=== PATIENT | male | born 1940 | race Caucasian/White ===

== ENCOUNTER → 2017-05-08 | Outpatient (CLI) | payer MEDICARE, OTHER ==
[2017-04-02 15:04] VITALS: BP 169/63
[~2017-05-08] MED LIST: AMLO10TA2 PO; ASPI-482 PO; ATOR40TA59 PO; CHOL10002 PO; CHOL10003 PO; CLON0.1T PO; CLOP75TA PO; DOXA4TAB3 PO; EPOE10005 IJ; FOLI1CAP11 PO; FURO-68 PO; FURO80TA3 PO; GLIP5POW MC; GLIP5TAB10 PO; HUM100VI5 SQ; HYDR-2867 PO; HYDR-2868 PO; HYDR-2869 PO; LOSA50TA6 PO; PARI1CAP PO; SITA25TA PO; TRAZ100T12 PO
--- NOTE | 2017-05-08 11:51 | RAD ---
APPROVED REPORT Patient Location: OUT-PATIENT Indications Claudication:Bilaterally VELOCITY AND DOPPLER WAVEFORM ANALYSIS RIGHT cm/secWaveformSeverity LEFT c m/secWaveformSeverity Ext Iliac Art. 187.0TriphasicExt Iliac Art. 179.0Biphasic pCFA 187.0BiphasicpCFA 145.0Biphasic dCFA 189.0BiphasicdCFA 145.0Biphasic Prof Fem Art. 196.0BiphasicProf Fem Art. 97.0Biphasic Fem Art Prox. 219.0TriphasicFem Art Prox. 202.0Biphasic Fem Art Mid. 212.0TriphasicFem Art Mid. 183.0Biphasic Fem Art Dist. 143.0TriphasicFem Art Dist. 149.0Triphasic Pop Art(AK) 143.0TriphasicPop Art(AK) 135.0Biphasic Pop Art(BK) 122.0TriphasicPop Art(BK) 142.0Biphasic [employer] Prox. 113.0MonophasicPTA Prox. 115.0Triphasi c [employer]PER[employer]OR Dist. 115.0MonophasicPTA Dist. 124.0Monophas ic Per Art Mid. Per Art Mid. 73.0Biphasic MERY Prox. 92.0BiphasicATA Prox. 79.0Biphasic Image Findings The bilateral lower extremity arterial vessels were evaluated for obstructive disease on lazaro scale i mages and color Doppler as well as spectral waveforms. On the right there are elevated velocities in the inflow vessels suggestive of approximately less augusta n 50% stenosis. The proximal to mid SFA velocities are suggestive of approximately 50% stenosis. No h igh-grade stenosis is identified in the popliteal system. The posterior tibial and anterior tibial ve locities are within normal limits. The peroneal vessels were not visualized. There is 2 vessel runoff on the right side. Spectral images are suggestive of biphasic waveforms throughout right lower extre mity arterial tree. On the left side there are again mild elevation velocities in the inflow vessels at the external alba c and common femoral artery levels. There is again a 50% stenosis based on velocities in the proximal to mid SFA. There is three-vessel runoff below the knees without any significant obstructive disease . Spectral waveforms are biphasic above the knee and monophasic below the knee. Critical Notification Critical Value: No <Conclusion> 1. Mild to moderate bilateral right greater than left occiput and mid superficial femoral arterial sy stem disease 2. Mild to moderate diffuse atherosclerosis throughout the lower extremity arterial tree. 3. Two-vessel runoff on the right and 3 vessel runoff on the left below the knee.
== END | disposition home or self-care (01) ==
LOC: US 07:46
PROVIDERS: ATTEND Internal Medicine Cardiovascular Disease
DX: I73.9 Peripheral vascular disease, unspecified (principal)
CPT/HCPCS: 93925

== ENCOUNTER 2017-09-23 09:32 | Emergency (ER) | payer MEDICARE, OTHER ==
[2017-09-23 10:33] LABS: ADD MAN DIFF? NO
[2017-09-23 10:37] LABS: BASO # 0.1 x10^3/uL (0.0-0.2); BASO % 1 % (0-3); EOS # 0.1 x10^3/uL (0.0-0.7); EOS % 1 % (0-3); HEMATOCRIT 27.4 % (39.0-53.0); HEMOGLOBIN 9.5 g/dL (13.0-17.5); LYMPH # 0.8 x10^3/uL (1.0-4.8); LYMPH % 16 % (24-48); MEAN CORPUSCULAR HEMOGLOBIN 33 pg (25-35); MEAN CORPUSCULAR HGB CONC 35 g/dL (31-37); MEAN CORPUSCULAR VOLUME 95 fL (79-100); MONO # 0.6 x10^3/uL (0.0-1.1); MONO % 12 % (0-9); NEUT # 3.5 x10^3uL (1.8-7.7); NEUT % 70 % (31-73); PLATELET COUNT 127 x10^3/uL (140-400); RED CELL DISTRIBUTION WIDTH 12.7 % (11.5-14.5)
[2017-09-23 10:51] LABS: ANION GAP 11 (6-14); BLOOD UREA NITROGEN 48 mg/dL (8-26); CARBON DIOXIDE 29 mmol/L (21-32); CHLORIDE 101 mmol/L (98-107); CREATININE 7.5 mg/dL (0.7-1.3); GFR 7.1; GLUCOSE 211 mg/dL (70-99); POTASSIUM 4.8 mmol/L (3.5-5.1); SODIUM 141 mmol/L (136-145)
[2017-09-23 10:56] LABS: ALBUMIN 3.6 g/dL (3.4-5.0); ALK PHOS 130 U/L (46-116); ALT (SGPT) 16 U/L (16-63); AST (SGOT) 11 U/L (15-37); DIRECT BILIRUBIN 0.1 mg/dL (0.0-0.2); LIPASE 123 U/L (73-393); TOTAL BILIRUBIN 0.4 mg/dL (0.2-1.0); TOTAL PROTEIN 6.2 g/dL (6.4-8.2)
[2017-09-23 10:57] LABS: TROPONINI 0.025 ng/mL (0.000-0.055)
[2017-09-23] MEDS: IV NORMAL SALINE 250ML 250 ML IV (11:27)
[2017-09-23] MEDS ORDERED: IV NORMAL SALINE 500ML BAG 500 ML IV (11:30)
== END 2017-09-23 15:21 | disposition home or self-care (01) ==
LOC: ER 09:32
DX: R42 Dizziness and giddiness (principal); I25.10 Atherosclerotic heart disease of native coronary artery without angina pectoris; N18.6 End stage renal disease; Z99.2 Dependence on renal dialysis; Z91.041 Radiographic dye allergy status; Z95.5 Presence of coronary angioplasty implant and graft
CPT/HCPCS: 36415; 71045; 80048; 80076; 83690; 84484; 85025; 93005; 96360; 99285-25; J7050

== ENCOUNTER 2017-10-19 14:22 | Inpatient (IN) | payer MEDICARE, OTHER ==
[2017-10-19] MEDS: NITROGLYCERIN SUBLINGUAL 0.4 MG BOTTLE OF 25. SL ×3 (14:55→17:58)
[2017-10-19] MEDS: ASPIRIN CHEWABLE 81 MG TABLET. PO (14:55)
[2017-10-19] MEDS: IV NORMAL SALINE 1000ML BAG 500 ML IV (14:55)
[2017-10-19 15:01] LABS: TROPONIN BY ISTAT 0.05 ng/ml (<0.08)
[2017-10-19 15:11] LABS: BASO % 0 % (0-3); EOS % 0 % (0-3); HEMATOCRIT 30.1 % (39.0-53.0); HEMOGLOBIN 10.2 g/dL (13.0-17.5); LYMPH # 0.3 x10^3/uL (1.0-4.8); LYMPH % 3 % (24-48); MEAN CORPUSCULAR HEMOGLOBIN 34 pg (25-35); MEAN CORPUSCULAR HGB CONC 34 g/dL (31-37); MEAN CORPUSCULAR VOLUME 99 fL (79-100); MONO # 0.1 x10^3/uL (0.0-1.1); MONO % 1 % (0-9); NEUT # 10.1 x10^3uL (1.8-7.7); NEUT % 96 % (31-73); PLATELET COUNT 170 x10^3/uL (140-400); RED BLOOD COUNT 3.04 x10^6/uL (4.30-5.70); RED CELL DISTRIBUTION WIDTH 14.2 % (11.5-14.5); WHITE BLOOD COUNT 10.5 x10^3/uL (4.0-11.0)
[2017-10-19 15:12] LABS: ADD MAN DIFF? YES
[2017-10-19 15:21] LABS: PROTHROMBIN TIME PATIENT 12.7 SEC (11.7-14.0)
[2017-10-19 15:25] LABS: D-DIMER 1.23 ug/mlFEU (0.00-0.50)
[2017-10-19] MEDS: dilTIAZem IV PUSH 25 MG/5 ML VIAL IVP ×2 (15:28→16:29)
[2017-10-19 15:31] LABS: ANION GAP 19 (6-14); BLOOD UREA NITROGEN 93 mg/dL (8-26); CALCIUM 8.7 mg/dL (8.5-10.1); CARBON DIOXIDE 20 mmol/L (21-32); CHLORIDE 95 mmol/L (98-107); CREATININE 11.6 mg/dL (0.7-1.3); GFR 4.3; SODIUM 134 mmol/L (136-145)
[2017-10-19 15:33] LABS: GLUCOSE 745 mg/dL (70-99)
[2017-10-19 15:34] LABS: POTASSIUM 6.6 mmol/L (3.5-5.1)
[2017-10-19] MEDS: CALCIUM GLUCONATE 1,000 MG/10 ML VIAL. IVP (16:01)
[2017-10-19] MEDS: MORPHINE SULFATE 4 MG/ML DISP.SYRIN. IV ×2 (16:02→18:00)
[2017-10-19] MEDS: INSULIN REGULAR 100 UNIT/ML 3ML VIAL. IV (16:07)
[2017-10-19] MEDS ORDERED: INSULIN REGULAR VIAL 150 UNIT in 0.9 % SODIUM CHLORIDE 150ML 150 ML IV (16:30)
[2017-10-19] MEDS ORDERED: ACETAMINOPHEN 325 MG TABLET. PO (16:30)
[2017-10-19] MEDS ORDERED: ONDANSETRON PF 4 MG/2 ML VIAL. IV (16:30)
[2017-10-19 16:55] LABS: MAGNESIUM 1.6 mg/dL (1.8-2.4)
[2017-10-19] MEDS: HEPARIN 25,000UTS/500ML PREMIX 500 ML IV (16:58)
[2017-10-19] MEDS: HEPARIN for IV BOLUS 10,000 UNIT/10 ML VIAL. IV (16:58)
[2017-10-19 16:59] LABS: PHOSPHORUS 3.3 mg/dL (2.6-4.7)
[2017-10-19] MEDS: INSULIN,REGULAR 150 UNIT DRIP 150 ML IV (17:00)
[2017-10-19 17:03] LABS: % BANDS 1 % (0-9); % LYMPHS 3 % (24-48); % MONOS 1 % (0-10); % SEGS 95 % (35-66)
[2017-10-19 17:04] LABS: PLT ESTIMATE ADEQUATE (ADEQUATE)
[2017-10-19 18:22] LABS: POC GLUCOSE 528 mg/dL (70-99)
[2017-10-19] MEDS: LABETALOL 20 MG/4 ML DISP.SYRIN. IVP (18:28)
[2017-10-19] MEDS ORDERED: IV NORMAL SALINE 1000ML BAG 1,000 ML IV ×2 (18:42)
[2017-10-19] MEDS ORDERED: DIALYSIS PATIENT. MC (18:45)
[2017-10-19] MEDS ORDERED: diphenhydrAMINE 50 MG/ML VIAL IV ×2 (18:45)
[2017-10-19] MEDS ORDERED: 0.9 % SODIUM CHLORIDE 10 ML DISP.SYRIN. IV ×2 (18:45)
[2017-10-19] MEDS ORDERED: NITROGLYCERIN PREMIX 250 ML IV (19:00)
[2017-10-19 19:41] LABS: POC GLUCOSE 445 mg/dL (70-99)
[2017-10-19 20:45] LABS: POC GLUCOSE 249 mg/dL (70-99)
[2017-10-19 21:09] LABS: UNFRACTIONATED HEPARIN TESTING 0.25 IU/mL (0.30-0.70)
[2017-10-19 21:53] LABS: POC GLUCOSE 164 mg/dL (70-99)
[2017-10-19 22:56] LABS: POC GLUCOSE 164 mg/dL (70-99)
[2017-10-20 00:04] LABS: ANION GAP 11 (6-14); BLOOD UREA NITROGEN 46 mg/dL (8-26); CALCIUM 8.7 mg/dL (8.5-10.1); CARBON DIOXIDE 31 mmol/L (21-32); CHLORIDE 97 mmol/L (98-107); CREATININE 6.1 mg/dL (0.7-1.3); GLUCOSE 152 mg/dL (70-99); MAGNESIUM 1.7 mg/dL (1.8-2.4); PHOSPHORUS 3.8 mg/dL (2.6-4.7); SODIUM 139 mmol/L (136-145)
[2017-10-20 00:05] LABS: POTASSIUM 4.1 mmol/L (3.5-5.1)
[2017-10-20 04:38] LABS: UNFRACTIONATED HEPARIN TESTING 0.27 IU/mL (0.30-0.70)
[2017-10-20] MEDS: LABETALOL 20 MG/4 ML DISP.SYRIN. IVP (04:38)
[2017-10-20 06:31] LABS: ANION GAP 13 (6-14); BLOOD UREA NITROGEN 53 mg/dL (8-26); CALCIUM 8.2 mg/dL (8.5-10.1); CARBON DIOXIDE 28 mmol/L (21-32); CHLORIDE 97 mmol/L (98-107); CREATININE 6.7 mg/dL (0.7-1.3); GFR 8.1; GLUCOSE 222 mg/dL (70-99); MAGNESIUM 1.6 mg/dL (1.8-2.4); PHOSPHORUS 6.1 mg/dL (2.6-4.7); POTASSIUM 4.9 mmol/L (3.5-5.1); SODIUM 138 mmol/L (136-145)
[2017-10-20 08:39] LABS: TROPONINI 17.664 ng/mL (0.000-0.055)
[2017-10-20] MEDS ORDERED: ASPIRIN ENTERIC COATED 325 MG TABLET.DR. PO (09:30)
[2017-10-20] MEDS: ANTI-COAG MONITOR BY PHARMACY. MC (09:47)
[2017-10-20 10:03] LABS: CHOLESTEROL 91 mg/dL (0-200); HDLC 48 mg/dL (40-60); LDLC 39 mg/dL (0-100); NON-HDL CHOLESTEROL 43 mg/dL (0-129); TRIGLYCERIDES 21 mg/dL (0-150); VLDLC 4 mg/dL (0-40)
[2017-10-20 10:04] LABS: CHOLESTEROL/HDL RATIO 1.9
[2017-10-20] MEDS: glipiZIDE 5 MG TABLET PO ×2 (11:30→11:42)
[2017-10-20] MEDS ORDERED: DEXTROSE 50% 25 GM / 50ML DISP.SYRIN. IV (11:45)
[2017-10-20] MEDS: FOLIC/VIT B COMP W-C (RENAL) TABLET. PO (11:53)
[2017-10-20] MEDS: DOXAZOSIN MESYLATE 4 MG TABLET. PO (11:53)
[2017-10-20] MEDS: ASPIRIN ENTERIC COATED 81 MG TABLET.DR. PO (11:53)
[2017-10-20] MEDS: MAGNESIUM SULFATE 1GM 100 ML IV (11:55)
[2017-10-20] MEDS: amLODIPine BESYLATE 10 MG TABLET PO (11:56)
[2017-10-20] MEDS: INSULIN NPH/REG INSULIN 70/30 300 UNITS/3 ML INSULN.PEN. SQ ×2 (12:00→16:05)
[2017-10-20] MEDS: CHOLECALCIFEROL (VITAMIN D3) 1,000 UNIT TABLET PO (12:00)
[2017-10-20 12:13] LABS: POC GLUCOSE 380 mg/dL (70-99)
[2017-10-20] MEDS ORDERED: methylPREDNISolone SOD SUCC PF 125 MG/2 ML VIAL. (12:50)
[2017-10-20] MEDS ORDERED: diphenhydrAMINE 50 MG/ML VIAL (12:50)
[2017-10-20] MEDS ORDERED: FAMOTIDINE 20 MG/2 ML VIAL (12:50)
[2017-10-20] MEDS: INSULIN LISPRO 300 UNITS/3 ML INSULN.PEN. SQ ×2 (12:57→16:08)
[2017-10-20] MEDS: IODIXANOL 320 MG/ML 100 ML VIAL. IART (13:00)
[2017-10-20] MEDS: diphenhydrAMINE 50 MG/ML VIAL IVP (13:00)
[2017-10-20] MEDS: methylPREDNISolone SOD SUCC PF 125 MG/2 ML VIAL. IV (13:00)
[2017-10-20] MEDS: FAMOTIDINE 20 MG/2 ML VIAL IVP (13:00)
[2017-10-20] MEDS ORDERED: CONTRAST GIVEN MC (13:15)
[2017-10-20] MEDS ORDERED: NITROGLYCERIN 200 MCG/2 ML SYRINGE FOR CATH/VASC LAB. (13:20)
[2017-10-20] MEDS ORDERED: VERAPAMIL 5 MG/2 ML VIAL. (13:20)
[2017-10-20] MEDS ORDERED: fentaNYL PF VIAL 100 MCG/2 ML VIAL (13:20)
[2017-10-20] MEDS ORDERED: MIDAZOLAM HCL/PF 2 MG/2 ML VIAL. (13:20)
[2017-10-20] MEDS ORDERED: HEPARIN for IV BOLUS 10,000 UNIT/10 ML VIAL. (13:20)
[2017-10-20] MEDS ORDERED: HYDRALAZINE HCL 25 MG PO (14:00)
[2017-10-20] MEDS ORDERED: IODIXANOL 320 MG/ML 100 ML VIAL. (14:01)
[2017-10-20] MEDS: NITROGLYCERIN 200 MCG/2 ML SYRINGE FOR CATH/VASC LAB. IART (14:02)
[2017-10-20] MEDS: VERAPAMIL 5 MG/2 ML VIAL. IART (14:02)
[2017-10-20] MEDS: LIDOCAINE 2% 20 ML VIAL. IJ (14:03)
[2017-10-20] MEDS: fentaNYL PF VIAL 100 MCG/2 ML VIAL IV (14:04)
[2017-10-20] MEDS: MIDAZOLAM HCL/PF 2 MG/2 ML VIAL. IV (14:04)
[2017-10-20] MEDS: HEPARIN for IV BOLUS 10,000 UNIT/10 ML VIAL. IART (14:08)
[2017-10-20 16:00] LABS: POC GLUCOSE 321 mg/dL (70-99)
[2017-10-20] MEDS: FUROSEMIDE 80 MG TABLET. PO (16:00)
[2017-10-20] MEDS: cloNIDine HCL 0.1 MG TABLET PO ×2 (16:01→22:15)
[2017-10-20 18:16] LABS: MRSA BY PCR Negative (Negative)
[2017-10-20 20:56] LABS: POC GLUCOSE 346 mg/dL (70-99)
[2017-10-20] MEDS: ATORVASTATIN CALCIUM 40 MG TABLET. PO (22:15)
[2017-10-21] MEDS ORDERED: IV NORMAL SALINE 1000ML BAG 1,000 ML IV ×2 (07:58)
[2017-10-21] MEDS ORDERED: DIALYSIS PATIENT. MC ×2 (08:00)
[2017-10-21] MEDS ORDERED: ASPIRIN ENTERIC COATED 81 MG TABLET.DR. PO ×2 (08:00→09:00)
[2017-10-21] MEDS: INSULIN NPH/REG INSULIN 70/30 300 UNITS/3 ML INSULN.PEN. SQ ×2 (08:00→18:10)
[2017-10-21 08:07] LABS: POC GLUCOSE 382 mg/dL (70-99)
[2017-10-21] MEDS: glipiZIDE 5 MG TABLET PO ×3 (08:13→17:17)
[2017-10-21] MEDS: INSULIN LISPRO 300 UNITS/3 ML INSULN.PEN. SQ ×3 (08:21→17:00)
[2017-10-21] MEDS: LABETALOL 20 MG/4 ML DISP.SYRIN. IVP (08:42)
[2017-10-21] MEDS: FOLIC/VIT B COMP W-C (RENAL) TABLET. PO (08:44)
[2017-10-21] MEDS ORDERED: ACETAMINOPHEN 325 MG TABLET. PO ×2 (08:45→13:30)
[2017-10-21] MEDS: ASPIRIN ENTERIC COATED 81 MG TABLET.DR. PO (08:45)
[2017-10-21] MEDS ORDERED: fentaNYL PF VIAL 100 MCG/2 ML VIAL IV (08:45)
[2017-10-21] MEDS: amLODIPine BESYLATE 10 MG TABLET PO (08:45)
[2017-10-21] MEDS: CHOLECALCIFEROL (VITAMIN D3) 1,000 UNIT TABLET PO (08:45)
[2017-10-21] MEDS ORDERED: ATROPINE 0.5 MG/5 ML DISP.SYRINGE. IV (08:45)
[2017-10-21] MEDS ORDERED: AMIODARONE 150 MG in IV DEXTROSE 5% 100 ML IV (08:45)
[2017-10-21] MEDS ORDERED: NITROGLYCERIN SUBLINGUAL 0.4 MG BOTTLE OF 25. SL (08:45)
[2017-10-21] MEDS ORDERED: 0.9 % SODIUM CHLORIDE 10 ML DISP.SYRIN. IV (08:45)
[2017-10-21] MEDS ORDERED: LIDOCAINE 2% 100 MG/5 ML SYRINGE. IV (08:45)
[2017-10-21] MEDS: DOXAZOSIN MESYLATE 4 MG TABLET. PO (09:00)
[2017-10-21] MEDS: cloNIDine HCL 0.1 MG TABLET PO ×3 (09:00→20:33)
[2017-10-21] MEDS: FUROSEMIDE 80 MG TABLET. PO ×2 (09:00→17:18)
[2017-10-21] MEDS ORDERED: amLODIPine BESYLATE 10 MG TABLET PO (09:00)
[2017-10-21] MEDS ORDERED: IODIXANOL 320 MG/ML 100 ML VIAL. (10:48)
[2017-10-21] MEDS ORDERED: LIDOCAINE 2% 20 ML VIAL. (10:49)
[2017-10-21] MEDS ORDERED: methylPREDNISolone SOD SUCC PF 125 MG/2 ML VIAL. (10:55)
[2017-10-21] MEDS ORDERED: FAMOTIDINE 20 MG/2 ML VIAL (10:55)
[2017-10-21] MEDS ORDERED: diphenhydrAMINE 50 MG/ML VIAL (10:55)
[2017-10-21] MEDS ORDERED: fentaNYL PF VIAL 100 MCG/2 ML VIAL (10:55)
[2017-10-21] MEDS ORDERED: MIDAZOLAM HCL/PF 2 MG/2 ML VIAL. (10:55)
[2017-10-21] MEDS ORDERED: BIVALIRUDIN 250 MG VIAL. IV (11:33)
[2017-10-21] MEDS ORDERED: NITROGLYCERIN 200 MCG/2 ML SYRINGE FOR CATH/VASC LAB. (12:13)
[2017-10-21] MEDS: LIDOCAINE 2% 20 ML VIAL. IJ (12:27)
[2017-10-21] MEDS: BIVALIRUDIN 250 MG VIAL. IV (12:28)
[2017-10-21] MEDS: IODIXANOL 320 MG/ML 100 ML VIAL. IART (12:28)
[2017-10-21] MEDS: methylPREDNISolone SOD SUCC PF 125 MG/2 ML VIAL. IV (12:28)
[2017-10-21] MEDS: NITROGLYCERIN 200 MCG/2 ML SYRINGE FOR CATH/VASC LAB. ICAR (12:29)
[2017-10-21] MEDS: MIDAZOLAM HCL/PF 2 MG/2 ML VIAL. IV (12:29)
[2017-10-21] MEDS: fentaNYL PF VIAL 100 MCG/2 ML VIAL IV (12:29)
[2017-10-21] MEDS: FAMOTIDINE 20 MG/2 ML VIAL IVP (12:30)
[2017-10-21] MEDS: ASPIRIN CHEWABLE 81 MG TABLET. PO (12:30)
[2017-10-21] MEDS: diphenhydrAMINE 50 MG/ML VIAL IVP (12:30)
[2017-10-21] MEDS: CLOPIDOGREL BISULFATE 75 MG TABLET PO (12:30)
[2017-10-21] MEDS ORDERED: CONTRAST GIVEN MC (12:45)
[2017-10-21 14:20] LABS: POC GLUCOSE 139 mg/dL (70-99)
[2017-10-21 17:30] LABS: POC GLUCOSE 264 mg/dL (70-99)
[2017-10-21] MEDS: ATORVASTATIN CALCIUM 40 MG TABLET. PO (20:32)
[2017-10-21 20:54] LABS: POC GLUCOSE 409 mg/dL (70-99)
[2017-10-22 00:24] LABS: POC GLUCOSE 360 mg/dL (70-99)
[2017-10-22 07:30] LABS: POC GLUCOSE 291 mg/dL (70-99)
[2017-10-22] MEDS: glipiZIDE 5 MG TABLET PO ×3 (08:51→16:30)
[2017-10-22] MEDS: FOLIC/VIT B COMP W-C (RENAL) TABLET. PO (08:51)
[2017-10-22] MEDS: CHOLECALCIFEROL (VITAMIN D3) 1,000 UNIT TABLET PO (08:51)
[2017-10-22] MEDS: ASPIRIN ENTERIC COATED 325 MG TABLET.DR. PO (08:51)
[2017-10-22] MEDS: cloNIDine HCL 0.1 MG TABLET PO ×2 (08:52→14:00)
[2017-10-22] MEDS: DOXAZOSIN MESYLATE 4 MG TABLET. PO (08:52)
[2017-10-22] MEDS: amLODIPine BESYLATE 10 MG TABLET PO (08:53)
[2017-10-22] MEDS: FUROSEMIDE 80 MG TABLET. PO ×2 (08:53→14:26)
[2017-10-22] MEDS: CLOPIDOGREL BISULFATE 75 MG TABLET PO (08:53)
[2017-10-22] MEDS: INSULIN NPH/REG INSULIN 70/30 300 UNITS/3 ML INSULN.PEN. SQ ×2 (08:58→17:00)
[2017-10-22] MEDS: INSULIN LISPRO 300 UNITS/3 ML INSULN.PEN. SQ ×3 (09:04→17:00)
[2017-10-22 11:40] LABS: POC GLUCOSE 188 mg/dL (70-99)
[2017-10-22 17:18] LABS: POC GLUCOSE 65 mg/dL (70-99)
[2017-10-22] MEDS: CARVEDILOL 3.125 MG TABLET. PO (18:15)
[2017-10-22 18:25] LABS: POC GLUCOSE 122 mg/dL (70-99)
== END 2017-10-22 19:00 | disposition home or self-care (01) | DRG 246 ==
LOC: ER 14:22 → 2 SOUTH 10-20 16:30 → 1 WEST ICU 16:00
PROVIDERS: Family Medicine
PROC: 027237Z Dilation of Coronary Artery, Three Arteries with Four or More Drug-eluting Intraluminal Devices, Percutaneous Approach (ICD-10-PCS; principal; 2017-10-19)
PROC: B2111ZZ Fluoroscopy of Multiple Coronary Arteries using Low Osmolar Contrast (ICD-10-PCS; 2017-10-20)
PROC: B2151ZZ Fluoroscopy of Left Heart using Low Osmolar Contrast (ICD-10-PCS; 2017-10-20)
PROC: 4A023N7 Measurement of Cardiac Sampling and Pressure, Left Heart, Percutaneous Approach (ICD-10-PCS; 2017-10-20)
DX: I21.4 Non-ST elevation (NSTEMI) myocardial infarction (principal); E11.10 Type 2 diabetes mellitus with ketoacidosis without coma; I13.2 Hypertensive heart and chronic kidney disease with heart failure and with stage 5 chronic kidney disease, or end stage renal disease; N18.6 End stage renal disease; I47.1 Supraventricular tachycardia; E11.22 Type 2 diabetes mellitus with diabetic chronic kidney disease; E11.51 Type 2 diabetes mellitus with diabetic peripheral angiopathy without gangrene; E78.5 Hyperlipidemia, unspecified; E87.5 Hyperkalemia; I25.10 Atherosclerotic heart disease of native coronary artery without angina pectoris; I48.91 Unspecified atrial fibrillation; I50.9 Heart failure, unspecified; Z86.010 Personal history of colon polyps; Z89.519 Acquired absence of unspecified leg below knee; Z91.041 Radiographic dye allergy status; Z99.2 Dependence on renal dialysis; K57.90 Diverticulosis of intestine, part unspecified, without perforation or abscess without bleeding; F41.9 Anxiety disorder, unspecified; M10.9 Gout, unspecified; M19.90 Unspecified osteoarthritis, unspecified site; E78.00 Pure hypercholesterolemia, unspecified; Z90.49 Acquired absence of other specified parts of digestive tract
CPT/HCPCS: 36415; 71045; 80048; 80061; 82962; 83735; 84100; 84484; 85007; 85025; 85379; 85520; 85610; 87641; 92928; 93005; 93306; 93454; 93458; 96361; 96365; 96368; 96375; 96376; 99152; 99153; 99285; 99285-25; C1713; C1725; C1769; C1771; C1892; G0269; J0583; J0610; J1200; J1644; J1815; J2250; J2270; J2930; J3010; J3475; J3490; J7030; S0028

== ENCOUNTER → 2018-01-25 | Outpatient (CLI) | payer MEDICARE, OTHER ==
[2017-12-11 10:46] VITALS: BP 96/58
[~2018-01-25] MED LIST changes: +ASCO500C9 PO; +CARV12.52 PO; +LIDO700A39 TP; +NITR0.4T22 SL; +TRAZ-85 PO; +TRAZ-86 PO; -TRAZ100T12 PO; +ZINC50TA29 PO
--- NOTE | 2018-01-25 12:10 | RAD ---
CT chest, abdomen and pelvis without IV contrast CLINICAL HISTORY: BACTEREMIA, NIGHT SWEAT. READI CAT DUE TO IODINE ALLERGIES. . COMPARISON: CT 09/18/2012, 11/17/2017 TECHNIQUE: CT of the chest, abdomen and pelvis without intravenous contrast. Oral contrast was administered. Coronal and sagittal reformatted images were generated. PQRS compliance statement - One or more of the following individualized dose reduction techniques were utilized for this study: 1. Automated exposure control 2. Adjustment of the mA and/or kV according to patient size 3. Use of iterative reconstruction technique FINDINGS: Lack of intravenous contrast limits evaluation for solid organs, vasculature, and lymph nodes. Motion artifact also limits evaluation of the upper abdomen. CHEST: The heart is mildly enlarged. Coronary artery calcifications are seen. Mild pericardial effusion, stable. Atherosclerotic calcifications of the aorta is seen. Enlargement of the pulmonary arterial trunk measuring 3.8 cm, possibly pulmonary arterial hypertension. An enlarged azygoesophageal lymph node measures 2.6 x 1.2 cm, stable. Additional prominent mediastinal lymph nodes are seen, not enlarged by size criteria. Evaluation for hilar lymphadenopathy is limited on this noncontrast exam. No axillary lymphadenopathy. Small to moderate bilateral pleural effusions seen, mildly increased bilaterally. No pneumothorax. Bilateral parenchymal airspace opacity seen on prior CT have mostly resolved. Residual bilateral lower lobe and lingular opacities likely from compressive type atelectasis given associated pleural effusions. ABDOMEN AND PELVIS: No focal liver lesion is seen. Layering gallstones are noted. No biliary ductal dilatation. Spleen is enlarged measuring 14.8 cm in length. A 2.1 cm right adrenal nodule is essentially stable to prior CT 09/18/2012. Left adrenal gland is normal. Pancreas is unremarkable. No definite renal calculus is identified. No suspicious renal mass. There is bilateral renal cortical medullary thinning suggesting atrophy. No hydronephrosis. Dense atherosclerotic calcifications of aorta and main branches is seen most prominent within the splenic artery. Aorta remains normal in caliber. The appendix is normal. Moderate colonic stool content. No small or large bowel dilatation. Prostate is enlarged. Partially decompressed bladder is otherwise unremarkable. No abdominal or pelvic lymphadenopathy. Small fat-containing periumbilical hernia. Chondrocalcinosis of the symphysis pubis. Decreased bone mineral density. Multilevel degenerative changes of the spine are seen. IMPRESSION: 1. Interval near resolution of the bilateral parenchymal airspace opacities. Residual lung base and lingular opacities likely atelectasis. 2. Bilateral pleural effusions are stable to borderline increased. 3. Prominent enlarged thoracic lymph nodes, stable in size. 4. Spleen is enlarged. 5. Cholelithiasis. 6. Enlarged prostate. Electronically signed by: Angel Stokes MD (01/25/2018 12:06 PM) [id number]
== END | disposition home or self-care (01) ==
LOC: CT 09:06
PROVIDERS: ATTEND Internal Medicine Infectious Disease
DX: J90 Pleural effusion, not elsewhere classified (principal); K80.20 Calculus of gallbladder without cholecystitis without obstruction; M85.38 Osteitis condensans, other site; K42.9 Umbilical hernia without obstruction or gangrene; I70.0 Atherosclerosis of aorta; N40.0 Benign prostatic hyperplasia without lower urinary tract symptoms; R16.1 Splenomegaly, not elsewhere classified; R59.0 Localized enlarged lymph nodes
CPT/HCPCS: 71250; 74176

== ENCOUNTER 2018-02-01 06:57 | Outpatient (CLI) | payer MEDICARE, OTHER ==
[2018-02-01] VITALS (11 sets, daily range): BP systolic 131–151; BP diastolic 69–110
[~2018-02-01] VITALS: Ht 185.4 cm; Wt 89.8 kg
[2018-02-01] MEDS ORDERED: IRON1CAP17 PO (07:30)
[2018-02-01] MEDS ORDERED: MELA3TAB2 PO (07:30)
[2018-02-01] MEDS ORDERED: CEPH500C PO (07:30)
[2018-02-01] MEDS ORDERED: FOLI0.8T21 PO (07:30)
[2018-02-01] MEDS ORDERED: DOXY100C2 PO (07:30)
[2018-02-01 07:35] LABS: BASO # 0.1 x10^3/uL (0.0-0.2); BASO % 1 % (0-3); EOS # 0.1 x10^3/uL (0.0-0.7); EOS % 1 % (0-3); HEMATOCRIT 33.7 % (39.0-53.0); HEMOGLOBIN 10.7 g/dL (13.0-17.5); LYMPH # 0.4 x10^3/uL (1.0-4.8); LYMPH % 5 % (24-48); MEAN CORPUSCULAR HEMOGLOBIN 30 pg (25-35); MEAN CORPUSCULAR HGB CONC 32 g/dL (31-37); MEAN CORPUSCULAR VOLUME 96 fL (79-100); MONO # 0.6 x10^3/uL (0.0-1.1); MONO % 7 % (0-9); NEUT # 6.5 x10^3uL (1.8-7.7); NEUT % 86 % (31-73); PLATELET COUNT 193 x10^3/uL (140-400); RED BLOOD COUNT 3.51 x10^6/uL (4.30-5.70); RED CELL DISTRIBUTION WIDTH 18.3 % (11.5-14.5); WHITE BLOOD COUNT 7.6 x10^3/uL (4.0-11.0)
[2018-02-01 07:43] LABS: PROTHROMBIN TIME PATIENT 15.5 SEC (11.7-14.0)
--- NOTE | 2018-02-01 10:33 | RAD ---
PORTABLE CHEST 1V History: POST THORACENTESIS Comparison: December 10, 2007 Findings: Single view of the chest is submitted. There is improved aeration left lung base. No pneumothorax is identified. Pericardial cardiac silhouette is again enlarged. There is persistent left base opacity likely due to the presence of pleural fluid with adjacent atelectasis or infiltrate. There is a fairly opaque nodular opacity mid left hemithorax, calcified granuloma as seen on previous CT of the left lower lobe. Impression: 1. There is improved aeration of the left hemithorax, decreased left pleural effusion. No pneumothorax is identified. Electronically signed by: Reid Thomas MD (02/01/2018 10:30 AM) [id number]
[2018-02-01 10:38] LABS: % BANDS 1 % (0-9); % LYMPHS 2 % (24-48); % MONOS 3 % (0-10); % SEGS 94 % (35-66); PLT ESTIMATE ADEQUATE (ADEQUATE)
--- NOTE | 2018-02-01 11:45 | RAD ---
Ultrasound-guided left-sided thoracentesis 02/01/2018 11:40 AM Indication: Bilateral pleural effusions. Possible infection. Procedure: Informed consent was obtained. A timeout procedure was performed. Sonographic evaluation of the left chest was performed demonstrating small bilateral pleural effusions. Right pleural effusion is simple in appearance. Left pleural effusion appears multiloculated. Given evaluation is for infection, the more complex fluid collection was chosen. The left posterior chest was prepped and draped in sterile fashion. 1% lidocaine without epinephrine was administered for local anesthesia. Real-time ultrasonographic guidance was used in passing a 5 [employer] catheter into the left pleural space. 100 cc of serous appearing pleural fluid was removed. Samples of fluid were sent to the lab for further evaluation per ordering physician request. The catheter was removed and pressure held to achieve hemostasis. A sterile dressing was applied. No immediate complications were identified. The patient tolerated the procedure well. Impression: Multiloculated appearing left pleural effusion. Left sided ultrasound-guided thoracentesis yielded only 100 cc of serous appearing fluid.
[2018-02-01 13:18] LABS: BF CLARITY HAZY; BF COLOR YELLOW; BF MON % 100 %; BF PMN % 0 %; BF RBC COUNT 2069 /cmm; BF SOURCE PLEURAL; BF WBC COUNT 153 /cmm
--- NOTE | 2018-02-01 17:29 | CARD ---
MR#: [id number] Date of Study: 02/01/2018 Ordering Physician: CASSIE PATEL, Referring Physician: CASSIE PATEL Tech: STELLA Templeton APPROVED REPORT EXAM: Two-dimensional and M-mode echocardiogram with Doppler and color Doppler. Other Information Quality : AverageHR: 105bpm Technically limited study due to body habitus. INDICATION Pericardial Effusion Dyspnea 2D DIMENSIONS RVDd3.5 (2.9-3.5cm)Left Atrium(2D)4.1 (1.6-4.0cm) IVSd1.4 (0.7-1.1cm)Aortic Root(2D)2.9 (2.0-3.7cm) LVDd3.5 (3.9-5.9cm)LVOT Diameter1.9 (1.8-2.4cm) PWd1.6 (0.7-1.1cm)LVDs3.2 (2.5-4.0cm) FS (%) 15.5 %SV10.1 ml LVEF(%)30.0 (>50%) Aortic Valve AoV Peak Tiburcio.110.0cm/sAoV VTI21.9cm AO Peak GR.4.8mmHgLVOT VTI 13.80cm AO Mean GR.3mmHg Mitral Valve MV E Peak Gr.80mmHg TDI Lateral E' P. V12.55cm/sMedial E' P. V11.74cm/s Pulmonary Valve PV Peak Pjstuksn279.2cm/s Tricuspid Valve TR P. [id number]/sRAP [id number] TR Peak Gr.71nwJwSHYK49pySp LEFT VENTRICLE The left ventricle cavity is small. There is mild to moderate concentric left ventricular hypertrophy . Unable to accurately predict LV systolic function. Technically difficult study but grossly EF appea rs 50%. Septal motion consistent with conduction abnormality. Otherwise, global hypokinesis. Tissue D oppler imaging reveals moderate left ventricular diastolic dysfunction. RIGHT VENTRICLE The right ventricle is borderline dilated. The right ventricular systolic function is normal. ATRIA The left atrium is mildly dilated. The right atrium size is normal. The interatrial septum is intact with no evidence for an atrial septal defect or patent foramen ovale as noted on 2-D or Doppler imagi ng. AORTIC VALVE The aortic valve is not well visualized. Doppler and Color Flow revealed no significant aortic regurg itation. There is no significant aortic valvular stenosis. There is no aortic valvular vegetation. MITRAL VALVE The mitral valve is normal in structure. There is no evidence of mitral valve prolapse. There is no m itral valve stenosis. Doppler and Color-flow revealed trace mitral regurgitation. TRICUSPID VALVE The tricuspid valve is not well visualized. Doppler and Color Flow revealed mild tricuspid regurgitat ion. The PA pressure was estimated at 38 mmHg. There is no tricuspid valve prolapse or vegetation. Th ere is no tricuspid valve stenosis. PULMONIC VALVE The pulmonic valve is not well visualized. Doppler and Color Flow revealed mild pulmonic valvular reg urgitation. There is no pulmonic valvular stenosis. GREAT VESSELS The aortic root is normal in size. The aortic root is normal size. The aortic root displays moderate sclerocalcific changes of the aortic root. The IVC is dilated and collapses <50% with inspiration. PERICARDIAL EFFUSION There is no pleural effusion. There is a trace circumferential pericardial effusion. Critical Notification Critical Value: No <Conclusion> Septal motion consistent with conduction abnormality. Otherwise, global hypokinesis. Doppler and Color Flow revealed mild tricuspid regurgitation. The PA pressure was estimated at 38 mm Hg. There is a trace circumferential pericardial effusion. Unable to accurately predict LV systolic function. Technically difficult study but grossly EF appears 50%. Signed by : Alex Hope, Electronically Approved : 02/01/2018 17:28:34
== END 2018-02-01 11:55 | disposition home or self-care (01) ==
LOC: INTRAD 06:57
PROVIDERS: ATTEND Internal Medicine Infectious Disease
DX: J90 Pleural effusion, not elsewhere classified (principal); I08.1 Rheumatic disorders of both mitral and tricuspid valves; I09.89 Other specified rheumatic heart diseases; Z91.041 Radiographic dye allergy status; I31.3 Pericardial effusion (noninflammatory)
CPT/HCPCS: 32555; 36415; 71045; 82945; 83615; 83986; 85007; 85025; 85610; 87071; 87075; 87116; 89050; 93306

== ENCOUNTER → 2018-10-27 | Day surgery (SDC) | payer MEDICARE, OTHER ==
[~2018-10-27] MED LIST changes: +ACETAMINOPHEN 500 MG TABLET PO ONE; -AMLO10TA2 PO; +AMLO10TA8 PO; +CALC-497 PO; +CARV12.511 PO; -CARV12.52 PO; +CEPH500C PO; +DEXAMETHASONE SOD PHOS 4 MG/ML VIAL ONE; +DOXA4TAB2 PO; +DOXY100C2 PO; +FOLI0.8T21 PO; +HEPARIN SODIUM 5,000 UNIT in IV NORMAL SALINE 500ML BAG 500 ML IRR ONE; +HYDROmorphone 2 MG/ML VIAL IV PRN; +INSU100I41 SQ; +INSULIN LISPRO 100 UNIT/ML 3ML VIAL. SQ PRN; +IRON1CAP17 PO; +IV NORMAL SALINE 1000ML BAG 1,000 ML IV SCH; +IV RINGERS,LACTATED 1000ML 1,000 ML IV SCH; +LIDOCAINE 1% 20 ML VIAL. ONE; +LIDOCAINE 1% PF 2 ML VIAL. ID PRN; +LIDOCAINE 2% PF 5 ML VIAL. ONE; +LOSA-73 PO; -LOSA50TA6 PO; +MELA3TAB2 PO; +METO25TA4 PO; +METO50TA6 PO; +MORPHINE SULFATE 2 MG/ML VIAL. IV PRN; +MULT1TAB52 PO; +ONDANSETRON PF 4 MG/2 ML VIAL. IV PRN; +ONDANSETRON PF 4 MG/2 ML VIAL. ONE; +PAPAVERINE 60 MG/2 ML VIAL FOR OR ONLY. ONE; +PHOSLO; +PROCHLORPERAZINE 10 MG/2 ML VIAL. IV PRN; +PROPOFOL 20 ML IV ONE; +SEVOFLURANE 31 TO 60 MINUTES. IH ONE; +SURGICEL FIBRILLAR 1X2 EACH. ONE; +TRAZ-118 PO; -TRAZ-85 PO; -ZINC50TA29 PO; +ZINC50TA39 PO; +ceFAZolin 2GM PREMIX 2 GM/50 ML BAG IV ONE; +fentaNYL PF VIAL 100 MCG/2 ML VIAL IV PRN; +fentaNYL PF VIAL 100 MCG/2 ML VIAL ONE
[2018-10-27 07:20] LABS: BASO # 0.1 x10^3/uL (0.0-0.2); BASO % 1 % (0-3); EOS # 0.1 x10^3/uL (0.0-0.7); EOS % 1 % (0-3); HEMATOCRIT 38.7 % (39.0-53.0); HEMOGLOBIN 13.5 g/dL (13.0-17.5); LYMPH # 1.1 x10^3/uL (1.0-4.8); LYMPH % 18 % (24-48); MEAN CORPUSCULAR HEMOGLOBIN 35 pg (25-35); MEAN CORPUSCULAR HGB CONC 35 g/dL (31-37); MEAN CORPUSCULAR VOLUME 102 fL (79-100); MONO # 0.8 x10^3/uL (0.0-1.1); MONO % 14 % (0-9); NEUT # 3.9 x10^3uL (1.8-7.7); NEUT % 66 % (31-73); PLATELET COUNT 148 x10^3/uL (140-400); RED BLOOD COUNT 3.82 x10^6/uL (4.30-5.70); RED CELL DISTRIBUTION WIDTH 14.9 % (11.5-14.5); WHITE BLOOD COUNT 5.9 x10^3/uL (4.0-11.0)
[2018-10-27 07:37] LABS: CALCIUM 9.6 mg/dL (8.5-10.1); CREATININE 8.4 mg/dL (0.7-1.3); GFR 6.2; POTASSIUM 5.4 mmol/L (3.5-5.1)
--- NOTE | 2018-10-27 08:40 | PDOC4 ---
OPERATIVE NOTE: 10/27/2018 Preoperative diagnosis: End-stage renal disease on hemodialysis Skin cancer of left upper extremity Postoperative diagnosis: Same Procedure: Wide local excision of left forearm skin cancer for a dimension of 2.5 x 2 cm with 1 cm margins Surgeon: Mary Jane Hickman DO, AURELIA, DONNA Preoperative indications: This is a very pleasant 78-year-old male who was referred to me for a forearm skin cancer. The skin cancer is directly overlying the patient's forearm AV fistula. I consented the patient for operative excision of his skin cancer with wide local excision. The risks, benefits, and alternati ves were discussed. He was agreeable to proceed. Ne Operative procedure: The patient was brought to the operative suite and placed supine position. After stenosing appropriate general anesthesia the patient's left upper extremity was prepped and draped in sterile fashion. Next a timeout procedure was performed. It was confirmed that the patient did receive appropriate perioperative antibiotics and the correct operative site was marked and draped. Following this 1% lidocaine was infiltrated surrounding the forearm skin cancer lesion. I also measured 1 cm margins surrounding the incision to plan an elliptical wide local resection. Next a #15 blade scalpel was used and carried through the skin a subcutaneous tissue circumferentially around the lesion. I did encounter the fistula and the deep tissue and this was carefully preserved without injury. The specimen was subsequently handed off the field and sent for permanent specimen. Next I mobilized the skin circumferentially and confirmed hemostasis with Bovie electrocautery. Following this the skin was closed using interrupted 3-0 nylon suture. Sterile dressing was socially placed. Patient tolerated procedure well and was transferred to the postanesthesia care unit in stable condition. Next Estimated blood loss: Minimal next Complications: None MARY JANE HICKMAN DO October 27, 2018 08:40
[2018-10-27 09:30] VITALS: BP 114/66
--- NOTE | 2018-10-29 15:06 | PATHOLOGY ---
[facility] Accession Number: [id number] . 01 Material submitted: . forearm - LEFT FOREARM SKIN EXCISION. Modifiers: left . 01 Clinical history: . Skin cancer . 02 Diagnosis: Skin and subcutaneous tissue, left forearm lesion, excision: - ULCERATED BASAL CELL CARCINOMA. SEE COMMENT. (JPM:db; 10/29/2018) [facility]/10/29/2018 . 02 Comment: Sections of the left forearm skin lesion reveal a large, focally ulcerated basal cell carcinoma. The deep and side inked margins of excision are generally free of neoplasm. However, in one of the sections of the tumor, there is focal tumor involvement of an inked coagulated side margin. (JPM/db; 10/29/2018) . 02 Electronically signed: . Johnathan Griffin MD, Pathologist NPI- [id number] . 01 Gross description: . The specimen is received in formalin, labeled "[place], left forearm". Received is an ellipse of skin measuring 3.8 x 2.4 x 0.7 cm in greatest dimensions. The epidermal surface displays a lesion which is poorly circumscribed, irregular in contour, and white to light jaramillo in appearance measuring 2.5 x 2.0 cm. The surgical margin is inked. The specimen is sectioned into 14 pieces and entirely submitted in cassettes A1 through A5, with the bisected tips placed in cassette A5. (CAA; 10/28/2018) QAC/QAC . 02 Pathologist provided ICD-10: C44.619 . 02 CPT . 502625 Specimen Comment: A courtesy copy of this report has been sent to Specimen Comment: [phone], . Specimen Comment: Report sent to / DR GARCIA Performed at: 01 [facility] [address], [place], [place] [id number] MD Fred Conteh MD Phone: [phone] Performed at: 02 [facility] [address] [place], [place] [id number] MD Johnathan Griffin MD Phone: [phone]
== END | disposition home or self-care (01) ==
LOC: SURG 06:12
PROVIDERS: ATTEND Surgery
DX: C44.619 Basal cell carcinoma of skin of left upper limb, including shoulder (principal); I12.0 Hypertensive chronic kidney disease with stage 5 chronic kidney disease or end stage renal disease; E11.22 Type 2 diabetes mellitus with diabetic chronic kidney disease; N18.6 End stage renal disease; E78.5 Hyperlipidemia, unspecified; Z79.899 Other long term (current) drug therapy; Z88.8 Allergy status to other drugs, medicaments and biological substances; Z79.82 Long term (current) use of aspirin; Z79.84 Long term (current) use of oral hypoglycemic drugs; Z99.2 Dependence on renal dialysis
CPT/HCPCS: 11603; 36415; 80048; 82962; 85025; 88305; A7015; J0690; J0696; J1100; J1644; J2001; J2405; J2704; J3010; J7040; J2440

== ENCOUNTER → 2019-02-09 | Outpatient (CLI) | payer MEDICARE, OTHER ==
[2018-10-27 09:30] VITALS: BP 114/66
[~2019-02-09] MED LIST changes: -ACETAMINOPHEN 500 MG TABLET PO ONE; -DEXAMETHASONE SOD PHOS 4 MG/ML VIAL ONE; -HEPARIN SODIUM 5,000 UNIT in IV NORMAL SALINE 500ML BAG 500 ML IRR ONE; -HYDROmorphone 2 MG/ML VIAL IV PRN; -INSULIN LISPRO 100 UNIT/ML 3ML VIAL. SQ PRN; -IV NORMAL SALINE 1000ML BAG 1,000 ML IV SCH; -IV RINGERS,LACTATED 1000ML 1,000 ML IV SCH; +LIDO700A21 TP; -LIDO700A39 TP; -LIDOCAINE 1% 20 ML VIAL. ONE; -LIDOCAINE 1% PF 2 ML VIAL. ID PRN; -LIDOCAINE 2% PF 5 ML VIAL. ONE; -MELA3TAB2 PO; +MELA3TAB56 PO; +MIDO5TAB PO; -MORPHINE SULFATE 2 MG/ML VIAL. IV PRN; -ONDANSETRON PF 4 MG/2 ML VIAL. IV PRN; -ONDANSETRON PF 4 MG/2 ML VIAL. ONE; -PAPAVERINE 60 MG/2 ML VIAL FOR OR ONLY. ONE; -PARI1CAP PO; +PARI1CAP17 PO; -PROCHLORPERAZINE 10 MG/2 ML VIAL. IV PRN; -PROPOFOL 20 ML IV ONE; -SEVOFLURANE 31 TO 60 MINUTES. IH ONE; -SURGICEL FIBRILLAR 1X2 EACH. ONE; +[UNRECOGNIZED DRUG - OTHER]; -ceFAZolin 2GM PREMIX 2 GM/50 ML BAG IV ONE; -fentaNYL PF VIAL 100 MCG/2 ML VIAL IV PRN; -fentaNYL PF VIAL 100 MCG/2 ML VIAL ONE
--- NOTE | 2019-02-09 19:33 | PAIN ---
DATE OF SERVICE: 02/09/2019 INITIAL CONSULTATION FOR PAIN CLINIC CHIEF COMPLAINT: Low back and bilateral lower extremity pain. HISTORY OF PRESENT ILLNESS: This is a 78-year-old male who presents with history of pain in the low back, occasionally radiating to the lower extremities, mostly it is in the back itself. The patient reports it is worse with standing longer than even 5-10 minutes, the pain can be worse to the point where he has to sit down, which does relieve the pain after about 3-4 minutes. The patient reports it does not awaken him from sleep at night, but is much more painful with walking and standing even after a few minutes, does not affect his bowel or bladder control, does affect his ability to walk significantly. The patient has a walker and a cane, but only limited use with these, does not have either with him today. The patient has not had any further treatments at this time, any epidural steroid injections or any chiropractic treatments. No physical therapy currently. He is doing some walking on his own. Again, it is being significantly limited secondary to the pain. The patient reports he did walk around the local [employer] outdoor track, but he is only able to make it less than 1 lap at this time. The patient reports a disability rating from 0-10, 10 being the worst, 5 with family and home responsibilities, recreation and social activity, 6 with self-care and 0 with life support activities. Standing is most exacerbating symptoms of pain as his walking. The patient did have MRI scan of the lumbar spine showing fairly significant stenosis, multilevel central canal narrowing, most significant at L4-5 with thecal sac reduced to 0.6 cm with central canal stenosis, moderate bilateral neural foraminal encroachment at that level. The patient describes the pain as intermittent in intensity, but aching, dull, shooting, stabbing at times as well. No loss of motor function, but significant fatigability of the legs with walking even again more than 5-10 minutes. PAST MEDICAL HISTORY: Significant for type 2 diabetes, hypertension, shortness of breath, sepsis, basal cell carcinoma, atrial fibrillation, coronary artery disease with stents, arthritis, chronic renal failure with dialysis 3 days weekly. PAST SURGICAL HISTORY: Previous surgeries include a cataract extraction as well as peripheral vascular shunts and AV shunts and a stent in the right shoulder, cardiac ablation x 2. CURRENT MEDICATIONS: Include daily baby aspirin, calcium, vitamins, iron, trazodone, glipizide, doxycycline, atorvastatin, and Plavix. ALLERGIES: THE PATIENT IS ALLERGIC TO IODINE CONTRAST. FAMILY HISTORY: Significant for heart disease, hypertension, diabetes and rheumatoid arthritis. SOCIAL HISTORY: The patient does not drink alcohol, does not smoke, does not use any illegal, illicit or recreational drugs. He is , lives with his spouse, lives locally in [place], [place] and is currently retired. REVIEW OF SYSTEMS: The patient's review of systems is positive for those items mentioned in history of present illness. All systems reviewed and otherwise negative. It is complete, full and well documented on the patient's chart. PHYSICAL EXAMINATION: VITAL SIGNS: The patient's blood pressure is 117/65, pulse is 96, respirations 16, temperature is 98.1 degrees Fahrenheit, height is 6 feet 0.5 inch, weight is 208 pounds. GENERAL: The patient is awake, alert, oriented, appropriate, very pleasant demeanor. HEENT: Shows normocephalic, atraumatic. Extraocular movements are intact and symmetrical. Oral cavity: Mucous membranes moist and pink. Dentition is intact. NECK: Shows anterior throat supple without palpable lymphadenopathy noted. Swallow reflex symmetrical. CHEST: Shows normal on inspection. Breath sounds clear to auscultation bilaterally. HEART: Shows S1, S2 clear. No murmurs auscultated. ABDOMEN: Soft, nontender, nondistended. No palpable organomegaly is noted. No rebound or guarding demonstrated. BACK: Shows spine grossly in the midline. Normal appearing thoracic kyphosis and minor flattening of lumbar lordotic curvature. Lumbar paraspinous muscle shows symmetrical on inspection, with palpation shows some moderate tenderness diffusely bilaterally, but only diffusely without significant radiation, no trigger points, no asymmetry. The patient shows no tenderness over the spinous processes, sacrum or sacroiliac regions. The patient has good rotational motion of lumbar spine, both laterally greater than 10 degrees right and left as well as extension greater than 10 degrees, forward flexion 45 degrees without significant increase in pain. EXTREMITIES: The patient's lower extremities show deep tendon reflexes at 1+ in the patellar and tendo calcaneus tendons. Motor exam is 5/5 with dorsiflexion and extension, quadriceps and hamstring flexion is symmetrical. Peripheral pulses are 1+ posterior tibia. No peripheral edema is noted bilaterally. The patient's straight leg raise is noted to be negative, right and left. Gaenslen's and Luis Eduardo's maneuvers are negative bilaterally as well. The patient is able to stand, has difficulty trying to stand on his toes as he does lose his balance fairly quickly. He is walking with a slight shuffling gait, but is not significantly favoring right or left lower extremity, again not using any assistive devices with him on his visit today. SKIN: The patient's skin shows warm and dry, good turgor. No edema. No sores or rashes, but bruising on the bilateral forearms. IMPRESSION: 1. This is a 78-year-old male with approximate 2-year history of pain in the low back with some radicular qualities in the lower extremities. 2. MRI scan of lumbar spine as noted. 3. Hypertension. 4. Arthritis. 5. Diabetes. 6. Chronic renal failure. 7. Atrial fibrillation with coronary artery disease. PLAN: Options were discussed with the patient. The patient's daughter who accompanies him to visit today including conservative medical management, physical therapies, interventional techniques. He would like to pursue interventional techniques. 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 Also, the patient is having ablation in about 1 week and may be off the Plavix by that time as well. We will see how this progresses. Also, we will plan the patient's treatment for a nondialysis today as well. We will make these arrangements and schedule him back for lumbar epidural steroid injection. BELGICA STEVENSON MD DR: ARACELI/mino JOB#: [id number] / [id number]
== END | disposition home or self-care (01) ==
LOC: PNCL 08:02
PROVIDERS: ATTEND Anesthesiology
DX: M54.5 Low back pain (principal); M19.90 Unspecified osteoarthritis, unspecified site; I12.9 Hypertensive chronic kidney disease with stage 1 through stage 4 chronic kidney disease, or unspecified chronic kidney disease; E11.22 Type 2 diabetes mellitus with diabetic chronic kidney disease; N18.9 Chronic kidney disease, unspecified; Z99.2 Dependence on renal dialysis; C44.91 Basal cell carcinoma of skin, unspecified; I48.91 Unspecified atrial fibrillation; I25.10 Atherosclerotic heart disease of native coronary artery without angina pectoris; Z95.5 Presence of coronary angioplasty implant and graft; Z91.041 Radiographic dye allergy status; Z83.3 Family history of diabetes mellitus; Z82.61 Family history of arthritis
CPT/HCPCS: G0463

== ENCOUNTER → 2019-03-07 | Outpatient (CLI) | payer MEDICARE, OTHER ==
[2018-10-27 09:30] VITALS: BP 114/66
[~2019-03-07] MED LIST changes: +IOHEXOL 180 MG/ML 10 ML VIAL. ONE; -MIDO5TAB PO; +MIDO5TAB4 PO; +methylPREDNISolone ACETATE 40 MG/ML VIAL. ONE; +methylPREDNISolone ACETATE 80 MG/ML VIAL. ONE
--- NOTE | 2019-03-07 10:25 | PAIN ---
DATE OF SERVICE: 03/07/2019 PROGRESS NOTE FOR PAIN CLINIC DIAGNOSES: Lumbar radiculopathy with lumbar degenerative disk disease and lumbar spinal stenosis. HISTORY OF PRESENT ILLNESS: The patient is a 78-year-old male who returns for followup status post initial evaluation and clearance to hold his Plavix. He has received this and has been off of it now for 7 days. He would like to proceed with a lumbar epidural steroid injection today. The patient reports still significant pain in the low back, especially worse in the mornings and with walking with shooting into both the lower extremities. The patient reports no new motor or sensory deficits, no new bowel or bladder incontinence or other complaints. The patient reports his pain is a 5 on a scale of 10 at its worst over the past week, 3 on average, 3 at its least and is a 3 today. The patient reports it is dull, aching pain in the back itself underneath the posterior and lateral thighs, but mostly in the back. The patient reports no new changes. PHYSICAL EXAMINATION: VITAL SIGNS: The patient's blood pressure 136/65, pulse 81, respirations 18, temperature 97.9 degrees Fahrenheit, height 6 feet, weight is 213 pounds. GENERAL: The patient is awake, alert, oriented, appropriate, very pleasant demeanor. HEENT: Head shows normocephalic, atraumatic. Extraocular movements are intact and symmetrical. Oral cavity: Mucous membranes moist and pink. Dentition is intact. NECK: Shows anterior throat supple without palpable lymphadenopathy noted. Swallow reflex symmetrical. CHEST: Shows normal on inspection. Breath sounds clear to auscultation bilaterally. HEART: Shows S1, S2 clear. No murmurs auscultated. ABDOMEN: Soft, nontender, nondistended. BACK: Shows spine grossly in the midline. Slight exaggeration of thoracic kyphosis and minor flattening of lumbar lordotic curvature. Lumbar paraspinous muscle shows symmetrical on inspection, with palpation shows some minor tenderness along the lower lumbar distribution without radiation. EXTREMITIES: Lower extremities show deep tendon reflexes 1+ in the patellar and tendo calcaneus tendons are equal. Motor exam is 5 on a scale of 5, but equal with dorsiflexion, extension, quadriceps and hamstring flexion. Peripheral pulses are 1+ in the posterior tibial. No peripheral edema is noted. Options were discussed with the patient. The patient's old chart was reviewed as his current medication regimen updated. Current review of systems updated today as well and we will proceed with a lumbar epidural steroid injection today with fluoroscopic guidance. Risks were again discussed including, but not limited to bleeding, infection, possibility of epidural hematoma, subsequent neurological compromise, dural puncture, headaches, spinal cord and/or nerve damage, side effects of steroid medications and poor results regarding pain control. The patient understands and wishes to proceed. The patient will return to clinic in approximately 2 weeks for followup. He was counseled on return appointment, activity level and side effects to be aware of. DIAGNOSIS: Lumbar radiculopathy with lumbar degenerative disk disease and lumbar spinal stenosis. PROCEDURE: Lumbar epidural steroid injection, translaminar approach L4-5 level using C-arm fluoroscopic guidance under sterile prep and drape using local anesthetic. MEDICATION INJECTED: Total of 120 mg Depo-Medrol plus 10 mL of preservative-free normal saline and no contrast, patient is allergic. CONDITION AT DISCHARGE: Stable. The patient tolerated the procedure well, had no complications. BELGICA STEVENSON MD DR: ARACELI/mino JOB#: [id number] / [id number]
== END ==
LOC: PNCL 09:14
PROVIDERS: ATTEND Anesthesiology
DX: M51.16 Intervertebral disc disorders with radiculopathy, lumbar region (principal); M48.061 Spinal stenosis, lumbar region without neurogenic claudication
CPT/HCPCS: 62323; J1030; J1040; Q9965

== ENCOUNTER → 2019-04-04 | Outpatient (CLI) | payer MEDICARE, OTHER ==
[2018-10-27 09:30] VITALS: BP 114/66
--- NOTE | 2019-04-04 12:14 | PAIN ---
DATE OF SERVICE: 04/04/2019 PROGRESS NOTE FOR PAIN CLINIC DIAGNOSES: Lumbar radiculopathy with lumbar degenerative disk disease and lumbar spinal stenosis. HISTORY OF PRESENT ILLNESS: The patient is a 78-year-old male who returns for followup status post lumbar epidural steroid injection x 1. The patient reports about 100% improvement until about 3 days ago. The patient reports he was doing some lifting at home and had some increased pain in his back. The patient reports it is now in the low back slightly more on the right than the left, but present bilaterally as it was previously. The patient reports it is dull, aching, shooting at times in the lower extremities, but mostly in the back. The patient reports it is a 5 on a scale of 10 at its worst over the past week, 3 on average, 3 at its least and is a 3 today. The patient reports no new motor or sensory deficits. Initially, he was doing increased activity, walking, doing household activities, yard work and sleeping better at night, still does not awaken him from sleep. PHYSICAL EXAMINATION: VITAL SIGNS: The patient's blood pressure 134/64, pulse 59, respirations 18, temperature 97.4 degrees Fahrenheit, height is 6 feet and weight is 210 pounds. GENERAL: The patient is awake, alert, oriented, appropriate, very pleasant demeanor. HEENT: Shows normocephalic, atraumatic. Extraocular movements are intact and symmetrical. Oral cavity: Mucous membranes moist and pink. Dentition is intact. NECK: Shows anterior throat supple without palpable lymphadenopathy noted. Swallow reflex symmetrical. CHEST: Shows normal on inspection. Breath sounds are clear to auscultation bilaterally. HEART: Shows S1, S2 clear. No murmurs auscultated. ABDOMEN: Soft, nontender, nondistended. No palpable organomegaly is noted. No rebound or guarding demonstrated. BACK: Shows spine grossly in the midline. Normal appearing thoracic kyphosis, some minor flattening of lumbar lordotic curvature. Lumbar paraspinous muscle shows symmetrical on inspection; with palpation shows some moderate tenderness diffusely, but only in the low lumbar distribution without significant radiation. The patient has good rotational motion of the lumbar spine. EXTREMITIES: The patient's lower extremities show deep tendon reflexes at 1+ in the patellar and tendo calcaneus tendons. Motor exam is approximately 5/5 dorsiflexion, extension, quadriceps and hamstring flexion and symmetrical. Peripheral pulses are 1+ posterior tibial. No peripheral edema is noted. Options were discussed with the patient. The patient's old chart was reviewed as his current medication regimen updated. Current review of systems updated today as well. We will proceed with a second lumbar epidural steroid injection today with fluoroscopic guidance. Risks were again discussed including, but not limited to bleeding, infection, possibility of epidural hematoma, subsequent neurologic compromise, dural puncture, headaches, spinal cord and/or nerve damage, side effects of steroid medication and poor results regarding pain control. The patient understands and wished to proceed. The patient will return to clinic in approximately 2 weeks for followup. He was counseled on return appointment, activity level and side effects to be aware of. DIAGNOSES: Lumbar radiculopathy with lumbar degenerative disk disease and lumbar spinal stenosis. PROCEDURE: Lumbar epidural steroid injection, translaminar approach at L4-L5 level using C-arm fluoroscopic guidance under sterile prep and drape using local anesthetic. MEDICATION INJECTED: A total of 120 mg of Depo-Medrol plus 10 mL of preservative-free normal saline and 2 mL of contrast. CONDITION AT DISCHARGE: Stable. The patient tolerated the procedure well, had no complications. BELGICA STEVENSON MD DR: ARACELI/mino JOB#: [id number] / [id number]
== END ==
LOC: PNCL 09:31
PROVIDERS: ATTEND Anesthesiology
DX: M51.16 Intervertebral disc disorders with radiculopathy, lumbar region (principal); M48.061 Spinal stenosis, lumbar region without neurogenic claudication
CPT/HCPCS: 62323; J1030; J1040; Q9965

== ENCOUNTER → 2019-04-20 | Outpatient (CLI) | payer MEDICARE, OTHER ==
[2018-10-27 09:30] VITALS: BP 114/66
[~2019-04-20] MED LIST changes: -IOHEXOL 180 MG/ML 10 ML VIAL. ONE; -methylPREDNISolone ACETATE 40 MG/ML VIAL. ONE; -methylPREDNISolone ACETATE 80 MG/ML VIAL. ONE
--- NOTE | 2019-04-20 16:33 | CARD ---
MR#: [id number] Date of Study: 04/20/2019 Ordering Physician: FELICITAS CLAY, Referring Physician: Ej JEFFREY: Ariella Sullivan APPROVED REPORT EXAM: Two-dimensional and M-mode echocardiogram with Doppler and color Doppler. Other Information Quality : AverageHR: 82bpm INDICATION Atrial Fibrillation 2D DIMENSIONS RVDd3.4 (2.9-3.5cm)Left Atrium(2D)4.8 (1.6-4.0cm) IVSd1.8 (0.7-1.1cm)Aortic Root(2D)2.3 (2.0-3.7cm) LVDd4.8 (3.9-5.9cm)LVOT Diameter2.0 (1.8-2.4cm) PWd1.4 (0.7-1.1cm)LVDs3.5 (2.5-4.0cm) FS (%) 28.4 %SV59.5 ml LVEF(%)54.8 (>50%) Aortic Valve AoV Peak Tiburcio.107.9cm/sAoV VTI20.0cm AO Peak GR.4.7mmHgLVOT Peak Tiburcio.88.8cm/s AO Mean GR.2mmHgAVA (VMAX)2.51cm2 Mitral Valve MV E Aojuwfcj28.3cm/sMV E Peak Gr.3mmHg MV DECEL [id number] A Efymuqia54.5cm/s MV E Mean Gr.1mmHgE/A Ratio4.1 Pulmonary Valve PV Peak Cuzhcdnu07.3cm/s Tricuspid Valve TR P. Ltqnvkiv072pk/sRAP [id number] TR Peak Gr.25mmHg LEFT VENTRICLE The left ventricle is normal size. There is mild concentric left ventricular hypertrophy. The left ve ntricular systolic function is normal and the ejection fraction is within normal range. The Ejection Fraction is 50-55%. There is normal LV segmental wall motion. Transmitral Doppler flow pattern is Gra de II-pseudonormal filling dynamics. RIGHT VENTRICLE The right ventricle is normal size. The right ventricular systolic function is normal. ATRIA The left atrium is mildly dilated. The right atrium size is normal. The interatrial septum is intact with no evidence for an atrial septal defect or patent foramen ovale as noted on 2-D or Doppler imagi ng. AORTIC VALVE The aortic valve is thickened but opens well. Doppler and Color Flow revealed no significant aortic r egurgitation. There is no significant aortic valvular stenosis. MITRAL VALVE The mitral valve is thickened but opens well. There is no evidence of mitral valve prolapse. There is no mitral valve stenosis. Doppler and Color-flow revealed trace mitral regurgitation. TRICUSPID VALVE The tricuspid valve is not well visualized. Doppler and Color Flow revealed trace tricuspid regurgita tion. There is no tricuspid valve stenosis. PULMONIC VALVE The pulmonic valve is not well visualized. Doppler and Color Flow revealed no pulmonic valvular regur gitation. GREAT VESSELS The aortic root is normal in size. The ascending aorta is normal in size. The IVC is normal in size a nd collapses >50% with inspiration. PERICARDIAL EFFUSION There is no pleural effusion. There is no evidence of significant pericardial effusion. Critical Notification Critical Value: No <Conclusion> The left ventricle is normal size. The left ventricular systolic function is normal and the ejection fraction is within normal range. The Ejection Fraction is 50-55%. There is mild concentric left ventricular hypertrophy. There is no significant aortic valvular stenosis. Doppler and Color Flow revealed no significant aortic regurgitation. Doppler and Color-flow revealed trace mitral regurgitation. Doppler and Color Flow revealed trace tricuspid regurgitation. Signed by : Dima Feliz MD Electronically Approved : 04/20/2019 10:22:26
== END | disposition home or self-care (01) ==
LOC: ECHO 08:58
PROVIDERS: ATTEND Internal Medicine Cardiovascular Disease
DX: I11.9 Hypertensive heart disease without heart failure (principal); I48.91 Unspecified atrial fibrillation
CPT/HCPCS: 93306

== ENCOUNTER → 2019-07-04 | Outpatient (CLI) | payer MEDICARE, OTHER ==
[2018-10-27 09:30] VITALS: BP 114/66
[~2019-07-04] MED LIST changes: +TRAZ-123 PO; -TRAZ-86 PO
--- NOTE | 2019-07-04 12:59 | KCIC ---
VENOUS UPPER EXTREMITY LEFT History: Left upper arm pain, dialysis fistula in the forearm Comparison: None. Findings: Multiple grayscale, color, duplex spectral analysis waveform images of the left upper extremity veins are submitted. There is a patent fistula present in the distal forearm apparently from the radial artery to the cephalic vein, also patent stent apparently in the cephalic and basilic veins. There is nonocclusive echogenicity in one of the left brachial veins, some flow demonstrated. Otherwise no other thrombus is demonstrated. Impression: 1. There is nonocclusive thrombus in one of the left brachial veins. Left forearm fistula is patent as is a venous stent. Critical results were discussed with Graciela Shepherd at 07/04/2019 12:56 PM. Electronically signed by: Reid Thomas MD (07/04/2019 12:56 PM) [facility]
== END | disposition home or self-care (01) ==
LOC: KCIC US 10:55
PROVIDERS: ATTEND Family Medicine
DX: I82.622 Acute embolism and thrombosis of deep veins of left upper extremity (principal)
CPT/HCPCS: 93971

== ENCOUNTER → 2019-10-11 | Outpatient (CLI) | payer MEDICARE, OTHER ==
[2018-10-27 09:30] VITALS: BP 114/66
[~2019-10-11] MED LIST changes: +CALC667T4 PO; +CHOL200044 PO; +DOXY100T PO; +FERR-36 PO; +FLUD0.1T PO; +HUM100VI SQ; +MELA3TAB4 PO; -MELA3TAB56 PO; +MIDO10TA PO
== END | disposition home or self-care (01) ==
LOC: LAB 09:13
PROVIDERS: ATTEND Internal Medicine Nephrology
DX: N18.6 End stage renal disease (principal); Z99.2 Dependence on renal dialysis
CPT/HCPCS: 36415; 84132

== ENCOUNTER 2020-05-18 22:37 | Inpatient (IN) | payer MEDICARE, OTHER ==
[~2020-05-18] VITALS: Ht 184.2 cm; Wt 97.0 kg
[~2020-05-18 22:37] MED LIST changes: +AMLO-187 PO; -AMLO10TA8 PO; +MULT-445 PO; -MULT1TAB52 PO
--- NOTE | 2020-05-18 23:29 | PHYS DOC ---
Past Medical History Past Medical History: A-Fib, Anxiety, CAD, CHF, Diabetes-Type II, High Ch olesterol, Hypertension, RI, Renal Failure, Other Additional Past Medical Histor: DIALYSIS ([facility]) Past Surgical History: Other Additional Past Surgical Histo: stent in aorta; left dialysis shunt; right PVD stent ([facility]) Smoking Status: Former Smoker Alcohol Use: None Drug Use: None ([facility]) General Adult EDM: Chief Complaint: DIARRHEA HPI: HPI: Patient is a 80 year old male who presents with here by EMS who states the daughter stated that on Thursday the patient had a negative Covid test on Thursday. On Thursday patient is dialysis fistula was cleaned out. On he had dialysis. He states on Thursday and he had increasing weakness and and a dry cough he is still weak. This is that he also has a loss of ap petite. Patient states he does not understand why he is here and states he did not go to dialysis today because " the kids have other ideas". He denies abdominal pain, chest pain, shortness of breath, headache, dizziness, focal weakness, numbness or tingling, abdominal pain, vomiting, nausea, diarrhea. Patient denies any pain. Patient has a history of a pacemaker, A. fib, high cholesterol, hypertension, RI, diabetes, anxiety, A. fib, CAD, renal failure, CHF, stent in the aorta, right PVD stent ([facility]) Review of Systems: Review of Systems: Constitutional: Denies fever or chills. [] Eyes: Denies change in visual acuity. [] HENT: Denies nasal congestion or sore throat. [] Respiratory: + Dry cough or denies shortness of breath. [] Cardiovascular: Denies chest pain or edema. [] GI: Denies abdominal pain, nausea, vomiting, bloody stools or diarrhea. + Lack of appetite [] : Denies dysuria. [] Musculoskeletal: Denies back pain or joint pain. [] Integument: Denies rash. [] Neurologic: Denies headache, focal weakness or sensory changes. [] Endocrine: Denies polyuria or polydipsia. [] Lymphatic: Denies swollen glands. [] Psychiatric: Denies depression or anxiety. [] ([facility],YOLI M SHERIFF OFFICER) Heart Score: Risk Factors: Risk Factors: DM, Current or recent (<one month) smoker, HTN, HLP, family history of CAD, obesity. Risk Scores: Score 0 - 3: 2.5% MACE over next 6 weeks - Discharge Home Score 4 - 6: 20.3% MACE over next 6 weeks - Admit for Clinical Observation Score 7 - 10: 72.7% MACE over next 6 weeks - Early Invasive Strategies [facility]IM[facility]ER[facility] OFFIC[facility]) Allergies: Allergies: Allergies Coded Allergies Type Severity Reaction Last Updated Verified Iodinated Contrast Media Allergy Intermediate BROKE OUT 10/26/18 Yes [facility]IC[facility]) Physical Exam: PE: Constitutional: Well developed, well nourished, no acute distress, non-toxic appearance. [] HENT: Normocephalic, atraumatic, bilateral external ears normal, oropharynx moist, no oral exudates, nose normal. [] Eyes: PERRLA, EOMI, conjunctiva normal, no discharge. [] Neck: Normal range of motion, no tenderness, supple, no stridor. [] Cardiovascular:Heart rate regular rhythm, no murmur [] Lungs & Thorax: Bilateral upper breath sounds clear lower diminished to auscultation [] Abdomen: Bowel sounds normal, soft, no tenderness, no masses, no pulsatile masses. [] Skin: Warm, dry, no erythema, no rash. [] Back: No tenderness, no CVA tenderness. [] Extremities: No tenderness, no cyanosis, no clubbing, ROM intact, no edema. [] Neurologic: Alert and oriented X 3, normal motor function, normal sensory function, no focal deficits noted. [] Psychologic: Affect normal, judgement normal, mood normal. [] ([facility],YOLI M SHERIFF OFFICER) EKG: EK and read by Dr. Hines as sinus rhythm, prolonged VT interval, paced, no STEMI ([facility]IMESA M SHERIFF OFFICER) Radiology/Procedures: Radiology/Procedures: [] ([facility],YOLI M SHERIFF OFFICER) Course & Med Decision Making: Course & Med Decision Making Pertinent Labs and Imaging studies reviewed. (See chart for details) COVID-19 CRITERIA: The patient was evaluated during the global COVID-19 pandemic, and that diagnosis was suspected/considered upon their initial presentation. Their evaluation, treatment and testing was consistent with current guidelines for patients who present with complaints or symptoms that may be related to COVID-19. See HPI. Alert and oriented x4. Speaks in full complete sentences. Abdomen is soft and nontender. Lungs are clear to auscultation in upper lobes and diminished in lower lobes. Skin pink warm and dry. 2354: Patient is signed off to Dr. Hines (YOLI LUEVANO APRN) Course & Med Decision Making Patient is a 80-year-old male who presented with diarrhea and generalized weakness. I assumed care of him from the advanced practitioner. Patient is chest x-ray is suggestive of novel coronavirus 19. He has a pending test at this time. He has hyperkalemia and was given calcium. He is due for dialysis in the morning. Patient has an elevated troponin. He will be admitted for cardiology, pulmonology evaluation. Nephrology was consulted for dialysis. I discussed the patient with his primary care physician who will assume care. (WILLIAM HINES MD) Dragon Disclaimer: Dragon Disclaimer: This electronic medical record was generated, in whole or in part, using a voice recognition dictation system. (YOLI LUEVANO APRN) COVID-19 Patient Risks: Age 65 or older: Yes Sign of co-morbidity: Yes Exp to person + for COVID: No Exp to PUI: No Travel from affected area: No Lower respiratory symptoms: Yes Fever: No Other: Yes (LOSS OF APPETITE) (YOLI LUEVANO APRN) PPE Use: Full PPE with N95 mask or PAPR: Yes (YOLI LUEVANO APRN) Departure Departure Referrals: GARY GARCIA MD (PCP) YOLI LUEVANO APRN May 18, 2020 23:29 WILLIAM HINES MD May 19, 2020 02:49
[2020-05-18 23:40] LABS: BASO % 1 % (0-3); EOS % 0 % (0-3); HEMATOCRIT 38.6 % (39.0-53.0); HEMOGLOBIN 12.8 g/dL (13.0-17.5); LYMPH # 0.3 x10^3/uL (1.0-4.8); LYMPH % 3 % (24-48); MEAN CORPUSCULAR HEMOGLOBIN 33 pg (25-35); MEAN CORPUSCULAR HGB CONC 33 g/dL (31-37); MEAN CORPUSCULAR VOLUME 101 fL (79-100); MONO # 0.6 x10^3/uL (0.0-1.1); MONO % 6 % (0-9); NEUT # 8.7 x10^3/uL (1.8-7.7); NEUT % 91 % (31-73); PLATELET COUNT 107 x10^3/uL (140-400); RED BLOOD COUNT 3.84 x10^6/uL (4.30-5.70); RED CELL DISTRIBUTION WIDTH 14.5 % (11.5-14.5); WHITE BLOOD COUNT 9.6 x10^3/uL (4.0-11.0)
[2020-05-18 23:47] LABS: PROTHROMBIN TIME PATIENT 13.3 SEC (11.7-14.0)
[2020-05-18 23:56] LABS: ALBUMIN 3.3 g/dL (3.4-5.0); ALBUMIN/GLOBULIN RATIO 0.9 (1.0-1.7); C-REACTIVE PROTEIN 60.6 mg/L (0-3.3); CALCIUM 8.5 mg/dL (8.5-10.1); CREATININE 8.3 mg/dL (0.7-1.3); GFR 6.3; TOTAL BILIRUBIN 0.6 mg/dL (0.2-1.0); TOTAL PROTEIN 6.8 g/dL (6.4-8.2)
--- NOTE | 2020-05-19 00:17 | RAD ---
Chest AP portable at 2343: Reason for examination: Weakness. Comparison is made to previous study dated 05/07/2018. Vascular stent is seen at the right axilla. The heart size is mildly enlarged but unchanged. Mediasti num is unremarkable. Lung gleason show mild patchy infiltrates bilaterally. There continues be a calci fied granuloma at the mid left lung field. No pleural effusions are seen. No acute bony abnormalities are present. IMPRESSION: Patchy hazy infiltrates bilaterally. Mild cardiomegaly which is stable. Electronically signed by: Nuha Weinstein MD (05/19/2020 12:15 AM) [facility]
[2020-05-19 00:26] LABS: POTASSIUM 6.6 mmol/L (3.5-5.1)
--- NOTE | 2020-05-19 00:28 | RAD ---
CT abdomen and pelvis without contrast: Reason for examination: Diarrhea and weakness. Comparison is made to previous study dated 01/25/2018. Helical images were obtained through the abdomen and pelvis with no intravenous or oral contrast. Rec onstruction was performed in sagittal and coronal planes. Exposure: One or more of the following individualized dose reduction techniques were utilized for thi s examination: 1. Automated exposure control 2. Adjustment of the mA and/or kV according to patient size 3. Use of iterative reconstruction technique. There are infiltrates bilaterally, left greater than right with some mild pleural reaction. The heart size is enlarged but no pericardial effusion is seen. No abnormality seen at the liver, spleen, pancreas or adrenal glands. Gallbladder shows cholelithiasi s. The abdominal aorta shows some arteriosclerotic vascular calcification with no aneurysm or obstruc tion. No abnormality seen at the inferior vena cava. The kidneys show no renal masses, renal calculi, hydronephrosis or obstructive uropathy. No abnormality seen at the stomach or duodenum. The small in testinal tract shows no abnormal dilatation or wall thickening and no obstruction. No abnormality see n at the appendix. There is some diverticulosis in the sigmoid colon without diverticulitis or coliti s. No abnormality seen at the bladder. The prostate gland is enlarged but unchanged. No free fluid or fr ee air seen in the abdomen or pelvis. Fat-containing inguinal hernias are present. There are degenera tive changes in the spine. No acute bony abnormalities are seen. Impression: Bilateral infiltrates, left greater than right with some mild pleural reaction. Cholelithiasis. Diverticulosis in the sigmoid colon without diverticulitis. Enlarged prostate gland. Electronically signed by: Nuha Weinstein MD (05/19/2020 12:25 AM) [facility]
[2020-05-19] MEDS ORDERED: CALCIUM GLUCONATE 1,000 MG/10 ML VIAL. IVP ONE (01:45)
[2020-05-19] MEDS ORDERED: LABETALOL 20 MG/4 ML DISP.SYRIN. IVP ONE (01:45)
[2020-05-19 02:21] LABS: % BANDS 3 % (0-9); % MONOS 3 % (0-10); % SEGS 94 % (35-66); PLT ESTIMATE DECREASED (ADEQUATE)
[2020-05-19] MEDS ORDERED: ONDANSETRON PF 4 MG/2 ML VIAL. IVP ONE (03:00)
--- NOTE | 2020-05-19 06:13 | PDOC2 ---
CARDIOLOGY CONSULT NOTE DATE OF SERVICE: DATE: 05/19/20 TIME: 06:07 CHIEF COMPLAINT: Diarrhea - concern for covid. HPI: Mr. Haynes is a 80 y.o male with PMhx as noted below who presents to the hospital per family wishes due to suspicion for COVID. No specific CV symptoms noted. Cardiology asked to evaluate patient for elevated troponin. No other acute CV issues. PMHX: 1. Permanent AFIB with intermittent RVR; LVEF 50% as per recent echo in 2019 - s/p single chamber pacemaker. 2. Chronic diastolic HF; NT Pro BNP elevated, but appears clinically compensated 3. CAD s/p PCI/HAMMAD to LAD/LCX/RCA, stable and chest pain free. in 2018 4. Hyperlipidemia; statin 5. ESRD on HD 6. Hyperkalemia 7. Diabetes, II SOCHX: No alcohol, tob or illicits. FAMHX: NC CURRENT MEDS: ASA Atorvastatin ALLERGIES: Allergies Coded Allergies Type Severity Reaction Last Updated Verified Iodinated Contrast Media Allergy Intermediate BROKE OUT 10/26/18 Yes ROS: Negative unless noted above in HPI PHYSICAL EXAM: Vital Signs/I&O: Vital Signs Date Time Temp Pulse Resp B/P (MAP) Pulse Ox O2 Delivery O2 Flow Rate FiO2 05/18/20 23:50 99.2 80 18 137/63 (87) 94 Room Air 99.2 Physical Exam: Deferred due to covid pandemic. Visual exam only DIAGNOSTIC TESTING: Trop minimally elevated. EKG with v-pacing Cath in 2018 with multivessel PCI Echo in 2019 with EF of 55% CXR reviewed. ASSESSMENT: 1. NSTEMI - Type 2 in the setting of possible COVID with ESRD. No concern for primary cardiac process. 2. ESRD 3. Hypotension hx - chronic- on midodrine in past. 4. CAD s/p LAD/RCA and LCx PCI in 2018 -currently CP free PLAN: 1. No further CV testing needed. Supportive care. Pls call with further questions. DAR SAEED MD May 19, 2020 06:13
[2020-05-19 06:15] VITALS: BP 142/91
--- NOTE | 2020-05-19 08:30 | NUR ---
Consults called to Dr. Corley this morning, Dr. Hope already aware of patient, & waiting for Dr. Escalera to come by.
[2020-05-19] MEDS ORDERED: CETI10TA74 PO (10:03)
[2020-05-19 11:00] VITALS: BP 92/62
--- NOTE | 2020-05-19 11:21 | CONS ---
DATE OF CONSULTATION: 05/19/2020 I was asked to see this 80-year-old gentleman for COVID-19 PUI and abnormal chest x-ray. HISTORY OF PRESENT ILLNESS: The patient wants to go home. He is not happy with being at the hospital. He does not answer my questions. He was presented to the Emergency Room via EMS. His daughter stated that on Thursday, he had negative COVID test (today is Thursday). He is on dialysis. He has been weak, has had dry cough, loss of appetite. He denied chest pain, shortness of breath, headache, dizziness, nausea, vomiting and diarrhea. PAST MEDICAL HISTORY: Atrial fibrillation, anxiety, coronary artery disease, CHF, diabetes mellitus, hypertension, end-stage renal disease on dialysis, peripheral vascular disease. ALLERGIES: IODINE. MEDICATIONS: Currently she is on labetalol p.r.n. SOCIAL HISTORY: Ex-smoker. FAMILY HISTORY: Hypertension. REVIEW OF SYSTEMS: As mentioned as above, other systems otherwise negative. PHYSICAL EXAMINATION: GENERAL: This is an obese gentleman. VITAL SIGNS: His O2 saturation on room air of oxygen is 95%, respiratory rate 18, heart rate 88, blood pressure 116/81, temperature 101.5. GENERAL: He is obese, appears comfortable. HEENT: Normocephalic, atraumatic. CARDIOVASCULAR: Irregularly irregular rhythm. CHEST: On chest inspection, there is no accessory muscle use. ABDOMEN: Obese. EXTREMITIES: There is no rash. NEUROLOGIC: Alert. LABORATORY DATA: I reviewed the following lab data: Chest x-ray shows patchy infiltrate bilaterally, cardiomegaly. WBC 9.6, hemoglobin 12.8, platelet 107. Sodium 133, potassium 6.6, chloride 96, CO2 of 24, BUN 67, creatinine 8.3. Troponin 0.513. BNP more than 35,000. IMPRESSION: 1. Abnormal chest x-ray secondary to diastolic congestive heart failure, rule out COVID-19 pneumonia. 2. Febrile illness, rule out COVID-19 pneumonia. 3. Atrial fibrillation. 4. Coronary artery disease. 5. Hyperlipidemia. 6. End-stage renal disease, on hemodialysis. 7. Hyperkalemia. 8. Diabetes mellitus. PLAN AND RECOMMENDATIONS: 1. Titrate FiO2 to keep O2 saturation 92%. 2. Nephrology consultation, he will need hemodialysis. 3. Follow up COVID-19 testing. 4. Continue home medication. 5. The findings and recommendations were discussed with RN. Thank you very much for allowing me to participate in care of this very nice gentleman. MAYRA LUCAS M.D. DR: Lety JOB#: [id number] / [id number]
--- NOTE | 2020-05-19 12:46 | PDOC ---
Provider Note Date of Service: DATE: 05/19/20 TIME: 12:44 Provider Note [id number] Justifications for Admission Other Justification DONTE DONAHUE MD May 19, 2020 12:46
--- NOTE | 2020-05-19 12:53 | HP ---
ADMIT DATE: 05/19/2020 CHIEF COMPLAINT: Weakness in his legs. HISTORY OF PRESENT ILLNESS: A 80-year-old white male diabetic patient of Dr. Alexander who is on dialysis came in with generalized weakness and confusion. He complains of low back pain and weakness, but no other specific complaints and falls asleep during the interview. PAST MEDICAL HISTORY: Well noted in the old record. He is on dialysis. ALLERGIES: No allergies are noted. SOCIAL HISTORY: Unknown. FAMILY HISTORY: Unknown. REVIEW OF SYSTEMS: No other complaints. OBJECTIVE: ENT: Mild pallor, otherwise normal. NECK: Revealed no carotid bruits, JVD, or nodes. LUNGS: Decreased breath sounds. No wheezing. CARDIOVASCULAR: Regular rate. Heart rate in the 70s. No S3 is heard. ABDOMEN: Soft and benign. EXTREMITIES: Reduced pedal pulses. No edema. He has a dialysis shunt in the left arm. NEUROLOGIC: Physiologic at this point. ASSESSMENT: Chronic fatigue, multifactorial with multiple medical problems including dialysis, type 2 diabetes, some degree of heart disease and multiple meds. Need to rule out hypothyroidism. PLAN: As ordered. DONTE DONAHUE MD DR: KIRAN/mino JOB#: [id number] / [id number]
[2020-05-19] MEDS: MIDODRINE 5 MG TABLET PO SCH ×3 (13:00→18:44)
[2020-05-19] MEDS: ASPIRIN ENTERIC COATED 81 MG TABLET.DR. PO SCH (14:00)
[2020-05-19] MEDS ORDERED: IV NORMAL SALINE 1000ML BAG 1,000 ML IV PRN ×2 (14:00)
[2020-05-19] MEDS: FERROUS SULFATE 325 MG TABLET. PO SCH (14:00)
[2020-05-19] MEDS: FLUDROCORTISONE 0.1 MG TABLET PO SCH (14:00)
[2020-05-19] MEDS ORDERED: ALBUMIN HUMAN 25% 200 ML IV PRN (14:00)
[2020-05-19] MEDS: ATORVASTATIN CALCIUM 40 MG TABLET. PO SCH (14:00)
[2020-05-19] MEDS: CHOLECALCIFEROL (VITAMIN D3) 1,000 UNIT TABLET PO SCH (14:00)
[2020-05-19] MEDS: FOLIC/VIT B COMP W-C (RENAL) TABLET. PO SCH (14:00)
[2020-05-19] MEDS ORDERED: DIALYSIS PATIENT. MC PRN ×2 (15:00)
[2020-05-19] MEDS ORDERED: ACETAMINOPHEN 500 MG TABLET PO PRN (15:15)
--- NOTE | 2020-05-19 15:40 | PDOC2 ---
CONSULT Date of Consult Date of Consult DATE: 05/19/20 TIME: 15:32 Reason for Consult Reason for Consult: HIGH K AND ESRD Referring Physician Referring Physician: ROWAN Identification/Chief Complaint Chief Complaint SOB AND CONFUSION Source Source: Chart review History of Present Illness Reason for Visit: THIS IS A 80 YR OLD WITH SOB AND CONFUSION. HE HAS ESRD AND IS ON HD ON TTS. HAS HAD INCREASING COUGH AND WEAKNESS AND CONFUSION. K OF 6.2. LABS C/W ESRD. HAS HIGH FEVERS AND BILATERAL PULM INFILTRATES. HE IS A PUI FOR COVID 19. ESRD DUE TO HTN. 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 Cardiovascular: CAD, CHF, HTN, ID, Hyperlipidemia, Other Pulmonary: No pertinent hx CENTRAL NERVOUS SYSTEM: Other GI: Diverticulosis, Hemorrhoids, Other Heme/Onc: Anemia NOS Hepatobiliary: No pertinent hx Psych: No pertinent hx Musculoskeletal: Osteoarthritis Rheumatologic: Gout Infectious disease: No pertinent hx Renal/: Chronic renal insuff Endocrine: Diabetes, Hyperparathyroidism Past Surgical History Past Surgical History RIGHT FA RC AVF Past Surgical History: Other Family History Family History: No Significant, Other Social History No ALCOHOL: none Drugs: None Lives: with Family Current Medications Current Medications Current Medications Calcium Gluconate (Calcium Gluconate) 1,000 mg 1X ONCE IVP Last administered on 05/19/20at 02:24; Start 05/19/20 at 01:45; Stop 05/19/20 at 01:46; Status DC Labetalol HCl (Normodyne Iv Push) 10 mg 1X ONCE IVP ; Start 05/19/20 at 01:45; Stop 05/19/20 at 01:46; Status DC Ondansetron HCl (Zofran) 4 mg 1X ONCE IVP Last administered on 05/19/20at 02:51; Start 05/19/20 at 03:00; Stop 05/19/20 at 03:01; Status DC Aspirin (Ecotrin) 81 mg DAILY PO ; Start 05/19/20 at 14:00 Atorvastatin Calcium (Lipitor) 40 mg DAILY08 PO ; Start 05/19/20 at 14:00 Ferrous Sulfate (Feosol) 325 mg DAILY08 PO ; Start 05/19/20 at 14:00 Fludrocortisone Acetate (Florinef) 0.2 mg DAILY PO ; Start 05/19/20 at 14:00 Vitamin B Complex/ Vitamin C (Kinjal-Leonor) 1 tab DAILY08 PO ; Start 05/19/20 at 14:00 Glipizide (Glucotrol) 5 mg BIDWMEALS PO ; Start 05/19/20 at 17:00 Calcium Acetate (Phoslo) 2,001 mg BIDWMEALS PO ; Start 05/19/20 at 17:00 Vitamin D (Vitamin D3) 2,000 unit DAILY PO ; Start 05/19/20 at 14:00 Insulin Glargine (Lantus Syringe) 30 unit BID SQ ; Start 05/19/20 at 21:00 Midodrine (Proamatine) 10 mg XBE140 PO ; Start 05/19/20 at 13:00 Sodium Chloride 1,000 ml @ 1,000 mls/hr Q1H PRN IV hypotension; Start 05/19/20 at 14:00; Stop 05/19/20 at 19:59 Albumin Human 200 ml @ 200 mls/hr 1X PRN PRN IV Hypotension; Start 05/19/20 at 14:00; Stop 05/19/20 at 19:59 Sodium Chloride 1,000 ml @ 400 mls/hr Q2H30M PRN IV PATENCY; Start 05/19/20 at 14:00; Stop 05/20/20 at 01:59 Info (PHARMACY MONITORING -- do not chart) 1 each PRN DAILY PRN MC SEE COMMENTS; Start 05/19/20 at 15:00 Info (PHARMACY MONITORING -- do not chart) 1 each PRN DAILY PRN MC SEE COMMENTS; Start 05/19/20 at 15:00; Status UNV Acetaminophen (Tylenol) 650 mg 1X PRN PRN PO MILD PAIN / TEMP > 100.3'F Last administered on 05/19/20at 15:25; Start 05/19/20 at 15:15; Stop 05/20/20 at 15:14 Active Scripts Active Reported Zyrtec (Cetirizine Hcl) 10 Mg Tablet 1 Tab PO DAILY Humulin 70-30 Vial (Hum Insulin Nph/Reg Insulin Hm) 100 Unit/1 Ml Vial 30 Unit SQ BID Fludrocortisone Acetate 0.1 Mg Tablet 0.2 Mg PO DAILY Calcium Acetate 667 Mg Tablet 2,001 Mg PO BIDWMEALS Iron (Ferrous Sulfate) 325 Mg Tablet 65 Mg PO DAILY D3-2000 (Cholecalciferol (Vitamin D3)) 50 Mcg Capsule 2,000 Mcg PO DAILY Atorvastatin Calcium 40 Mg Tablet 40 Mg PO DAILY08 Glipizide 5 Mg Tablet 5 Mg PO BIDWMEALS Midodrine Hcl 10 Mg Tablet 10 Mg PO TID Doxycycline Hyclate 100 Mg Tablet 100 Mg PO BIDWMEALS [Super C Immune ] DAILY Kinjal-Leonor Tablet (Folic Acid/Vitamin B Comp W-C) 0.8 Mg Tablet 0.8 Mg PO Aspir 81 (Aspirin) 81 Mg Tablet.dr 81 Mg PO DAILY Allergies Allergies: Coded Allergies: Iodinated Contrast Media (Verified Allergy, Intermediate, BROKE OUT, 10/26/18) ROS Review of System UNABLE TO OBTAIN Physical Exam General: mild distress HEENT: Atraumatic, PERRLA Lungs: Other (COARSE BILATERALLY) Heart: Regular rate Abdomen: Normal bowel sounds, Soft, No tenderness Extremities: No clubbing, No cyanosis Skin: No breakdown Neuro: Other (CONFUSED) Psych/Mental Status: Other (CONFUSED) MUSCULOSKELETAL: No joint tenderness, No deformity, Other (RIGHT FA RC AVF HAS A GOOD THRILL AND BRUIT) Vitals VITALS Vital Signs Date Time Temp Pulse Resp B/P (MAP) Pulse Ox O2 Delivery O2 Flow Rate FiO2 05/19/20 11:00 98.9 80 24 92/62 (72) 94 Room Air 98.9 Labs Labs Laboratory Tests Test 05/18/20 23:24 05/19/20 07:53 05/19/20 11:47 White Blood Count 9.6 x10^3/uL (4.0-11.0) Red Blood Count 3.84 x10^6/uL (4.30-5.70) Hemoglobin 12.8 g/dL (13.0-17.5) Hematocrit 38.6 % (39.0-53.0) Mean Corpuscular Volume 101 fL (79-100) Mean Corpuscular Hemoglobin 33 pg (25-35) Mean Corpuscular Hemoglobin Concent 33 g/dL (31-37) Red Cell Distribution Width 14.5 % (11.5-14.5) Platelet Count 107 x10^3/uL (140-400) Neutrophils (%) (Auto) 91 % (31-73) Lymphocytes (%) (Auto) 3 % (24-48) Monocytes (%) (Auto) 6 % (0-9) Eosinophils (%) (Auto) 0 % (0-3) Basophils (%) (Auto) 1 % (0-3) Neutrophils # (Auto) 8.7 x10^3/uL (1.8-7.7) Lymphocytes # (Auto) 0.3 x10^3/uL (1.0-4.8) Monocytes # (Auto) 0.6 x10^3/uL (0.0-1.1) Eosinophils # (Auto) 0.0 x10^3/uL (0.0-0.7) Basophils # (Auto) 0.0 x10^3/uL (0.0-0.2) Segmented Neutrophils % 94 % (35-66) Band Neutrophils % 3 % (0-9) Monocytes % 3 % (0-10) Platelet Estimate Decreased (ADEQUATE) Prothrombin Time 13.3 SEC (11.7-14.0) Prothromb Time International Ratio 1.1 (0.8-1.1) Sodium Level 133 mmol/L (136-145) Potassium Level 6.6 mmol/L (3.5-5.1) Chloride Level 96 mmol/L (98-107) Carbon Dioxide Level 24 mmol/L (21-32) Anion Gap 13 (6-14) Blood Urea Nitrogen 67 mg/dL (8-26) Creatinine 8.3 mg/dL (0.7-1.3) Estimated GFR (Cockcroft-Gault) 6.3 BUN/Creatinine Ratio 8 (6-20) Glucose Level 188 mg/dL (70-99) Calcium Level 8.5 mg/dL (8.5-10.1) Magnesium Level 1.4 mg/dL (1.8-2.4) Total Bilirubin 0.6 mg/dL (0.2-1.0) Aspartate Amino Transf (AST/SGOT) 29 U/L (15-37) Alanine Aminotransferase (ALT/SGPT) 31 U/L (16-63) Alkaline Phosphatase 130 U/L (46-116) Troponin I Quantitative 0.513 ng/mL (0.000-0.055) C-Reactive Protein, Quantitative 60.6 mg/L (0-3.3) BA-Vcz-R-Type Natriuretic Peptide > 92435 pg/mL (0-449) Total Protein 6.8 g/dL (6.4-8.2) Albumin 3.3 g/dL (3.4-5.0) Albumin/Globulin Ratio 0.9 (1.0-1.7) Lipase 73 U/L (73-393) Thyroid Stimulating Hormone (TSH) 1.683 uIU/mL (0.358-3.74) Glucose (Fingerstick) 272 mg/dL (70-99) 317 mg/dL (70-99) Laboratory Tests Test 05/18/20 23:24 05/19/20 07:53 05/19/20 11:47 White Blood Count 9.6 x10^3/uL (4.0-11.0) Red Blood Count 3.84 x10^6/uL (4.30-5.70) Hemoglobin 12.8 g/dL (13.0-17.5) Hematocrit 38.6 % (39.0-53.0) Mean Corpuscular Volume 101 fL (79-100) Mean Corpuscular Hemoglobin 33 pg (25-35) Mean Corpuscular Hemoglobin Concent 33 g/dL (31-37) Red Cell Distribution Width 14.5 % (11.5-14.5) Platelet Count 107 x10^3/uL (140-400) Neutrophils (%) (Auto) 91 % (31-73) Lymphocytes (%) (Auto) 3 % (24-48) Monocytes (%) (Auto) 6 % (0-9) Eosinophils (%) (Auto) 0 % (0-3) Basophils (%) (Auto) 1 % (0-3) Neutrophils # (Auto) 8.7 x10^3/uL (1.8-7.7) Lymphocytes # (Auto) 0.3 x10^3/uL (1.0-4.8) Monocytes # (Auto) 0.6 x10^3/uL (0.0-1.1) Eosinophils # (Auto) 0.0 x10^3/uL (0.0-0.7) Basophils # (Auto) 0.0 x10^3/uL (0.0-0.2) Segmented Neutrophils % 94 % (35-66) Band Neutrophils % 3 % (0-9) Monocytes % 3 % (0-10) Platelet Estimate Decreased (ADEQUATE) Prothrombin Time 13.3 SEC (11.7-14.0) Prothromb Time International Ratio 1.1 (0.8-1.1) Sodium Level 133 mmol/L (136-145) Potassium Level 6.6 mmol/L (3.5-5.1) Chloride Level 96 mmol/L (98-107) Carbon Dioxide Level 24 mmol/L (21-32) Anion Gap 13 (6-14) Blood Urea Nitrogen 67 mg/dL (8-26) Creatinine 8.3 mg/dL (0.7-1.3) Estimated GFR (Cockcroft-Gault) 6.3 BUN/Creatinine Ratio 8 (6-20) Glucose Level 188 mg/dL (70-99) Calcium Level 8.5 mg/dL (8.5-10.1) Magnesium Level 1.4 mg/dL (1.8-2.4) Total Bilirubin 0.6 mg/dL (0.2-1.0) Aspartate Amino Transf (AST/SGOT) 29 U/L (15-37) Alanine Aminotransferase (ALT/SGPT) 31 U/L (16-63) Alkaline Phosphatase 130 U/L (46-116) Troponin I Quantitative 0.513 ng/mL (0.000-0.055) C-Reactive Protein, Quantitative 60.6 mg/L (0-3.3) QW-Dvl-B-Type Natriuretic Peptide > 12990 pg/mL (0-449) Total Protein 6.8 g/dL (6.4-8.2) Albumin 3.3 g/dL (3.4-5.0) Albumin/Globulin Ratio 0.9 (1.0-1.7) Lipase 73 U/L (73-393) Thyroid Stimulating Hormone (TSH) 1.683 uIU/mL (0.358-3.74) Glucose (Fingerstick) 272 mg/dL (70-99) 317 mg/dL (70-99) Assessment/Plan Assessment/Plan IMP HYPERKALEMIA ESRD ANEMIA DM II HTN AFIB CHRONIC D CHF PLAN PUI FOR COVID 19 SUPPLEMENTAL O2 RIMA NEEDED HD TODAY UF TO DW WILL FOLLOW LES MARTÍNEZ MD May 19, 2020 15:40
--- NOTE | 2020-05-19 17:12 | EKG ---
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
[2020-05-19] MEDS: CALCIUM ACETATE 667 MG CAPSULE PO SCH (18:41)
[2020-05-19] MEDS: glipiZIDE 5 MG TABLET PO SCH (18:42)
--- NOTE | 2020-05-19 19:23 | NUR ---
Daily meds non administered because patient had not eaten & then went to dialysis.
[2020-05-19 20:36] VITALS: BP 184/79
[2020-05-19 21:58] VITALS: BP 145/56
[2020-05-19] MEDS: INSULIN GLARGINE SYRINGE. SQ SCH (22:04)
[2020-05-19 22:48] VITALS: BP 131/48
[2020-05-19] MEDS: ACETAMINOPHEN 325 MG TABLET. PO PRN (23:36)
[2020-05-20 03:40] VITALS: BP 162/61
[2020-05-20] MEDS: ACETAMINOPHEN 325 MG TABLET. PO PRN ×3 (04:58→20:05)
[2020-05-20 07:00] VITALS: BP 153/55
--- NOTE | 2020-05-20 07:09 | PDOC ---
PULMONARY PROGRESS NOTES DATE: 05/20/20 TIME: 07:08 Subjective on 02 2 lpm sob cough better Vitals Vital Signs Date Time Temp Pulse Resp B/P (MAP) Pulse Ox O2 Delivery O2 Flow Rate FiO2 05/20/20 03:40 102.5 80 22 162/61 (94) 95 Nasal Cannula 3.0 102.5 Comments on alert not in distress no accessory muscle use no rash Labs Laboratory Tests Test 05/18/20 23:24 05/19/20 07:53 05/19/20 11:47 05/19/20 20:36 White Blood Count 9.6 x10^3/uL (4.0-11.0) Red Blood Count 3.84 x10^6/uL (4.30-5.70) Hemoglobin 12.8 g/dL (13.0-17.5) Hematocrit 38.6 % (39.0-53.0) Mean Corpuscular Volume 101 fL (79-100) Mean Corpuscular Hemoglobin 33 pg (25-35) Mean Corpuscular Hemoglobin Concent 33 g/dL (31-37) Red Cell Distribution Width 14.5 % (11.5-14.5) Platelet Count 107 x10^3/uL (140-400) Neutrophils (%) (Auto) 91 % (31-73) Lymphocytes (%) (Auto) 3 % (24-48) Monocytes (%) (Auto) 6 % (0-9) Eosinophils (%) (Auto) 0 % (0-3) Basophils (%) (Auto) 1 % (0-3) Neutrophils # (Auto) 8.7 x10^3/uL (1.8-7.7) Lymphocytes # (Auto) 0.3 x10^3/uL (1.0-4.8) Monocytes # (Auto) 0.6 x10^3/uL (0.0-1.1) Eosinophils # (Auto) 0.0 x10^3/uL (0.0-0.7) Basophils # (Auto) 0.0 x10^3/uL (0.0-0.2) Segmented Neutrophils % 94 % (35-66) Band Neutrophils % 3 % (0-9) Monocytes % 3 % (0-10) Platelet Estimate Decreased (ADEQUATE) Prothrombin Time 13.3 SEC (11.7-14.0) Prothromb Time International Ratio 1.1 (0.8-1.1) Sodium Level 133 mmol/L (136-145) Potassium Level 6.6 mmol/L (3.5-5.1) Chloride Level 96 mmol/L (98-107) Carbon Dioxide Level 24 mmol/L (21-32) Anion Gap 13 (6-14) Blood Urea Nitrogen 67 mg/dL (8-26) Creatinine 8.3 mg/dL (0.7-1.3) Estimated GFR (Cockcroft-Gault) 6.3 BUN/Creatinine Ratio 8 (6-20) Glucose Level 188 mg/dL (70-99) Calcium Level 8.5 mg/dL (8.5-10.1) Magnesium Level 1.4 mg/dL (1.8-2.4) Total Bilirubin 0.6 mg/dL (0.2-1.0) Aspartate Amino Transf (AST/SGOT) 29 U/L (15-37) Alanine Aminotransferase (ALT/SGPT) 31 U/L (16-63) Alkaline Phosphatase 130 U/L (46-116) Troponin I Quantitative 0.513 ng/mL (0.000-0.055) C-Reactive Protein, Quantitative 60.6 mg/L (0-3.3) ZV-Dqk-T-Type Natriuretic Peptide > 90520 pg/mL (0-449) Total Protein 6.8 g/dL (6.4-8.2) Albumin 3.3 g/dL (3.4-5.0) Albumin/Globulin Ratio 0.9 (1.0-1.7) Lipase 73 U/L (73-393) Thyroid Stimulating Hormone (TSH) 1.683 uIU/mL (0.358-3.74) Glucose (Fingerstick) 272 mg/dL (70-99) 317 mg/dL (70-99) 193 mg/dL (70-99) Laboratory Tests Test 05/19/20 07:53 05/19/20 11:47 05/19/20 20:36 Glucose (Fingerstick) 272 mg/dL (70-99) 317 mg/dL (70-99) 193 mg/dL (70-99) Medications Active Scripts Medications Dose Route/Sig Max Daily Dose Days Date Category Zyrtec (Cetirizine Hcl) 10 Mg Tablet 1 Tab PO DAILY 12/12/20 Reported Humulin 70-30 Vial (Hum Insulin Nph/Reg Insulin Hm) 100 Unit/1 Ml Vial 30 Unit SQ BID 10/11/19 Reported Fludrocortisone Acetate 0.1 Mg Tablet 0.2 Mg PO DAILY 10/11/19 Reported Calcium Acetate 667 Mg Tablet 2,001 Mg PO BIDWMEALS 10/11/19 Reported Iron (Ferrous Sulfate) 325 Mg Tablet 65 Mg PO DAILY 10/11/19 Reported D3-2000 (Cholecalciferol (Vitamin D3)) 50 Mcg Capsule 2,000 Mcg PO DAILY 10/11/19 Reported Atorvastatin Calcium 40 Mg Tablet 40 Mg PO DAILY08 10/11/19 Reported Glipizide 5 Mg Tablet 5 Mg PO BIDWMEALS 10/11/19 Reported Midodrine Hcl 10 Mg Tablet 10 Mg PO TID 10/11/19 Reported Doxycycline Hyclate 100 Mg Tablet 100 Mg PO BIDWMEALS 10/11/19 Reported [Super C Immune ] DAILY 02/09/19 Reported Kinjal-Leonor Tablet (Folic Acid/Vitamin B Comp W-C) 0.8 Mg Tablet 0.8 Mg PO 02/01/18 Reported Aspir 81 (Aspirin) 81 Mg Tablet.dr 81 Mg PO DAILY 10/20/13 Reported Impression . IMPRESSION: 1. Abnormal chest x-ray secondary to diastolic congestive heart failure, rule out COVID-19 pneumonia. 2. Febrile illness, rule out COVID-19 pneumonia. 3. Atrial fibrillation. 4. Coronary artery disease. 5. Hyperlipidemia. 6. End-stage renal disease, on hemodialysis. 7. Hyperkalemia. 8. Diabetes mellitus. Plan . PLAN AND RECOMMENDATIONS: 1. Titrate FiO2 to keep O2 saturation 92%. 2. hemodialysis per nephro. 3. Follow up COVID-19 testing. 4. Continue home medication. 5. The findings and recommendations were discussed with KIA. MAYRA LUCAS MD May 20, 2020 07:09
[2020-05-20] MEDS: MIDODRINE 5 MG TABLET PO SCH ×3 (08:00→18:00)
[2020-05-20] MEDS: CALCIUM ACETATE 667 MG CAPSULE PO SCH ×3 (08:00→17:00)
[2020-05-20] MEDS: ATORVASTATIN CALCIUM 40 MG TABLET. PO SCH (08:32)
[2020-05-20] MEDS: glipiZIDE 5 MG TABLET PO SCH ×2 (08:33→18:06)
[2020-05-20] MEDS: FOLIC/VIT B COMP W-C (RENAL) TABLET. PO SCH (08:34)
[2020-05-20] MEDS: CHOLECALCIFEROL (VITAMIN D3) 1,000 UNIT TABLET PO SCH (08:34)
[2020-05-20] MEDS: ASPIRIN ENTERIC COATED 81 MG TABLET.DR. PO SCH (08:34)
[2020-05-20] MEDS: FERROUS SULFATE 325 MG TABLET. PO SCH (08:37)
[2020-05-20] MEDS: INSULIN GLARGINE SYRINGE. SQ SCH ×2 (08:59→22:22)
[2020-05-20] MEDS: FLUDROCORTISONE 0.1 MG TABLET PO SCH (09:00)
--- NOTE | 2020-05-20 10:44 | PDOC ---
Provider Note Date of Service: DATE: 05/20/20 TIME: 10:43 Provider Note t max 102, looks good, few rales and no cough- covid pending, will add rocep/azith to cover for CA pneumonia pending covid result- low platelets noted Justifications for Admission Other Justification DONTE DONAHUE MD May 20, 2020 10:44
[2020-05-20] MEDS ORDERED: AZITHROMYCIN 250 MG TABLET. PO ONE (10:45)
[2020-05-20 11:00] VITALS: BP 118/86
[2020-05-20] MEDS ORDERED: cefTRIAXone IV Push 1 GM VIAL. IVP SCH (11:00)
--- NOTE | 2020-05-20 11:08 | PDOC ---
Renal-Progress Notes Subjective Notes Notes LESS SOB History of Present Illness Hx of present illness STABLE Vitals Vitals Vital Signs Date Time Temp Pulse Resp B/P (MAP) Pulse Ox O2 Delivery O2 Flow Rate FiO2 05/20/20 11:00 80 22 118/86 (97) 95 Nasal Cannula 3.0 05/20/20 07:00 100.6 100.6 Weight Weight [ ] I.O. Intake and Output Intake and Output 05/20/20 07:00 Intake Total 750 ml Balance 750 ml Intake Oral 750 ml Labs Labs Laboratory Tests Test 05/19/20 11:47 05/19/20 20:36 Glucose (Fingerstick) 317 mg/dL (70-99) 193 mg/dL (70-99) Micro Micro Microbiology 05/18/20 Blood Culture - Preliminary, Resulted NO GROWTH AFTER 1 DAY Review of Systems Constitutional: yes: weakness, alert Ears/Nose/Throat: Yes: no symptom reported Pulmonary: Yes dyspnea Cardiovascular: Yes no symptom reported Gastrointestional: Yes: no symptom reported Genitourinary: Yes: no symptom reported Musculoskeletal: Yes: muscle stiffness Skin: Yes no symptom reported Psychiatric/Neurological: Yes: no symptom reported Endocrine: Yes: no symptom reported Physical Exam General Appearance: no apparent distress Skin: warm Respiratory: decreased breath sounds Heart: S1S2 Abdomen: soft, bowel sounds present Genitourinary: bladder flat Extremities: pulses present Musculoskeletal: Osteoarthritis Assessment Assessment IMP HYPERKALEMIA ESRD ANEMIA DM II HTN AFIB CHRONIC D CHF PLAN PUI FOR COVID 19 SUPPLEMENTAL O2 RIMA NEEDED HD NEXT ON THURSDAY WILL FOLLOW LES MARTÍNEZ MD May 20, 2020 11:08
[2020-05-20] MEDS: DEXAMETHASONE 4 MG TABLET PO SCH (11:27)
[2020-05-20 15:00] VITALS: BP 111/55
[2020-05-20 19:00] VITALS: BP 145/67
[2020-05-20 22:55] VITALS: BP 133/81
[2020-05-20] MEDS: CETIRIZINE HCL 10 MG TABLET. PO SCH (23:52)
[2020-05-21 02:52] VITALS: BP 137/77
[2020-05-21 07:00] VITALS: BP 90/77
--- NOTE | 2020-05-21 08:24 | PDOC ---
Infectious Disease Note Vital Sign Vital Signs Vital Signs Date Time Temp Pulse Resp B/P (MAP) Pulse Ox O2 Delivery O2 Flow Rate FiO2 05/21/20 07:00 97.7 80 18 90/77 (81) 95 Nasal Cannula 3.0 97.7 Labs Lab Laboratory Tests Test 05/20/20 11:36 05/20/20 16:47 05/20/20 21:13 05/21/20 07:54 Glucose (Fingerstick) 249 mg/dL (70-99) 178 mg/dL (70-99) 229 mg/dL (70-99) 252 mg/dL (70-99) Micro Microbiology 05/18/20 Blood Culture - Preliminary, Resulted NO GROWTH AFTER 2 DAYS Objective Assessment pt seen, consult dictated Plan Plan of Care / CASSIE PATEL MD May 21, 2020 08:24
--- NOTE | 2020-05-21 08:39 | CONS ---
DATE OF CONSULTATION: 05/21/2020 REQUESTING PHYSICIAN: Christopher Hill MD. REASON FOR CONSULTATION: COVID-19 positive, hypoxia and pneumonia. HISTORY OF PRESENT ILLNESS: This is a 80-year-old gentleman with a history of end-stage renal disease, on hemodialysis. The patient came in with weakness in the legs and some confusion. The patient had pain. The patient was hypoxic, requiring 3 liters of oxygen, has been running fever here up to 102.9 and receiving steroids and Rocephin and COVID is positive. Consult has been requested. The patient is alert. He is very weak. He is not able to stand, he says, but he needs to get out of the bed. Denies any nausea, vomiting or diarrhea. Denies any chest pain, abdominal pain, urinary symptoms, bowel symptoms, headache or visual symptoms. He does have some shortness of breath. PAST MEDICAL HISTORY: Positive for end-stage renal disease, on hemodialysis; coronary artery disease; AV shunt; coronary stenting done; pacemaker in place; hyperlipidemia; atrial fibrillation; hypertension; anxiety disorder; anemia. SOCIAL HISTORY: Negative for smoking, alcohol or illicit drug use. ALLERGIES: No known drug allergies. REVIEW OF SYSTEMS: As per HPI, all other systems reviewed are negative. PHYSICAL EXAMINATION: GENERAL: Alert, oriented gentleman, not in any distress. VITAL SIGNS: Stable with T-max 102.5, pulse 80, respirations 18, blood pressure 90/77. HEENT: Both pupils are round and reacting. No conjunctival lesion. No lesion in the mouth. NECK: Supple, no JVP, no lymphadenopathy. LUNGS: Clear. HEART: S1, S2 regular. ABDOMEN: Soft, nontender, no organomegaly. EXTREMITIES: No edema or cyanosis. SKIN: Unremarkable other than some bruising present. NEUROLOGIC: The patient is alert, awake and appropriate. No focal neurologic deficit. LABORATORY DATA: White count is 9.6. BUN and creatinine is 67 and 8.3. BNP is more than 35,000. COVID-19 positive. Blood culture is negative. Chest x-ray showed patchy hazy infiltrate bilaterally. IMPRESSION: 1. COVID-19 positive. 2. Pulmonary infiltrate. 3. Hypoxemia. 4. Fever. 5. End-stage renal disease. 6. Hypertension. 7. Coronary artery disease. RECOMMENDATIONS: Continue steroids. Continue supportive care and remdesivir. I will also change Rocephin to Zosyn and we will continue to follow. Thank you very much, Dr. Hill, for giving me opportunity to participate in this patient's care. CASSIE PATEL MD DR: BECCA/mino JOB#: [id number] / [id number]
--- NOTE | 2020-05-21 08:43 | PDOC ---
PULMONARY PROGRESS NOTE Objective Vital Signs Date Time Temp Pulse Resp B/P (MAP) Pulse Ox O2 Delivery O2 Flow Rate FiO2 05/21/20 07:00 97.7 80 18 90/77 (81) 95 Nasal Cannula 3.0 97.7 Intake and Output 05/21/20 06:59 Intake Total 180 ml Output Total 750 ml Balance -570 ml Intake Oral 180 ml Output Urine Total 750 ml VITALS/I&O Vital Sign - Last 24 Hours 05/20/20 05/20/20 05/20/20 05/20/20 11:00 15:00 19:00 19:51 Temp 92.1 100.4 100.4 92.1 100.4 100.4 Pulse 80 80 80 Resp 22 22 20 B/P (MAP) 118/86 (97) 111/55 (73) 145/67 (93) Pulse Ox 95 92 96 O2 Delivery Nasal Cannula Nasal Cannula Nasal Cannula O2 Flow Rate 3.0 3.0 3.0 05/20/20 05/20/20 05/21/20 05/21/20 19:52 22:55 02:52 07:00 Temp 97.6 98.5 97.7 97.6 98.5 97.7 Pulse 80 79 80 Resp 24 18 18 B/P (MAP) 133/81 (98) 137/77 (97) 90/77 (81) Pulse Ox 94 95 95 O2 Delivery Nasal Cannula Nasal Cannula Nasal Cannula Nasal Cannula O2 Flow Rate 3.0 3.0 3.0 3.0 Intake and Output 05/20/20 05/20/20 05/21/20 14:59 22:59 06:59 Intake Total 180 ml 0 ml Output Total 500 ml 250 ml Balance -320 ml -250 ml Review of Relevant I have reviewed the following items david (where applicable) has been applied. Labs Laboratory Tests Test 05/19/20 11:47 05/19/20 20:36 05/20/20 07:41 05/20/20 11:36 Glucose (Fingerstick) 317 mg/dL (70-99) 193 mg/dL (70-99) 233 mg/dL (70-99) 249 mg/dL (70-99) Test 05/20/20 16:47 05/20/20 21:13 05/21/20 07:54 Glucose (Fingerstick) 178 mg/dL (70-99) 229 mg/dL (70-99) 252 mg/dL (70-99) Laboratory Tests Test 05/20/20 11:36 05/20/20 16:47 05/20/20 21:13 05/21/20 07:54 Glucose (Fingerstick) 249 mg/dL (70-99) 178 mg/dL (70-99) 229 mg/dL (70-99) 252 mg/dL (70-99) Microbiology 05/18/20 Blood Culture - Preliminary, Resulted NO GROWTH AFTER 2 DAYS Medications Current Medications Calcium Gluconate (Calcium Gluconate) 1,000 mg 1X ONCE IVP Last administered on 05/19/20at 02:24; Start 05/19/20 at 01:45; Stop 05/19/20 at 01:46; Status DC Labetalol HCl (Normodyne Iv Push) 10 mg 1X ONCE IVP ; Start 05/19/20 at 01:45; Stop 05/19/20 at 01:46; Status DC Ondansetron HCl (Zofran) 4 mg 1X ONCE IVP Last administered on 05/19/20at 02:51; Start 05/19/20 at 03:00; Stop 05/19/20 at 03:01; Status DC Aspirin (Ecotrin) 81 mg DAILY PO Last administered on 05/20/20at 08:34; Start 05/19/20 at 14:00 Atorvastatin Calcium (Lipitor) 40 mg DAILY08 PO Last administered on 05/20/20at 08:32; Start 05/19/20 at 14:00 Ferrous Sulfate (Feosol) 325 mg DAILY08 PO Last administered on 05/20/20at 08:37; Start 05/19/20 at 14:00 Fludrocortisone Acetate (Florinef) 0.2 mg DAILY PO ; Start 05/19/20 at 14:00 Vitamin B Complex/ Vitamin C (Kinjal-Leonor) 1 tab DAILY08 PO Last administered on 05/20/20at 08:34; Start 05/19/20 at 14:00 Glipizide (Glucotrol) 5 mg BIDWMEALS PO Last administered on 05/20/20at 18:06; Start 05/19/20 at 17:00 Calcium Acetate (Phoslo) 2,001 mg BIDWMEALS PO Last administered on 05/19/20at 18:41; Start 05/19/20 at 17:00 Vitamin D (Vitamin D3) 2,000 unit DAILY PO Last administered on 05/20/20at 08:34; Start 05/19/20 at 14:00 Insulin Glargine (Lantus Syringe) 30 unit BID SQ Last administered on 05/20/20at 22:22; Start 05/19/20 at 21:00 Midodrine (Proamatine) 10 mg [id number] PO Last administered on 05/19/20at 18:44; Start 05/19/20 at 13:00; Stop 05/20/20 at 05:16; Status DC Sodium Chloride 1,000 ml @ 1,000 mls/hr Q1H PRN IV hypotension; Start 05/19/20 at 14:00; Stop 05/19/20 at 19:59; Status DC Albumin Human 200 ml @ 200 mls/hr 1X PRN PRN IV Hypotension; Start 05/19/20 at 14:00; Stop 05/19/20 at 19:59; Status DC Sodium Chloride 1,000 ml @ 400 mls/hr Q2H30M PRN IV PATENCY; Start 05/19/20 at 14:00; Stop 05/20/20 at 01:59; Status DC Info (PHARMACY MONITORING -- do not chart) 1 each PRN DAILY PRN MC SEE COMMENTS; Start 05/19/20 at 15:00 Info (PHARMACY MONITORING -- do not chart) 1 each PRN DAILY PRN MC SEE COMMENTS; Start 05/19/20 at 15:00; Status UNV Acetaminophen (Tylenol) 650 mg 1X PRN PRN PO MILD PAIN / TEMP > 100.3'F Last administered on 05/19/20at 15:25; Start 05/19/20 at 15:15; Stop 05/20/20 at 15:14; Status DC Acetaminophen (Tylenol) 650 mg PRN Q6HRS PRN PO MILD PAIN / TEMP > 100.3'F Last administered on 05/20/20at 20:05; Start 05/19/20 at 23:15 Midodrine (Proamatine) 10 mg 0800,1300,1800 PO ; Start 05/20/20 at 08:00 Ceftriaxone Sodium (Rocephin) 1 gm Q24H IVP Last administered on 05/20/20at 11:28; Start 05/20/20 at 11:00; Stop 05/21/20 at 08:24; Status DC Azithromycin (Zithromax) 500 mg 1X ONCE PO Last administered on 05/20/20at 11:28; Start 05/20/20 at 10:45; Stop 05/20/20 at 10:49; Status DC Dexamethasone (Decadron) 6 mg DAILYWBKFT PO Last administered on 05/20/20at 11:27; Start 05/20/20 at 12:00 Cetirizine HCl (ZyrTEC) 10 mg HS PO Last administered on 05/20/20at 23:52; Start 05/20/20 at 23:30 Lactobacillus Rhamnosus (Culturelle) 1 cap BID PO ; Start 05/21/20 at 09:00 Remdesivir 200 mg/ Sodium Chloride 210 ml @ 210 mls/hr 1X ONCE IV ; Start 05/21/20 at 10:00; Stop 05/21/20 at 10:59 Remdesivir 100 mg/ Sodium Chloride 230 ml @ 460 mls/hr Q24H IV ; Start 05/22/20 at 10:00; Stop 05/25/20 at 10:29 Piperacillin Sod/ Tazobactam Sod 2.25 gm/Sodium Chloride 50 ml @ 100 mls/hr Q8HRS IV ; Start 05/21/20 at 09:00 Active Scripts Active Reported Zyrtec (Cetirizine Hcl) 10 Mg Tablet 1 Tab PO DAILY Humulin 70-30 Vial (Hum Insulin Nph/Reg Insulin Hm) 100 Unit/1 Ml Vial 30 Unit SQ BID Fludrocortisone Acetate 0.1 Mg Tablet 0.2 Mg PO DAILY Calcium Acetate 667 Mg Tablet 2,001 Mg PO BIDWMEALS Iron (Ferrous Sulfate) 325 Mg Tablet 65 Mg PO DAILY D3-2000 (Cholecalciferol (Vitamin D3)) 50 Mcg Capsule 2,000 Mcg PO DAILY Atorvastatin Calcium 40 Mg Tablet 40 Mg PO DAILY08 Glipizide 5 Mg Tablet 5 Mg PO BIDWMEALS Midodrine Hcl 10 Mg Tablet 10 Mg PO TID Doxycycline Hyclate 100 Mg Tablet 100 Mg PO BIDWMEALS [Super C Immune ] DAILY Kinjal-Leonor Tablet (Folic Acid/Vitamin B Comp W-C) 0.8 Mg Tablet 0.8 Mg PO Aspir 81 (Aspirin) 81 Mg Tablet.dr 81 Mg PO DAILY CLIFTON VILLALBA MD May 21, 2020 08:43
[2020-05-21] MEDS: CALCIUM ACETATE 667 MG CAPSULE PO SCH ×2 (09:02→17:15)
[2020-05-21] MEDS: FOLIC/VIT B COMP W-C (RENAL) TABLET. PO SCH (09:02)
[2020-05-21] MEDS: ASPIRIN ENTERIC COATED 81 MG TABLET.DR. PO SCH (09:02)
[2020-05-21] MEDS: CHOLECALCIFEROL (VITAMIN D3) 1,000 UNIT TABLET PO SCH (09:02)
[2020-05-21] MEDS: LACTOBACILLUS RHAMNOSUS GG 1 CAPSULE. PO SCH ×2 (09:03→20:49)
[2020-05-21] MEDS: FERROUS SULFATE 325 MG TABLET. PO SCH (09:03)
[2020-05-21] MEDS: DEXAMETHASONE 4 MG TABLET PO SCH (09:03)
[2020-05-21] MEDS: glipiZIDE 5 MG TABLET PO SCH ×2 (09:03→17:14)
[2020-05-21] MEDS: MIDODRINE 5 MG TABLET PO SCH ×3 (09:03→18:00)
[2020-05-21] MEDS: FLUDROCORTISONE 0.1 MG TABLET PO SCH (09:05)
[2020-05-21] MEDS: PIPERACILLIN/TAZOBACTAM 2.25 GM in IV NORMAL SALINE 50ML 50 ML IV SCH ×3 (09:06→20:49)
[2020-05-21] MEDS: INSULIN GLARGINE SYRINGE. SQ SCH (09:08)
[2020-05-21] MEDS: ATORVASTATIN CALCIUM 40 MG TABLET. PO SCH (09:10)
[2020-05-21] MEDS ORDERED: REMDESIVIR LOAD in IV NORMAL SALINE 250ML TV IV ONE (10:00)
--- NOTE | 2020-05-21 10:18 | PDOC ---
DATE OF SERVICE DATE: 05/21/20 TIME: 10:14 SUBJECTIVE ROS BP low earlier today, received midodrine , BP improved He is feeling very weak ,has not able to stand . Has some SOB OBJECTIVE Vital Signs Vital Signs Date Time Temp Pulse Resp B/P (MAP) Pulse Ox O2 Delivery O2 Flow Rate FiO2 05/21/20 09:03 80 05/21/20 07:00 97.7 18 90/77 (81) 95 Nasal Cannula 3.0 97.7 I & 0 Intake and Output 05/21/20 07:00 Intake Total 180 ml Output Total 750 ml Balance -570 ml Intake Oral 180 ml Output Urine Total 750 ml PHYSICAL EXAM Physical Exam GENERAL: Alert, oriented , not in any distress. HEENT:OM moist , On O2 by NC NECK: Supple, no JVP, no lymphadenopathy. LUNGS: Clear. HEART: S1, S2 regular. ABDOMEN: Soft, nontender, no organomegaly. EXTREMITIES: No edema or cyanosis. SKIN: Unremarkable other than some bruising present. NEUROLOGIC: alert, awake No focal neurologic deficit. DIAGNOSIS/ASSESSMENT Assessment & Plan ESRD - on HD TTS Clinically, currently no indication for Dialysis today, No labs COVID-19 positive- On Steroids , Remdesivir and Abx Pulmonary infiltrate. Hypoxemia- On O2 by NC Hypertension. Hx of AFib - has Pacemaker Hx of Chronic diastolic HF secondary to RVR;currently compensated Hx of CAD s/p PCI/HAMMAD - Asymptomatic DM COMMENT/RELEVANT DATA Meds Current Medications Medications (Trade) Dose Ordered Sig/Sonja Start Time Stop Time Status Last Admin Dose Admin Acetaminophen (Tylenol) 650 mg PRN Q6HRS PRN 05/19/20 23:15 05/20/20 20:05 650 MG Albumin Human 200 ml @ 200 mls/hr 1X PRN PRN 05/19/20 14:00 05/19/20 19:59 DC Aspirin (Ecotrin) 81 mg DAILY 05/19/20 14:00 05/21/20 09:02 81 MG Atorvastatin Calcium (Lipitor) 40 mg DAILY08 05/19/20 14:00 05/21/20 09:10 40 MG Azithromycin (Zithromax) 500 mg 1X ONCE 05/20/20 10:45 05/20/20 10:49 DC 05/20/20 11:28 500 MG Calcium Acetate (Phoslo) 2,001 mg BIDWMEALS 05/19/20 17:00 05/21/20 09:02 2,001 MG Calcium Gluconate (Calcium Gluconate) 1,000 mg 1X ONCE 05/19/20 01:45 05/19/20 01:46 DC 05/19/20 02:24 1,000 MG Ceftriaxone Sodium (Rocephin) 1 gm Q24H 05/20/20 11:00 05/21/20 08:24 DC 05/20/20 11:28 1 GM Cetirizine HCl (ZyrTEC) 10 mg HS 05/20/20 23:30 05/20/20 23:52 10 MG Dexamethasone (Decadron) 6 mg DAILYWBKFT 05/20/20 12:00 05/21/20 09:03 6 MG Ferrous Sulfate (Feosol) 325 mg DAILY08 05/19/20 14:00 05/21/20 09:03 325 MG Fludrocortisone Acetate (Florinef) 0.2 mg DAILY 05/19/20 14:00 05/21/20 09:05 0.2 MG Glipizide (Glucotrol) 5 mg BIDWMEALS 05/19/20 17:00 05/21/20 09:03 5 MG Info (PHARMACY MONITORING -- do not chart) 1 each PRN DAILY PRN 05/19/20 15:00 UNV Insulin Glargine (Lantus Syringe) 30 unit BID 05/19/20 21:00 05/21/20 09:08 30 UNIT Labetalol HCl (Normodyne Iv Push) 10 mg 1X ONCE 05/19/20 01:45 05/19/20 01:46 DC Lactobacillus Rhamnosus (Culturelle) 1 cap BID 05/21/20 09:00 05/21/20 09:03 1 CAP Midodrine (Proamatine) 10 mg 0800,1300,1800 05/20/20 08:00 05/21/20 09:03 10 MG Ondansetron HCl (Zofran) 4 mg 1X ONCE 05/19/20 03:00 05/19/20 03:01 DC 05/19/20 02:51 4 MG Piperacillin Sod/ Tazobactam Sod 2.25 gm/Sodium Chloride 50 ml @ 100 mls/hr Q8HRS 05/21/20 09:00 05/21/20 09:06 100 MLS/HR Remdesivir 100 mg/ Sodium Chloride 230 ml @ 460 mls/hr Q24H 05/22/20 10:00 05/25/20 10:29 Remdesivir 200 mg/ Sodium Chloride 210 ml @ 210 mls/hr 1X ONCE 05/21/20 10:00 05/21/20 10:59 Sodium Chloride 1,000 ml @ 400 mls/hr Q2H30M PRN 05/19/20 14:00 05/20/20 01:59 DC Vitamin B Complex/ Vitamin C (Kinjal-Leonor) 1 tab DAILY08 05/19/20 14:00 05/21/20 09:02 1 TAB Vitamin D (Vitamin D3) 2,000 unit DAILY 05/19/20 14:00 05/21/20 09:02 2,000 UNIT Lab Laboratory Tests Test 05/20/20 11:36 05/20/20 16:47 05/20/20 21:13 05/21/20 07:54 Glucose (Fingerstick) 249 mg/dL (70-99) 178 mg/dL (70-99) 229 mg/dL (70-99) 252 mg/dL (70-99) Results All relevant outside records, renal labs, imaging studies, telemetry/EKG's were reviewed. Justicifation of Admission Dx: Justifications for Admission: Justification of Admission Dx: N/A YVETTE ARAUZ MD May 21, 2020 10:18
[2020-05-21 10:55] VITALS: BP 120/60
--- NOTE | 2020-05-21 13:40 | NUR ---
SS following for discharge planning. SS reviewed pt chart and discussed with pt RN. Pt is from home with spouse and is currently requiring oxygen. COVID19 positive. Pt on Remdesivir and IV Zosyn. PT/OT ordered. Pt had outpatient dialysis at [facility], ; fax [phone], Thursday, , and Thursday. SS spoke with Suraj at [facility] and was notified that since pt was COVID19 positive pt would need to transfer to [facility], [place] location. SS will continue to follow for discharge planning.
[2020-05-21 14:51] VITALS: BP 169/80
--- NOTE | 2020-05-21 16:05 | PDOC ---
PULMONARY PROGRESS NOTES DATE: 05/21/20 TIME: 16:02 Subjective remains on 3 liters N/C denies SOB, reports non productive cough weak Hypotension, improved with midodrine no other concerns from nursing Vitals Vital Signs Date Time Temp Pulse Resp B/P (MAP) Pulse Ox O2 Delivery O2 Flow Rate FiO2 05/21/20 14:51 97.7 81 24 169/80 (109) 97 Nasal Cannula 3.0 97.7 Comments PT. seen during COVID 19 pandemic, visual exam preformed on 02 alert not in distress no accessory muscle use no rash Labs Laboratory Tests Test 05/19/20 20:36 05/20/20 07:41 05/20/20 11:36 05/20/20 16:47 Glucose (Fingerstick) 193 mg/dL (70-99) 233 mg/dL (70-99) 249 mg/dL (70-99) 178 mg/dL (70-99) Test 05/20/20 21:13 05/21/20 07:54 05/21/20 11:56 Glucose (Fingerstick) 229 mg/dL (70-99) 252 mg/dL (70-99) 257 mg/dL (70-99) Laboratory Tests Test 05/20/20 16:47 05/20/20 21:13 05/21/20 07:54 05/21/20 11:56 Glucose (Fingerstick) 178 mg/dL (70-99) 229 mg/dL (70-99) 252 mg/dL (70-99) 257 mg/dL (70-99) Medications Active Scripts Medications Dose Route/Sig Max Daily Dose Days Date Category Zyrtec (Cetirizine Hcl) 10 Mg Tablet 1 Tab PO DAILY 05/19/20 Reported Humulin 70-30 Vial (Hum Insulin Nph/Reg Insulin Hm) 100 Unit/1 Ml Vial 30 Unit SQ BID 10/11/19 Reported Fludrocortisone Acetate 0.1 Mg Tablet 0.2 Mg PO DAILY 10/11/19 Reported Calcium Acetate 667 Mg Tablet 2,001 Mg PO BIDWMEALS 10/11/19 Reported Iron (Ferrous Sulfate) 325 Mg Tablet 65 Mg PO DAILY 10/11/19 Reported D3-2000 (Cholecalciferol (Vitamin D3)) 50 Mcg Capsule 2,000 Mcg PO DAILY 10/11/19 Reported Atorvastatin Calcium 40 Mg Tablet 40 Mg PO DAILY08 10/11/19 Reported Glipizide 5 Mg Tablet 5 Mg PO BIDWMEALS 10/11/19 Reported Midodrine Hcl 10 Mg Tablet 10 Mg PO TID 10/11/19 Reported Doxycycline Hyclate 100 Mg Tablet 100 Mg PO BIDWMEALS 10/11/19 Reported [Super C Immune ] DAILY 02/09/19 Reported Kinjal-Leonor Tablet (Folic Acid/Vitamin B Comp W-C) 0.8 Mg Tablet 0.8 Mg PO 02/01/18 Reported Aspir 81 (Aspirin) 81 Mg Tablet.dr 81 Mg PO DAILY 10/20/13 Reported Comments CXR IMPRESSION: Patchy hazy infiltrates bilaterally. Mild cardiomegaly which is stable. Impression . IMPRESSION: 1. Abnormal chest x-ray secondary to diastolic congestive heart failure, rule out COVID-19 pneumonia. 2. Febrile illness, rule out COVID-19 pneumonia. 3. Atrial fibrillation. 4. Coronary artery disease. 5. Hyperlipidemia. 6. End-stage renal disease, on hemodialysis. 7. Hyperkalemia. 8. Diabetes mellitus. Plan . PLAN AND RECOMMENDATIONS: Continue supplemental oxygen to keep sata above 92%, currently on 3 liters N/C Follow ID recs, currently off ABX Continue full course of remdesivir Steroids with taper Follow nephrology recs, no HD at this time PT/OT DVT/GI PPX D/W CLIFTON EVANS MD May 21, 2020 16:05
[2020-05-21 16:47] LABS: BASO % 0 % (0-3); EOS % 0 % (0-3); HEMATOCRIT 38.7 % (39.0-53.0); HEMOGLOBIN 13.1 g/dL (13.0-17.5); LYMPH # 0.2 x10^3/uL (1.0-4.8); LYMPH % 4 % (24-48); MEAN CORPUSCULAR HEMOGLOBIN 34 pg (25-35); MEAN CORPUSCULAR HGB CONC 34 g/dL (31-37); MEAN CORPUSCULAR VOLUME 100 fL (79-100); MONO # 0.3 x10^3/uL (0.0-1.1); MONO % 5 % (0-9); NEUT # 5.5 x10^3/uL (1.8-7.7); NEUT % 91 % (31-73); PLATELET COUNT 70 x10^3/uL (140-400); RED BLOOD COUNT 3.87 x10^6/uL (4.30-5.70)
[2020-05-21 19:56] VITALS: BP 159/67
[2020-05-21] MEDS: ACETAMINOPHEN 325 MG TABLET. PO PRN (20:49)
[2020-05-21] MEDS: CETIRIZINE HCL 10 MG TABLET. PO SCH (20:50)
[2020-05-21 22:56] VITALS: BP 142/99
--- NOTE | 2020-05-22 00:38 | PN ---
DATE: 05/21/2020 LOCATION: He is in Room 258. SUBJECTIVE: The patient is hospitalized for acute respiratory failure and is positive for COVID-19 with hazy infiltrates bilaterally on chest x-ray. He states he is feeling decent and needs to get back home as quickly as possible at the time of my examination. He was apparently somewhat encephalopathic on admission, but appeared to be in his normal mental status at this point in time. OBJECTIVE: VITAL SIGNS: Stable. T-max is 102.5 in the last 24 hours. LABORATORY DATA: CBC is remarkable for a normal white count of 6000, hemoglobin 13.1. His platelet count is down to 70,000 this morning. There is a left shift and lymphocytopenia. IMPRESSION: 1. COVID-19 positive. 2. Bilateral pulmonary infiltrates. 3. Hypoxemia. 4. End-stage renal disease, on dialysis. 5. Hypertension. 6. Coronary artery disease. 7. Fever. 8. Thrombocytopenia. PLAN: The patient is currently getting steroids, remdesivir, supportive care. Antibiotics have been adjusted for broader coverage. The patient will be monitored, managed and treated appropriately. GARY GARCIA MD DR: KIM/mino JOB#: [id number] / [id number]
[2020-05-22] MEDS: INSULIN GLARGINE SYRINGE. SQ SCH ×3 (01:29→22:21)
[2020-05-22 03:23] VITALS: BP 165/62
[2020-05-22] MEDS: PIPERACILLIN/TAZOBACTAM 2.25 GM in IV NORMAL SALINE 50ML 50 ML IV SCH ×3 (06:13→22:20)
[2020-05-22 07:00] VITALS: BP 102/64
[2020-05-22] MEDS ORDERED: DIALYSIS PATIENT. MC PRN ×2 (08:00)
[2020-05-22] MEDS ORDERED: IV NORMAL SALINE 1000ML BAG 1,000 ML IV PRN ×2 (08:00)
[2020-05-22] MEDS: MIDODRINE 5 MG TABLET PO SCH ×3 (08:00→18:00)
[2020-05-22] MEDS ORDERED: ALBUMIN HUMAN 25% 200 ML IV PRN (08:00)
[2020-05-22] MEDS: CALCIUM ACETATE 667 MG CAPSULE PO SCH ×2 (08:00→17:00)
[2020-05-22] MEDS: glipiZIDE 5 MG TABLET PO SCH ×2 (08:00→17:00)
--- NOTE | 2020-05-22 08:11 | PN ---
DATE: 05/22/2020 DAILY PROGRESS NOTE LOCATION: He is in room 258. SUBJECTIVE: This 80-year-old white male remains hospitalized for acute respiratory failure due to COVID pneumonia with bilateral hazy infiltrates on chest x-ray. The patient had a good night. He did desat, however, into the upper 70s of oxygen, came off during the night from nursing. His encephalopathy seems for the most part of cleared. OBJECTIVE: VITAL SIGNS: Stable. T-max is 100.4 in the last 24 hours. CHEST: Reveals occasional rhonchi. HEART: Regular. ABDOMEN: Benign. EXTREMITIES: Without cyanosis, clubbing and trace edema. IMPRESSION: 1. Bilateral pulmonary infiltrates with acute hypoxic respiratory failure due to COVID-19 pneumonia. 2. End-stage renal disease, on dialysis. 3. Hypertension. 4. Coronary artery disease. 5. Thrombocytopenia. 6. Fever, which improved fever curve over the last 24 hours. PLAN: Ongoing steroids, remdesivir, supportive care. Antibiotics have been adjusted for broader coverage and the patient will be supported, managed, monitored and treated appropriately. GARY GARCIA MD DR: KIM/mino JOB#: [id number] / [id number]
--- NOTE | 2020-05-22 08:40 | PDOC ---
PULMONARY PROGRESS NOTES DATE: 05/22/20 TIME: 08:40 Subjective remains on 3 liters N/C denies SOB, reports non productive cough no other concerns from nursing Vitals Vital Signs Date Time Temp Pulse Resp B/P (MAP) Pulse Ox O2 Delivery O2 Flow Rate FiO2 05/22/20 03:23 98.5 80 22 165/62 (96) 97 Nasal Cannula 3.0 98.5 Comments PT. seen during COVID 19 pandemic, visual exam preformed on 02 alert not in distress no accessory muscle use no rash Labs Laboratory Tests Test 05/20/20 11:36 05/20/20 16:47 05/20/20 21:13 05/21/20 07:54 Glucose (Fingerstick) 249 mg/dL (70-99) 178 mg/dL (70-99) 229 mg/dL (70-99) 252 mg/dL (70-99) Test 05/21/20 11:56 05/21/20 16:20 05/21/20 16:28 05/21/20 20:48 Glucose (Fingerstick) 257 mg/dL (70-99) 248 mg/dL (70-99) 205 mg/dL (70-99) White Blood Count 6.0 x10^3/uL (4.0-11.0) Red Blood Count 3.87 x10^6/uL (4.30-5.70) Hemoglobin 13.1 g/dL (13.0-17.5) Hematocrit 38.7 % (39.0-53.0) Mean Corpuscular Volume 100 fL (79-100) Mean Corpuscular Hemoglobin 34 pg (25-35) Mean Corpuscular Hemoglobin Concent 34 g/dL (31-37) Red Cell Distribution Width 15.0 % (11.5-14.5) Platelet Count 70 x10^3/uL (140-400) Neutrophils (%) (Auto) 91 % (31-73) Lymphocytes (%) (Auto) 4 % (24-48) Monocytes (%) (Auto) 5 % (0-9) Eosinophils (%) (Auto) 0 % (0-3) Basophils (%) (Auto) 0 % (0-3) Neutrophils # (Auto) 5.5 x10^3/uL (1.8-7.7) Lymphocytes # (Auto) 0.2 x10^3/uL (1.0-4.8) Monocytes # (Auto) 0.3 x10^3/uL (0.0-1.1) Eosinophils # (Auto) 0.0 x10^3/uL (0.0-0.7) Basophils # (Auto) 0.0 x10^3/uL (0.0-0.2) Test 05/22/20 07:52 Glucose (Fingerstick) 166 mg/dL (70-99) Laboratory Tests Test 05/21/20 11:56 05/21/20 16:20 05/21/20 16:28 05/21/20 20:48 Glucose (Fingerstick) 257 mg/dL (70-99) 248 mg/dL (70-99) 205 mg/dL (70-99) White Blood Count 6.0 x10^3/uL (4.0-11.0) Red Blood Count 3.87 x10^6/uL (4.30-5.70) Hemoglobin 13.1 g/dL (13.0-17.5) Hematocrit 38.7 % (39.0-53.0) Mean Corpuscular Volume 100 fL (79-100) Mean Corpuscular Hemoglobin 34 pg (25-35) Mean Corpuscular Hemoglobin Concent 34 g/dL (31-37) Red Cell Distribution Width 15.0 % (11.5-14.5) Platelet Count 70 x10^3/uL (140-400) Neutrophils (%) (Auto) 91 % (31-73) Lymphocytes (%) (Auto) 4 % (24-48) Monocytes (%) (Auto) 5 % (0-9) Eosinophils (%) (Auto) 0 % (0-3) Basophils (%) (Auto) 0 % (0-3) Neutrophils # (Auto) 5.5 x10^3/uL (1.8-7.7) Lymphocytes # (Auto) 0.2 x10^3/uL (1.0-4.8) Monocytes # (Auto) 0.3 x10^3/uL (0.0-1.1) Eosinophils # (Auto) 0.0 x10^3/uL (0.0-0.7) Basophils # (Auto) 0.0 x10^3/uL (0.0-0.2) Test 05/22/20 07:52 Glucose (Fingerstick) 166 mg/dL (70-99) Medications Active Scripts Medications Dose Route/Sig Max Daily Dose Days Date Category Zyrtec (Cetirizine Hcl) 10 Mg Tablet 1 Tab PO DAILY 05/19/20 Reported Humulin 70-30 Vial (Hum Insulin Nph/Reg Insulin Hm) 100 Unit/1 Ml Vial 30 Unit SQ BID 10/11/19 Reported Fludrocortisone Acetate 0.1 Mg Tablet 0.2 Mg PO DAILY 10/11/19 Reported Calcium Acetate 667 Mg Tablet 2,001 Mg PO BIDWMEALS 10/11/19 Reported Iron (Ferrous Sulfate) 325 Mg Tablet 65 Mg PO DAILY 10/11/19 Reported D3-2000 (Cholecalciferol (Vitamin D3)) 50 Mcg Capsule 2,000 Mcg PO DAILY 10/11/19 Reported Atorvastatin Calcium 40 Mg Tablet 40 Mg PO DAILY08 10/11/19 Reported Glipizide 5 Mg Tablet 5 Mg PO BIDWMEALS 10/11/19 Reported Midodrine Hcl 10 Mg Tablet 10 Mg PO TID 10/11/19 Reported Doxycycline Hyclate 100 Mg Tablet 100 Mg PO BIDWMEALS 10/11/19 Reported [Super C Immune ] DAILY 02/09/19 Reported Kinjal-Leonor Tablet (Folic Acid/Vitamin B Comp W-C) 0.8 Mg Tablet 0.8 Mg PO 02/01/18 Reported Aspir 81 (Aspirin) 81 Mg Tablet.dr 81 Mg PO DAILY 10/20/13 Reported Comments CXR IMPRESSION: Patchy hazy infiltrates bilaterally. Mild cardiomegaly which is stable. Impression . IMPRESSION: 1. Abnormal chest x-ray secondary to diastolic congestive heart failure, rule out COVID-19 pneumonia. 2. Febrile illness, rule out COVID-19 pneumonia. 3. Atrial fibrillation. 4. Coronary artery disease. 5. Hyperlipidemia. 6. End-stage renal disease, on hemodialysis. 7. Hyperkalemia. 8. Diabetes mellitus. Plan . PLAN AND RECOMMENDATIONS: Continue supplemental oxygen to keep sata above 92%, currently on 3 liters N/C Follow ID recs, on zosyn Continue full course of remdesivir Steroids with taper Follow nephrology recs PT/OT DVT/GI PPX D/W CLIFTON EVANS MD May 22, 2020 08:40
--- NOTE | 2020-05-22 09:23 | PDOC ---
Infectious Disease Note Subjective Subjective pt is feeling ok ROS ROS no n/v/d/sob/fever Vital Sign Vital Signs Vital Signs Date Time Temp Pulse Resp B/P (MAP) Pulse Ox O2 Delivery O2 Flow Rate FiO2 05/22/20 07:00 96.6 80 26 102/64 (77) 94 Room Air 96.6 05/22/20 03:23 3.0 Physical Exam PHYSICAL EXAM GENERAL: Alert, oriented gentleman, not in any distress. VITAL SIGNS: Stable HEENT: Both pupils are round and reacting. No conjunctival lesion. No lesion in the mouth. NECK: Supple, no JVP, no lymphadenopathy. LUNGS: Clear. HEART: S1, S2 regular. ABDOMEN: Soft, nontender, no organomegaly. EXTREMITIES: No edema or cyanosis. SKIN: Unremarkable other than some bruising present. NEUROLOGIC: The patient is alert, awake and appropriate. No focal neurologic deficit. Labs Lab Laboratory Tests Test 05/21/20 11:56 05/21/20 16:20 05/21/20 16:28 05/21/20 20:48 Glucose (Fingerstick) 257 mg/dL (70-99) 248 mg/dL (70-99) 205 mg/dL (70-99) White Blood Count 6.0 x10^3/uL (4.0-11.0) Red Blood Count 3.87 x10^6/uL (4.30-5.70) Hemoglobin 13.1 g/dL (13.0-17.5) Hematocrit 38.7 % (39.0-53.0) Mean Corpuscular Volume 100 fL (79-100) Mean Corpuscular Hemoglobin 34 pg (25-35) Mean Corpuscular Hemoglobin Concent 34 g/dL (31-37) Red Cell Distribution Width 15.0 % (11.5-14.5) Platelet Count 70 x10^3/uL (140-400) Neutrophils (%) (Auto) 91 % (31-73) Lymphocytes (%) (Auto) 4 % (24-48) Monocytes (%) (Auto) 5 % (0-9) Eosinophils (%) (Auto) 0 % (0-3) Basophils (%) (Auto) 0 % (0-3) Neutrophils # (Auto) 5.5 x10^3/uL (1.8-7.7) Lymphocytes # (Auto) 0.2 x10^3/uL (1.0-4.8) Monocytes # (Auto) 0.3 x10^3/uL (0.0-1.1) Eosinophils # (Auto) 0.0 x10^3/uL (0.0-0.7) Basophils # (Auto) 0.0 x10^3/uL (0.0-0.2) Test 05/22/20 07:52 Glucose (Fingerstick) 166 mg/dL (70-99) Micro Microbiology 05/18/20 Blood Culture - Preliminary, Resulted NO GROWTH AFTER 2 DAYS Objective Assessment IMPRESSION: 1. COVID-19 positive. 2. Pulmonary infiltrate. 3. Hypoxemia. 4. Fever. 5. End-stage renal disease. 6. Hypertension. 7. Coronary artery disease. Plan Plan of Care cont current management cont supportive care CASSIE PATEL MD May 22, 2020 09:23
[2020-05-22 09:48] LABS: CALCIUM 7.1 mg/dL (8.5-10.1); CREATININE 8.4 mg/dL (0.7-1.3); GFR 6.2; POTASSIUM 5.1 mmol/L (3.5-5.1)
--- NOTE | 2020-05-22 12:11 | PDOC ---
DATE OF SERVICE DATE: 05/22/20 TIME: 12:08 SUBJECTIVE ROS Seen on HD, constant Cough , No shortness of breath OBJECTIVE Vital Signs Vital Signs Date Time Temp Pulse Resp B/P (MAP) Pulse Ox O2 Delivery O2 Flow Rate FiO2 05/22/20 07:00 96.6 80 26 102/64 (77) 94 Room Air 96.6 05/22/20 03:23 3.0 I & 0 Intake and Output 05/22/20 06:59 Intake Total 1180 ml Output Total 850 ml Balance 330 ml Intake Oral 1180 ml Output Urine Total 850 ml PHYSICAL EXAM Physical Exam GENERAL: Alert, oriented , not in any distress. HEENT:OM moist , On O2 by NC NECK: Supple, no JVP, no lymphadenopathy. LUNGS: Clear. HEART: S1, S2 regular. ABDOMEN: Soft, nontender, no organomegaly. EXTREMITIES: No edema or cyanosis. SKIN: Unremarkable other than some bruising present. NEUROLOGIC: alert, awake No focal neurologic deficit. DIAGNOSIS/ASSESSMENT Assessment & Plan ESRD - on HD TTS Seen on HD, tolerating well, continue as ordered, [place] KEARNSID-19 positive- On Steroids , Remdesivir and Abx Pulmonary infiltrate. Hypoxemia- On O2 by NC Hypertension. Hx of AFib - has Pacemaker Hx of Chronic diastolic HF secondary to RVR;currently compensated Hx of CAD s/p PCI/HAMMAD - Asymptomatic DM COMMENT/RELEVANT DATA Meds Current Medications Medications (Trade) Dose Ordered Sig/Sonja Start Time Stop Time Status Last Admin Dose Admin Acetaminophen (Tylenol) 650 mg PRN Q6HRS PRN 05/19/20 23:15 05/21/20 20:49 650 MG Albumin Human 200 ml @ 200 mls/hr 1X PRN PRN 05/22/20 08:00 05/22/20 13:59 Aspirin (Ecotrin) 81 mg DAILY 05/19/20 14:00 05/21/20 09:02 81 MG Atorvastatin Calcium (Lipitor) 40 mg DAILY08 05/19/20 14:00 05/21/20 09:10 40 MG Azithromycin (Zithromax) 500 mg 1X ONCE 05/20/20 10:45 05/20/20 10:49 DC 05/20/20 11:28 500 MG Calcium Acetate (Phoslo) 2,001 mg BIDWMEALS 05/19/20 17:00 05/21/20 17:15 2,001 MG Calcium Gluconate (Calcium Gluconate) 1,000 mg 1X ONCE 05/19/20 01:45 05/19/20 01:46 DC 05/19/20 02:24 1,000 MG Ceftriaxone Sodium (Rocephin) 1 gm Q24H 05/20/20 11:00 05/21/20 08:24 DC 05/20/20 11:28 1 GM Cetirizine HCl (ZyrTEC) 10 mg HS 05/20/20 23:30 05/21/20 20:50 10 MG Dexamethasone (Decadron) 6 mg DAILYWBKFT 05/20/20 12:00 05/21/20 09:03 6 MG Ferrous Sulfate (Feosol) 325 mg DAILY08 05/19/20 14:00 05/21/20 09:03 325 MG Fludrocortisone Acetate (Florinef) 0.2 mg DAILY 05/19/20 14:00 05/21/20 09:05 0.2 MG Glipizide (Glucotrol) 5 mg BIDWMEALS 05/19/20 17:00 05/21/20 17:14 5 MG Info (PHARMACY MONITORING -- do not chart) 1 each PRN DAILY PRN 05/22/20 08:00 UNV Insulin Glargine (Lantus Syringe) 30 unit BID 05/19/20 21:00 05/22/20 01:29 30 UNIT Labetalol HCl (Normodyne Iv Push) 10 mg 1X ONCE 05/19/20 01:45 05/19/20 01:46 DC Lactobacillus Rhamnosus (Culturelle) 1 cap BID 05/21/20 09:00 05/21/20 20:49 1 CAP Midodrine (Proamatine) 10 mg 0800,1300,1800 05/20/20 08:00 05/21/20 13:35 10 MG Ondansetron HCl (Zofran) 4 mg 1X ONCE 05/19/20 03:00 05/19/20 03:01 DC 05/19/20 02:51 4 MG Piperacillin Sod/ Tazobactam Sod 2.25 gm/Sodium Chloride 50 ml @ 100 mls/hr Q8HRS 05/21/20 09:00 05/22/20 06:13 100 MLS/HR Remdesivir 100 mg/ Sodium Chloride 230 ml @ 460 mls/hr Q24H 05/22/20 10:00 05/25/20 10:29 Remdesivir 200 mg/ Sodium Chloride 210 ml @ 210 mls/hr 1X ONCE 05/21/20 10:00 05/21/20 10:59 DC 05/21/20 10:36 210 MLS/HR Sodium Chloride 1,000 ml @ 400 mls/hr Q2H30M PRN 05/22/20 08:00 05/22/20 19:59 Vitamin B Complex/ Vitamin C (Kinjal-Leonor) 1 tab DAILY08 05/19/20 14:00 05/21/20 09:02 1 TAB Vitamin D (Vitamin D3) 2,000 unit DAILY 05/19/20 14:00 05/21/20 09:02 2,000 UNIT Lab Laboratory Tests Test 05/21/20 16:20 05/21/20 16:28 05/21/20 20:48 05/22/20 07:52 White Blood Count 6.0 x10^3/uL (4.0-11.0) Red Blood Count 3.87 x10^6/uL (4.30-5.70) Hemoglobin 13.1 g/dL (13.0-17.5) Hematocrit 38.7 % (39.0-53.0) Mean Corpuscular Volume 100 fL (79-100) Mean Corpuscular Hemoglobin 34 pg (25-35) Mean Corpuscular Hemoglobin Concent 34 g/dL (31-37) Red Cell Distribution Width 15.0 % (11.5-14.5) Platelet Count 70 x10^3/uL (140-400) Neutrophils (%) (Auto) 91 % (31-73) Lymphocytes (%) (Auto) 4 % (24-48) Monocytes (%) (Auto) 5 % (0-9) Eosinophils (%) (Auto) 0 % (0-3) Basophils (%) (Auto) 0 % (0-3) Neutrophils # (Auto) 5.5 x10^3/uL (1.8-7.7) Lymphocytes # (Auto) 0.2 x10^3/uL (1.0-4.8) Monocytes # (Auto) 0.3 x10^3/uL (0.0-1.1) Eosinophils # (Auto) 0.0 x10^3/uL (0.0-0.7) Basophils # (Auto) 0.0 x10^3/uL (0.0-0.2) Glucose (Fingerstick) 248 mg/dL (70-99) 205 mg/dL (70-99) 166 mg/dL (70-99) Test 05/22/20 09:15 Sodium Level 132 mmol/L (136-145) Potassium Level 5.1 mmol/L (3.5-5.1) Chloride Level 95 mmol/L (98-107) Carbon Dioxide Level 22 mmol/L (21-32) Anion Gap 15 (6-14) Blood Urea Nitrogen 93 mg/dL (8-26) Creatinine 8.4 mg/dL (0.7-1.3) Estimated GFR (Cockcroft-Gault) 6.2 Glucose Level 168 mg/dL (70-99) Calcium Level 7.1 mg/dL (8.5-10.1) Results All relevant outside records, renal labs, imaging studies, telemetry/EKG's were reviewed. Justicifation of Admission Dx: Justifications for Admission: Justification of Admission Dx: N/A YVETTE ARAUZ MD May 22, 2020 12:11
--- NOTE | 2020-05-22 12:30 | NUR ---
SS following up with discharge planning. SS reviewed pt chart and discussed with pt RN. Pt is currently requiring oxygen. COVID19 positive. Pt on IV Remdesivir and IV Zosyn. PT/OT recommended group home unit. SS spoke with Debby Curtis at [facility] and was notified that if pt discharges closer to the of the month then pt will be able to return to [facility] pending that pt is symptom and fever free. She reported that if pt discharges prior to the then pt would need to have dialysis at [facility] in [place]. SS discussed with pt's daughter, Kadi. Pt's daughter reported that she would like to take pt home at discharge with home healthcare services. Pt's daughter reported that pt had [facility] at one time but is open to searching for a different company. SS and pt's daughter discussed some different home healthcare choices. Pt's daughter reported that she would make some inquiries and would notify SS of home healthcare choice. Possible need for oxygen at discharge. Pt would need six minute walk if indicated. SS will continue to follow for discharge planning.
[2020-05-22] MEDS: REMDESIVIR 100mg in NORMAL SALINE 250ML X 4 DAYS IV SCH (13:12)
[2020-05-22] MEDS: FERROUS SULFATE 325 MG TABLET. PO SCH (13:15)
[2020-05-22] MEDS: FOLIC/VIT B COMP W-C (RENAL) TABLET. PO SCH (13:16)
[2020-05-22] MEDS: CHOLECALCIFEROL (VITAMIN D3) 1,000 UNIT TABLET PO SCH (13:16)
[2020-05-22] MEDS: ASPIRIN ENTERIC COATED 81 MG TABLET.DR. PO SCH (13:16)
[2020-05-22] MEDS: DEXAMETHASONE 4 MG TABLET PO SCH (13:16)
[2020-05-22] MEDS: ATORVASTATIN CALCIUM 40 MG TABLET. PO SCH (13:16)
[2020-05-22] MEDS: LACTOBACILLUS RHAMNOSUS GG 1 CAPSULE. PO SCH ×2 (13:17→22:20)
[2020-05-22] MEDS: FLUDROCORTISONE 0.1 MG TABLET PO SCH (13:17)
[2020-05-22 15:00] VITALS: BP 87/48
[2020-05-22] MEDS: ACETAMINOPHEN 325 MG TABLET. PO PRN (15:16)
[2020-05-22] MEDS ORDERED: IV NORMAL SALINE 500ML BAG 500 ML IV ONE (16:00)
[2020-05-22 17:18] VITALS: BP 97/45
[2020-05-22 19:26] VITALS: BP 107/49
[2020-05-22] MEDS: CETIRIZINE HCL 10 MG TABLET. PO SCH (22:20)
[2020-05-22 22:22] VITALS: BP 97/54
[2020-05-23 02:24] VITALS: BP 111/67
[2020-05-23] MEDS: PIPERACILLIN/TAZOBACTAM 2.25 GM in IV NORMAL SALINE 50ML 50 ML IV SCH ×3 (06:20→21:54)
[2020-05-23 07:00] VITALS: BP 100/70
--- NOTE | 2020-05-23 08:18 | PDOC ---
PULMONARY PROGRESS NOTES DATE: 05/23/20 TIME: 08:18 Subjective remains on 5 liters N/C denies SOB, reports non productive cough Patient is up to chair today no other concerns from nursing Vitals Vital Signs Date Time Temp Pulse Resp B/P (MAP) Pulse Ox O2 Delivery O2 Flow Rate FiO2 05/23/20 02:24 96.9 79 26 111/67 (82) 97 Nasal Cannula 3.0 96.9 Comments PT. seen during COVID 19 pandemic, visual exam preformed on 02 alert not in distress no accessory muscle use no rash Lungs: Clear Labs Laboratory Tests Test 05/21/20 11:56 05/21/20 16:20 05/21/20 16:28 05/21/20 20:48 Glucose (Fingerstick) 257 mg/dL (70-99) 248 mg/dL (70-99) 205 mg/dL (70-99) White Blood Count 6.0 x10^3/uL (4.0-11.0) Red Blood Count 3.87 x10^6/uL (4.30-5.70) Hemoglobin 13.1 g/dL (13.0-17.5) Hematocrit 38.7 % (39.0-53.0) Mean Corpuscular Volume 100 fL (79-100) Mean Corpuscular Hemoglobin 34 pg (25-35) Mean Corpuscular Hemoglobin Concent 34 g/dL (31-37) Red Cell Distribution Width 15.0 % (11.5-14.5) Platelet Count 70 x10^3/uL (140-400) Neutrophils (%) (Auto) 91 % (31-73) Lymphocytes (%) (Auto) 4 % (24-48) Monocytes (%) (Auto) 5 % (0-9) Eosinophils (%) (Auto) 0 % (0-3) Basophils (%) (Auto) 0 % (0-3) Neutrophils # (Auto) 5.5 x10^3/uL (1.8-7.7) Lymphocytes # (Auto) 0.2 x10^3/uL (1.0-4.8) Monocytes # (Auto) 0.3 x10^3/uL (0.0-1.1) Eosinophils # (Auto) 0.0 x10^3/uL (0.0-0.7) Basophils # (Auto) 0.0 x10^3/uL (0.0-0.2) Test 05/22/20 07:52 05/22/20 09:15 05/22/20 13:29 05/22/20 15:21 Glucose (Fingerstick) 166 mg/dL (70-99) 84 mg/dL (70-99) 143 mg/dL (70-99) Sodium Level 132 mmol/L (136-145) Potassium Level 5.1 mmol/L (3.5-5.1) Chloride Level 95 mmol/L (98-107) Carbon Dioxide Level 22 mmol/L (21-32) Anion Gap 15 (6-14) Blood Urea Nitrogen 93 mg/dL (8-26) Creatinine 8.4 mg/dL (0.7-1.3) Estimated GFR (Cockcroft-Gault) 6.2 Glucose Level 168 mg/dL (70-99) Calcium Level 7.1 mg/dL (8.5-10.1) Test 05/22/20 20:42 05/23/20 07:57 Glucose (Fingerstick) 126 mg/dL (70-99) 124 mg/dL (70-99) Laboratory Tests Test 05/22/20 09:15 05/22/20 13:29 05/22/20 15:21 05/22/20 20:42 Sodium Level 132 mmol/L (136-145) Potassium Level 5.1 mmol/L (3.5-5.1) Chloride Level 95 mmol/L (98-107) Carbon Dioxide Level 22 mmol/L (21-32) Anion Gap 15 (6-14) Blood Urea Nitrogen 93 mg/dL (8-26) Creatinine 8.4 mg/dL (0.7-1.3) Estimated GFR (Cockcroft-Gault) 6.2 Glucose Level 168 mg/dL (70-99) Calcium Level 7.1 mg/dL (8.5-10.1) Glucose (Fingerstick) 84 mg/dL (70-99) 143 mg/dL (70-99) 126 mg/dL (70-99) Test 05/23/20 07:57 Glucose (Fingerstick) 124 mg/dL (70-99) Medications Active Scripts Medications Dose Route/Sig Max Daily Dose Days Date Category Zyrtec (Cetirizine Hcl) 10 Mg Tablet 1 Tab PO DAILY 05/19/20 Reported Humulin 70-30 Vial (Hum Insulin Nph/Reg Insulin Hm) 100 Unit/1 Ml Vial 30 Unit SQ BID 10/11/19 Reported Fludrocortisone Acetate 0.1 Mg Tablet 0.2 Mg PO DAILY 10/11/19 Reported Calcium Acetate 667 Mg Tablet 2,001 Mg PO BIDWMEALS 10/11/19 Reported Iron (Ferrous Sulfate) 325 Mg Tablet 65 Mg PO DAILY 10/11/19 Reported D3-2000 (Cholecalciferol (Vitamin D3)) 50 Mcg Capsule 2,000 Mcg PO DAILY 10/11/19 Reported Atorvastatin Calcium 40 Mg Tablet 40 Mg PO DAILY08 10/11/19 Reported Glipizide 5 Mg Tablet 5 Mg PO BIDWMEALS 10/11/19 Reported Midodrine Hcl 10 Mg Tablet 10 Mg PO TID 10/11/19 Reported Doxycycline Hyclate 100 Mg Tablet 100 Mg PO BIDWMEALS 10/11/19 Reported [Super C Immune ] DAILY 02/09/19 Reported Kinjal-Leonor Tablet (Folic Acid/Vitamin B Comp W-C) 0.8 Mg Tablet 0.8 Mg PO 02/01/18 Reported Aspir 81 (Aspirin) 81 Mg Tablet.dr 81 Mg PO DAILY 10/20/13 Reported Comments CXR IMPRESSION: Patchy hazy infiltrates bilaterally. Mild cardiomegaly which is stable. Impression . IMPRESSION: 1. Abnormal chest x-ray secondary to diastolic congestive heart failure, rule out COVID-19 pneumonia. 2. Febrile illness, rule out COVID-19 pneumonia. 3. Atrial fibrillation. 4. Coronary artery disease. 5. Hyperlipidemia. 6. End-stage renal disease, on hemodialysis. 7. Hyperkalemia. 8. Diabetes mellitus. Plan . PLAN AND RECOMMENDATIONS: Continue supplemental oxygen to keep sata above 92%, currently on 5 liters N/C, wean oxygen as tolerated 6-minute walk prior to discharge Follow ID recs, on zosyn Continue full course of remdesivir Steroids with taper Follow nephrology recs PT/OT Social work for DC planning DVT/GI PPX D/W CLIFTON EVANS MD May 23, 2020 08:18
[2020-05-23] MEDS: CHOLECALCIFEROL (VITAMIN D3) 1,000 UNIT TABLET PO SCH (08:43)
[2020-05-23] MEDS: MIDODRINE 5 MG TABLET PO SCH ×3 (08:43→17:48)
[2020-05-23] MEDS: LACTOBACILLUS RHAMNOSUS GG 1 CAPSULE. PO SCH ×2 (08:43→21:52)
[2020-05-23] MEDS: ASPIRIN ENTERIC COATED 81 MG TABLET.DR. PO SCH (08:43)
[2020-05-23] MEDS: glipiZIDE 5 MG TABLET PO SCH ×2 (08:44→17:48)
[2020-05-23] MEDS: CALCIUM ACETATE 667 MG CAPSULE PO SCH ×2 (08:44→17:48)
[2020-05-23] MEDS: DEXAMETHASONE 4 MG TABLET PO SCH (08:44)
[2020-05-23] MEDS: FLUDROCORTISONE 0.1 MG TABLET PO SCH (08:44)
[2020-05-23] MEDS: FOLIC/VIT B COMP W-C (RENAL) TABLET. PO SCH (08:44)
[2020-05-23] MEDS: FERROUS SULFATE 325 MG TABLET. PO SCH (08:44)
[2020-05-23] MEDS: ATORVASTATIN CALCIUM 40 MG TABLET. PO SCH (08:48)
[2020-05-23] MEDS: INSULIN GLARGINE SYRINGE. SQ SCH ×2 (08:50→21:51)
--- NOTE | 2020-05-23 09:09 | PDOC ---
Infectious Disease Note Subjective Subjective pt is feeling ok up in chair, on o2 ROS ROS no n/v/d/ Vital Sign Vital Signs Vital Signs Date Time Temp Pulse Resp B/P (MAP) Pulse Ox O2 Delivery O2 Flow Rate FiO2 05/23/20 08:43 79 100/70 05/23/20 07:00 97.2 22 97 Nasal Cannula 5.0 97.2 Physical Exam PHYSICAL EXAM GENERAL: Alert, oriented gentleman, not in any distress. VITAL SIGNS: Stable HEENT: Both pupils are round and reacting. No conjunctival lesion. No lesion in the mouth. NECK: Supple, no JVP, no lymphadenopathy. LUNGS: Clear. HEART: S1, S2 regular. ABDOMEN: Soft, nontender, no organomegaly. EXTREMITIES: No edema or cyanosis. SKIN: Unremarkable other than some bruising present. NEUROLOGIC: The patient is alert, awake and appropriate. No focal neurologic deficit. Labs Lab Laboratory Tests Test 05/22/20 09:15 05/22/20 13:29 05/22/20 15:21 05/22/20 20:42 Sodium Level 132 mmol/L (136-145) Potassium Level 5.1 mmol/L (3.5-5.1) Chloride Level 95 mmol/L (98-107) Carbon Dioxide Level 22 mmol/L (21-32) Anion Gap 15 (6-14) Blood Urea Nitrogen 93 mg/dL (8-26) Creatinine 8.4 mg/dL (0.7-1.3) Estimated GFR (Cockcroft-Gault) 6.2 Glucose Level 168 mg/dL (70-99) Calcium Level 7.1 mg/dL (8.5-10.1) Glucose (Fingerstick) 84 mg/dL (70-99) 143 mg/dL (70-99) 126 mg/dL (70-99) Test 05/23/20 07:57 Glucose (Fingerstick) 124 mg/dL (70-99) Micro Microbiology 05/18/20 Blood Culture - Preliminary, Resulted NO GROWTH AFTER 2 DAYS Objective Assessment IMPRESSION: 1. COVID-19 positive. 2. Pulmonary infiltrate. 3. Hypoxemia. 4. Fever. 5. End-stage renal disease. 6. Hypertension. 7. Coronary artery disease. Plan Plan of Care cont current management with Remdesivir, steroids, zosyn cont supportive care CASSIE PATEL MD May 23, 2020 09:09
[2020-05-23] MEDS: REMDESIVIR 100mg in NORMAL SALINE 250ML X 4 DAYS IV SCH (10:03)
--- NOTE | 2020-05-23 10:29 | PDOC ---
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 HEENT:OM moist , On O2 by NC NECK: Supple, no JVP, no lymphadenopathy. LUNGS: Clear. HEART: S1, S2 regular. ABDOMEN: Soft, nontender, no organomegaly. EXTREMITIES: No edema or cyanosis. SKIN: Unremarkable other than some bruising present. NEUROLOGIC: alert, awake No focal neurologic deficit. DIAGNOSIS/ASSESSMENT Assessment & Plan ESRD - on HD TTS Currently no indication for Dialysis COVID-19 positive- On Steroids , Remdesivir and Abx Pulmonary infiltrate. Hypoxemia- On O2 by NC Hypertension. Hx of AFib - has Pacemaker Hx of Chronic diastolic HF secondary to RVR;currently compensated Hx of CAD s/p PCI/HAMMAD - Asymptomatic DM COMMENT/RELEVANT DATA Meds Current Medications Medications (Trade) Dose Ordered Sig/Sonja Start Time Stop Time Status Last Admin Dose Admin Acetaminophen (Tylenol) 650 mg PRN Q6HRS PRN 05/19/20 23:15 05/22/20 15:16 650 MG Albumin Human 200 ml @ 200 mls/hr 1X PRN PRN 05/22/20 08:00 05/22/20 13:59 DC Aspirin (Ecotrin) 81 mg DAILY 05/19/20 14:00 05/23/20 08:43 81 MG Atorvastatin Calcium (Lipitor) 40 mg DAILY08 05/19/20 14:00 05/23/20 08:48 40 MG Azithromycin (Zithromax) 500 mg 1X ONCE 05/20/20 10:45 05/20/20 10:49 DC 05/20/20 11:28 500 MG Calcium Acetate (Phoslo) 2,001 mg BIDWMEALS 05/19/20 17:00 05/23/20 08:44 2,001 MG Calcium Gluconate (Calcium Gluconate) 1,000 mg 1X ONCE 05/19/20 01:45 05/19/20 01:46 DC 05/19/20 02:24 1,000 MG Ceftriaxone Sodium (Rocephin) 1 gm Q24H 05/20/20 11:00 05/21/20 08:24 DC 05/20/20 11:28 1 GM Cetirizine HCl (ZyrTEC) 10 mg HS 05/20/20 23:30 05/22/20 22:20 10 MG Dexamethasone (Decadron) 6 mg DAILYWBKFT 05/20/20 12:00 05/23/20 08:44 6 MG Ferrous Sulfate (Feosol) 325 mg DAILY08 05/19/20 14:00 05/23/20 08:44 325 MG Fludrocortisone Acetate (Florinef) 0.2 mg DAILY 05/19/20 14:00 05/23/20 08:44 0.2 MG Glipizide (Glucotrol) 5 mg BIDWMEALS 05/19/20 17:00 05/23/20 08:44 5 MG Info (PHARMACY MONITORING -- do not chart) 1 each PRN DAILY PRN 05/22/20 08:00 UNV Insulin Glargine (Lantus Syringe) 30 unit BID 05/19/20 21:00 05/23/20 08:50 30 UNIT Labetalol HCl (Normodyne Iv Push) 10 mg 1X ONCE 05/19/20 01:45 05/19/20 01:46 DC Lactobacillus Rhamnosus (Culturelle) 1 cap BID 05/21/20 09:00 05/23/20 08:43 1 CAP Midodrine (Proamatine) 10 mg 0800,1300,1800 05/20/20 08:00 05/23/20 08:43 10 MG Ondansetron HCl (Zofran) 4 mg 1X ONCE 05/19/20 03:00 05/19/20 03:01 DC 05/19/20 02:51 4 MG Piperacillin Sod/ Tazobactam Sod 2.25 gm/Sodium Chloride 50 ml @ 100 mls/hr Q8HRS 05/21/20 09:00 05/23/20 06:20 100 MLS/HR Remdesivir 100 mg/ Sodium Chloride 230 ml @ 460 mls/hr Q24H 05/22/20 10:00 12/18/20 10:29 05/23/20 10:03 460 MLS/HR Remdesivir 200 mg/ Sodium Chloride 210 ml @ 210 mls/hr 1X ONCE 05/21/20 10:00 05/21/20 10:59 DC 05/21/20 10:36 210 MLS/HR Sodium Chloride 500 ml @ 500 mls/hr 1X ONCE 05/22/20 16:00 05/22/20 16:59 DC 05/22/20 17:08 500 MLS/HR Vitamin B Complex/ Vitamin C (Kinjal-Leonor) 1 tab DAILY08 05/19/20 14:00 05/23/20 08:44 1 TAB Vitamin D (Vitamin D3) 2,000 unit DAILY 05/19/20 14:00 05/23/20 08:43 2,000 UNIT Lab Laboratory Tests Test 05/22/20 13:29 05/22/20 15:21 05/22/20 20:42 05/23/20 07:57 Glucose (Fingerstick) 84 mg/dL (70-99) 143 mg/dL (70-99) 126 mg/dL (70-99) 124 mg/dL (70-99) Results All relevant outside records, renal labs, imaging studies, telemetry/EKG's were reviewed. Justicifation of Admission Dx: Justifications for Admission: Justification of Admission Dx: N/A YVETTE ARAUZ MD May 23, 2020 10:29
--- NOTE | 2020-05-23 11:11 | PN ---
DATE: 05/22/2020 DAILY PROGRESS NOTE LOCATION: He is in room 258. SUBJECTIVE: This 80-year-old white male remains hospitalized for acute respiratory failure due to COVID pneumonia with bilateral hazy infiltrates on chest x-ray. The patient states he had a good night, sleeping almost all night long. He remains on 3 liters per nasal cannula of oxygen with good O2 sats. He still is just a little bit confused compared to his normal baseline. OBJECTIVE: VITAL SIGNS: Stable. He is afebrile. CHEST: Essentially clear. HEART: Regular. ABDOMEN: Benign. EXTREMITIES: Without significant edema. LABORATORY DATA: Sugar levels have been acceptable in the last 24 hours. IMPRESSION: 1. Bilateral pulmonary infiltrates with acute hypoxic respiratory failure due to COVID-19 pneumonia. 2. End-stage renal disease, on dialysis. 3. Hypertension. 4. Coronary artery disease. 5. Thrombocytopenia. 6. Fever, which is improving. PLAN: He is on ongoing steroids, remdesivir, supportive care. Antibiotics have been adjusted. We are going to add therapy to start mobilizing as he complains about not being able to get up to the commode to go the bathroom this morning. GARY GARCIA MD DR: KIM/mino JOB#: [id number] / [id number]
[2020-05-23 11:28] VITALS: BP 111/69
--- NOTE | 2020-05-23 12:49 | NUR ---
SS following up with discharge planning. SS reviewed pt chart and discussed with pt RN. Pt is currently requiring oxygen. COVID19 positive. Pt on IV Remdesivir and IV Zosyn. PT/OT recommended [facility] unit. Pt's daughter requesting that pt return to home with home healthcare. Pt has no home oxygen. SS will continue to follow for discharge planning.
[2020-05-23 15:12] VITALS: BP 113/71
[2020-05-23 19:02] VITALS: BP 112/76
[2020-05-23] MEDS: CETIRIZINE HCL 10 MG TABLET. PO SCH (21:52)
[2020-05-23 22:45] VITALS: BP 103/61
[2020-05-24 02:18] VITALS: BP 137/99
[2020-05-24] MEDS: PIPERACILLIN/TAZOBACTAM 2.25 GM in IV NORMAL SALINE 50ML 50 ML IV SCH (06:34)
[2020-05-24 07:00] VITALS: BP 122/54
[2020-05-24] MEDS ORDERED: DIALYSIS PATIENT. MC PRN ×2 (08:00)
[2020-05-24] MEDS ORDERED: IV NORMAL SALINE 1000ML BAG 1,000 ML IV PRN ×2 (08:00)
[2020-05-24] MEDS: INSULIN GLARGINE SYRINGE. SQ SCH ×2 (08:09→20:27)
[2020-05-24] MEDS: MIDODRINE 5 MG TABLET PO SCH ×3 (08:10→17:48)
[2020-05-24] MEDS: DEXAMETHASONE 4 MG TABLET PO SCH (08:10)
[2020-05-24] MEDS: FLUDROCORTISONE 0.1 MG TABLET PO SCH (08:11)
[2020-05-24] MEDS: FOLIC/VIT B COMP W-C (RENAL) TABLET. PO SCH (08:11)
[2020-05-24] MEDS: CHOLECALCIFEROL (VITAMIN D3) 1,000 UNIT TABLET PO SCH (08:11)
[2020-05-24] MEDS: LOPERAMIDE 2 MG CAPSULE PO PRN (08:11)
[2020-05-24] MEDS: CALCIUM ACETATE 667 MG CAPSULE PO SCH ×2 (08:11→17:48)
[2020-05-24] MEDS: ATORVASTATIN CALCIUM 40 MG TABLET. PO SCH (08:11)
[2020-05-24] MEDS: LACTOBACILLUS RHAMNOSUS GG 1 CAPSULE. PO SCH ×2 (08:11→20:10)
[2020-05-24] MEDS: glipiZIDE 5 MG TABLET PO SCH ×2 (08:11→17:48)
[2020-05-24] MEDS: ASPIRIN ENTERIC COATED 81 MG TABLET.DR. PO SCH (08:11)
[2020-05-24] MEDS: FERROUS SULFATE 325 MG TABLET. PO SCH (08:11)
--- NOTE | 2020-05-24 08:15 | PDOC ---
PULMONARY PROGRESS NOTES DATE: 05/24/20 TIME: 08:15 Subjective remains on 4 liters N/C Feeling better today having loose stools no other concerns from nursing Vitals Vital Signs Date Time Temp Pulse Resp B/P (MAP) Pulse Ox O2 Delivery O2 Flow Rate FiO2 05/24/20 02:18 97.2 81 23 137/99 (112) 100 Nasal Cannula 5.0 97.2 Comments PT. seen during COVID 19 pandemic, visual exam preformed on 02 alert not in distress no accessory muscle use no rash Lungs: Clear Labs Laboratory Tests Test 05/22/20 09:15 05/22/20 13:29 05/22/20 15:21 05/22/20 20:42 Sodium Level 132 mmol/L (136-145) Potassium Level 5.1 mmol/L (3.5-5.1) Chloride Level 95 mmol/L (98-107) Carbon Dioxide Level 22 mmol/L (21-32) Anion Gap 15 (6-14) Blood Urea Nitrogen 93 mg/dL (8-26) Creatinine 8.4 mg/dL (0.7-1.3) Estimated GFR (Cockcroft-Gault) 6.2 Glucose Level 168 mg/dL (70-99) Calcium Level 7.1 mg/dL (8.5-10.1) Glucose (Fingerstick) 84 mg/dL (70-99) 143 mg/dL (70-99) 126 mg/dL (70-99) Test 05/23/20 07:57 05/23/20 11:16 05/23/20 16:32 05/24/20 07:50 Glucose (Fingerstick) 124 mg/dL (70-99) 214 mg/dL (70-99) 203 mg/dL (70-99) 100 mg/dL (70-99) Laboratory Tests Test 05/23/20 11:16 05/23/20 16:32 05/24/20 07:50 Glucose (Fingerstick) 214 mg/dL (70-99) 203 mg/dL (70-99) 100 mg/dL (70-99) Medications Active Scripts Medications Dose Route/Sig Max Daily Dose Days Date Category Zyrtec (Cetirizine Hcl) 10 Mg Tablet 1 Tab PO DAILY 05/19/20 Reported Humulin 70-30 Vial (Hum Insulin Nph/Reg Insulin Hm) 100 Unit/1 Ml Vial 30 Unit SQ BID 10/11/19 Reported Fludrocortisone Acetate 0.1 Mg Tablet 0.2 Mg PO DAILY 10/11/19 Reported Calcium Acetate 667 Mg Tablet 2,001 Mg PO BIDWMEALS 10/11/19 Reported Iron (Ferrous Sulfate) 325 Mg Tablet 65 Mg PO DAILY 10/11/19 Reported D3-2000 (Cholecalciferol (Vitamin D3)) 50 Mcg Capsule 2,000 Mcg PO DAILY 10/11/19 Reported Atorvastatin Calcium 40 Mg Tablet 40 Mg PO DAILY08 10/11/19 Reported Glipizide 5 Mg Tablet 5 Mg PO BIDWMEALS 10/11/19 Reported Midodrine Hcl 10 Mg Tablet 10 Mg PO TID 10/11/19 Reported Doxycycline Hyclate 100 Mg Tablet 100 Mg PO BIDWMEALS 10/11/19 Reported [Super C Immune ] DAILY 02/09/19 Reported Kinjal-Leonor Tablet (Folic Acid/Vitamin B Comp W-C) 0.8 Mg Tablet 0.8 Mg PO 02/01/18 Reported Aspir 81 (Aspirin) 81 Mg Tablet.dr 81 Mg PO DAILY 10/20/13 Reported Comments CXR IMPRESSION: Patchy hazy infiltrates bilaterally. Mild cardiomegaly which is stable. Impression . IMPRESSION: 1. Abnormal chest x-ray secondary to diastolic congestive heart failure, rule out COVID-19 pneumonia. 2. Febrile illness, rule out COVID-19 pneumonia. 3. Atrial fibrillation. 4. Coronary artery disease. 5. Hyperlipidemia. 6. End-stage renal disease, on hemodialysis. 7. Hyperkalemia. 8. Diabetes mellitus. Plan . PLAN AND RECOMMENDATIONS: Continue supplemental oxygen to keep sata above 92%, currently on 4 liters N/C, wean oxygen as tolerated 6-minute walk prior to discharge Follow ID recs, D/C zosyn Continue full course of remdesivir Steroids with taper Follow nephrology recs PT/OT Social work for DC planning DVT/GI PPX D/W CLIFTON EVANS MD May 24, 2020 08:15
--- NOTE | 2020-05-24 08:33 | PDOC ---
Infectious Disease Note Subjective Subjective pt is feeling ok up in chair, on o2 ROS ROS no n/v does have diarrhea Vital Sign Vital Signs Vital Signs Date Time Temp Pulse Resp B/P (MAP) Pulse Ox O2 Delivery O2 Flow Rate FiO2 05/24/20 08:10 80 122/54 05/24/20 02:18 97.2 23 100 Nasal Cannula 5.0 97.2 Physical Exam PHYSICAL EXAM GENERAL: Alert, oriented gentleman, not in any distress. VITAL SIGNS: Stable HEENT: Both pupils are round and reacting. No conjunctival lesion. No lesion in the mouth. NECK: Supple, no JVP, no lymphadenopathy. LUNGS: Clear. HEART: S1, S2 regular. ABDOMEN: Soft, nontender, no organomegaly. EXTREMITIES: No edema or cyanosis. SKIN: Unremarkable other than some bruising present. NEUROLOGIC: The patient is alert, awake and appropriate. No focal neurologic deficit. Labs Lab Laboratory Tests Test 05/23/20 11:16 05/23/20 16:32 05/24/20 07:50 Glucose (Fingerstick) 214 mg/dL (70-99) 203 mg/dL (70-99) 100 mg/dL (70-99) Micro Microbiology 05/18/20 Blood Culture - Preliminary, Resulted NO GROWTH AFTER 2 DAYS Objective Assessment IMPRESSION: 1. COVID-19 positive. 2. Pulmonary infiltrate. 3. Hypoxemia. 4. Fever. 5. End-stage renal disease. 6. Hypertension. 7. Coronary artery disease. Plan Plan of Care cont current management with Remdesivir, steroids, dc zosyn cont supportive care c diff pending CASSIE PATEL MD May 24, 2020 08:33
[2020-05-24 09:11] LABS: CALCIUM 8.4 mg/dL (8.5-10.1); CREATININE 9.2 mg/dL (0.7-1.3); GFR 5.6; POTASSIUM 5.1 mmol/L (3.5-5.1)
--- NOTE | 2020-05-24 09:26 | PDOC ---
DATE OF SERVICE DATE: 05/24/20 TIME: 09:26 SUBJECTIVE ROS seen on dialysis , No complaints OBJECTIVE Vital Signs Vital Signs Date Time Temp Pulse Resp B/P (MAP) Pulse Ox O2 Delivery O2 Flow Rate FiO2 05/24/20 08:10 80 122/54 05/24/20 07:00 98.1 20 95 Nasal Cannula 3.0 98.1 I & 0 Intake and Output 05/24/20 07:00 Intake Total 1120 ml Balance 1120 ml Intake Oral 1120 ml # Bowel Movements 4 PHYSICAL EXAM Physical Exam GENERAL: Alert, oriented , not in any distress. HEENT:OM moist , On O2 by NC NECK: Supple, no JVP, no lymphadenopathy. LUNGS: Clear. HEART: S1, S2 regular. ABDOMEN: Soft, nontender, no organomegaly. EXTREMITIES: No edema or cyanosis. SKIN: Unremarkable other than some bruising present. NEUROLOGIC: alert, awake No focal neurologic deficit. DIAGNOSIS/ASSESSMENT Assessment & Plan ESRD - on HD TTS Seen on HD, tolerating well, continue as ordered, [place] HERNANDEZ-19 positive- On Steroids , Remdesivir and Abx Pulmonary infiltrate. Hypoxemia- On O2 by NC Hypertension. Hx of AFib - has Pacemaker Hx of Chronic diastolic HF secondary to RVR;currently compensated Hx of CAD s/p PCI/HAMMAD - Asymptomatic DM COMMENT/RELEVANT DATA Meds Current Medications Medications (Trade) Dose Ordered Sig/Sonja Start Time Stop Time Status Last Admin Dose Admin Acetaminophen (Tylenol) 650 mg PRN Q6HRS PRN 05/19/20 23:15 05/22/20 15:16 650 MG Albumin Human 200 ml @ 200 mls/hr 1X PRN PRN 05/22/20 08:00 05/22/20 13:59 DC Aspirin (Ecotrin) 81 mg DAILY 05/19/20 14:00 05/24/20 08:11 81 MG Atorvastatin Calcium (Lipitor) 40 mg DAILY08 05/19/20 14:00 05/24/20 08:11 40 MG Azithromycin (Zithromax) 500 mg 1X ONCE 05/20/20 10:45 05/20/20 10:49 DC 05/20/20 11:28 500 MG Calcium Acetate (Phoslo) 2,001 mg BIDWMEALS 05/19/20 17:00 05/24/20 08:11 2,001 MG Calcium Gluconate (Calcium Gluconate) 1,000 mg 1X ONCE 05/19/20 01:45 05/19/20 01:46 DC 05/19/20 02:24 1,000 MG Ceftriaxone Sodium (Rocephin) 1 gm Q24H 05/20/20 11:00 05/21/20 08:24 DC 05/20/20 11:28 1 GM Cetirizine HCl (ZyrTEC) 10 mg HS 05/20/20 23:30 05/23/20 21:52 10 MG Dexamethasone (Decadron) 6 mg DAILYWBKFT 05/20/20 12:00 05/24/20 08:10 6 MG Ferrous Sulfate (Feosol) 325 mg DAILY08 05/19/20 14:00 05/24/20 08:11 325 MG Fludrocortisone Acetate (Florinef) 0.2 mg DAILY 05/19/20 14:00 05/24/20 08:11 0.2 MG Glipizide (Glucotrol) 5 mg BIDWMEALS 05/19/20 17:00 05/24/20 08:11 5 MG Info (PHARMACY MONITORING -- do not chart) 1 each PRN DAILY PRN 05/24/20 08:00 Insulin Glargine (Lantus Syringe) 30 unit BID 05/19/20 21:00 05/24/20 08:09 30 UNIT Labetalol HCl (Normodyne Iv Push) 10 mg 1X ONCE 05/19/20 01:45 05/19/20 01:46 DC Lactobacillus Rhamnosus (Culturelle) 1 cap BID 05/21/20 09:00 05/24/20 08:11 1 CAP Loperamide HCl (Imodium) 2 mg PRN Q6HRS PRN 05/23/20 18:15 05/24/20 08:11 2 MG Midodrine (Proamatine) 10 mg 0800,1300,1800 05/20/20 08:00 05/24/20 08:10 10 MG Ondansetron HCl (Zofran) 4 mg 1X ONCE 05/19/20 03:00 05/19/20 03:01 DC 05/19/20 02:51 4 MG Piperacillin Sod/ Tazobactam Sod 2.25 gm/Sodium Chloride 50 ml @ 100 mls/hr Q8HRS 05/21/20 09:00 05/24/20 09:17 DC 05/24/20 06:34 100 MLS/HR Remdesivir 100 mg/ Sodium Chloride 230 ml @ 460 mls/hr Q24H 05/22/20 10:00 05/25/20 10:29 05/23/20 10:03 460 MLS/HR Remdesivir 200 mg/ Sodium Chloride 210 ml @ 210 mls/hr 1X ONCE 05/21/20 10:00 05/21/20 10:59 DC 05/21/20 10:36 210 MLS/HR Sodium Chloride 1,000 ml @ 400 mls/hr Q2H30M PRN 05/24/20 08:00 05/24/20 19:59 Vitamin B Complex/ Vitamin C (Kinjal-Leonor) 1 tab DAILY08 05/19/20 14:00 05/24/20 08:11 1 TAB Vitamin D (Vitamin D3) 2,000 unit DAILY 05/19/20 14:00 05/24/20 08:11 2,000 UNIT Lab Laboratory Tests Test 05/23/20 11:16 05/23/20 16:32 05/24/20 07:35 05/24/20 07:50 Glucose (Fingerstick) 214 mg/dL (70-99) 203 mg/dL (70-99) 100 mg/dL (70-99) Sodium Level 135 mmol/L (136-145) Potassium Level 5.1 mmol/L (3.5-5.1) Chloride Level 97 mmol/L (98-107) Carbon Dioxide Level 22 mmol/L (21-32) Anion Gap 16 (6-14) Blood Urea Nitrogen 105 mg/dL (8-26) Creatinine 9.2 mg/dL (0.7-1.3) Estimated GFR (Cockcroft-Gault) 5.6 Glucose Level 97 mg/dL (70-99) Calcium Level 8.4 mg/dL (8.5-10.1) Results All relevant outside records, renal labs, imaging studies, telemetry/EKG's were reviewed. Justicifation of Admission Dx: Justifications for Admission: Justification of Admission Dx: N/A YVETTE ARAUZ MD May 24, 2020 09:26
[2020-05-24] MEDS: REMDESIVIR 100mg in NORMAL SALINE 250ML X 4 DAYS IV SCH (10:11)
[2020-05-24 10:43] VITALS: BP 124/63
[2020-05-24] MEDS: DOXYCYCLINE HYCLATE 100 MG TABLET PO SCH ×2 (12:13→20:10)
--- NOTE | 2020-05-24 13:45 | NUR ---
SS following up with discharge planning. SS reviewed pt chart and discussed with pt RN. Pt is currently requiring oxygen. Pt on Remdesivir. Per RN, pt will get two more days of Remdesivir. COVID19 positive. PT/OT recommended half-way unit. Pt's family wanting pt to return to home with home healthcare. SS will continue to follow for discharge planning.
[2020-05-24 19:28] VITALS: BP 127/61
[2020-05-24] MEDS: CETIRIZINE HCL 10 MG TABLET. PO SCH (20:10)
[2020-05-24 23:05] VITALS: BP 104/58
--- NOTE | 2020-05-25 01:39 | PN ---
DATE: 05/24/2020 LOCATION: He is in room 258. SUBJECTIVE: This 80-year-old white male remains hospitalized for acute respiratory failure due to COVID pneumonia with bilateral hazy infiltrates on chest x-ray. He states that he had another good night, sleeping better. He remains on 3-5 liters per nasal cannula O2 with good sats. Nursing states he has does well with transfers, is standby assist. He appears to be a little ____, more close to his baseline today. OBJECTIVE: VITAL SIGNS: Stable. He is afebrile. CHEST: Reveals decent breath sounds. HEART: Regular. ABDOMEN: Benign. EXTREMITIES: No significant edema. Sugar levels remained actually quite good. IMPRESSION: 1. Bilateral pulmonary infiltrates with acute hypoxic respiratory failure due to COVID-19 pneumonia. 2. End-stage renal disease, on dialysis. 3. Hypertension. 4. Diabetes with decent blood sugars. 5. Coronary artery disease. 6. Thrombocytopenia. 7. Fever, which has improved. PLAN: He is on ongoing steroids, remdesivir, supportive care. Antibiotics have been adjusted to more broad-spectrum antibiotic. We will continue to mobilize and hopefully O2 needs do not increase any further. GARY GARCIA MD DR: KIM/mino JOB#: [id number] / [id number]
[2020-05-25 02:21] VITALS: BP 124/81
[2020-05-25 07:00] VITALS: BP 142/68
[2020-05-25] MEDS: CALCIUM ACETATE 667 MG CAPSULE PO SCH ×2 (08:07→17:06)
[2020-05-25] MEDS: FLUDROCORTISONE 0.1 MG TABLET PO SCH (08:07)
[2020-05-25] MEDS: ATORVASTATIN CALCIUM 40 MG TABLET. PO SCH (08:07)
[2020-05-25] MEDS: glipiZIDE 5 MG TABLET PO SCH ×2 (08:07→17:06)
[2020-05-25] MEDS: LACTOBACILLUS RHAMNOSUS GG 1 CAPSULE. PO SCH ×2 (08:07→21:27)
[2020-05-25] MEDS: MIDODRINE 5 MG TABLET PO SCH ×3 (08:07→18:08)
[2020-05-25] MEDS: FOLIC/VIT B COMP W-C (RENAL) TABLET. PO SCH (08:07)
[2020-05-25] MEDS: CHOLECALCIFEROL (VITAMIN D3) 1,000 UNIT TABLET PO SCH (08:08)
[2020-05-25] MEDS: ASPIRIN ENTERIC COATED 81 MG TABLET.DR. PO SCH (08:08)
[2020-05-25] MEDS: DOXYCYCLINE HYCLATE 100 MG TABLET PO SCH ×2 (08:08→21:27)
[2020-05-25] MEDS: FERROUS SULFATE 325 MG TABLET. PO SCH (08:08)
[2020-05-25] MEDS: DEXAMETHASONE 4 MG TABLET PO SCH (08:08)
--- NOTE | 2020-05-25 08:36 | PDOC ---
Infectious Disease Note Subjective Subjective pt is feeling ok up in chair, on o2 ROS ROS no n/v/d/ Vital Sign Vital Signs Vital Signs Date Time Temp Pulse Resp B/P (MAP) Pulse Ox O2 Delivery O2 Flow Rate FiO2 05/25/20 08:07 79 124/81 05/25/20 02:21 97.8 23 100 Nasal Cannula 4.0 97.8 Physical Exam PHYSICAL EXAM GENERAL: Alert, oriented gentleman, not in any distress. VITAL SIGNS: Stable HEENT: Both pupils are round and reacting. No conjunctival lesion. No lesion in the mouth. NECK: Supple, no JVP, no lymphadenopathy. LUNGS: Clear. HEART: S1, S2 regular. ABDOMEN: Soft, nontender, no organomegaly. EXTREMITIES: No edema or cyanosis. SKIN: Unremarkable other than some bruising present. NEUROLOGIC: The patient is alert, awake and appropriate. No focal neurologic deficit. Labs Lab Laboratory Tests Test 05/24/20 11:31 05/24/20 17:08 05/24/20 20:15 05/25/20 07:37 Glucose (Fingerstick) 117 mg/dL (70-99) 86 mg/dL (70-99) 142 mg/dL (70-99) 49 mg/dL (70-99) Test 05/25/20 07:44 Glucose (Fingerstick) 50 mg/dL (70-99) Micro Microbiology 05/18/20 Blood Culture - Preliminary, Resulted NO GROWTH AFTER 2 DAYS Objective Assessment IMPRESSION: 1. COVID-19 positive. 2. Pulmonary infiltrate. 3. Hypoxemia. 4. Fever. 5. End-stage renal disease. 6. Hypertension. 7. Coronary artery disease. Plan Plan of Care Remdesivir, steroids, cont supportive care c diff neg CASSIE PATEL MD May 25, 2020 08:36
--- NOTE | 2020-05-25 08:44 | PN ---
DATE: 05/25/2020 LOCATION: He is in Room 258. SUBJECTIVE: This 80-year-old white male remains hospitalized for acute hypoxic respiratory failure due to COVID-19 pneumonia with bilateral infiltrates on chest x-ray. According to nursing, he had a decent night, slept fairly good. They continued to feel he is doing well from a strength standpoint. OBJECTIVE: VITAL SIGNS: Stable. He is afebrile. O2 has been 3-5 liters per nasal cannula. He has 100% sat on 4 liters this morning. Sugars have been decent. CHEST: With some decrease in breath sounds. HEART: Regular. IMPRESSION: 1. Bilateral pulmonary infiltrates with acute hypoxic respiratory failure due to COVID-19 pneumonia. 2. End-stage renal disease, on dialysis. 3. Hypertension. 4. Diabetes with good blood sugars. 5. Coronary artery disease. 6. Thrombocytopenia. 7. Fever on admission, which has improved. PLAN: Ongoing steroids, remdesivir, supportive care. Therapy to mobilize. I spoke at length with the daughter yesterday. He remained stable here. I could see him being discharged in the next 2-3 days to home. He will likely need some oxygen at discharge. GARY GARCIA MD DR: KIM/mino JOB#: [id number] / [id number]
--- NOTE | 2020-05-25 09:32 | PDOC ---
PULMONARY PROGRESS NOTES DATE: 05/25/20 TIME: 09:32 Subjective remains on 4 liters N/C Feeling better today, sitting up in chair No SOA or cough no other concerns from nursing Vitals Vital Signs Date Time Temp Pulse Resp B/P (MAP) Pulse Ox O2 Delivery O2 Flow Rate FiO2 05/25/20 08:07 79 124/81 05/25/20 07:00 98.1 23 97 Nasal Cannula 4.0 98.1 Comments PT. seen during COVID 19 pandemic, visual exam preformed on 02 alert not in distress no accessory muscle use no rash Lungs: Clear Labs Laboratory Tests Test 05/23/20 11:16 05/23/20 16:32 05/23/20 18:50 05/24/20 07:35 Glucose (Fingerstick) 214 mg/dL (70-99) 203 mg/dL (70-99) Clostridium difficile Toxin (PCR) Negative (NEGATIVE) Sodium Level 135 mmol/L (136-145) Potassium Level 5.1 mmol/L (3.5-5.1) Chloride Level 97 mmol/L (98-107) Carbon Dioxide Level 22 mmol/L (21-32) Anion Gap 16 (6-14) Blood Urea Nitrogen 105 mg/dL (8-26) Creatinine 9.2 mg/dL (0.7-1.3) Estimated GFR (Cockcroft-Gault) 5.6 Glucose Level 97 mg/dL (70-99) Calcium Level 8.4 mg/dL (8.5-10.1) Test 05/24/20 07:50 05/24/20 11:31 05/24/20 17:08 05/24/20 20:15 Glucose (Fingerstick) 100 mg/dL (70-99) 117 mg/dL (70-99) 86 mg/dL (70-99) 142 mg/dL (70-99) Test 05/25/20 07:37 05/25/20 07:44 Glucose (Fingerstick) 49 mg/dL (70-99) 50 mg/dL (70-99) Laboratory Tests Test 05/24/20 11:31 05/24/20 17:08 05/24/20 20:15 05/25/20 07:37 Glucose (Fingerstick) 117 mg/dL (70-99) 86 mg/dL (70-99) 142 mg/dL (70-99) 49 mg/dL (70-99) Test 05/25/20 07:44 Glucose (Fingerstick) 50 mg/dL (70-99) Medications Active Scripts Medications Dose Route/Sig Max Daily Dose Days Date Category Zyrtec (Cetirizine Hcl) 10 Mg Tablet 1 Tab PO DAILY 05/19/20 Reported Humulin 70-30 Vial (Hum Insulin Nph/Reg Insulin Hm) 100 Unit/1 Ml Vial 30 Unit SQ BID 10/11/19 Reported Fludrocortisone Acetate 0.1 Mg Tablet 0.2 Mg PO DAILY 10/11/19 Reported Calcium Acetate 667 Mg Tablet 2,001 Mg PO BIDWMEALS 10/11/19 Reported Iron (Ferrous Sulfate) 325 Mg Tablet 65 Mg PO DAILY 10/11/19 Reported D3-2000 (Cholecalciferol (Vitamin D3)) 50 Mcg Capsule 2,000 Mcg PO DAILY 10/11/19 Reported Atorvastatin Calcium 40 Mg Tablet 40 Mg PO DAILY08 10/11/19 Reported Glipizide 5 Mg Tablet 5 Mg PO BIDWMEALS 10/11/19 Reported Midodrine Hcl 10 Mg Tablet 10 Mg PO TID 10/11/19 Reported Doxycycline Hyclate 100 Mg Tablet 100 Mg PO BIDWMEALS 10/11/19 Reported [Super C Immune ] DAILY 02/09/19 Reported Kinjal-Leonor Tablet (Folic Acid/Vitamin B Comp W-C) 0.8 Mg Tablet 0.8 Mg PO 02/01/18 Reported Aspir 81 (Aspirin) 81 Mg Tablet.dr 81 Mg PO DAILY 10/20/13 Reported Comments CXR IMPRESSION: Patchy hazy infiltrates bilaterally. Mild cardiomegaly which is stable. Impression . IMPRESSION: 1. Abnormal chest x-ray secondary to diastolic congestive heart failure, rule out COVID-19 pneumonia. 2. Febrile illness, rule out COVID-19 pneumonia. 3. Atrial fibrillation. 4. Coronary artery disease. 5. Hyperlipidemia. 6. End-stage renal disease, on hemodialysis. 7. Hyperkalemia. 8. Diabetes mellitus. Plan . PLAN AND RECOMMENDATIONS: Continue supplemental oxygen to keep sats above 92%, currently on 4 liters N/C, wean oxygen as tolerated 6-minute walk prior to discharge Follow ID recs, off ABX S/P remdesivir Steroids with taper, will need full ten day course Follow nephrology recs PT/OT Social work for DC planning DVT/GI PPX D/W CLIFTON EVANS MD May 25, 2020 09:32
[2020-05-25] MEDS: INSULIN GLARGINE SYRINGE. SQ SCH ×2 (09:33→21:00)
[2020-05-25] MEDS: REMDESIVIR 100mg in NORMAL SALINE 250ML X 4 DAYS IV SCH (10:45)
[2020-05-25 11:00] VITALS: BP 110/75
--- NOTE | 2020-05-25 11:14 | PDOC ---
DATE OF SERVICE DATE: 05/25/20 TIME: 11:10 SUBJECTIVE ROS Stable OBJECTIVE Vital Signs Vital Signs Date Time Temp Pulse Resp B/P (MAP) Pulse Ox O2 Delivery O2 Flow Rate FiO2 05/25/20 08:07 79 124/81 05/25/20 08:00 Nasal Cannula 4.0 05/25/20 07:00 98.1 23 97 98.1 I & 0 Intake and Output 05/25/20 07:00 Intake Total 1160 ml Balance 1160 ml Intake Oral 1160 ml # Bowel Movements 2 PHYSICAL EXAM Physical Exam GENERAL: Alert, oriented , not in any distress. HEENT:OM moist , On O2 by NC NECK: Supple, no JVP, no lymphadenopathy. LUNGS: Clear. HEART: S1, S2 regular. ABDOMEN: Soft, nontender, no organomegaly. EXTREMITIES: No edema or cyanosis. SKIN: Unremarkable other than some bruising present. NEUROLOGIC: alert, awake No focal neurologic deficit. DIAGNOSIS/ASSESSMENT Assessment & Plan ESRD - on HD TTS No indication for HD today COVID-19 positive- Steroids , Remdesivir Pulmonary infiltrate. Hypoxemia- On O2 by NC Hypertension. Hx of AFib - has Pacemaker Hx of Chronic diastolic HF secondary to RVR;currently compensated Hx of CAD s/p PCI/HAMMAD - Asymptomatic DM COMMENT/RELEVANT DATA Meds Current Medications Medications (Trade) Dose Ordered Sig/Sonja Start Time Stop Time Status Last Admin Dose Admin Acetaminophen (Tylenol) 650 mg PRN Q6HRS PRN 05/19/20 23:15 05/22/20 15:16 650 MG Albumin Human 200 ml @ 200 mls/hr 1X PRN PRN 05/22/20 08:00 05/22/20 13:59 DC Aspirin (Ecotrin) 81 mg DAILY 05/19/20 14:00 05/25/20 08:08 81 MG Atorvastatin Calcium (Lipitor) 40 mg DAILY08 05/19/20 14:00 05/25/20 08:07 40 MG Azithromycin (Zithromax) 500 mg 1X ONCE 05/20/20 10:45 05/20/20 10:49 DC 05/20/20 11:28 500 MG Calcium Acetate (Phoslo) 2,001 mg BIDWMEALS 05/19/20 17:00 05/25/20 08:07 2,001 MG Calcium Gluconate (Calcium Gluconate) 1,000 mg 1X ONCE 05/19/20 01:45 05/19/20 01:46 DC 05/19/20 02:24 1,000 MG Ceftriaxone Sodium (Rocephin) 1 gm Q24H 05/20/20 11:00 05/21/20 08:24 DC 05/20/20 11:28 1 GM Cetirizine HCl (ZyrTEC) 10 mg HS 05/20/20 23:30 05/24/20 20:10 10 MG Dexamethasone (Decadron) 4 mg DAILYWBKFT 05/25/20 08:00 05/25/20 08:08 4 MG Doxycycline Hyclate (Vibra-Tab) 100 mg BID 05/24/20 12:00 05/25/20 08:08 100 MG Ferrous Sulfate (Feosol) 325 mg DAILY08 05/19/20 14:00 05/25/20 08:08 325 MG Fludrocortisone Acetate (Florinef) 0.2 mg DAILY 05/19/20 14:00 05/25/20 08:07 0.2 MG Glipizide (Glucotrol) 5 mg BIDWMEALS 05/19/20 17:00 05/25/20 08:07 5 MG Info (PHARMACY MONITORING -- do not chart) 1 each PRN DAILY PRN 05/24/20 08:00 Insulin Glargine (Lantus Syringe) 30 unit BID 05/19/20 21:00 05/25/20 09:33 30 UNIT Labetalol HCl (Normodyne Iv Push) 10 mg 1X ONCE 05/19/20 01:45 05/19/20 01:46 DC Lactobacillus Rhamnosus (Culturelle) 1 cap BID 05/21/20 09:00 05/25/20 08:07 1 CAP Loperamide HCl (Imodium) 2 mg PRN Q6HRS PRN 05/23/20 18:15 05/24/20 08:11 2 MG Midodrine (Proamatine) 10 mg 0800,1300,1800 05/20/20 08:00 05/25/20 08:07 10 MG Ondansetron HCl (Zofran) 4 mg 1X ONCE 05/19/20 03:00 05/19/20 03:01 DC 05/19/20 02:51 4 MG Piperacillin Sod/ Tazobactam Sod 2.25 gm/Sodium Chloride 50 ml @ 100 mls/hr Q8HRS 05/21/20 09:00 05/24/20 09:17 DC 05/24/20 06:34 100 MLS/HR Remdesivir 100 mg/ Sodium Chloride 230 ml @ 460 mls/hr Q24H 05/22/20 10:00 05/25/20 10:29 DC 05/25/20 10:45 460 MLS/HR Remdesivir 200 mg/ Sodium Chloride 210 ml @ 210 mls/hr 1X ONCE 05/21/20 10:00 05/21/20 10:59 DC 05/21/20 10:36 210 MLS/HR Sodium Chloride 1,000 ml @ 400 mls/hr Q2H30M PRN 05/24/20 08:00 05/24/20 19:59 DC Vitamin B Complex/ Vitamin C (Kinjal-Leonor) 1 tab DAILY08 05/19/20 14:00 05/25/20 08:07 1 TAB Vitamin D (Vitamin D3) 2,000 unit DAILY 05/19/20 14:00 05/25/20 08:08 2,000 UNIT Lab Laboratory Tests Test 05/24/20 11:31 05/24/20 17:08 05/24/20 20:15 05/25/20 07:37 Glucose (Fingerstick) 117 mg/dL (70-99) 86 mg/dL (70-99) 142 mg/dL (70-99) 49 mg/dL (70-99) Test 05/25/20 07:44 Glucose (Fingerstick) 50 mg/dL (70-99) Results All relevant outside records, renal labs, imaging studies, telemetry/EKG's were reviewed. Justicifation of Admission Dx: Justifications for Admission: Justification of Admission Dx: N/A YVETTE ARAUZ MD May 25, 2020 11:14
--- NOTE | 2020-05-25 12:28 | NUR ---
SS following up with discharge planning. SS reviewed pt chart and discussed with pt RN. Pt is currently requiring oxygen. COVID19 positive. Pt having last dose of Remdesivir today. PT/OT recommending care home unit. Pt's family requesting home with home healthcare at discharge. Pt has no home oxygen. Per Dr. Adame, not ready. SS will continue to follow for discharge planning.
[2020-05-25 15:00] VITALS: BP 138/83
[2020-05-25 19:00] VITALS: BP 121/53
[2020-05-25] MEDS ORDERED: DEXTROSE 50% 25 GM / 50ML DISP.SYRIN. IV PRN (20:15)
[2020-05-25] MEDS: CETIRIZINE HCL 10 MG TABLET. PO SCH (21:27)
[2020-05-25 23:00] VITALS: BP 119/89
[2020-05-26 03:00] VITALS: BP 140/61
[2020-05-26 07:00] VITALS: BP 125/90
[2020-05-26 07:55] LABS: CALCIUM 9.1 mg/dL (8.5-10.1); CREATININE 7.4 mg/dL (0.7-1.3); GFR 7.2; POTASSIUM 4.1 mmol/L (3.5-5.1)
[2020-05-26] MEDS: CALCIUM ACETATE 667 MG CAPSULE PO SCH ×2 (08:00→17:23)
[2020-05-26] MEDS: glipiZIDE 5 MG TABLET PO SCH ×2 (08:00→17:23)
[2020-05-26] MEDS: MIDODRINE 5 MG TABLET PO SCH ×3 (08:00→17:22)
[2020-05-26] MEDS: INSULIN GLARGINE SYRINGE. SQ SCH ×2 (09:00→21:00)
--- NOTE | 2020-05-26 09:10 | PDOC ---
Infectious Disease Note Subjective Subjective pt is feeling ok up in chair, on o2 Did have episode of hypoglycemia and confusion but much better now ROS ROS Nausea vomiting diarrhea fever Vital Sign Vital Signs Vital Signs Date Time Temp Pulse Resp B/P (MAP) Pulse Ox O2 Delivery O2 Flow Rate FiO2 05/26/20 07:00 95.0 81 20 125/90 (102) 96 Nasal Cannula 4.0 95.0 Physical Exam PHYSICAL EXAM GENERAL: Alert, oriented gentleman, not in any distress. VITAL SIGNS: Stable HEENT: Both pupils are round and reacting. No conjunctival lesion. No lesion in the mouth. NECK: Supple, no JVP, no lymphadenopathy. LUNGS: Clear. HEART: S1, S2 regular. ABDOMEN: Soft, nontender, no organomegaly. EXTREMITIES: No edema or cyanosis. SKIN: Unremarkable other than some bruising present. NEUROLOGIC: The patient is alert, awake and appropriate. No focal neurologic deficit. Labs Lab Laboratory Tests Test 05/25/20 11:38 05/25/20 16:40 05/25/20 21:19 05/26/20 07:00 Glucose (Fingerstick) 70 mg/dL (70-99) 56 mg/dL (70-99) 98 mg/dL (70-99) Sodium Level 140 mmol/L (136-145) Potassium Level 4.1 mmol/L (3.5-5.1) Chloride Level 96 mmol/L (98-107) Carbon Dioxide Level 27 mmol/L (21-32) Anion Gap 17 (6-14) Blood Urea Nitrogen 81 mg/dL (8-26) Creatinine 7.4 mg/dL (0.7-1.3) Estimated GFR (Cockcroft-Gault) 7.2 Glucose Level 48 mg/dL (70-99) Calcium Level 9.1 mg/dL (8.5-10.1) Micro Microbiology 05/18/20 Blood Culture - Preliminary, Resulted NO GROWTH AFTER 2 DAYS Objective Assessment IMPRESSION: 1. COVID-19 positive. 2. Pulmonary infiltrate. 3. Hypoxemia. 4. Fever. 5. End-stage renal disease. 6. Hypertension. 7. Coronary artery disease. Plan Plan of Care Remdesivir, steroids, cont supportive care c diff neg CASSIE PATEL MD May 26, 2020 09:10
[2020-05-26 11:00] VITALS: BP 128/111
--- NOTE | 2020-05-26 12:23 | PDOC ---
PROGRESS NOTES Date of Service DATE: 05/26/20 TIME: 12:21 Subjective Subjective IN FOLLOW UP OF ESRD Objective Objective Vital Signs Date Time Temp Pulse Resp B/P (MAP) Pulse Ox O2 Delivery O2 Flow Rate FiO2 05/26/20 11:00 95.8 84 20 128/111 (117) 92 Nasal Cannula 2.0 95.8 Intake and Output 05/26/20 07:00 Intake Total 950 ml Balance 950 ml Intake Oral 950 ml # Bowel Movements 1 Physical Exam COMMENT COVID 19+ AND NO BEDSIDE EXAM Diagnosis RENAL FAILURE: ESRD Plan Plan of Care FOR DIALYSIS TODAY IN ISOLATION. DISCUSSED WITH DIALYSIS NURSE Comment Review of Relevant I have reviewed the following items david (where applicable) has been applied. Labs Laboratory Tests Test 05/24/20 17:08 05/24/20 20:15 05/25/20 07:37 05/25/20 07:44 Glucose (Fingerstick) 86 mg/dL (70-99) 142 mg/dL (70-99) 49 mg/dL (70-99) 50 mg/dL (70-99) Test 05/25/20 11:38 05/25/20 16:40 05/25/20 21:19 05/26/20 06:58 Glucose (Fingerstick) 70 mg/dL (70-99) 56 mg/dL (70-99) 98 mg/dL (70-99) 44 mg/dL (70-99) Test 05/26/20 07:00 05/26/20 07:11 05/26/20 07:20 05/26/20 07:31 Sodium Level 140 mmol/L (136-145) Potassium Level 4.1 mmol/L (3.5-5.1) Chloride Level 96 mmol/L (98-107) Carbon Dioxide Level 27 mmol/L (21-32) Anion Gap 17 (6-14) Blood Urea Nitrogen 81 mg/dL (8-26) Creatinine 7.4 mg/dL (0.7-1.3) Estimated GFR (Cockcroft-Gault) 7.2 Glucose Level 48 mg/dL (70-99) Calcium Level 9.1 mg/dL (8.5-10.1) Glucose (Fingerstick) 49 mg/dL (70-99) 64 mg/dL (70-99) 85 mg/dL (70-99) Test 05/26/20 08:01 05/26/20 11:39 Glucose (Fingerstick) 90 mg/dL (70-99) 163 mg/dL (70-99) Laboratory Tests Test 05/25/20 16:40 05/25/20 21:19 05/26/20 06:58 05/26/20 07:00 Glucose (Fingerstick) 56 mg/dL (70-99) 98 mg/dL (70-99) 44 mg/dL (70-99) Sodium Level 140 mmol/L (136-145) Potassium Level 4.1 mmol/L (3.5-5.1) Chloride Level 96 mmol/L (98-107) Carbon Dioxide Level 27 mmol/L (21-32) Anion Gap 17 (6-14) Blood Urea Nitrogen 81 mg/dL (8-26) Creatinine 7.4 mg/dL (0.7-1.3) Estimated GFR (Cockcroft-Gault) 7.2 Glucose Level 48 mg/dL (70-99) Calcium Level 9.1 mg/dL (8.5-10.1) Test 05/26/20 07:11 05/26/20 07:20 05/26/20 07:31 05/26/20 08:01 Glucose (Fingerstick) 49 mg/dL (70-99) 64 mg/dL (70-99) 85 mg/dL (70-99) 90 mg/dL (70-99) Test 05/26/20 11:39 Glucose (Fingerstick) 163 mg/dL (70-99) Microbiology 05/18/20 Blood Culture - Final, Complete NO GROWTH AFTER 5 DAYS Medications Current Medications Calcium Gluconate (Calcium Gluconate) 1,000 mg 1X ONCE IVP Last administered on 05/19/20at 02:24; Start 05/19/20 at 01:45; Stop 05/19/20 at 01:46; Status DC Labetalol HCl (Normodyne Iv Push) 10 mg 1X ONCE IVP ; Start 05/19/20 at 01:45; Stop 05/19/20 at 01:46; Status DC Ondansetron HCl (Zofran) 4 mg 1X ONCE IVP Last administered on 05/19/20at 02:51; Start 05/19/20 at 03:00; Stop 05/19/20 at 03:01; Status DC Aspirin (Ecotrin) 81 mg DAILY PO Last administered on 05/25/20at 08:08; Start 05/19/20 at 14:00 Atorvastatin Calcium (Lipitor) 40 mg DAILY08 PO Last administered on 05/25/20at 08:07; Start 05/19/20 at 14:00 Ferrous Sulfate (Feosol) 325 mg DAILY08 PO Last administered on 05/25/20at 08:08; Start 05/19/20 at 14:00 Fludrocortisone Acetate (Florinef) 0.2 mg DAILY PO Last administered on 05/25/20at 08:07; Start 05/19/20 at 14:00 Vitamin B Complex/ Vitamin C (Kinjal-Leonor) 1 tab DAILY08 PO Last administered on 05/25/20at 08:07; Start 05/19/20 at 14:00 Glipizide (Glucotrol) 5 mg BIDWMEALS PO Last administered on 05/25/20at 17:06; Start 05/19/20 at 17:00 Calcium Acetate (Phoslo) 2,001 mg BIDWMEALS PO Last administered on 05/25/20at 17:06; Start 05/19/20 at 17:00 Vitamin D (Vitamin D3) 2,000 unit DAILY PO Last administered on 05/25/20at 08:08; Start 05/19/20 at 14:00 Insulin Glargine (Lantus Syringe) 30 unit BID SQ Last administered on 05/25/20at 09:33; Start 05/19/20 at 21:00 Midodrine (Proamatine) 10 mg [id number] PO Last administered on 05/19/20at 18:44; Start 05/19/20 at 13:00; Stop 05/20/20 at 05:16; Status DC Sodium Chloride 1,000 ml @ 1,000 mls/hr Q1H PRN IV hypotension; Start 05/19/20 at 14:00; Stop 05/19/20 at 19:59; Status DC Albumin Human 200 ml @ 200 mls/hr 1X PRN PRN IV Hypotension; Start 05/19/20 at 14:00; Stop 05/19/20 at 19:59; Status DC Sodium Chloride 1,000 ml @ 400 mls/hr Q2H30M PRN IV PATENCY; Start 05/19/20 at 14:00; Stop 05/20/20 at 01:59; Status DC Info (PHARMACY MONITORING -- do not chart) 1 each PRN DAILY PRN MC SEE COMMENTS; Start 05/19/20 at 15:00; Status Cancel Info (PHARMACY MONITORING -- do not chart) 1 each PRN DAILY PRN MC SEE COMMENTS; Start 05/19/20 at 15:00; Status UNV Acetaminophen (Tylenol) 650 mg 1X PRN PRN PO MILD PAIN / TEMP > 100.3'F Last administered on 05/19/20at 15:25; Start 05/19/20 at 15:15; Stop 05/20/20 at 15:14; Status DC Acetaminophen (Tylenol) 650 mg PRN Q6HRS PRN PO MILD PAIN / TEMP > 100.3'F Last administered on 05/22/20at 15:16; Start 05/19/20 at 23:15 Midodrine (Proamatine) 10 mg 0800,1300,1800 PO Last administered on 05/25/20at 18:08; Start 05/20/20 at 08:00 Ceftriaxone Sodium (Rocephin) 1 gm Q24H IVP Last administered on 05/20/20at 11:28; Start 05/20/20 at 11:00; Stop 05/21/20 at 08:24; Status DC Azithromycin (Zithromax) 500 mg 1X ONCE PO Last administered on 05/20/20at 11:28; Start 05/20/20 at 10:45; Stop 05/20/20 at 10:49; Status DC Dexamethasone (Decadron) 6 mg DAILYWBKFT PO Last administered on 05/24/20at 08:10; Start 05/20/20 at 12:00; Stop 05/24/20 at 15:13; Status DC Cetirizine HCl (ZyrTEC) 10 mg HS PO Last administered on 05/25/20at 21:27; Start 05/20/20 at 23:30 Lactobacillus Rhamnosus (Culturelle) 1 cap BID PO Last administered on 05/25/20at 21:27; Start 05/21/20 at 09:00 Remdesivir 200 mg/ Sodium Chloride 210 ml @ 210 mls/hr 1X ONCE IV Last administered on 05/21/20at 10:36; Start 05/21/20 at 10:00; Stop 05/21/20 at 10:59; Status DC Remdesivir 100 mg/ Sodium Chloride 230 ml @ 460 mls/hr Q24H IV Last administered on 05/25/20at 10:45; Start 05/22/20 at 10:00; Stop 05/25/20 at 10:29; Status DC Piperacillin Sod/ Tazobactam Sod 2.25 gm/Sodium Chloride 50 ml @ 100 mls/hr Q8HRS IV Last administered on 05/24/20at 06:34; Start 05/21/20 at 09:00; Stop 05/24/20 at 09:17; Status DC Sodium Chloride 1,000 ml @ 1,000 mls/hr Q1H PRN IV hypotension; Start 05/22/20 at 08:00; Stop 05/22/20 at 13:59; Status DC Albumin Human 200 ml @ 200 mls/hr 1X PRN PRN IV Hypotension; Start 05/22/20 at 08:00; Stop 05/22/20 at 13:59; Status DC Sodium Chloride 1,000 ml @ 400 mls/hr Q2H30M PRN IV PATENCY; Start 05/22/20 at 08:00; Stop 05/22/20 at 19:59; Status DC Info (PHARMACY MONITORING -- do not chart) 1 each PRN DAILY PRN MC SEE COMMENTS; Start 05/22/20 at 08:00; Status Cancel Info (PHARMACY MONITORING -- do not chart) 1 each PRN DAILY PRN MC SEE COMMENTS; Start 05/22/20 at 08:00; Status UNV Sodium Chloride 500 ml @ 500 mls/hr 1X ONCE IV Last administered on 05/22/20at 17:08; Start 05/22/20 at 16:00; Stop 05/22/20 at 16:59; Status DC Loperamide HCl (Imodium) 2 mg PRN Q6HRS PRN PO DIARRHEA Last administered on 05/24/20at 08:11; Start 05/23/20 at 18:15 Sodium Chloride 1,000 ml @ 1,000 mls/hr Q1H PRN IV hypotension; Start 05/24/20 at 08:00; Stop 05/24/20 at 13:59; Status DC Sodium Chloride 1,000 ml @ 400 mls/hr Q2H30M PRN IV PATENCY; Start 05/24/20 at 08:00; Stop 05/24/20 at 19:59; Status DC Info (PHARMACY MONITORING -- do not chart) 1 each PRN DAILY PRN MC SEE COMMENTS; Start 05/24/20 at 08:00 Info (PHARMACY MONITORING -- do not chart) 1 each PRN DAILY PRN MC SEE COMMENTS; Start 05/24/20 at 08:00 Doxycycline Hyclate (Vibra-Tab) 100 mg BID PO Last administered on 05/25/20at 21:27; Start 05/24/20 at 12:00 Dexamethasone (Decadron) 4 mg DAILYWBKFT PO Last administered on 05/25/20at 08:08; Start 05/25/20 at 08:00 Dextrose (Dextrose 50%-Water Syringe) 12.5 gm PRN Q15MIN PRN IV SEE COMMENTS; Start 05/25/20 at 20:15 Active Scripts Active Reported Zyrtec (Cetirizine Hcl) 10 Mg Tablet 1 Tab PO DAILY Humulin 70-30 Vial (Hum Insulin Nph/Reg Insulin Hm) 100 Unit/1 Ml Vial 30 Unit SQ BID Fludrocortisone Acetate 0.1 Mg Tablet 0.2 Mg PO DAILY Calcium Acetate 667 Mg Tablet 2,001 Mg PO BIDWMEALS Iron (Ferrous Sulfate) 325 Mg Tablet 65 Mg PO DAILY D3-2000 (Cholecalciferol (Vitamin D3)) 50 Mcg Capsule 2,000 Mcg PO DAILY Atorvastatin Calcium 40 Mg Tablet 40 Mg PO DAILY08 Glipizide 5 Mg Tablet 5 Mg PO BIDWMEALS Midodrine Hcl 10 Mg Tablet 10 Mg PO TID Doxycycline Hyclate 100 Mg Tablet 100 Mg PO BIDWMEALS [Super C Immune ] DAILY Kinjal-Leonor Tablet (Folic Acid/Vitamin B Comp W-C) 0.8 Mg Tablet 0.8 Mg PO Aspir 81 (Aspirin) 81 Mg Tablet.dr 81 Mg PO DAILY Vitals/I & O Vital Sign - Last 24 Hours 05/25/20 05/25/20 05/25/20 05/25/20 13:18 15:00 18:08 19:00 Temp 98.1 97.5 98.1 97.5 Pulse 80 76 76 80 Resp 23 22 B/P (MAP) 110/75 138/83 (101) 138/83 121/53 (75) Pulse Ox 90 99 O2 Delivery Nasal Cannula Nasal Cannula O2 Flow Rate 4.0 4.0 05/25/20 05/25/20 05/26/20 05/26/20 19:30 23:00 03:00 07:00 Temp 95.6 97.6 95.0 95.6 97.6 95.0 Pulse 81 84 81 Resp 22 22 20 B/P (MAP) 119/89 (99) 140/61 (87) 125/90 (102) Pulse Ox 100 96 96 O2 Delivery Nasal Cannula Nasal Cannula Nasal Cannula Nasal Cannula O2 Flow Rate 4.0 4.0 4.0 4.0 05/26/20 11:00 Temp 95.8 95.8 Pulse 84 Resp 20 B/P (MAP) 128/111 (117) Pulse Ox 92 O2 Delivery Nasal Cannula O2 Flow Rate 2.0 l Intake and Output 05/25/20 05/25/20 05/26/20 15:00 23:00 07:00 Intake Total 500 ml 400 ml 50 ml Balance 500 ml 400 ml 50 ml Justifications for Admission Other Justification JITENDRA LAZCANO MD May 26, 2020 12:22
--- NOTE | 2020-05-26 13:08 | PDOC ---
PULMONARY PROGRESS NOTES DATE: 05/26/20 TIME: 13:07 Subjective remains on 2 liters N/C sitting up in chair No SOA or cough still some loose stools today no other concerns from nursing Vitals Vital Signs Date Time Temp Pulse Resp B/P (MAP) Pulse Ox O2 Delivery O2 Flow Rate FiO2 05/26/20 11:00 95.8 84 20 128/111 (117) 92 Nasal Cannula 2.0 95.8 Comments PT. seen during COVID pandemic, visual exam preformed on alert not in distress no accessory muscle use no rash Lungs: Clear Labs Laboratory Tests Test 05/24/20 17:08 05/24/20 20:15 05/25/20 07:37 05/25/20 07:44 Glucose (Fingerstick) 86 mg/dL (70-99) 142 mg/dL (70-99) 49 mg/dL (70-99) 50 mg/dL (70-99) Test 05/25/20 11:38 05/25/20 16:40 05/25/20 21:19 05/26/20 06:58 Glucose (Fingerstick) 70 mg/dL (70-99) 56 mg/dL (70-99) 98 mg/dL (70-99) 44 mg/dL (70-99) Test 05/26/20 07:00 05/26/20 07:11 05/26/20 07:20 05/26/20 07:31 Sodium Level 140 mmol/L (136-145) Potassium Level 4.1 mmol/L (3.5-5.1) Chloride Level 96 mmol/L (98-107) Carbon Dioxide Level 27 mmol/L (21-32) Anion Gap 17 (6-14) Blood Urea Nitrogen 81 mg/dL (8-26) Creatinine 7.4 mg/dL (0.7-1.3) Estimated GFR (Cockcroft-Gault) 7.2 Glucose Level 48 mg/dL (70-99) Calcium Level 9.1 mg/dL (8.5-10.1) Glucose (Fingerstick) 49 mg/dL (70-99) 64 mg/dL (70-99) 85 mg/dL (70-99) Test 05/26/20 08:01 05/26/20 11:39 Glucose (Fingerstick) 90 mg/dL (70-99) 163 mg/dL (70-99) Laboratory Tests Test 05/25/20 16:40 05/25/20 21:19 05/26/20 06:58 05/26/20 07:00 Glucose (Fingerstick) 56 mg/dL (70-99) 98 mg/dL (70-99) 44 mg/dL (70-99) Sodium Level 140 mmol/L (136-145) Potassium Level 4.1 mmol/L (3.5-5.1) Chloride Level 96 mmol/L (98-107) Carbon Dioxide Level 27 mmol/L (21-32) Anion Gap 17 (6-14) Blood Urea Nitrogen 81 mg/dL (8-26) Creatinine 7.4 mg/dL (0.7-1.3) Estimated GFR (Cockcroft-Gault) 7.2 Glucose Level 48 mg/dL (70-99) Calcium Level 9.1 mg/dL (8.5-10.1) Test 05/26/20 07:11 05/26/20 07:20 05/26/20 07:31 05/26/20 08:01 Glucose (Fingerstick) 49 mg/dL (70-99) 64 mg/dL (70-99) 85 mg/dL (70-99) 90 mg/dL (70-99) Test 05/26/20 11:39 Glucose (Fingerstick) 163 mg/dL (70-99) Medications Active Scripts Medications Dose Route/Sig Max Daily Dose Days Date Category Zyrtec (Cetirizine Hcl) 10 Mg Tablet 1 Tab PO DAILY 05/19/20 Reported Humulin 70-30 Vial (Hum Insulin Nph/Reg Insulin Hm) 100 Unit/1 Ml Vial 30 Unit SQ BID 10/11/19 Reported Fludrocortisone Acetate 0.1 Mg Tablet 0.2 Mg PO DAILY 10/11/19 Reported Calcium Acetate 667 Mg Tablet 2,001 Mg PO BIDWMEALS 10/11/19 Reported Iron (Ferrous Sulfate) 325 Mg Tablet 65 Mg PO DAILY 10/11/19 Reported D3-2000 (Cholecalciferol (Vitamin D3)) 50 Mcg Capsule 2,000 Mcg PO DAILY 10/11/19 Reported Atorvastatin Calcium 40 Mg Tablet 40 Mg PO DAILY08 10/11/19 Reported Glipizide 5 Mg Tablet 5 Mg PO BIDWMEALS 10/11/19 Reported Midodrine Hcl 10 Mg Tablet 10 Mg PO TID 10/11/19 Reported Doxycycline Hyclate 100 Mg Tablet 100 Mg PO BIDWMEALS 10/11/19 Reported [Super C Immune ] DAILY 02/09/19 Reported Kinjal-Leonor Tablet (Folic Acid/Vitamin B Comp W-C) 0.8 Mg Tablet 0.8 Mg PO 02/01/18 Reported Aspir 81 (Aspirin) 81 Mg Tablet.dr 81 Mg PO DAILY 10/20/13 Reported Comments CXR IMPRESSION: Patchy hazy infiltrates bilaterally. Mild cardiomegaly which is stable. Impression . IMPRESSION: 1. Abnormal chest x-ray secondary to diastolic congestive heart failure, rule out COVID-19 pneumonia. 2. Febrile illness, rule out COVID-19 pneumonia. 3. Atrial fibrillation. 4. Coronary artery disease. 5. Hyperlipidemia. 6. End-stage renal disease, on hemodialysis. 7. Hyperkalemia. 8. Diabetes mellitus. Plan . PLAN AND RECOMMENDATIONS: Continue supplemental oxygen to keep sats above 92%, currently on 2 liters N/C, wean oxygen as tolerated 6-minute walk prior to discharge Follow ID recs, off ABX S/P remdesivir Steroids with taper, will need full ten day course Follow nephrology recs PT/OT Social work for DC planning planned to D/C home with home health DVT/GI PPX D/W CLIFTON EVANS MD May 26, 2020 13:08
[2020-05-26] MEDS: LOPERAMIDE 2 MG CAPSULE PO PRN (13:39)
[2020-05-26] MEDS: ASPIRIN ENTERIC COATED 81 MG TABLET.DR. PO SCH (13:39)
[2020-05-26] MEDS: CHOLECALCIFEROL (VITAMIN D3) 1,000 UNIT TABLET PO SCH (13:40)
[2020-05-26] MEDS: ATORVASTATIN CALCIUM 40 MG TABLET. PO SCH (13:40)
[2020-05-26] MEDS: DOXYCYCLINE HYCLATE 100 MG TABLET PO SCH ×2 (13:40→22:17)
[2020-05-26] MEDS: LACTOBACILLUS RHAMNOSUS GG 1 CAPSULE. PO SCH ×2 (13:40→22:17)
[2020-05-26] MEDS: FOLIC/VIT B COMP W-C (RENAL) TABLET. PO SCH (13:40)
[2020-05-26] MEDS: FLUDROCORTISONE 0.1 MG TABLET PO SCH (13:40)
[2020-05-26] MEDS: FERROUS SULFATE 325 MG TABLET. PO SCH (13:40)
[2020-05-26] MEDS: DEXAMETHASONE 4 MG TABLET PO SCH (13:41)
--- NOTE | 2020-05-26 14:09 | PN ---
DATE: 05/26/2020 LOCATION: Room 258. SUBJECTIVE: This 80-year-old white male who remains hospitalized for acute hypoxic respiratory failure due to COVID-19 pneumonia with bilateral infiltrates on chest x-ray. The patient had significant hypoglycemia this morning, requiring resuscitation for the same. He is receiving, I believe his normal home doses of insulin and is not eating according to nursing. He continues to get around pretty well physically in the room. Physical Therapy tells me that he desats to about 87% with walking around the room, but has fairly good strength. OBJECTIVE: VITAL SIGNS: Stable. He is afebrile. O2 have been anywhere from 2-4 liters per nasal cannula. CHEST: Reveals decent breath sounds. HEART: Regular. ABDOMEN: Benign. LABORATORY DATA: Sugars have been decent, but again had hypoglycemia this morning and we will need to back off on his insulin until he is eating better. He still has some diarrhea and is asking for the same, which he has ordered, but has not gotten in the last 2 days on checking with nursing. IMPRESSION: 1. Bilateral pulmonary infiltrates with acute hypoxic respiratory failure due to COVID-19 pneumonia with stable oxygenation now for several days on relatively low flow oxygen. 2. End-stage renal disease, on dialysis. 3. Hypertension. 4. Diabetes with good blood sugars, but hypoglycemia and the necessity to adjust insulin as discussed above. 5. Coronary artery disease. 6. Thrombocytopenia. 7. Fever on admission, which has improved. PLAN: Continue present supportive care. He has completed his remdesivir. He has ongoing steroids, which were oral. They are having difficulties with IV access which I told nursing, we can watch at this point in time ____ as long as he is stable. He will receive regular dialysis this afternoon at 1:00 p.m. and again insulin doses have been decreased due to the hypoglycemia. GARY GARCIA MD DR: KIM/mino JOB#: [id number] / [id number]
[2020-05-26 15:00] VITALS: BP 144/66
[2020-05-26] MEDS ORDERED: DIALYSIS PATIENT. MC PRN ×2 (15:45)
[2020-05-26 22:16] VITALS: BP 133/91
[2020-05-26] MEDS: CETIRIZINE HCL 10 MG TABLET. PO SCH (22:17)
[2020-05-27 02:49] VITALS: BP 145/50
[2020-05-27 07:00] VITALS: BP 87/58
[2020-05-27] MEDS: ATORVASTATIN CALCIUM 40 MG TABLET. PO SCH (08:15)
[2020-05-27] MEDS: DOXYCYCLINE HYCLATE 100 MG TABLET PO SCH ×2 (08:15→22:09)
[2020-05-27] MEDS: MIDODRINE 5 MG TABLET PO SCH ×3 (08:16→18:01)
[2020-05-27] MEDS: CHOLECALCIFEROL (VITAMIN D3) 1,000 UNIT TABLET PO SCH (08:16)
[2020-05-27] MEDS: LOPERAMIDE 2 MG CAPSULE PO PRN (08:16)
[2020-05-27] MEDS: CALCIUM ACETATE 667 MG CAPSULE PO SCH ×2 (08:16→18:00)
[2020-05-27] MEDS: FLUDROCORTISONE 0.1 MG TABLET PO SCH (08:16)
[2020-05-27] MEDS: LACTOBACILLUS RHAMNOSUS GG 1 CAPSULE. PO SCH ×2 (08:16→22:09)
[2020-05-27] MEDS: FOLIC/VIT B COMP W-C (RENAL) TABLET. PO SCH (08:17)
[2020-05-27] MEDS: ASPIRIN ENTERIC COATED 81 MG TABLET.DR. PO SCH (08:17)
[2020-05-27] MEDS: glipiZIDE 5 MG TABLET PO SCH ×2 (08:17→17:00)
[2020-05-27] MEDS: FERROUS SULFATE 325 MG TABLET. PO SCH (08:17)
[2020-05-27] MEDS: DEXAMETHASONE 4 MG TABLET PO SCH (08:17)
[2020-05-27] MEDS: INSULIN GLARGINE SYRINGE. SQ SCH ×2 (09:00→22:10)
--- NOTE | 2020-05-27 09:26 | PDOC ---
Infectious Disease Note Subjective Subjective pt is feeling ok up in chair, on o2 Did have episode of hypoglycemia and confusion but much better now Vital Sign Vital Signs Vital Signs Date Time Temp Pulse Resp B/P (MAP) Pulse Ox O2 Delivery O2 Flow Rate FiO2 05/27/20 08:16 79 145/50 05/27/20 07:00 97.5 23 99 Nasal Cannula 5.0 97.5 Physical Exam PHYSICAL EXAM GENERAL: Alert, oriented gentleman, not in any distress. VITAL SIGNS: Stable HEENT: Both pupils are round and reacting. No conjunctival lesion. No lesion in the mouth. NECK: Supple, no JVP, no lymphadenopathy. LUNGS: Clear. HEART: S1, S2 regular. ABDOMEN: Soft, nontender, no organomegaly. EXTREMITIES: No edema or cyanosis. SKIN: Unremarkable other than some bruising present. NEUROLOGIC: The patient is alert, awake and appropriate. No focal neurologic deficit. Labs Lab Laboratory Tests Test 05/26/20 11:39 05/26/20 16:43 05/26/20 22:19 05/27/20 07:39 Glucose (Fingerstick) 163 mg/dL (70-99) 134 mg/dL (70-99) 127 mg/dL (70-99) 134 mg/dL (70-99) Micro Microbiology 05/18/20 Blood Culture - Preliminary, Resulted NO GROWTH AFTER 2 DAYS Objective Assessment IMPRESSION: 1. COVID-19 positive. 2. Pulmonary infiltrate. 3. Hypoxemia. 4. Fever. 5. End-stage renal disease. 6. Hypertension. 7. Coronary artery disease. Plan Plan of Care Remdesivir, steroids, cont supportive care c diff neg CASSIE PATEL MD May 27, 2020 09:26
[2020-05-27 10:58] VITALS: BP 145/97
--- NOTE | 2020-05-27 12:09 | PDOC ---
PULMONARY PROGRESS NOTES DATE: 05/27/20 TIME: 12:09 Subjective remains on N/C sitting up in chair No SOA or cough reports resolution of his loose stools no other concerns from nursing Vitals Vital Signs Date Time Temp Pulse Resp B/P (MAP) Pulse Ox O2 Delivery O2 Flow Rate FiO2 05/27/20 10:58 97.7 81 22 145/97 (113) 100 Nasal Cannula 5.0 97.7 Comments PT. seen during COVID , visual exam preformed on 02 alert not in distress no accessory muscle use no rash Lungs: Clear Labs Laboratory Tests Test 05/25/20 16:40 05/25/20 21:19 05/26/20 06:58 05/26/20 07:00 Glucose (Fingerstick) 56 mg/dL (70-99) 98 mg/dL (70-99) 44 mg/dL (70-99) Sodium Level 140 mmol/L (136-145) Potassium Level 4.1 mmol/L (3.5-5.1) Chloride Level 96 mmol/L (98-107) Carbon Dioxide Level 27 mmol/L (21-32) Anion Gap 17 (6-14) Blood Urea Nitrogen 81 mg/dL (8-26) Creatinine 7.4 mg/dL (0.7-1.3) Estimated GFR (Cockcroft-Gault) 7.2 Glucose Level 48 mg/dL (70-99) Calcium Level 9.1 mg/dL (8.5-10.1) Test 05/26/20 07:11 05/26/20 07:20 05/26/20 07:31 05/26/20 08:01 Glucose (Fingerstick) 49 mg/dL (70-99) 64 mg/dL (70-99) 85 mg/dL (70-99) 90 mg/dL (70-99) Test 05/26/20 11:39 05/26/20 16:43 05/26/20 22:19 05/27/20 07:39 Glucose (Fingerstick) 163 mg/dL (70-99) 134 mg/dL (70-99) 127 mg/dL (70-99) 134 mg/dL (70-99) Test 05/27/20 11:14 Glucose (Fingerstick) 238 mg/dL (70-99) Laboratory Tests Test 05/26/20 16:43 05/26/20 22:19 05/27/20 07:39 05/27/20 11:14 Glucose (Fingerstick) 134 mg/dL (70-99) 127 mg/dL (70-99) 134 mg/dL (70-99) 238 mg/dL (70-99) Medications Active Scripts Medications Dose Route/Sig Max Daily Dose Days Date Category Zyrtec (Cetirizine Hcl) 10 Mg Tablet 1 Tab PO DAILY 05/19/20 Reported Humulin 70-30 Vial (Hum Insulin Nph/Reg Insulin Hm) 100 Unit/1 Ml Vial 30 Unit SQ BID 10/11/19 Reported Fludrocortisone Acetate 0.1 Mg Tablet 0.2 Mg PO DAILY 10/11/19 Reported Calcium Acetate 667 Mg Tablet 2,001 Mg PO BIDWMEALS 10/11/19 Reported Iron (Ferrous Sulfate) 325 Mg Tablet 65 Mg PO DAILY 10/11/19 Reported D3-2000 (Cholecalciferol (Vitamin D3)) 50 Mcg Capsule 2,000 Mcg PO DAILY 10/11/19 Reported Atorvastatin Calcium 40 Mg Tablet 40 Mg PO DAILY08 10/11/19 Reported Glipizide 5 Mg Tablet 5 Mg PO BIDWMEALS 10/11/19 Reported Midodrine Hcl 10 Mg Tablet 10 Mg PO TID 10/11/19 Reported Doxycycline Hyclate 100 Mg Tablet 100 Mg PO BIDWMEALS 10/11/19 Reported [Super C Immune ] DAILY 02/09/19 Reported Kinjal-Leonor Tablet (Folic Acid/Vitamin B Comp W-C) 0.8 Mg Tablet 0.8 Mg PO 02/01/18 Reported Aspir 81 (Aspirin) 81 Mg Tablet.dr 81 Mg PO DAILY 10/20/13 Reported Comments CXR IMPRESSION: Patchy hazy infiltrates bilaterally. Mild cardiomegaly which is stable. Impression . IMPRESSION: 1. Abnormal chest x-ray secondary to diastolic congestive heart failure, rule out COVID-19 pneumonia. 2. Febrile illness, rule out COVID-19 pneumonia. 3. Atrial fibrillation. 4. Coronary artery disease. 5. Hyperlipidemia. 6. End-stage renal disease, on hemodialysis. 7. Hyperkalemia. 8. Diabetes mellitus. Plan . PLAN AND RECOMMENDATIONS: Continue supplemental oxygen to keep sats above 92%, currently on 2 liters N/C, wean oxygen as tolerated 6-minute walk prior to discharge Follow ID recs, on Doxy S/P remdesivir Steroids with taper, will need full ten day course 05/30 can DC steroids Follow nephrology recs PT/OT Social work for DC planning planned to D/C home with home health DVT/GI PPX D/W RN CLIFTON VILLALBA MD May 27, 2020 12:09
--- NOTE | 2020-05-27 13:14 | PN ---
DATE: 05/27/2020 DAILY PROGRESS NOTE LOCATION: He is in room 258. SUBJECTIVE: This 80-year-old white male remains hospitalized for acute hypoxic respiratory failure due to COVID-19 pneumonia with bilateral infiltrates on chest x-ray. He has had no further significant hypoglycemia after backing off on his insulin doses and actually is a little hyperglycemic here at lunchtime today as nursing held his Lantus this morning for sugar of 138. I spoke with him in detail about the need to show therapy that he is strong enough to be able to return at home as his is elderly and is not able to help him around the home. He just contnued stating that he knows he would do fine at home. I told him if he is going to have to show therapy the same where I am going to recommend that he go somewhere besides home, which he is not very happy about. OBJECTIVE: VITAL SIGNS: Stable. He is afebrile. O2 sats have been decent on 2-5 liters. CHEST: With decent breath sounds. HEART: Regular. ABDOMEN: Benign. LABORATORY DATA: Sugars as above. IMPRESSION: 1. Bilateral pulmonary infiltrates with acute hypoxic respiratory failure due to COVID-19 pneumonia with relatively stable oxygenation for several days. 2. End-stage renal disease, on dialysis. 3. Hypertension. 4. Diabetes. 5. Coronary artery disease. 6. Thrombocytopenia. 7. Fever on admission, which is improved. 8. Deconditioning. PLAN: Continue supportive care. I am looking at discharge over the next day or two. donor services technician will be consulted for helping with discharge planning. At this point, he may go to skilled, he may go home with home health. He has his marching orders with therapy to ask them for him to be able to show them that he is able to return home if he expects me to discharge him to the same. Otherwise, continue same. GARY GARCIA MD DR: KIM/mino JOB#: [id number] / [id number]
[2020-05-27 15:00] VITALS: BP 105/81
[2020-05-27] MEDS ORDERED: INSULIN LISPRO 300 UNITS/3 ML VIAL. SQ ONE ×3 (18:00→21:30)
[2020-05-27] MEDS ORDERED: INSULIN LISPRO 300 UNITS/3 ML VIAL. SQ SCH (18:00)
[2020-05-27 19:40] VITALS: BP 135/85
--- NOTE | 2020-05-27 20:46 | NUR ---
EMAR clarification. Only one, one time dose of 5units humalog was given to patient by Hortencia Valerio RN at 1800. I did not administer any at that time, although we signed a dose to clean up the MAR due to ordering adjustments done by pharmacy.
[2020-05-27] MEDS ORDERED: INSULIN GLARGINE SYRINGE. SQ SCH (21:00)
[2020-05-27] MEDS: CETIRIZINE HCL 10 MG TABLET. PO SCH (22:09)
[2020-05-27 22:50] VITALS: BP 107/73
[2020-05-28] MEDS: ACETAMINOPHEN 325 MG TABLET. PO PRN ×2 (01:04→20:33)
[2020-05-28 02:55] VITALS: BP 169/91
[2020-05-28] MEDS: LOPERAMIDE 2 MG CAPSULE PO PRN (03:08)
[2020-05-28 07:00] VITALS: BP 139/72
[2020-05-28] MEDS: MIDODRINE 5 MG TABLET PO SCH ×3 (08:13→18:10)
[2020-05-28] MEDS: FLUDROCORTISONE 0.1 MG TABLET PO SCH (08:14)
[2020-05-28] MEDS: FOLIC/VIT B COMP W-C (RENAL) TABLET. PO SCH (08:14)
[2020-05-28] MEDS: DOXYCYCLINE HYCLATE 100 MG TABLET PO SCH ×2 (08:14→20:33)
[2020-05-28] MEDS: LACTOBACILLUS RHAMNOSUS GG 1 CAPSULE. PO SCH ×2 (08:14→20:33)
[2020-05-28] MEDS: CHOLECALCIFEROL (VITAMIN D3) 1,000 UNIT TABLET PO SCH (08:14)
[2020-05-28] MEDS: glipiZIDE 5 MG TABLET PO SCH ×2 (08:14→18:10)
[2020-05-28] MEDS: ASPIRIN ENTERIC COATED 81 MG TABLET.DR. PO SCH (08:14)
[2020-05-28] MEDS: CALCIUM ACETATE 667 MG CAPSULE PO SCH ×2 (08:14→18:10)
[2020-05-28] MEDS: ATORVASTATIN CALCIUM 40 MG TABLET. PO SCH (08:15)
[2020-05-28] MEDS: DEXAMETHASONE 4 MG TABLET PO SCH (08:15)
[2020-05-28] MEDS: FERROUS SULFATE 325 MG TABLET. PO SCH (08:15)
[2020-05-28] MEDS: INSULIN GLARGINE SYRINGE. SQ SCH ×2 (08:28→20:36)
--- NOTE | 2020-05-28 08:30 | PDOC ---
PULMONARY PROGRESS NOTES DATE: 05/28/20 TIME: 08:30 Subjective remains on N/C sitting up in chair No SOA or cough reports resolution of his loose stools no other concerns from nursing Vitals Vital Signs Date Time Temp Pulse Resp B/P (MAP) Pulse Ox O2 Delivery O2 Flow Rate FiO2 05/28/20 08:13 80 139/72 05/28/20 07:00 97.3 19 100 Nasal Cannula 5.0 97.3 Comments PT. seen during COVID , visual exam preformed on alert not in distress no accessory muscle use no rash Lungs: Clear Labs Laboratory Tests Test 05/26/20 11:39 05/26/20 16:43 05/26/20 22:19 05/27/20 07:39 Glucose (Fingerstick) 163 mg/dL (70-99) 134 mg/dL (70-99) 127 mg/dL (70-99) 134 mg/dL (70-99) Test 05/27/20 11:14 05/27/20 16:56 05/27/20 20:39 05/28/20 07:23 Glucose (Fingerstick) 238 mg/dL (70-99) 408 mg/dL (70-99) 438 mg/dL (70-99) 111 mg/dL (70-99) Laboratory Tests Test 05/27/20 11:14 05/27/20 16:56 05/27/20 20:39 05/28/20 07:23 Glucose (Fingerstick) 238 mg/dL (70-99) 408 mg/dL (70-99) 438 mg/dL (70-99) 111 mg/dL (70-99) Medications Active Scripts Medications Dose Route/Sig Max Daily Dose Days Date Category Zyrtec (Cetirizine Hcl) 10 Mg Tablet 1 Tab PO DAILY 05/19/20 Reported Humulin 70-30 Vial (Hum Insulin Nph/Reg Insulin Hm) 100 Unit/1 Ml Vial 30 Unit SQ BID 10/11/19 Reported Fludrocortisone Acetate 0.1 Mg Tablet 0.2 Mg PO DAILY 10/11/19 Reported Calcium Acetate 667 Mg Tablet 2,001 Mg PO BIDWMEALS 10/11/19 Reported Iron (Ferrous Sulfate) 325 Mg Tablet 65 Mg PO DAILY 10/11/19 Reported D3-2000 (Cholecalciferol (Vitamin D3)) 50 Mcg Capsule 2,000 Mcg PO DAILY 10/11/19 Reported Atorvastatin Calcium 40 Mg Tablet 40 Mg PO DAILY08 10/11/19 Reported Glipizide 5 Mg Tablet 5 Mg PO BIDWMEALS 10/11/19 Reported Midodrine Hcl 10 Mg Tablet 10 Mg PO TID 10/11/19 Reported Doxycycline Hyclate 100 Mg Tablet 100 Mg PO BIDWMEALS 10/11/19 Reported [Super C Immune ] DAILY 02/09/19 Reported Kinjal-Leonor Tablet (Folic Acid/Vitamin B Comp W-C) 0.8 Mg Tablet 0.8 Mg PO 02/01/18 Reported Aspir 81 (Aspirin) 81 Mg Tablet.dr 81 Mg PO DAILY 10/20/13 Reported Comments CXR IMPRESSION: Patchy hazy infiltrates bilaterally. Mild cardiomegaly which is stable. Impression . IMPRESSION: 1. Abnormal chest x-ray secondary to diastolic congestive heart failure, rule out COVID-19 pneumonia. 2. Febrile illness, rule out COVID-19 pneumonia. 3. Atrial fibrillation. 4. Coronary artery disease. 5. Hyperlipidemia. 6. End-stage renal disease, on hemodialysis. 7. Hyperkalemia. 8. Diabetes mellitus. Plan . PLAN AND RECOMMENDATIONS: Continue supplemental oxygen to keep sats above 92%, currently on 2 liters N/C, wean oxygen as tolerated 6-minute walk prior to discharge Follow ID recs, on Doxy S/P remdesivir Steroids with taper, will need full ten day course 05/30 can DC steroids Follow nephrology recs PT/OT Social work for DC planning planned to D/C home with home health DVT/GI PPX D/W CLIFTON EVANS MD May 28, 2020 08:30
--- NOTE | 2020-05-28 09:18 | PDOC ---
Infectious Disease Note Subjective: Subjective pt is feeling ok up in chair, on o2 no f/diarrhea Vital Signs: Vital Signs Vital Signs Date Time Temp Pulse Resp B/P (MAP) Pulse Ox O2 Delivery O2 Flow Rate FiO2 05/28/20 08:13 80 139/72 05/28/20 07:00 97.3 19 100 Nasal Cannula 5.0 97.3 Physical Exam: PHYSICAL EXAM GENERAL: Alert, oriented gentleman, not in any distress. VITAL SIGNS: Stable HEENT: Both pupils are round and reacting. No conjunctival lesion. No lesion in the mouth. NECK: Supple, no JVP, no lymphadenopathy. LUNGS: Clear. HEART: S1, S2 regular. ABDOMEN: Soft, nontender, no organomegaly. EXTREMITIES: No edema or cyanosis. SKIN: Unremarkable other than some bruising present. NEUROLOGIC: The patient is alert, awake and appropriate. No focal neurologic deficit. Medications: Inpatient Meds: Current Medications Medications (Trade) Dose Ordered Sig/Sonja Start Time Stop Time Status Last Admin Dose Admin Acetaminophen (Tylenol) 650 mg PRN Q6HRS PRN 05/19/20 23:15 05/28/20 01:04 650 MG Albumin Human 200 ml @ 200 mls/hr 1X PRN PRN 05/22/20 08:00 05/22/20 13:59 DC Aspirin (Ecotrin) 81 mg DAILY 05/19/20 14:00 05/28/20 08:14 81 MG Atorvastatin Calcium (Lipitor) 40 mg DAILY08 05/19/20 14:00 05/28/20 08:15 40 MG Azithromycin (Zithromax) 500 mg 1X ONCE 05/20/20 10:45 05/20/20 10:49 DC 05/20/20 11:28 500 MG Calcium Acetate (Phoslo) 2,001 mg BIDWMEALS 05/19/20 17:00 05/28/20 08:14 2,001 MG Calcium Gluconate (Calcium Gluconate) 1,000 mg 1X ONCE 05/19/20 01:45 05/19/20 01:46 DC 05/19/20 02:24 1,000 MG Ceftriaxone Sodium (Rocephin) 1 gm Q24H 05/20/20 11:00 05/21/20 08:24 DC 05/20/20 11:28 1 GM Cetirizine HCl (ZyrTEC) 10 mg HS 05/20/20 23:30 05/27/20 22:09 10 MG Dexamethasone (Decadron) 4 mg DAILYWBKFT 05/25/20 08:00 05/28/20 08:15 4 MG Dextrose (Dextrose 50%-Water Syringe) 12.5 gm PRN Q15MIN PRN 05/25/20 20:15 Doxycycline Hyclate (Vibra-Tab) 100 mg BID 05/24/20 12:00 05/28/20 08:14 100 MG Ferrous Sulfate (Feosol) 325 mg DAILY08 05/19/20 14:00 05/28/20 08:15 325 MG Fludrocortisone Acetate (Florinef) 0.2 mg DAILY 05/19/20 14:00 05/28/20 08:14 0.2 MG Glipizide (Glucotrol) 5 mg BIDWMEALS 05/19/20 17:00 05/28/20 08:14 5 MG Info (PHARMACY MONITORING -- do not chart) 1 each PRN DAILY PRN 05/26/20 15:45 Insulin Glargine (Lantus Syringe) 20 unit BID 05/27/20 21:00 05/28/20 08:28 20 UNIT Insulin Human Lispro (HumaLOG) 5 units 1X ONCE 05/27/20 21:30 05/27/20 21:31 DC 05/27/20 21:30 5 UNITS Labetalol HCl (Normodyne Iv Push) 10 mg 1X ONCE 05/19/20 01:45 05/19/20 01:46 DC Lactobacillus Rhamnosus (Culturelle) 1 cap BID 05/21/20 09:00 05/28/20 08:14 1 CAP Loperamide HCl (Imodium) 2 mg PRN Q6HRS PRN 05/23/20 18:15 05/28/20 03:08 2 MG Midodrine (Proamatine) 10 mg 0800,1300,1800 05/20/20 08:00 05/28/20 08:13 10 MG Ondansetron HCl (Zofran) 4 mg 1X ONCE 05/19/20 03:00 05/19/20 03:01 DC 05/19/20 02:51 4 MG Piperacillin Sod/ Tazobactam Sod 2.25 gm/Sodium Chloride 50 ml @ 100 mls/hr Q8HRS 05/21/20 09:00 05/24/20 09:17 DC 05/24/20 06:34 100 MLS/HR Remdesivir 100 mg/ Sodium Chloride 230 ml @ 460 mls/hr Q24H 05/22/20 10:00 05/25/20 10:29 DC 05/25/20 10:45 460 MLS/HR Remdesivir 200 mg/ Sodium Chloride 210 ml @ 210 mls/hr 1X ONCE 05/21/20 10:00 05/21/20 10:59 DC 05/21/20 10:36 210 MLS/HR Sodium Chloride 1,000 ml @ 400 mls/hr Q2H30M PRN 05/24/20 08:00 05/24/20 19:59 DC Vitamin B Complex/ Vitamin C (Kinjal-Leonor) 1 tab DAILY08 05/19/20 14:00 05/28/20 08:14 1 TAB Vitamin D (Vitamin D3) 2,000 unit DAILY 05/19/20 14:00 05/28/20 08:14 2,000 UNIT Labs: Lab Laboratory Tests Test 05/27/20 11:14 05/27/20 16:56 05/27/20 20:39 05/28/20 07:23 Glucose (Fingerstick) 238 mg/dL (70-99) 408 mg/dL (70-99) 438 mg/dL (70-99) 111 mg/dL (70-99) Objective: Assessment: 1. COVID-19 positive. 2. Pulmonary infiltrate. 3. Hypoxemia. 4. Fever. 5. End-stage renal disease. 6. Hypertension. 7. Coronary artery disease. Plan: Plan of Care s/p Remdesivir, steroids, cont supportive care c diff neg ELAN PATEL MD May 28, 2020 09:18
--- NOTE | 2020-05-28 10:05 | NUR ---
SS following up with discharge planning. SS reviewed pt chart and discussed with pt RN. Pt is currently requiring oxygen at 2 liters per RN. COVID19 positive. Pt now on PO medications. Pt requesting to return to home. PT/OT recommended retirement unit. SS contacted pt's daughter, Kadi, and discussed. Pt's spouse on speaker phone. Pt's daughter and pt's spouse wanting retirement unit a this time and requesting referral be phoned and faxed to [facility], ; fax [phone]. Pt's daughter requesting to speak with physician. SS notified Dr. Adame. SS phoned and faxed referral to [facility] as requested. SS will continue to follow for discharge planning.
--- NOTE | 2020-05-28 10:38 | PN ---
DATE: 05/28/2020 LOCATION: He is in room 258. SUBJECTIVE: The patient is awake, alert, sitting in his chair. He states that he feels decent. He does appear tired and on examination, on discussion with nursing, they state that he is not able to get around the room safely and I see on the therapy notes that [facility]. I told him he has one more day to prove that he can go home, which is his wish, and ____ does not feel he is safe. He is going to have to go to [facility] and he seems to be resigned to the fact this morning after arguing about yesterday. OBJECTIVE: VITAL SIGNS: Stable. He is afebrile. O2 sats have been good with anywhere from 3-5 liters. CHEST: Decent breath sounds. HEART: Regular. ABDOMEN: Benign. LABORATORY DATA: Sugars have been quite elevated, but his Lantus was held yesterday morning because his blood sugar was 138 and I expect we will catch back up with blood sugar ____ his regular medications. ASSESSMENT: 1. Bilateral pulmonary infiltrates with acute hypoxic respiratory failure due to COVID-19 pneumonia with stable oxygenation ,low flow for the last several days. 2. End-stage renal disease, on dialysis. 3. Hypertension. 4. Diabetes. 5. Coronary artery disease. 6. Thrombocytopenia. 7. Fever on admission, improved. 8. Deconditioning. PLAN: Continue supportive care. I am looking at discharge tomorrow. I have discussed in detail with his daughter and if he is not able to prove the therapy that he is safe for home with home health, we will have to go to [facility] and social work was asked to look into the same. GARY GARCIA MD DR: KIM/mino JOB#: [id number] / [id number]
[2020-05-28 10:52] VITALS: BP 122/64
--- NOTE | 2020-05-28 13:45 | PDOC ---
Renal-Progress Notes Subjective Notes Notes FEELING BETTER History of Present Illness Hx of present illness IMPROVED Vitals Vitals Vital Signs Date Time Temp Pulse Resp B/P (MAP) Pulse Ox O2 Delivery O2 Flow Rate FiO2 05/28/20 12:46 80 122/64 05/28/20 10:52 97.8 20 100 Nasal Cannula 5.0 97.8 Weight Weight [ ] I.O. Intake and Output Intake and Output 05/28/20 07:00 Intake Total 1510 ml Balance 1510 ml Intake Oral 1510 ml # Bowel Movements 1 Labs Labs Laboratory Tests Test 05/27/20 16:56 05/27/20 20:39 05/28/20 07:23 05/28/20 11:30 Glucose (Fingerstick) 408 mg/dL (70-99) 438 mg/dL (70-99) 111 mg/dL (70-99) 202 mg/dL (70-99) Micro Micro Microbiology 05/18/20 Blood Culture - Final, Complete NO GROWTH AFTER 5 DAYS Review of Systems Constitutional: yes: weakness, alert Ears/Nose/Throat: Yes: no symptom reported Pulmonary: Yes dyspnea Cardiovascular: Yes no symptom reported Gastrointestional: Yes: no symptom reported Genitourinary: Yes: no symptom reported Musculoskeletal: Yes: muscle stiffness Skin: Yes no symptom reported Psychiatric/Neurological: Yes: no symptom reported Endocrine: Yes: no symptom reported Physical Exam General Appearance: no apparent distress Skin: warm Respiratory: decreased breath sounds Heart: S1S2 Abdomen: soft, bowel sounds present Genitourinary: bladder flat Extremities: pulses present Musculoskeletal: Osteoarthritis Assessment Assessment IMP COVID 19 PNEUMONIA HYPERKALEMIA-RESOLVED ESRD ANEMIA DM II HTN AFIB CHRONIC D CHF PLAN SUPPLEMENTAL O2 RIMA NEEDED HD TOMORROW AWAITING PLACEMENT WILL FOLLOW LES MARTÍNEZ MD May 28, 2020 13:45
[2020-05-28 15:00] VITALS: BP 137/68
--- NOTE | 2020-05-28 15:34 | NUR ---
SS following up with discharge planning. Pt accepted at [facility]. Bed available tomorrow. Pt and pt's daughter notified. SS will continue to follow for discharge planning.
[2020-05-28 19:10] VITALS: BP 169/70
[2020-05-28] MEDS: CETIRIZINE HCL 10 MG TABLET. PO SCH (20:33)
[2020-05-28 22:50] VITALS: BP 164/68
[2020-05-29 02:56] VITALS: BP 161/79
[2020-05-29 07:00] VITALS: BP 168/72
[2020-05-29] MEDS ORDERED: LOPE2CAP PO (07:53)
[2020-05-29] MEDS ORDERED: DEXA4TAB63 PO (07:53)
--- NOTE | 2020-05-29 07:54 | SNU/HH DC ---
DISCHARGE ORDERS DISCHARGE INFORMATION: DISCHARGE DATE: May 29, 2020 CONDITION ON DISCHARGE: Stable CODE STATUS: Code Status: Full FPC: SNF STAY <30 DAYS: Yes HOSPICE: HOSPICE: No HOSPICE EVAL & TREAT: No LTAC: ADMIT TO LTAC: No POST DISCHARGE ORDERS: ACTIVITY ORDERS: Activity as tolerated WEIGHT BEARING STATUS: As tolerated BATHING ORDERS: No Tub Bath until see Dr. AMBRIZ AFTER DISCHARGE: ADA CHECKS AFTER DISCHARGE: CHECKS AFTER DISCHARGE: Check blood press - daily, Check blood sugar, ac/hs TREATMENT/EQUIPMENT ORDERS: ADAPTIVE EQUIPMENT NEEDED: None, Front wheeled walker Physical Therapy For: Evalulation/Treatment Occupational Therapy For: Evaluation/Treatment DISCHARGE MEDICATIONS: Home Meds Active Scripts Dexamethasone (Decadron) 4 Mg Tablet, 4 MG PO DAILYWBKFT for covid for 7 Days, #7 TAB Prov:GARY GARCIA MD 05/29/20 Loperamide Hcl (LOPERAMIDE) 2 Mg Capsule, 2 MG PO PRN Q6HRS PRN for DIARRHEA for 30 Days, #120 CAP Prov:GARY GARCIA MD 05/29/20 Reported Medications Hum Insulin Nph/Reg Insulin Hm (HUMULIN 70-30 VIAL) 100 Unit/1 Ml Vial, 30 UNIT SQ BID for HYPERGLYCEMIA, EACH 10/11/19 Fludrocortisone Acetate (FLUDROCORTISONE ACETATE) 0.1 Mg Tablet, 0.2 MG PO DAILY for COPD, TAB 10/11/19 Calcium Acetate (CALCIUM ACETATE) 667 Mg Tablet, 2001 MG PO BIDWMEALS for DIALYSIS PATIENTS, CAP 10/11/19 Ferrous Sulfate (IRON) 325 Mg Tablet, 65 MG PO DAILY for Anemia, TAB 10/11/19 Cholecalciferol (Vitamin D3) (D3-2000) 50 Mcg Capsule, 2000 MCG PO DAILY for ESRD, CAP 10/11/19 Atorvastatin Calcium (ATORVASTATIN CALCIUM) 40 Mg Tablet, 40 MG PO DAILY08 for FOR CHOLESTEROL, #30 TAB 0 Refills 10/11/19 Glipizide (GLIPIZIDE) 5 Mg Tablet, 5 MG PO BIDWMEALS for DM, TAB 10/11/19 Midodrine Hcl (MIDODRINE HCL) 10 Mg Tablet, 10 MG PO TID for orthostatic hy potension, TAB 10/11/19 Folic Acid/Vitamin B Comp W-C (MADELYN-ELA TABLET) 0.8 Mg Tablet, 0.8 MG PO, TAB 02/01/18 Aspirin (ASPIR 81) 81 Mg Tablet.dr, 81 MG PO DAILY, TAB 10/20/13 Discontinued Reported Medications Cetirizine Hcl (ZYRTEC) 10 Mg Tablet, 1 TAB PO DAILY for DIALYSIS, #30 TAB 2 Refills 05/19/20 Doxycycline Hyclate (DOXYCYCLINE HYCLATE) 100 Mg Tablet, 100 MG PO BIDWMEALS for MSSA HX, TAB 10/11/19 [Super C Immune ] No Conflict Check, DAILY 02/09/19 GARY GARCIA MD May 29, 2020 07:54
[2020-05-29] MEDS: CHOLECALCIFEROL (VITAMIN D3) 1,000 UNIT TABLET PO SCH (08:33)
[2020-05-29] MEDS: LACTOBACILLUS RHAMNOSUS GG 1 CAPSULE. PO SCH (08:35)
[2020-05-29] MEDS: ASPIRIN ENTERIC COATED 81 MG TABLET.DR. PO SCH (08:35)
[2020-05-29] MEDS: MIDODRINE 5 MG TABLET PO SCH ×2 (08:35→12:29)
[2020-05-29] MEDS: LOPERAMIDE 2 MG CAPSULE PO PRN (08:35)
[2020-05-29] MEDS: DEXAMETHASONE 4 MG TABLET PO SCH (08:35)
[2020-05-29] MEDS: glipiZIDE 5 MG TABLET PO SCH (08:36)
[2020-05-29] MEDS: FOLIC/VIT B COMP W-C (RENAL) TABLET. PO SCH (08:36)
[2020-05-29] MEDS: FERROUS SULFATE 325 MG TABLET. PO SCH (08:36)
[2020-05-29] MEDS: CALCIUM ACETATE 667 MG CAPSULE PO SCH (08:36)
[2020-05-29] MEDS: ATORVASTATIN CALCIUM 40 MG TABLET. PO SCH (08:36)
[2020-05-29] MEDS: DOXYCYCLINE HYCLATE 100 MG TABLET PO SCH (08:36)
[2020-05-29] MEDS: FLUDROCORTISONE 0.1 MG TABLET PO SCH (08:36)
--- NOTE | 2020-05-29 08:51 | PDOC ---
Infectious Disease Note Subjective: Subjective Patient denies any complaints Sitting up in chair, on O2 by nasal cannula Vital Signs: Vital Signs Vital Signs Date Time Temp Pulse Resp B/P (MAP) Pulse Ox O2 Delivery O2 Flow Rate FiO2 05/29/20 08:35 82 168/72 05/29/20 07:00 95.3 18 100 Nasal Cannula 2.0 95.3 Physical Exam: PHYSICAL EXAM GENERAL: Alert, oriented gentleman, not in any distress. VITAL SIGNS: Stable HEENT: Both pupils are round and reacting. No conjunctival lesion. No lesion in the mouth. NECK: Supple, no JVP, no lymphadenopathy. LUNGS: Clear. HEART: S1, S2 regular. ABDOMEN: Soft, nontender, no organomegaly. EXTREMITIES: No edema or cyanosis. SKIN: Unremarkable other than some bruising present. NEUROLOGIC: The patient is alert, awake and appropriate. No focal neurologic deficit. Medications: Inpatient Meds: Current Medications Medications (Trade) Dose Ordered Sig/Sonja Start Time Stop Time Status Last Admin Dose Admin Acetaminophen (Tylenol) 650 mg PRN Q6HRS PRN 05/19/20 23:15 05/28/20 20:33 650 MG Albumin Human 200 ml @ 200 mls/hr 1X PRN PRN 05/22/20 08:00 05/22/20 13:59 DC Aspirin (Ecotrin) 81 mg DAILY 05/19/20 14:00 05/29/20 08:35 81 MG Atorvastatin Calcium (Lipitor) 40 mg DAILY08 05/19/20 14:00 05/29/20 08:36 40 MG Azithromycin (Zithromax) 500 mg 1X ONCE 05/20/20 10:45 05/20/20 10:49 DC 05/20/20 11:28 500 MG Calcium Acetate (Phoslo) 2,001 mg BIDWMEALS 05/19/20 17:00 05/29/20 08:36 2,001 MG Calcium Gluconate (Calcium Gluconate) 1,000 mg 1X ONCE 05/19/20 01:45 05/19/20 01:46 DC 05/19/20 02:24 1,000 MG Ceftriaxone Sodium (Rocephin) 1 gm Q24H 05/20/20 11:00 05/21/20 08:24 DC 05/20/20 11:28 1 GM Cetirizine HCl (ZyrTEC) 10 mg HS 05/20/20 23:30 05/28/20 20:33 10 MG Dexamethasone (Decadron) 4 mg DAILYWBKFT 05/25/20 08:00 05/29/20 08:35 4 MG Dextrose (Dextrose 50%-Water Syringe) 12.5 gm PRN Q15MIN PRN 05/25/20 20:15 Doxycycline Hyclate (Vibra-Tab) 100 mg BID 05/24/20 12:00 05/29/20 08:36 100 MG Ferrous Sulfate (Feosol) 325 mg DAILY08 05/19/20 14:00 05/29/20 08:36 325 MG Fludrocortisone Acetate (Florinef) 0.2 mg DAILY 05/19/20 14:00 05/29/20 08:36 0.2 MG Glipizide (Glucotrol) 5 mg BIDWMEALS 05/19/20 17:00 05/29/20 08:36 5 MG Info (PHARMACY MONITORING -- do not chart) 1 each PRN DAILY PRN 05/26/20 15:45 Insulin Glargine (Lantus Syringe) 20 unit BID 05/27/20 21:00 05/28/20 20:36 20 UNIT Insulin Human Lispro (HumaLOG) 5 units 1X ONCE 05/27/20 21:30 05/27/20 21:31 DC 05/27/20 21:30 5 UNITS Labetalol HCl (Normodyne Iv Push) 10 mg 1X ONCE 05/19/20 01:45 05/19/20 01:46 DC Lactobacillus Rhamnosus (Culturelle) 1 cap BID 05/21/20 09:00 05/29/20 08:35 1 CAP Loperamide HCl (Imodium) 2 mg PRN Q6HRS PRN 05/23/20 18:15 05/29/20 08:35 2 MG Midodrine (Proamatine) 10 mg 0800,1300,1800 05/20/20 08:00 05/29/20 08:35 10 MG Ondansetron HCl (Zofran) 4 mg 1X ONCE 05/19/20 03:00 05/19/20 03:01 DC 05/19/20 02:51 4 MG Piperacillin Sod/ Tazobactam Sod 2.25 gm/Sodium Chloride 50 ml @ 100 mls/hr Q8HRS 05/21/20 09:00 05/24/20 09:17 DC 05/24/20 06:34 100 MLS/HR Remdesivir 100 mg/ Sodium Chloride 230 ml @ 460 mls/hr Q24H 05/22/20 10:00 05/25/20 10:29 DC 05/25/20 10:45 460 MLS/HR Remdesivir 200 mg/ Sodium Chloride 210 ml @ 210 mls/hr 1X ONCE 05/21/20 10:00 05/21/20 10:59 DC 05/21/20 10:36 210 MLS/HR Sodium Chloride 1,000 ml @ 400 mls/hr Q2H30M PRN 05/24/20 08:00 05/24/20 19:59 DC Vitamin B Complex/ Vitamin C (Kinjal-Leonor) 1 tab DAILY08 05/19/20 14:00 05/29/20 08:36 1 TAB Vitamin D (Vitamin D3) 2,000 unit DAILY 05/19/20 14:00 05/29/20 08:33 2,000 UNIT Labs: Lab Laboratory Tests Test 05/28/20 11:30 05/28/20 16:45 05/28/20 20:36 05/29/20 07:38 Glucose (Fingerstick) 202 mg/dL (70-99) 341 mg/dL (70-99) 399 mg/dL (70-99) 233 mg/dL (70-99) Objective: Assessment: 1. COVID-19 positive. 2. Pulmonary infiltrate. 3. Hypoxemia. 4. Fever. 5. End-stage renal disease. 6. Hypertension. 7. Coronary artery disease. Plan: Plan of Care s/p Remdesivir, steroids, cont supportive care c diff neg ELAN PATEL MD May 29, 2020 08:51
[2020-05-29] MEDS: INSULIN GLARGINE SYRINGE. SQ SCH (08:55)
--- NOTE | 2020-05-29 09:23 | PDOC ---
PULMONARY PROGRESS NOTES DATE: 05/29/20 TIME: 09:21 Subjective remains on N/C sitting up in chair No SOA or cough no other concerns from nursing Vitals Vital Signs Date Time Temp Pulse Resp B/P (MAP) Pulse Ox O2 Delivery O2 Flow Rate FiO2 05/29/20 08:35 82 168/72 05/29/20 07:00 95.3 18 100 Nasal Cannula 2.0 95.3 Comments PT. seen during COVID 19 pandemic, visual exam preformed on 02 alert not in distress no accessory muscle use no rash ROS: No Nausea Lungs: Clear Labs Laboratory Tests Test 05/27/20 11:14 05/27/20 16:56 05/27/20 20:39 05/28/20 07:23 Glucose (Fingerstick) 238 mg/dL (70-99) 408 mg/dL (70-99) 438 mg/dL (70-99) 111 mg/dL (70-99) Test 05/28/20 11:30 05/28/20 16:45 05/28/20 20:36 05/29/20 07:38 Glucose (Fingerstick) 202 mg/dL (70-99) 341 mg/dL (70-99) 399 mg/dL (70-99) 233 mg/dL (70-99) Laboratory Tests Test 05/28/20 11:30 05/28/20 16:45 05/28/20 20:36 05/29/20 07:38 Glucose (Fingerstick) 202 mg/dL (70-99) 341 mg/dL (70-99) 399 mg/dL (70-99) 233 mg/dL (70-99) Medications Active Scripts Medications Dose Route/Sig Max Daily Dose Days Date Category Zyrtec (Cetirizine Hcl) 10 Mg Tablet 1 Tab PO DAILY 05/19/20 Reported Humulin 70-30 Vial (Hum Insulin Nph/Reg Insulin Hm) 100 Unit/1 Ml Vial 30 Unit SQ BID 10/11/19 Reported Fludrocortisone Acetate 0.1 Mg Tablet 0.2 Mg PO DAILY 10/11/19 Reported Calcium Acetate 667 Mg Tablet 2,001 Mg PO BIDWMEALS 10/11/19 Reported Iron (Ferrous Sulfate) 325 Mg Tablet 65 Mg PO DAILY 10/11/19 Reported D3-2000 (Cholecalciferol (Vitamin D3)) 50 Mcg Capsule 2,000 Mcg PO DAILY 10/11/19 Reported Atorvastatin Calcium 40 Mg Tablet 40 Mg PO DAILY08 10/11/19 Reported Glipizide 5 Mg Tablet 5 Mg PO BIDWMEALS 10/11/19 Reported Midodrine Hcl 10 Mg Tablet 10 Mg PO TID 10/11/19 Reported Doxycycline Hyclate 100 Mg Tablet 100 Mg PO BIDWMEALS 10/11/19 Reported [Super C Immune ] DAILY 02/09/19 Reported Kinjal-Leonor Tablet (Folic Acid/Vitamin B Comp W-C) 0.8 Mg Tablet 0.8 Mg PO 02/01/18 Reported Aspir 81 (Aspirin) 81 Mg Tablet.dr 81 Mg PO DAILY 10/20/13 Reported Comments CXR IMPRESSION: Patchy hazy infiltrates bilaterally. Mild cardiomegaly which is stable. Impression . IMPRESSION: 1. Abnormal chest x-ray secondary to diastolic congestive heart failure,COVID - 19 2. Febrile illness, due to COVID-19 pneumonia.resolved 3. Atrial fibrillation. 4. Coronary artery disease. 5. Hyperlipidemia. 6. End-stage renal disease, on hemodialysis. 7. Hyperkalemia. 8. Diabetes mellitus. Plan . PLAN AND RECOMMENDATIONS: Continue supplemental oxygen to keep sats above 92%, currently on RA Follow ID recs, on Doxy S/P remdesivir Steroids with taper, will need full ten day course 05/30 can DC steroids Follow nephrology recs PT/OT Social work for DC planning planned to D/C home with home health DVT/GI PPX will sign off D/W MICHELLE MEMBRENO MD May 29, 2020 09:23
--- NOTE | 2020-05-29 10:17 | NUR ---
SS following up with discharge planning. SS reviewed pt chart and discussed with pt RN. Pt is currently requiring oxygen at two liters nasal canula. COVID19 positive. PT/OT recommended jail unit. Pt accepted at [facility], ; fax [phone]. Discharge orders on the chart and faxed to [facility]. Pt needing dialysis today prior to discharging. SS was notified by Daxa Bradley that due to [facility] dialysis days will be and Thursday this week from [id number]. SS contacted Phyllis at [facility] and notified. SS will continue to follow for discharge planning.
[2020-05-29 11:00] VITALS: BP 138/82
[2020-05-29 12:29] VITALS: BP 138/82
--- NOTE | 2020-05-29 12:47 | PDOC ---
Renal-Progress Notes Subjective Notes Notes FEELING BETTER BUT HAS WEAKNESS History of Present Illness Hx of present illness STABLE Vitals Vitals Vital Signs Date Time Temp Pulse Resp B/P (MAP) Pulse Ox O2 Delivery O2 Flow Rate FiO2 05/29/20 12:29 82 138/82 05/29/20 11:00 95.8 18 95 Nasal Cannula 2.0 95.8 Weight Weight [ ] I.O. Intake and Output Intake and Output 05/29/20 07:00 Intake Total 1674 ml Balance 1674 ml Intake Oral 1674 ml # Bowel Movements 1 Labs Labs Laboratory Tests Test 05/28/20 16:45 05/28/20 20:36 05/29/20 07:38 05/29/20 11:49 Glucose (Fingerstick) 341 mg/dL (70-99) 399 mg/dL (70-99) 233 mg/dL (70-99) 250 mg/dL (70-99) Micro Micro Microbiology 05/18/20 Blood Culture - Final, Complete NO GROWTH AFTER 5 DAYS Review of Systems Constitutional: yes: weakness, alert Ears/Nose/Throat: Yes: no symptom reported Pulmonary: Yes dyspnea Cardiovascular: Yes no symptom reported Gastrointestional: Yes: no symptom reported Genitourinary: Yes: no symptom reported Musculoskeletal: Yes: muscle stiffness Skin: Yes no symptom reported Psychiatric/Neurological: Yes: no symptom reported Endocrine: Yes: no symptom reported Physical Exam General Appearance: no apparent distress Skin: warm Respiratory: decreased breath sounds Heart: S1S2 Abdomen: soft, bowel sounds present Genitourinary: bladder flat Extremities: pulses present Musculoskeletal: Osteoarthritis Assessment Assessment IMP COVID 19 PNEUMONIA HYPERKALEMIA-RESOLVED ESRD ANEMIA DM II HTN AFIB CHRONIC D CHF PLAN SUPPLEMENTAL O2 RIMA NEEDED HD TODAY UF TO DW TO IGNITE TODAY WILL FOLLOW LES MARTÍNEZ MD May 29, 2020 12:47
[2020-05-29] MEDS ORDERED: ALBUMIN HUMAN 25% 200 ML IV PRN (13:00)
[2020-05-29] MEDS ORDERED: IV NORMAL SALINE 1000ML BAG 1,000 ML IV PRN ×2 (13:00)
[2020-05-29] MEDS ORDERED: DIALYSIS PATIENT. MC PRN ×2 (14:15)
--- NOTE | 2020-05-29 15:46 | NUR ---
SS following up with discharge planning. Pt's RN, reported that pt will be back from dialysis soon and requested discharge time of 1700 to [facility]. SS contacted [facility] and spoke with Phyllis. Pt will discharge today and go to [facility] at 1700. [facility] to provide transportation. SS left voicemail for pt's daughter. Pt notified.
--- NOTE | 2020-05-29 18:10 | NUR ---
Discharge Note: AISHA QUIROZ Discharge instructions and discharge home medications reviewed with nurse Lynch at [facility] and a copy given to transportation. All questions have been answered and understanding verbalized. No iv at time of dc lines.
== END 2020-05-29 18:16 | DRG 177 ==
LOC: ER 22:37 → ED HOLD 05-19 02:52 → 2 SOUTH 05-19 05:07
PROVIDERS: ADMIT Family Medicine; ATTEND Family Medicine
PROC: XW033E5 Introduction of Remdesivir Anti-infective into Peripheral Vein, Percutaneous Approach, New Technology Group 5 (ICD-10-PCS; principal; 2020-05-21)
PROC: 5A1D70Z Performance of Urinary Filtration, Intermittent, Less than 6 Hours Per Day (ICD-10-PCS; 2020-05-24)
PROC: 5A1D70Z Performance of Urinary Filtration, Intermittent, Less than 6 Hours Per Day (ICD-10-PCS; 2020-05-26)
PROC: 5A1D70Z Performance of Urinary Filtration, Intermittent, Less than 6 Hours Per Day (ICD-10-PCS; 2020-05-29)
DX: U07.1 COVID-19 (principal); N18.6 End stage renal disease; I21.A1 Myocardial infarction type 2; J12.89 Other viral pneumonia; J96.01 Acute respiratory failure with hypoxia; G93.40 Encephalopathy, unspecified; I13.2 Hypertensive heart and chronic kidney disease with heart failure and with stage 5 chronic kidney disease, or end stage renal disease; I48.21 Permanent atrial fibrillation; I50.32 Chronic diastolic (congestive) heart failure; E87.5 Hyperkalemia; D64.9 Anemia, unspecified; D69.6 Thrombocytopenia, unspecified; E11.22 Type 2 diabetes mellitus with diabetic chronic kidney disease; E21.3 Hyperparathyroidism, unspecified; F41.9 Anxiety disorder, unspecified; K57.90 Diverticulosis of intestine, part unspecified, without perforation or abscess without bleeding; M10.9 Gout, unspecified; M19.90 Unspecified osteoarthritis, unspecified site; E66.9 Obesity, unspecified; E11.51 Type 2 diabetes mellitus with diabetic peripheral angiopathy without gangrene; E11.649 Type 2 diabetes mellitus with hypoglycemia without coma; E78.00 Pure hypercholesterolemia, unspecified; E78.5 Hyperlipidemia, unspecified; I25.10 Atherosclerotic heart disease of native coronary artery without angina pectoris; Z82.49 Family history of ischemic heart disease and other diseases of the circulatory system; Z85.828 Personal history of other malignant neoplasm of skin; Z87.891 Personal history of nicotine dependence; Z95.0 Presence of cardiac pacemaker; Z95.5 Presence of coronary angioplasty implant and graft; Z99.2 Dependence on renal dialysis; I25.2 Old myocardial infarction; Z88.5 Allergy status to narcotic agent; Z68.28 Body mass index [BMI] 28.0-28.9, adult
CPT/HCPCS: 36415; 71045; 74176; 80048; 80053; 82962; 83690; 83735; 83880; 84443; 84484; 85007; 85025; 85610; 86140; 87040; 87493; 93005; 96374; 96375; 99285; J0610; J0696; J1815; J2405; J2543; J7040; J7050; U0003; 97110-GO; 97110-GP; 97116-GP; 97530-GO; 97530-GP; 97535-GO; G0378; J7030

== ENCOUNTER → 2020-08-06 | Outpatient (CLI) | payer MEDICARE, OTHER ==
[2020-07-25 15:00] VITALS: BP 151/65
[~2020-08-06] MED LIST changes: +AMOX1TAB61 PO; +CETI10TA74 PO; +DEXA4TAB63 PO; +DOXY100C14 PO; +LINE600T12 PO; +LOPE2CAP PO; +SUVO20TA PO
--- NOTE | 2020-08-07 08:54 | CARD ---
MR#: [id number] Date of Study: 08/06/2020 Ordering Physician: FELICITAS BUSCH, Referring Physician: FELICITAS BUSCH, Tech: Pippa Brady [facility] APPROVED REPORT EXAM: Two-dimensional and M-mode echocardiogram with Doppler and color Doppler. Other Information Quality : AverageHR: 82bpm INDICATION Atrial Fibrillation Surgery/Intervention Pacemaker: Date: 2018 RISK FACTORS Hypertension Diabetes 2D DIMENSIONS Left Atrium(2D)4.4 (1.6-4.0cm)IVSd1.5 (0.7-1.1cm) Aortic Root(2D)3.4 (2.0-3.7cm)LVDd6.2 (3.9-5.9cm) LVOT Diameter2.1 (1.8-2.4cm)PWd1.5 (0.7-1.1cm) LVDs2.7 (2.5-4.0cm)FS (%) 56.8 % SV169.9 mlLVEF(%)66.3 (>50%) Aortic Valve AoV Peak Tiburcio.118.1cm/sAoV VTI22.6cm AO Peak GR.5.6mmHgLVOT Peak Tiburcio.95.3cm/s LVOT VTI 20.59cmAO Mean GR.3mmHg CANDIS (VMAX)1.40gm7LUR (VTI)3.06cm2 AI P 1/2 Occe370st Mitral Valve MV E Ohpfkezz299.5cm/sMV DECEL BLKP655ra MV A Twnplbrw40.9cm/sMV BCM49xo E/A Ratio2.2MVA (PHT)3.74cm2 TDI E/Lateral E'10.6E/Medial E'22.5 Pulmonary Valve PV Peak Jtayftmk31.1cm/sPV Peak Grad.4mmHg Tricuspid Valve TR P. Jfplbpcu026ek/sRAP QEEUBKCJ9zxSo TR Peak Gr.59dmNwTRLI63rcAf LEFT VENTRICLE The left ventricle is normal size. There is moderate concentric left ventricular hypertrophy. The Eje ction Fraction is 50-55%. Abnormal septal motion probably due to conduction abnormality. The left davi tricular diastolic function and filling is normal for age. RIGHT VENTRICLE The right ventricle is mildly dilated. The right ventricle is borderline hypertrophied. The right davi tricular systolic function is normal. ATRIA The left atrium is mildly dilated. The right atrium is mildly dilated. The interatrial septum is inta ct with no evidence for an atrial septal defect or patent foramen ovale as noted on 2-D or Doppler im aging. AORTIC VALVE The aortic valve is normal in structure and function. Doppler and Color Flow revealed trace aortic re gurgitation. Calculated aortic valve area is 2.70 cm2 with maximum pressure gradient of 7 mmHg and me an pressure gradient of 4 mmHg. There is no significant aortic valvular stenosis. MITRAL VALVE The mitral valve is normal in structure and function. There is no evidence of mitral valve prolapse. There is no mitral valve stenosis. Doppler and Color-flow revealed trace mitral regurgitation. TRICUSPID VALVE The tricuspid valve is normal in structure and function. Doppler and Color Flow revealed mild to mode rate tricuspid regurgitation with an estimated PAP of 59 mmHg. There is moderate pulmonary hypertensi on. There is no tricuspid valve stenosis. PULMONIC VALVE The pulmonic valve is not well visualized. GREAT VESSELS The aortic root is normal in size. The IVC is dilated. PERICARDIAL EFFUSION There is no evidence of significant pericardial effusion. Critical Notification Critical Value: No <Conclusion> The left ventricular systolic function is low normal. The Ejection Fraction is 50%. Abnormal septal motion probably due to conduction abnormality. Trace mitral regurgitation. Mild to moderate tricuspid regurgitation with an estimated PAP of 59 mmHg. There is no evidence of significant pericardial effusion. Signed by : Felicitas Busch, Electronically Approved : 08/07/2020 08:54:32
== END ==
LOC: ECHO 15:22
PROVIDERS: ATTEND Internal Medicine Cardiovascular Disease
DX: I07.1 Rheumatic tricuspid insufficiency (principal)
CPT/HCPCS: 93306

== ENCOUNTER 2020-09-08 05:04 | Inpatient (IN) | payer MEDICARE, OTHER ==
[2020-09-08] VITALS (17 sets, daily range): BP systolic 90–165; BP diastolic 48–73
[~2020-09-08] VITALS: Ht 182.9 cm; Wt 89.1 kg
[2020-09-08] MEDS ORDERED: IV NORMAL SALINE 1000ML BAG 1,000 ML IV ONE (05:30)
--- NOTE | 2020-09-08 05:37 | EKG ---
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
--- NOTE | 2020-09-08 05:39 | PHYS DOC ---
Past Medical History Past Medical History: A-Fib, Anxiety, CAD, CHF, Diabetes-Type II, High Ch olesterol, Hypertension, MA, Renal Failure, Other Additional Past Medical Histor: DIALYSIS (GEORGE TEAGUE I ) Past Surgical History: Cancer Surgery, Other Additional Past Surgical Histo: stent in aorta; left dialysis shunt; right PVD stent (IDANIAGEORGE I ) Smoking Status: Never Smoker Alcohol Use: None Drug Use: None (IDANIAGEORGE Miguel GARZA) General Adult EDM: Chief Complaint: WEAKNESS/GENERALIZED HPI: HPI: Patient is a 80 year old male past medical history of afib ESRD (T-T-S) presents with a chief complaint of generalized weakness. Patient states he is weak and he can not stand. He states weakness started yesterday. Due to weakne ss patient states he has fallen. A fall yesterday morning required 911/FD assistance up .On exam patient has abrasion left forehead and left arm. Patient denies any chest pain or shortness of breath. Patient has no focal weakness. Bedside glucose >500. (IDANIAGEORGE Miguel GARZA) Review of Systems: Review of Systems: Constitutional: Denies fever or chills. [] Eyes: Denies change in visual acuity. [] HENT: Denies nasal congestion or sore throat. [] Respiratory: Denies cough or shortness of breath. [] Cardiovascular: Denies chest pain or edema. [] GI: Denies abdominal pain, nausea, vomiting, bloody stools or diarrhea. [] : Denies dysuria. [] Musculoskeletal: Denies back pain or joint pain. [] Integument: Denies rash. [positive abrasions] Neurologic: Denies headache, focal weakness or sensory changes. [positive generalized ] Endocrine: Denies polyuria or polydipsia. [positive hyperglycemia] Lymphatic: Denies swollen glands. [] Psychiatric: Denies depression or anxiety. [] (GEORGE TEAGUE DO) Heart Score: C/O Chest Pain: N/A Risk Factors: Risk Factors: DM, Current or recent (<one month) smoker, HTN, HLP, family history of CAD, obesity. Risk Scores: Score 0 - 3: 2.5% MACE over next 6 weeks - Discharge Home Score 4 - 6: 20.3% MACE over next 6 weeks - Admit for Clinical Observation Score 7 - 10: 72.7% MACE over next 6 weeks - Early Invasive Strategies (GEORGE TEAGUE DO) Current Medications: Current Medications Medications (Trade) Dose Ordered Sig/Sonja Start Time Stop Time Status Last Admin Dose Admin Sodium Chloride 1,000 ml @ 1,000 mls/hr 1X ONCE 09/08/20 05:30 09/08/20 06:29 (GEORGE TEAGUE DO) Allergies: Allergies: Allergies Coded Allergies Type Severity Reaction Last Updated Verified Iodinated Contrast Media Allergy Intermediate BROKE OUT 10/26/18 Yes I S O L A T I O N *CONTACT* Allergy Unknown 07/29/20 Yes (GEORGE TEAGUE DO) Physical Exam: PE: Constitutional: Well developed, well nourished, no acute distress, non-toxic appearance. [] HENT: Normocephalic, atraumatic, bilateral external ears normal, oropharynx moist, no oral exudates, nose normal. [] Eyes: PERRLA, EOMI, conjunctiva normal, no discharge. [] Neck: Normal range of motion, no tenderness, supple, no stridor. [] Cardiovascular:Heart rate regular rhythm, no murmur [] Lungs & Thorax: Bilateral breath sounds clear to auscultation [] Abdomen: Bowel sounds normal, soft, no tenderness, no masses, no pulsatile masses. [] Skin: Warm, dry, no erythema, no rash. [] Back: No tenderness, no CVA tenderness. [] Extremities: No tenderness, no cyanosis, no clubbing, ROM intact, no edema. [] Neurologic: Alert and oriented X 3, normal motor function, normal sensory function, no focal deficits noted. [] Psychologic: Affect normal, judgement normal, mood normal. [] (GEORGE TEAGUE DO) PE: Constitutional: Well developed, well nourished, no acute distress, non-toxic appearance HENT: Normocephalic, atraumatic Eyes: Conjunctiva normal, no discharge Neck: Normal range of motion, no tenderness, supple Lungs & Thorax: No respiratory distress, equal chest rise and fall Abdomen: Soft, no tenderness Skin: Warm, dry, no erythema, no rash Extremities: No tenderness, ROM intact, no edema, left arm AV fistula, dressing noted from prior skin tear wound care Neurologic: Alert and oriented X 3, no focal deficits noted Psychologic: Affect normal, judgment normal (JITENDRA DAO DO) EKG: EKG: [] EKG performed at 0527 hrs. heart rate 70's (GEORGE TEAGUE DO) Radiology/Procedures: Radiology/Procedures: [] (GEORGE TEAGUE DO) Radiology/Procedures: PROCEDURE: CT HEAD WO CONTRAST PQRS Compliance Statement: One or more of the following individualized dose reduction techniques were utilized for this examination: 1. Automated exposure control 2. Adjustment of the mA and/or kV according to patient size 3. Use of iterative reconstruction technique CT HEAD WITHOUT CONTRAST History: Reason: fall / Comparison: CT head without contrast July 19, 2020. Technique: Axial images are obtained of the head from the skull base through the vertex without IV contrast. Findings: No mass-effect, midline shift, extra-axial fluid collection, hemorrhage, or obvious acute infarction is identified. Basilar cisterns are patent. The ventricles and sulci are prominent, consistent with age-related cerebral atrophy. Old right basal ganglia lacunar infarct. Bone windows demonstrate no acute calvarial abnormality. The visualized paranasal sinuses are clear. Maxillary sinuses are essentially not imaged. Mastoid air cells are well aerated. IMPRESSION: 1. No acute intracranial abnormality. 2. Generalized cerebral atrophy. Electronically signed by: Terrance Chang MD (09/08/2020 6:27 AM) [facility] PROCEDURE: CHEST AP ONLY AP chest. HISTORY: Weakness AP view was taken of the chest. The heart is enlarged. Mild vascular congestion is possible although there has been a mild improvement compared to the study from July. There are no new confluent infiltrates. The aorta is ectatic without change. IMPRESSION: 1. Cardiomegaly. 2. Mild vascular congestion. 3. No new infiltrates. Electronically signed by: Darrell Renner MD (09/08/2020 7:28 AM) [id number] (JITENDRA DAO DO) Course & Med Decision Making: Course & Med Decision Making Pertinent Labs and Imaging studies reviewed. (See chart for details) []Patient signed out to Dr Dao--- Disposition pending labs and radiologic imaging. (GEORGE TEAGUE DO) Course & Med Decision Making 0600- Sign out received from Dr. Teague for patient with generalized weakness. Patient pending laboratory and radiological studies. Patient previously noted to have elevated glucose which was addressed with regular insulin [address] head without acute process. CXR with some mild vascular congestion. Patient seen and evaluated by myself. Labs reviewed and posted to chart. Corrected serum sodium 132. Significant hyperkalemia also noted. Calcium gluconate and insulin ordered. Patient with poor vascular access. Multiple unsuccessful attempts by RN. Attempted bedside ultrasound guided peripheral line to right upper arm without success. Patient requesting no further attempts due to discomfort. Central line placed to right femoral vein via bedside ultrasound visualization. Patient requiring immediate dialysis. Discussed case with Dr. Holder (nephrology) who is in agreement. Patient requiring admission for further evaluation and treatment. Discussed with Dr. Adame (PCP) who is in agreement with admission. Discussed findings and plan with patient, who acknowledges understanding and agreement. (JITENDRA DAO DO) Reynold Disclaimer: Reynold Disclaimer: This electronic medical record was generated, in whole or in part, using a voice recognition dictation system. (GEORGE TEAGUE DO) Central Line Central Line : Central Line Lumen: triple Central Line Procedure: sterile drapes applied, sterile dressing applied Central Line Postion: femoral (R) Anesthesia: Lidocaine cc's of anesthesia: 3 Complications: none Central Line Post Position: sutured, good blood return Progress Written consent obtained. Time out performed. Hand hygiene utilized. Sterile attire donned. Wound cleaned with ChloraPrep. Sterile drapes placed. Anesthesia obtained via a 25-gauge hypodermic needle with (3) mL's of lidocaine 1% without epi. Bedside ultrasound utilized with visualization of thin walled, compressible, nonpulsatile anechoic structure to right femoral region consistent for femoral vein. Successful placement of triple lumen central line via Seldinger technique performed on 1 attempt. Catheter secured with simple interrupted sutures x 2. Good blood return and sterile flush. Sterile dressing applied. Patient tolerated procedure well and without difficulty. (JITENDRA DAO DO) Additional Procedures Progress Bedside ultrasound guided peripheral IV access: Verbal consent obtained. Time out performed. Hand hygiene utilized. Wound cleaned with ChloraPrep. Utilized bedside ultrasound. A thin walled, compre ssible, non-pulsatile anechoic structure noted at 1cm depth to mid upper medial arm. Attempted placement with 20g angiocath. Vessel rolling. Flash obtained and attempted advancement of cath. Saline flush utilized and line infiltrated. Patient tolerated procedure with significant discomfort. Patient requesting no further attempts to arm. \ (JITENDRA DAO DO) Departure Departure Impression: Primary Impression: Hyperkalemia Additional Impressions: Generalized weakness Fall Qualified Codes: W19.XXXA - Unspecified fall, initial encounter ESRD (end stage renal disease) Hyperglycemia Elevated troponin Disposition: ADMITTED INPT THIS HOSP Admitting Physician: Gary Adame (GEORGE TEAGUE DO) Admitting Physician: Gary Adame (JITENDRA DAO DO) Condition: GUARDED Referrals: GARY ADAME MD (PCP) Critical Care Time Critical care time was 30 minutes which includes time at bedside, spent in discussion of patient's care with specialists and/or family members, with interpretation of laboratory and/or radiological studies and is exclusive of procedures. (JITENDRA DAO DO) GEORGE TEAGUE DO Sep 08, 2020 05:39 JITENDRA DAO DO Sep 08, 2020 06:58
[2020-09-08] MEDS ORDERED: INSULIN REGULAR 100 UNIT/ML 3ML VIAL. IV ONE ×2 (05:45→07:30)
[2020-09-08] MEDS ORDERED: INSULIN REGULAR 100 UNIT/ML 3ML VIAL. SQ ONE (06:00)
--- NOTE | 2020-09-08 06:29 | RAD ---
PQRS Compliance Statement: One or more of the following individualized dose reduction techniques were utilized for this examinat ion: 1. Automated exposure control 2. Adjustment of the mA and/or kV according to patient size 3. Use of iterative reconstruction technique CT HEAD WITHOUT CONTRAST History: Reason: fall / Comparison: CT head without contrast July 19, 2020. Technique: Axial images are obtained of the head from the skull base through the vertex without IV co ntrast. Findings: No mass-effect, midline shift, extra-axial fluid collection, hemorrhage, or obvious acute infarction is identified. Basilar cisterns are patent. The ventricles and sulci are prominent, consistent with age-related cerebral atrophy. Old right basal ganglia lacunar infarct. Bone windows demonstrate no acute calvarial abnormality. The visualized paranasal sinuses are clear. Maxillary sinuses are essentially not imaged. Mastoid air cells are well aerated. IMPRESSION: 1. No acute intracranial abnormality. 2. Generalized cerebral atrophy. Electronically signed by: Terrance Chang MD (09/08/2020 6:27 AM) [facility]
[2020-09-08 06:54] LABS: BASO % 0 % (0-3); EOS % 0 % (0-3); HEMATOCRIT 34.1 % (39.0-53.0); HEMOGLOBIN 10.9 g/dL (13.0-17.5); LYMPH # 0.4 x10^3/uL (1.0-4.8); LYMPH % 3 % (24-48); MEAN CORPUSCULAR HEMOGLOBIN 32 pg (25-35); MEAN CORPUSCULAR HGB CONC 32 g/dL (31-37); MEAN CORPUSCULAR VOLUME 100 fL (79-100); MONO # 0.8 x10^3/uL (0.0-1.1); MONO % 6 % (0-9); NEUT # 11.4 x10^3/uL (1.8-7.7); NEUT % 91 % (31-73); PLATELET COUNT 172 x10^3/uL (140-400); RED BLOOD COUNT 3.41 x10^6/uL (4.30-5.70); RED CELL DISTRIBUTION WIDTH 15.9 % (11.5-14.5); WHITE BLOOD COUNT 12.5 x10^3/uL (4.0-11.0)
[2020-09-08 07:09] LABS: ALBUMIN 4.3 g/dL (3.4-5.0); ALBUMIN/GLOBULIN RATIO 1.3 (1.0-1.7); CREATININE 14.5 mg/dL (0.7-1.3); GFR 3.3; TOTAL BILIRUBIN 0.5 mg/dL (0.2-1.0); TOTAL PROTEIN 7.5 g/dL (6.4-8.2)
[2020-09-08 07:19] LABS: POTASSIUM 9.4 mmol/L (3.5-5.1)
[2020-09-08] MEDS ORDERED: CALCIUM GLUCONATE 1,000 MG/10 ML VIAL. IVP ONE (07:30)
--- NOTE | 2020-09-08 07:31 | RAD ---
AP chest. HISTORY: Weakness AP view was taken of the chest. The heart is enlarged. Mild vascular congestion is possible although there has been a mild improvement compared to the study from July. There are no new confluent inf iltrates. The aorta is ectatic without change. IMPRESSION: 1. Cardiomegaly. 2. Mild vascular congestion. 3. No new infiltrates. Electronically signed by: Darrell Renner MD (09/08/2020 7:28 AM) [id number]
[2020-09-08 07:35] LABS: % LYMPHS 1 % (24-48); % MONOS 2 % (0-10); % SEGS 97 % (35-66)
[2020-09-08 07:36] LABS: PLT ESTIMATE ADEQUATE (ADEQUATE)
[2020-09-08] MEDS ORDERED: ONDANSETRON PF 4 MG/2 ML VIAL. IV PRN (07:45)
[2020-09-08] MEDS ORDERED: ASPIRIN ENTERIC COATED 325 MG TABLET.DR. PO ONE (07:45)
[2020-09-08] MEDS ORDERED: DEXTROSE 50% 25 GM / 50ML DISP.SYRIN. IV PRN ×2 (07:45→11:15)
[2020-09-08] MEDS ORDERED: INSULIN LISPRO 300 UNITS/3 ML VIAL. SQ SCH (08:00)
[2020-09-08] MEDS ORDERED: diphenhydrAMINE 50 MG/ML VIAL IV PRN ×2 (08:15)
[2020-09-08] MEDS ORDERED: ALBUMIN HUMAN 25% 200 ML IV PRN (08:15)
[2020-09-08] MEDS ORDERED: LIDOCAINE 1% PF 2 ML VIAL. INJ PRN (08:15)
[2020-09-08] MEDS ORDERED: ACETAMINOPHEN 500 MG TABLET PO PRN (08:15)
[2020-09-08] MEDS ORDERED: IV NORMAL SALINE 1000ML BAG 1,000 ML IV PRN ×2 (08:15)
[2020-09-08] MEDS ORDERED: DIALYSIS PATIENT. MC PRN (08:15)
--- NOTE | 2020-09-08 11:29 | NUR ---
Pt admitted to room 108 from ED via stretcher. Pt is alert and oriented. Assisted to bed and placed on monitoring equipment. Dialysis nurse here ready for pt. Pt denies pain at this time. see admission and assessment for further details
[2020-09-08] MEDS: INSULIN LISPRO 300 UNITS/3 ML VIAL. SQ SCH ×2 (11:58→17:00)
--- NOTE | 2020-09-08 12:39 | HP ---
ADMIT DATE: 09/08/2020 CHIEF COMPLAINT: Weakness. HISTORY OF PRESENT ILLNESS: A 80-year-old patient of Dr. Adame's, with a history of multiple medical problems including diabetes and end-stage renal disease, on dialysis, came in with increasing weakness. His blood sugar was 628, potassium of 9.4 and had metabolic acidosis. He received IV glucose and calcium gluconate for the high potassium and he is undergoing dialysis at this time in the ICU. He can recall no other recent symptoms and saw Dr. Adame just 2 days ago according to him. PAST HISTORY: He takes 70/30 insulin at home along with other multiple meds and denies any known allergies or other serious medical problems. SOCIAL HISTORY: , disabled, nondrinker, nonsmoker according to him. FAMILY HISTORY: Unremarkable. REVIEW OF SYSTEMS: No other complaints. OBJECTIVE: ENT: Mild pallor. Mouth, skin looks dry. Pupils are round and reactive. Pharynx is clear. NECK: No JVD, nodes or masses. LUNGS: Clear. CARDIOVASCULAR: Regular rate, mild tachycardia. No murmur. ABDOMEN: Soft, benign and nontender. EXTREMITIES: Skin is dry; skin turgor, decreased; peripheral pulses, decreased. NEUROLOGIC: He is alert and responsive knows where he is, oriented x 4. Moves all extremities. No tremors are noted. No focal signs are noted. ASSESSMENT: Severe hyperkalemia with underlying end-stage renal disease and poorly controlled diabetes. He has a real high BNP and may have a history of cardiomyopathy, I am not aware of. No sign of focal infection. PLAN: We will add low-dose Lantus and sliding scale insulin and follow his glucose and may need IV infusion. Hemodialysis continues for his life-threatening hyperkalemia. Appropriate consult for the patient will be obtained. His prognosis is guarded at this time. DONTE DONAHUE MD DR: KIRAN/mino JOB#: [id number] / [id number]
[2020-09-08] MEDS ORDERED: ASCO500C PO (13:22)
[2020-09-08] MEDS ORDERED: DOXY100C2 PO (13:22)
--- NOTE | 2020-09-08 13:33 | CONS ---
DATE OF CONSULTATION: 09/08/2020 REQUESTING PHYSICIAN: Reid Adame MD REASON FOR CONSULTATION: End-stage renal disease. HISTORY OF PRESENT ILLNESS: The patient is a 80-year-old gentleman with history of end-stage renal disease, hemodialysis dependent on Thursday, and Thursday, presented to the hospital with blood sugar of 628, after having not reconnected his insulin pump. Potassium was 9.4 and in this setting, he is undergoing emergent dialysis. PAST MEDICAL HISTORY: Diabetes mellitus, hypertension, end-stage renal disease, hemodialysis dependent, anemia of chronic kidney disease, secondary hyperparathyroid renal disease. ALLERGIES: IODINE, IV CONTRAST. MEDICATIONS: Reviewed per medication list. FAMILY HISTORY: Noncontributory. SOCIAL HISTORY: The patient is , resides with . Nondrinker, nonsmoker. REVIEW OF SYSTEMS: No headache, sinus problem, nasal drainage, epistaxis, change in vision or hearing. No difficulty swallowing. No fever, chills, cough, sputum production or hemoptysis. No chest pain, shortness of breath or PND, orthopnea or dyspnea on exertion. No abdominal pain. No nausea, vomiting or diarrhea. No seizures or malignancies. PHYSICAL EXAMINATION: GENERAL APPEARANCE: The patient is awake, conversant, appropriate. HEENT: Clear. NECK: No increased JVD. No thyromegaly, mass or adenopathy. LUNGS: Clear. CARDIAC: Without S3 or rub. ABDOMEN: Obese. Bowel sounds present, nontender. EXTREMITIES: Without edema. NEUROLOGIC: Nonfocal, nonlocalized. PSYCHIATRIC: Poor attention to detail. LABORATORY DATA: Hemoglobin 10.6, hematocrit 34%. Sodium 124, potassium 9.4, chloride 88, CO2 of 16, BUN was 158, creatinine 14.5, glucose 628. IMPRESSION: 1. End-stage renal disease, hemodialysis dependent. Laboratories would be consistent with having missed dialysis. He states, however, that he did attend dialysis on schedule this week. 2. Hyperkalemia due to end-stage renal disease, dietary indiscretion, potentially missed dialysis. 3. Metabolic acidosis due to end-stage renal disease. PLAN: 1. Proceed with dialysis. 2. Reassess potassium in the morning. We will follow. JITENDRA LAZCANO MD DR: TIFFANIE/mino JOB#: [id number] / [id number]
[2020-09-08] MEDS: FLUDROCORTISONE 0.1 MG TABLET PO SCH (15:24)
[2020-09-08] MEDS ORDERED: INSULIN GLARGINE SYRINGE. SQ SCH (21:00)
[2020-09-09] VITALS (18 sets, daily range): BP systolic 99–152; BP diastolic 52–70
[2020-09-09 05:50] LABS: HEMOGLOBIN A1C 9.1 % (4.8-5.6)
[2020-09-09 06:31] LABS: ALBUMIN 3.5 g/dL (3.4-5.0); ALBUMIN/GLOBULIN RATIO 1.3 (1.0-1.7); CREATININE 9.5 mg/dL (0.7-1.3); GFR 5.4; POTASSIUM 5.6 mmol/L (3.5-5.1); TOTAL BILIRUBIN 0.6 mg/dL (0.2-1.0); TOTAL PROTEIN 6.3 g/dL (6.4-8.2)
[2020-09-09] MEDS: INSULIN LISPRO 300 UNITS/3 ML VIAL. SQ SCH ×3 (07:58→17:04)
[2020-09-09] MEDS: FLUDROCORTISONE 0.1 MG TABLET PO SCH (08:37)
--- NOTE | 2020-09-09 08:53 | PDOC ---
Provider Note Date of Service: DATE: 09/09/20 TIME: 08:52 Provider Note bp good, looks better , glucose down 140 thia am after lantus , a1c 9 on current insulin egimen- will cont same care, K+ lower after dialysis Justifications for Admission Other Justification DONTE DONAHUE MD Sep 09, 2020 08:53
[2020-09-09] MEDS: CETIRIZINE HCL 10 MG TABLET. PO SCH (09:23)
--- NOTE | 2020-09-09 12:29 | PDOC ---
PROGRESS NOTES Date of Service DATE: 09/09/20 TIME: 12:27 Subjective Subjective IN FOLLOW UP OF ESRD AND HYPERK+ Objective Objective Vital Signs Date Time Temp Pulse Resp B/P (MAP) Pulse Ox O2 Delivery O2 Flow Rate FiO2 09/09/20 11:00 79 138/69 (92) 98 Room Air 09/09/20 10:04 20 09/09/20 08:04 98.4 2.0 98.4 Intake and Output 09/09/20 07:00 Intake Total 270 ml Output Total 0 ml Balance 270 ml Intake Oral 270 ml Output Urine Total 0 ml Physical Exam Heart: Regular rate General: Alert Lungs: Clear to auscultation Psych/Mental Status: Mental status NL Diagnosis RENAL FAILURE: ESRD Assessment Assessment Problems Medical Problems: (1) Fall Status: Acute (2) Generalized weakness Status: Acute (3) Hyperglycemia Status: Acute Plan Plan of Care K+ TRENDING UP AND WILL GIVE KAYEXALATE. DIALYSIS TOMORROW Comment Review of Relevant I have reviewed the following items david (where applicable) has been applied. Labs Laboratory Tests Test 09/08/20 06:35 09/08/20 09:37 09/08/20 10:40 09/08/20 11:01 White Blood Count 12.5 x10^3/uL (4.0-11.0) Red Blood Count 3.41 x10^6/uL (4.30-5.70) Hemoglobin 10.9 g/dL (13.0-17.5) Hematocrit 34.1 % (39.0-53.0) Mean Corpuscular Volume 100 fL (79-100) Mean Corpuscular Hemoglobin 32 pg (25-35) Mean Corpuscular Hemoglobin Concent 32 g/dL (31-37) Red Cell Distribution Width 15.9 % (11.5-14.5) Platelet Count 172 x10^3/uL (140-400) Neutrophils (%) (Auto) 91 % (31-73) Lymphocytes (%) (Auto) 3 % (24-48) Monocytes (%) (Auto) 6 % (0-9) Eosinophils (%) (Auto) 0 % (0-3) Basophils (%) (Auto) 0 % (0-3) Neutrophils # (Auto) 11.4 x10^3/uL (1.8-7.7) Lymphocytes # (Auto) 0.4 x10^3/uL (1.0-4.8) Monocytes # (Auto) 0.8 x10^3/uL (0.0-1.1) Eosinophils # (Auto) 0.0 x10^3/uL (0.0-0.7) Basophils # (Auto) 0.0 x10^3/uL (0.0-0.2) Segmented Neutrophils % 97 % (35-66) Lymphocytes % 1 % (24-48) Monocytes % 2 % (0-10) Platelet Estimate Adequate (ADEQUATE) Sodium Level 124 mmol/L (136-145) Potassium Level 9.4 mmol/L (3.5-5.1) 5.5 mmol/L (3.5-5.1) Chloride Level 88 mmol/L (98-107) Carbon Dioxide Level 16 mmol/L (21-32) Anion Gap 20 (6-14) Blood Urea Nitrogen 158 mg/dL (8-26) Creatinine 14.5 mg/dL (0.7-1.3) Estimated GFR (Cockcroft-Gault) 3.3 BUN/Creatinine Ratio 11 (6-20) Glucose Level 628 mg/dL (70-99) Hemoglobin A1c 9.1 % (4.8-5.6) Calcium Level 10.0 mg/dL (8.5-10.1) Magnesium Level 2.1 mg/dL (1.8-2.4) Total Bilirubin 0.5 mg/dL (0.2-1.0) Aspartate Amino Transf (AST/SGOT) 27 U/L (15-37) Alanine Aminotransferase (ALT/SGPT) 29 U/L (16-63) Alkaline Phosphatase 159 U/L (46-116) Creatine Kinase 539 U/L (39-308) Creatine Kinase MB (Mass) 18.0 ng/mL (0.0-3.6) Creatine Kinase MB Relative Index 3.3 % (0-4) Troponin I Quantitative 0.074 ng/mL (0.000-0.055) 0.137 ng/mL (0.000-0.055) Total Protein 7.5 g/dL (6.4-8.2) Albumin 4.3 g/dL (3.4-5.0) Albumin/Globulin Ratio 1.3 (1.0-1.7) Glucose (Fingerstick) 470 mg/dL (70-99) 174 mg/dL (70-99) Test 09/08/20 12:15 09/08/20 13:30 09/08/20 17:53 09/08/20 21:06 Potassium Level 4.5 mmol/L (3.5-5.1) Troponin I Quantitative 0.194 ng/mL (0.000-0.055) Glucose (Fingerstick) 139 mg/dL (70-99) 184 mg/dL (70-99) Test 09/09/20 05:40 09/09/20 07:52 09/09/20 11:53 Sodium Level 138 mmol/L (136-145) Potassium Level 5.6 mmol/L (3.5-5.1) Chloride Level 100 mmol/L (98-107) Carbon Dioxide Level 26 mmol/L (21-32) Anion Gap 12 (6-14) Blood Urea Nitrogen 84 mg/dL (8-26) Creatinine 9.5 mg/dL (0.7-1.3) Estimated GFR (Cockcroft-Gault) 5.4 BUN/Creatinine Ratio 9 (6-20) Glucose Level 125 mg/dL (70-99) Calcium Level 9.0 mg/dL (8.5-10.1) Total Bilirubin 0.6 mg/dL (0.2-1.0) Aspartate Amino Transf (AST/SGOT) 34 U/L (15-37) Alanine Aminotransferase (ALT/SGPT) 28 U/L (16-63) Alkaline Phosphatase 100 U/L (46-116) Total Protein 6.3 g/dL (6.4-8.2) Albumin 3.5 g/dL (3.4-5.0) Albumin/Globulin Ratio 1.3 (1.0-1.7) Glucose (Fingerstick) 140 mg/dL (70-99) 189 mg/dL (70-99) Laboratory Tests Test 09/08/20 13:30 09/08/20 17:53 09/08/20 21:06 09/09/20 05:40 Troponin I Quantitative 0.194 ng/mL (0.000-0.055) Glucose (Fingerstick) 139 mg/dL (70-99) 184 mg/dL (70-99) Sodium Level 138 mmol/L (136-145) Potassium Level 5.6 mmol/L (3.5-5.1) Chloride Level 100 mmol/L (98-107) Carbon Dioxide Level 26 mmol/L (21-32) Anion Gap 12 (6-14) Blood Urea Nitrogen 84 mg/dL (8-26) Creatinine 9.5 mg/dL (0.7-1.3) Estimated GFR (Cockcroft-Gault) 5.4 BUN/Creatinine Ratio 9 (6-20) Glucose Level 125 mg/dL (70-99) Calcium Level 9.0 mg/dL (8.5-10.1) Total Bilirubin 0.6 mg/dL (0.2-1.0) Aspartate Amino Transf (AST/SGOT) 34 U/L (15-37) Alanine Aminotransferase (ALT/SGPT) 28 U/L (16-63) Alkaline Phosphatase 100 U/L (46-116) Total Protein 6.3 g/dL (6.4-8.2) Albumin 3.5 g/dL (3.4-5.0) Albumin/Globulin Ratio 1.3 (1.0-1.7) Test 09/09/20 07:52 09/09/20 11:53 Glucose (Fingerstick) 140 mg/dL (70-99) 189 mg/dL (70-99) Medications Current Medications Sodium Chloride 1,000 ml @ 1,000 mls/hr 1X ONCE IV ; Start 09/08/20 at 05:30; Stop 09/08/20 at 05:35; Status DC Insulin Human Regular (HumuLIN R VIAL) 10 unit 1X ONCE IV ; Start 09/08/20 at 05:45; Stop 09/08/20 at 05:57; Status DC Insulin Human Regular (HumuLIN R VIAL) 10 unit 1X ONCE SQ Last administered on 09/08/20at 06:05; Start 09/08/20 at 06:00; Stop 09/08/20 at 06:01; Status DC Calcium Gluconate (Calcium Gluconate) 1,000 mg 1X ONCE IVP Last administered on 09/08/20at 09:32; Start 09/08/20 at 07:30; Stop 09/08/20 at 07:31; Status DC Insulin Human Regular (HumuLIN R VIAL) 10 unit 1X ONCE IV Last administered on 09/08/20at 09:38; Start 09/08/20 at 07:30; Stop 09/08/20 at 07:31; Status DC Aspirin (Ecotrin) 325 mg 1X ONCE PO Last administered on 09/08/20at 09:38; Start 09/08/20 at 07:45; Stop 09/08/20 at 07:46; Status DC Ondansetron HCl (Zofran) 4 mg PRN Q8HRS PRN IV NAUSEA/VOMITING; Start 09/08/20 at 07:45; Stop 09/09/20 at 07:44; Status DC Insulin Human Lispro (HumaLOG) 0-5 UNITS TIDWMEALS SQ ; Start 09/08/20 at 08:00; Stop 09/08/20 at 11:05; Status DC Dextrose (Dextrose 50%-Water Syringe) 12.5 gm PRN Q15MIN PRN IV SEE COMMENTS; Start 09/08/20 at 07:45; Stop 09/09/20 at 10:36; Status DC Sodium Chloride 1,000 ml @ 1,000 mls/hr Q1H PRN IV hypotension; Start 09/08/20 at 08:15; Stop 09/08/20 at 14:14; Status DC Albumin Human 200 ml @ 200 mls/hr 1X PRN PRN IV Hypotension Last administered on 09/08/20at 11:30; Start 09/08/20 at 08:15; Stop 09/08/20 at 14:14; Status DC Acetaminophen (Tylenol) 500 mg 1X PRN PRN PO MILD PAIN / TEMP > 100.3'F; Start 09/08/20 at 08:15; Stop 09/09/20 at 08:14; Status DC Diphenhydramine HCl (Benadryl) 25 mg 1X PRN PRN IV ITCHING; Start 09/08/20 at 08:15; Stop 09/09/20 at 08:14; Status DC Diphenhydramine HCl (Benadryl) 25 mg 1X PRN PRN IV ITCHING; Start 09/08/20 at 08:15; Stop 09/09/20 at 08:14; Status DC Sodium Chloride 1,000 ml @ 400 mls/hr Q2H30M PRN IV PATENCY; Start 09/08/20 at 08:15; Stop 09/08/20 at 20:14; Status DC Lidocaine HCl (Xylocaine-Mpf 1% 2ml Vial) 2 ml 1X PRN PRN INJ FOR DIALYSIS; Start 09/08/20 at 08:15; Stop 09/09/20 at 08:14; Status DC Info (PHARMACY MONITORING -- do not chart) 1 each PRN DAILY PRN MC SEE COMMENTS; Start 09/08/20 at 08:15 Fludrocortisone Acetate (Florinef) 0.2 mg DAILY PO Last administered on 09/09/20at 08:37; Start 09/08/20 at 12:00 Insulin Glargine (Lantus Syringe) 20 unit QHS SQ Last administered on 09/08/20at 22:01; Start 09/08/20 at 21:00; Stop 09/09/20 at 08:52; Status DC Insulin Human Lispro (HumaLOG) 0-9 UNITS TIDWMEALS SQ ; Start 09/08/20 at 12:00 Dextrose (Dextrose 50%-Water Syringe) 12.5 gm PRN Q15MIN PRN IV SEE COMMENTS; Start 09/08/20 at 11:15 Cetirizine HCl (ZyrTEC) 10 mg DAILY PO Last administered on 09/09/20at 09:23; Start 09/09/20 at 09:00 Insulin Glargine (Lantus Syringe) 30 unit QHS SQ ; Start 09/09/20 at 21:00 Active Scripts Active Augmentin 875-125 Tablet (Amoxicillin/Potassium Clav) 1 Each Tablet 1 Tab PO BID 7 Days Zyvox (Linezolid) 600 Mg Tablet 600 Mg PO BID 7 Days Reported Doxycycline Hyclate 100 Mg Capsule 1 Cap PO BID Vitamin C (Ascorbic Acid) 500 Mg Capsule.er 1,000 Mg PO DAILY Fludrocortisone Acetate 0.1 Mg Tablet 0.2 Mg PO DAILY Midodrine Hcl 10 Mg Tablet 10 Mg PO TID Zyrtec (Cetirizine Hcl) 10 Mg Tablet 1 Tab PO DAILY Belsomra (Suvorexant) 20 Mg Tablet 20 Mg PO HS Calcium Acetate 667 Mg Tablet 2,001 Mg PO BIDWMEALS D3-2000 (Cholecalciferol (Vitamin D3)) 50 Mcg Capsule 2,000 Mcg PO DAILY Atorvastatin Calcium 40 Mg Tablet 40 Mg PO DAILY08 Glipizide 5 Mg Tablet 5 Mg PO BIDWMEALS Kinjal-Leonor Tablet (Folic Acid/Vitamin B Comp W-C) 0.8 Mg Tablet 0.8 Mg PO DAILY Aspir 81 (Aspirin) 81 Mg Tablet.dr 81 Mg PO DAILY Vitals/I & O Vital Sign - Last 24 Hours 09/08/20 09/08/20 09/08/20 09/08/20 13:00 14:00 15:00 16:00 Temp 98.0 98.0 Pulse 78 78 78 78 Resp 18 18 18 18 B/P (MAP) 100/53 (69) 121/61 (81) 136/63 (87) 144/66 (92) Pulse Ox 100 97 96 98 O2 Delivery Room Air Room Air Room Air Room Air 09/08/20 09/08/20 09/08/20 09/08/20 16:00 17:00 18:00 19:00 Pulse 80 78 78 Resp 18 18 20 B/P (MAP) 136/68 (90) 119/60 (79) 118/58 (78) Pulse Ox 98 98 100 O2 Delivery Room Air Room Air Room Air Room Air 09/08/20 09/08/20 09/08/20 09/08/20 20:00 20:00 21:00 22:00 Temp 98.2 98.2 Pulse 78 80 80 Resp 18 18 18 B/P (MAP) 116/60 (78) 118/55 (76) 107/48 (67) Pulse Ox 98 98 97 O2 Delivery Room Air Room Air Room Air Room Air 09/08/20 09/09/20 09/09/20 09/09/20 23:00 00:01 00:01 01:00 Temp 98.5 98.5 Pulse 78 80 80 Resp 18 18 18 B/P (MAP) 109/50 (69) 122/62 (82) 122/53 (76) Pulse Ox 99 97 98 O2 Delivery Room Air Room Air Room Air Room Air 09/09/20 09/09/20 09/09/20 09/09/20 02:00 03:00 04:00 04:00 Temp 98.5 98.5 Pulse 80 80 80 Resp 18 20 20 B/P (MAP) 135/64 (87) 120/59 (79) 114/54 (74) Pulse Ox 95 100 O2 Delivery Room Air Room Air Nasal Cannula Nasal Cannula O2 Flow Rate 2.0 2.0 09/09/20 09/09/20 09/09/20 09/09/20 05:00 06:00 07:00 08:02 Pulse 80 80 78 Resp 20 20 20 B/P (MAP) 129/64 (85) 126/61 (82) 133/61 (85) Pulse Ox 97 O2 Delivery Nasal Cannula Nasal Cannula Nasal Cannula Nasal Cannula O2 Flow Rate 2.0 2.0 2.0 2.0 09/09/20 09/09/20 09/09/20 09/09/20 08:04 09:00 10:04 11:00 Temp 98.4 98.4 Pulse 79 79 79 79 Resp 20 B/P (MAP) 121/63 (82) 111/52 (71) 127/62 (83) 138/69 (92) Pulse Ox 98 97 97 98 O2 Delivery Nasal Cannula Room Air Room Air Room Air O2 Flow Rate 2.0 Intake and Output 09/08/20 09/08/20 09/09/20 15:00 23:00 07:00 Intake Total 0 ml 170 ml 100 ml Output Total 0 ml 0 ml 0 ml Balance 0 ml 170 ml 100 ml Justifications for Admission Other Justification JIETNDRA LAZCANO MD Sep 09, 2020 12:29
[2020-09-09] MEDS ORDERED: SODIUM POLYSTYRENE SULFON/SORB 15 GM/60 ML ORAL.SUSP. PO ONE ×2 (12:30→18:00)
[2020-09-09] MEDS: INSULIN GLARGINE SYRINGE. SQ SCH (20:16)
[2020-09-10 03:09] VITALS: BP 138/65
[2020-09-10 07:37] VITALS: BP 147/69
[2020-09-10] MEDS ORDERED: LIDOCAINE 1% PF 2 ML VIAL. INJ PRN (08:15)
[2020-09-10] MEDS ORDERED: DIALYSIS PATIENT. MC PRN ×2 (08:15)
[2020-09-10] MEDS ORDERED: IV NORMAL SALINE 1000ML BAG 1,000 ML IV PRN ×2 (08:15)
[2020-09-10] MEDS ORDERED: ALBUMIN HUMAN 25% 200 ML IV PRN (08:15)
[2020-09-10] MEDS: INSULIN LISPRO 300 UNITS/3 ML VIAL. SQ SCH ×3 (08:24→17:17)
[2020-09-10 08:37] LABS: ALBUMIN 3.4 g/dL (3.4-5.0); CALCIUM 8.3 mg/dL (8.5-10.1); CREATININE 10.7 mg/dL (0.7-1.3); GFR 4.7; PHOSPHORUS 7.6 mg/dL (2.6-4.7)
--- NOTE | 2020-09-10 09:08 | NUR ---
Patient pulled out NG tube. RN attempted to reinserting NG but patient very angry and swinging at RN and [employer]. Will retry t insert NG. Addendum: 09/10/20 at 0914 by Hilton Quiros RN above note was entered in wrong patient.
--- NOTE | 2020-09-10 10:06 | PDOC ---
DATE OF SERVICE DATE: 09/10/20 TIME: 10:03 SUBJECTIVE ROS Seen on dialysis, No complaints OBJECTIVE Vital Signs Vital Signs Date Time Temp Pulse Resp B/P (MAP) Pulse Ox O2 Delivery O2 Flow Rate FiO2 09/10/20 08:00 Room Air 2.0 09/10/20 07:37 97.9 75 18 147/69 (95) 95 97.9 I & 0 Intake and Output 09/10/20 07:00 Intake Total 830 ml Output Total 50 ml Balance 780 ml Intake Oral 830 ml Output Urine Total 50 ml # Bowel Movements 9 PHYSICAL EXAM Physical Exam GENERAL: Alert, oriented , not in any distress. HEENT:OM moist , On O2 by NC NECK: Supple, no JVP, no lymphadenopathy. LUNGS: Clear. HEART: S1, S2 regular. ABDOMEN: Soft, nontender, no organomegaly. EXTREMITIES: No edema or cyanosis. SKIN: Unremarkable other than some bruising present. NEUROLOGIC: alert, awake No focal neurologic deficit. DIAGNOSIS/ASSESSMENT Assessment & Plan ESRD TTS - dialysis today (extra treatment for hyperkalemia), tolerating well, continue as ordered, RIP Hurt HyperKalemia POA- K normal this am, scheduled for HD today COVID-19 positive in Mid Jun. S/P Vaccination now. Hypertension- stable Hx of AFib - has Pacemaker Hx of Chronic diastolic HF secondary to RVR;currently compensated Hx of CAD s/p PCI/HAMMAD - Asymptomatic COMMENT/RELEVANT DATA Meds Current Medications Medications (Trade) Dose Ordered Sig/Sonja Start Time Stop Time Status Last Admin Dose Admin Acetaminophen (Tylenol) 500 mg 1X PRN PRN 09/08/20 08:15 09/09/20 08:14 DC Albumin Human 200 ml @ 200 mls/hr 1X PRN PRN 09/10/20 08:15 09/10/20 14:14 Aspirin (Ecotrin) 325 mg 1X ONCE 09/08/20 07:45 09/08/20 07:46 DC 09/08/20 09:38 325 MG Calcium Gluconate (Calcium Gluconate) 1,000 mg 1X ONCE 09/08/20 07:30 09/08/20 07:31 DC 09/08/20 09:32 1,000 MG Cetirizine HCl (ZyrTEC) 10 mg DAILY 09/09/20 09:00 09/09/20 09:23 10 MG Dextrose (Dextrose 50%-Water Syringe) 12.5 gm PRN Q15MIN PRN 09/08/20 11:15 Diphenhydramine HCl (Benadryl) 25 mg 1X PRN PRN 09/08/20 08:15 09/09/20 08:14 DC Fludrocortisone Acetate (Florinef) 0.2 mg DAILY 09/08/20 12:00 09/09/20 08:37 0.2 MG Info (PHARMACY MONITORING -- do not chart) 1 each PRN DAILY PRN 09/10/20 08:15 Insulin Glargine (Lantus Syringe) 30 unit QHS 09/09/20 21:00 09/09/20 20:16 30 UNIT Insulin Human Lispro (HumaLOG) 0-9 UNITS TIDWMEALS 09/08/20 12:00 09/10/20 08:24 5 UNITS Insulin Human Regular (HumuLIN R VIAL) 10 unit 1X ONCE 09/08/20 07:30 09/08/20 07:31 DC 09/08/20 09:38 10 UNIT Lidocaine HCl (Xylocaine-Mpf 1% 2ml Vial) 2 ml 1X PRN PRN 09/10/20 08:15 09/11/20 08:14 Ondansetron HCl (Zofran) 4 mg PRN Q8HRS PRN 09/08/20 07:45 09/09/20 07:44 DC Sodium Polystyrene Sulfonate (Kayexalate) 30 gm 1X ONCE 09/09/20 18:00 09/09/20 18:01 DC 09/09/20 18:12 30 GM Sodium Chloride 1,000 ml @ 400 mls/hr Q2H30M PRN 09/10/20 08:15 09/10/20 20:14 Lab Laboratory Tests Test 09/09/20 11:53 09/09/20 16:45 09/09/20 17:08 09/10/20 08:12 Glucose (Fingerstick) 189 mg/dL (70-99) 249 mg/dL (70-99) 98 mg/dL (70-99) Potassium Level 6.1 mmol/L (3.5-5.1) Test 09/10/20 08:15 Sodium Level 139 mmol/L (136-145) Potassium Level 5.0 mmol/L (3.5-5.1) Chloride Level 99 mmol/L (98-107) Carbon Dioxide Level 23 mmol/L (21-32) Anion Gap 17 (6-14) Blood Urea Nitrogen 100 mg/dL (8-26) Creatinine 10.7 mg/dL (0.7-1.3) Estimated GFR (Cockcroft-Gault) 4.7 Glucose Level 100 mg/dL (70-99) Calcium Level 8.3 mg/dL (8.5-10.1) Phosphorus Level 7.6 mg/dL (2.6-4.7) Albumin 3.4 g/dL (3.4-5.0) Results All relevant outside records, renal labs, imaging studies, telemetry/EKG's were reviewed. Justicifation of Admission Dx: Justifications for Admission: Justification of Admission Dx: N/A YVETTE ARAUZ MD Sep 10, 2020 10:06
[2020-09-10] MEDS: FLUDROCORTISONE 0.1 MG TABLET PO SCH (13:27)
[2020-09-10] MEDS: CETIRIZINE HCL 10 MG TABLET. PO SCH (13:27)
--- NOTE | 2020-09-10 14:01 | PN ---
DATE: 09/10/2020 DAILY PROGRESS NOTE LOCATION: He is in room 254. SUBJECTIVE: This 80-year-old white male remains hospitalized with profound weakness and hyperglycemia along with profound hyperkalemia. It all started after getting a shunt revision in his arm because of blockage. He received prednisone because of the DYE ALLERGY and is believed at this point that disturbed the whole episode. He does feel better this morning, but states he is still quite weak on his feet, but admits that he was unable to even stand at the time of admission. OBJECTIVE: VITAL SIGNS: Stable. He is afebrile. Sugars are much improved. CHEST: Clear. HEART: Regular. ABDOMEN: Benign. LABORATORY DATA: Potassium was back up to 6.1 last night and I assured he will need dialysis again today. IMPRESSION: 1. Hyperkalemia. 2. Diabetes with profound hyperglycemia on admission. 3. End-stage renal disease, on dialysis; coronary artery disease. PLAN: Repeat dialysis today. Therapy to evaluate once he is able to get around safely, hopefully electrolyte abnormalities will resolve along with the dialysis along with getting the prednisone out of his system which seems to be the case with his sugars much improved. GARY GARCIA MD DR: KIM/mino JOB#: [id number] / [id number]
[2020-09-10 14:02] VITALS: BP 126/76
--- NOTE | 2020-09-10 16:35 | NUR ---
received transfer from [facility]. he is alert and oriented. has an AV shunt in left forearm; good bruit and thrill. has a triple lumen central line in the right groin area. doesn't want to use a walker at this time. up in recliner
--- NOTE | 2020-09-10 16:39 | NUR ---
Wound/Ostomy Care Wound Type/Assessment: Patient seen per wound care consult. See wound assessment. Patient has skin tears to right hand and left lateral lower arm. The bilateral lower legs are scabbed over, as well as the left eyebrow. Left lateral arm cleansed and assessed. The right hand cleansed, assessed, measured, and pictured. Treatment Recommendations/Plan: Recommendations for Xeroform gauze and foam dressing to both wounds. Change on and Thursday. Dressings applied. No other wounds noted. The coccyx is reddened and barely blanchable, therefore calazime applied for protection and a wheelchair cushion ordered for this patient. Education provided: Patient educated on dressing changes and PU prevention. Offloading surface/device: A wheelchair cushion ordered and patient encourage to turn while in bed. Recommended Referrals/Tests: N/A Discharge Recommendations for dressings: Dressing change instructions left in room. Spoke with RN regarding POC. Patient in chair at this time. Chair alarm in place and call light in reach. Wound care will follow up on 09/18/20.
[2020-09-10 16:40] VITALS: BP 111/56
[2020-09-10 18:32] VITALS: BP 140/51
[2020-09-10] MEDS: INSULIN GLARGINE SYRINGE. SQ SCH (20:22)
[2020-09-10 22:47] VITALS: BP 133/59
[2020-09-11 03:21] VITALS: BP 111/45
[2020-09-11 06:07] VITALS: BP 121/69
--- NOTE | 2020-09-11 06:59 | NUR ---
Lab here to draw STAT glucose. Patient refused lab draw for STAT glucose. No order on chart to draw from Femoral line. Annie ADAM will ask Dr. Adame for order today. Current glucose 161.
[2020-09-11] MEDS: INSULIN LISPRO 300 UNITS/3 ML VIAL. SQ SCH ×3 (08:00→17:00)
[2020-09-11] MEDS ORDERED: IV NORMAL SALINE 1000ML BAG 1,000 ML IV PRN ×2 (09:30)
[2020-09-11] MEDS ORDERED: ALBUMIN HUMAN 25% 200 ML IV PRN (09:30)
[2020-09-11] MEDS ORDERED: DIALYSIS PATIENT. MC PRN ×2 (09:30)
--- NOTE | 2020-09-11 09:30 | NUR ---
Transferred to dialysis by bed.
--- NOTE | 2020-09-11 09:47 | PN ---
DATE: 09/11/2020 LOCATION: He is in room 452. SUBJECTIVE: This 80-year-old white male remains hospitalized with weakness, hyperglycemia, and hyperkalemia. He is essentially resolved, other than he remained somewhat weak, but feels stronger. A.m. labs are pending. He did have a hypoglycemic event this morning and was discussed with nursing to decrease his insulin back to his home doses and this will be done. OBJECTIVE: VITAL SIGNS: Stable. He is afebrile. Sugars are improved. CHEST: Clear. HEART: Regular. ABDOMEN: Benign, still has a catheter in his right groin for dialysis, which he states they were able to use his arm shunt yesterday so likely this could come out. LABORATORY DATA: A.m. labs are pending. IMPRESSION: 1. Hyperkalemia, improved. 2. Diabetes with profound hyperglycemia, improved. 3. End-stage renal disease, on dialysis. PLAN: Per Renal, if they feel like we are at the point where he is safe for discharge with outpatient dialysis, he is ambulatory enough to do so, we would likely discharge later today or tomorrow. GARY GARCIA MD DR: KIM/mino JOB#: [id number] / [id number]
--- NOTE | 2020-09-11 10:51 | PDOC ---
DATE OF SERVICE DATE: 09/11/20 TIME: 10:50 SUBJECTIVE ROS Seen on dialysis, No complaints OBJECTIVE Vital Signs Vital Signs Date Time Temp Pulse Resp B/P (MAP) Pulse Ox O2 Delivery O2 Flow Rate FiO2 09/11/20 08:08 Room Air 09/11/20 06:07 97.9 92 18 121/69 (86) 93 97.9 09/10/20 08:00 2.0 I & 0 Intake and Output 09/11/20 07:00 Intake Total 1100 ml Balance 1100 ml Intake Oral 1100 ml PHYSICAL EXAM Physical Exam GENERAL: Alert, oriented , not in any distress. HEENT:OM moist , On O2 by NC NECK: Supple, no JVP, no lymphadenopathy. LUNGS: Clear. HEART: S1, S2 regular. ABDOMEN: Soft, nontender, no organomegaly. EXTREMITIES: No edema or cyanosis. SKIN: Unremarkable other than some bruising present. NEUROLOGIC: alert, awake No focal neurologic deficit. DIAGNOSIS/ASSESSMENT Assessment & Plan ESRD TTS -seen on dialysis , tolerating well, continue as ordered, RIP Hurt HyperKalemia POA- K normal this am, scheduled for HD today COVID-19 positive in Mid Jun. S/P Vaccination now. Hypertension- stable Hx of AFib - has Pacemaker Hx of Chronic diastolic HF secondary to RVR;currently compensated Hx of CAD s/p PCI/HAMMAD - Asymptomatic COMMENT/RELEVANT DATA Meds Current Medications Medications (Trade) Dose Ordered Sig/Sonja Start Time Stop Time Status Last Admin Dose Admin Acetaminophen (Tylenol) 500 mg 1X PRN PRN 09/08/20 08:15 09/09/20 08:14 DC Albumin Human 200 ml @ 200 mls/hr 1X PRN PRN 09/11/20 09:30 09/11/20 15:29 Aspirin (Ecotrin) 325 mg 1X ONCE 09/08/20 07:45 09/08/20 07:46 DC 09/08/20 09:38 325 MG Calcium Gluconate (Calcium Gluconate) 1,000 mg 1X ONCE 09/08/20 07:30 09/08/20 07:31 DC 09/08/20 09:32 1,000 MG Cetirizine HCl (ZyrTEC) 10 mg DAILY 09/09/20 09:00 09/10/20 13:27 10 MG Dextrose (Dextrose 50%-Water Syringe) 12.5 gm PRN Q15MIN PRN 09/08/20 11:15 09/11/20 06:26 12.5 GM Diphenhydramine HCl (Benadryl) 25 mg 1X PRN PRN 09/08/20 08:15 09/09/20 08:14 DC Fludrocortisone Acetate (Florinef) 0.2 mg DAILY 09/08/20 12:00 09/10/20 13:27 0.2 MG Info (PHARMACY MONITORING -- do not chart) 1 each PRN DAILY PRN 09/11/20 09:30 Insulin Glargine (Lantus Syringe) 30 unit QHS 09/09/20 21:00 09/11/20 09:51 DC 09/10/20 20:22 30 UNIT Insulin Human Isoph/Insulin Regular (HumuLIN 70-30 VIAL) 23 units BIDWMEALS 09/11/20 17:00 Insulin Human Lispro (HumaLOG) 0-9 UNITS TIDWMEALS 09/08/20 12:00 09/10/20 17:17 7 UNITS Insulin Human Regular (HumuLIN R VIAL) 10 unit 1X ONCE 09/08/20 07:30 09/08/20 07:31 DC 09/08/20 09:38 10 UNIT Lidocaine HCl (Xylocaine-Mpf 1% 2ml Vial) 2 ml 1X PRN PRN 09/10/20 08:15 09/11/20 08:14 DC Ondansetron HCl (Zofran) 4 mg PRN Q8HRS PRN 09/08/20 07:45 09/09/20 07:44 DC Sodium Polystyrene Sulfonate (Kayexalate) 30 gm 1X ONCE 09/09/20 18:00 09/09/20 18:01 DC 09/09/20 18:12 30 GM Sodium Chloride 1,000 ml @ 400 mls/hr Q2H30M PRN 09/11/20 09:30 09/11/20 21:29 Lab Laboratory Tests Test 09/10/20 12:10 09/10/20 16:55 09/10/20 20:19 09/11/20 05:56 Glucose (Fingerstick) 137 mg/dL (70-99) 275 mg/dL (70-99) 303 mg/dL (70-99) 37 mg/dL (70-99) Test 09/11/20 06:20 09/11/20 06:42 Glucose (Fingerstick) 56 mg/dL (70-99) 161 mg/dL (70-99) Results All relevant outside records, renal labs, imaging studies, telemetry/EKG's were reviewed. Justicifation of Admission Dx: Justifications for Admission: Justification of Admission Dx: N/A YVETTE ARAUZ MD Sep 11, 2020 10:51
[2020-09-11] MEDS: FLUDROCORTISONE 0.1 MG TABLET PO SCH (15:01)
[2020-09-11] MEDS: CETIRIZINE HCL 10 MG TABLET. PO SCH (15:02)
[2020-09-11 15:09] VITALS: BP 114/58
--- NOTE | 2020-09-11 15:25 | PDOC2 ---
NEUROLOGY CONSULT Date of Service DOS: DATE: 09/11/20 TIME: 15:14 Reason for Consult Reason for Consult: Tremor Referring Physician Referring Physician: Dr. Adame Source Source: Chart review, Patient History of Present Illness History of Present Illness The patient is a 80-year-old right-handed male whose problems started when he needed to take steroids to get his AV fistula repaired, as he has a dye allergy. That got his sugars out of whack and he started to get weak and numb. He had a fall or 2 and came to the emergency department [address] Adame consults me regarding tremor. The patient says he has never had a tremor, nor is there any mention of tremor in Dr. Adame's notes. I placed a call to Dr. Adame and left a message. Patient says that he is feeling stronger now that he is back on dialysis and received some therapy. He wants to go home and is not interested in custodial. There is no history of stroke, seizure, or head injury. He has had a history of right carotid artery occlusion and subcritical left carotid artery stenosis followed by vascular surgery. Past Medical History Cardiovascular: AFIB, CAD, HTN, AR, Hyperlipidemia, Other (Carotid disease, orthostatic hypotension, right subclavian artery stenosis status-post stent) CENTRAL NERVOUS SYSTEM: Other (Insomnia) Renal/: Chronic renal failure Endocrine: Diabetes Dermatology: Basal cell Past Surgical History Past Surgical History: Pacemaker, Other (Multiple cardiac stents also peripheral stents watchman filter) Family History Family History: No pertinent hx Social History Social History , son also lives with him, no alcohol or tobacco, retired Current Medications Current Medications Current Medications Sodium Chloride 1,000 ml @ 1,000 mls/hr 1X ONCE IV ; Start 09/08/20 at 05:30; Stop 09/08/20 at 05:35; Status DC Insulin Human Regular (HumuLIN R VIAL) 10 unit 1X ONCE IV ; Start 09/08/20 at 05:45; Stop 09/08/20 at 05:57; Status DC Insulin Human Regular (HumuLIN R VIAL) 10 unit 1X ONCE SQ Last administered on 09/08/20at 06:05; Start 09/08/20 at 06:00; Stop 09/08/20 at 06:01; Status DC Calcium Gluconate (Calcium Gluconate) 1,000 mg 1X ONCE IVP Last administered on 09/08/20at 09:32; Start 09/08/20 at 07:30; Stop 09/08/20 at 07:31; Status DC Insulin Human Regular (HumuLIN R VIAL) 10 unit 1X ONCE IV Last administered on 09/08/20at 09:38; Start 09/08/20 at 07:30; Stop 09/08/20 at 07:31; Status DC Aspirin (Ecotrin) 325 mg 1X ONCE PO Last administered on 09/08/20at 09:38; Start 09/08/20 at 07:45; Stop 09/08/20 at 07:46; Status DC Ondansetron HCl (Zofran) 4 mg PRN Q8HRS PRN IV NAUSEA/VOMITING; Start 09/08/20 at 07:45; Stop 09/09/20 at 07:44; Status DC Insulin Human Lispro (HumaLOG) 0-5 UNITS TIDWMEALS SQ ; Start 09/08/20 at 08:00; Stop 09/08/20 at 11:05; Status DC Dextrose (Dextrose 50%-Water Syringe) 12.5 gm PRN Q15MIN PRN IV SEE COMMENTS; Start 09/08/20 at 07:45; Stop 09/09/20 at 10:36; Status DC Sodium Chloride 1,000 ml @ 1,000 mls/hr Q1H PRN IV hypotension; Start 09/08/20 at 08:15; Stop 09/08/20 at 14:14; Status DC Albumin Human 200 ml @ 200 mls/hr 1X PRN PRN IV Hypotension Last administered on 09/08/20at 11:30; Start 09/08/20 at 08:15; Stop 09/08/20 at 14:14; Status DC Acetaminophen (Tylenol) 500 mg 1X PRN PRN PO MILD PAIN / TEMP > 100.3'F; Start 09/08/20 at 08:15; Stop 09/09/20 at 08:14; Status DC Diphenhydramine HCl (Benadryl) 25 mg 1X PRN PRN IV ITCHING; Start 09/08/20 at 08:15; Stop 09/09/20 at 08:14; Status DC Diphenhydramine HCl (Benadryl) 25 mg 1X PRN PRN IV ITCHING; Start 09/08/20 at 08:15; Stop 09/09/20 at 08:14; Status DC Sodium Chloride 1,000 ml @ 400 mls/hr Q2H30M PRN IV PATENCY; Start 09/08/20 at 08:15; Stop 09/08/20 at 20:14; Status DC Lidocaine HCl (Xylocaine-Mpf 1% 2ml Vial) 2 ml 1X PRN PRN INJ FOR DIALYSIS; S tart 09/08/20 at 08:15; Stop 09/09/20 at 08:14; Status DC Info (PHARMACY MONITORING -- do not chart) 1 each PRN DAILY PRN MC SEE COMMENTS; Start 09/08/20 at 08:15; Stop 09/10/20 at 08:22; Status DC Fludrocortisone Acetate (Florinef) 0.2 mg DAILY PO Last administered on 09/11/20at 15:01; Start 09/08/20 at 12:00 Insulin Glargine (Lantus Syringe) 20 unit QHS SQ Last administered on 09/08/20at 22:01; Start 09/08/20 at 21:00; Stop 09/09/20 at 08:52; Status DC Insulin Human Lispro (HumaLOG) 0-9 UNITS TIDWMEALS SQ Last administered on 09/10/20at 17:17; Start 09/08/20 at 12:00 Dextrose (Dextrose 50%-Water Syringe) 12.5 gm PRN Q15MIN PRN IV SEE COMMENTS Last administered on 09/11/20at 06:26; Start 09/08/20 at 11:15 Cetirizine HCl (ZyrTEC) 10 mg DAILY PO Last administered on 09/11/20at 15:02; Start 09/09/20 at 09:00 Insulin Glargine (Lantus Syringe) 30 unit QHS SQ Last administered on 09/10/20at 20:22; Start 09/09/20 at 21:00; Stop 09/11/20 at 09:51; Status DC Sodium Polystyrene Sulfonate (Kayexalate) 30 gm 1X ONCE PO Last administered on 09/09/20at 12:55; Start 09/09/20 at 12:30; Stop 09/09/20 at 12:32; Status DC Sodium Polystyrene Sulfonate (Kayexalate) 30 gm 1X ONCE PO Last administered on 09/09/20at 18:12; Start 09/09/20 at 18:00; Stop 09/09/20 at 18:01; Status DC Sodium Chloride 1,000 ml @ 1,000 mls/hr Q1H PRN IV hypotension; Start 09/10/20 at 08:15; Stop 09/10/20 at 14:14; Status DC Albumin Human 200 ml @ 200 mls/hr 1X PRN PRN IV Hypotension; Start 09/10/20 at 08:15; Stop 09/10/20 at 14:14; Status DC Sodium Chloride 1,000 ml @ 400 mls/hr Q2H30M PRN IV PATENCY; Start 09/10/20 at 08:15; Stop 09/10/20 at 20:14; Status DC Lidocaine HCl (Xylocaine-Mpf 1% 2ml Vial) 2 ml 1X PRN PRN INJ FOR DIALYSIS; Start 09/10/20 at 08:15; Stop 09/11/20 at 08:14; Status DC Info (PHARMACY MONITORING -- do not chart) 1 each PRN DAILY PRN MC SEE COMMENTS; Start 09/10/20 at 08:15; Status UNV Info (PHARMACY MONITORING -- do not chart) 1 each PRN DAILY PRN MC SEE COMMENTS; Start 09/10/20 at 08:15; Status Cancel Sodium Chloride 1,000 ml @ 1,000 mls/hr Q1H PRN IV hypotension; Start 09/11/20 at 09:30; Stop 09/11/20 at 15:29 Albumin Human 200 ml @ 200 mls/hr 1X PRN PRN IV Hypotension; Start 09/11/20 at 09:30; Stop 09/11/20 at 15:29 Sodium Chloride 1,000 ml @ 400 mls/hr Q2H30M PRN IV PATENCY; Start 09/11/20 at 09:30; Stop 09/11/20 at 21:29 Info (PHARMACY MONITORING -- do not chart) 1 each PRN DAILY PRN MC SEE COMMENTS; Start 09/11/20 at 09:30; Status Cancel Info (PHARMACY MONITORING -- do not chart) 1 each PRN DAILY PRN MC SEE COMMENTS; Start 09/11/20 at 09:30 Insulin Human Isoph/Insulin Regular (HumuLIN 70-30 VIAL) 23 units BIDWMEALS SQ ; Start 09/11/20 at 17:00 Active Scripts Active Augmentin 875-125 Tablet (Amoxicillin/Potassium Clav) 1 Each Tablet 1 Tab PO BID 7 Days Zyvox (Linezolid) 600 Mg Tablet 600 Mg PO BID 7 Days Reported Doxycycline Hyclate 100 Mg Capsule 1 Cap PO BID Vitamin C (Ascorbic Acid) 500 Mg Capsule.er 1,000 Mg PO DAILY Fludrocortisone Acetate 0.1 Mg Tablet 0.2 Mg PO DAILY Midodrine Hcl 10 Mg Tablet 10 Mg PO TID Zyrtec (Cetirizine Hcl) 10 Mg Tablet 1 Tab PO DAILY Belsomra (Suvorexant) 20 Mg Tablet 20 Mg PO HS Calcium Acetate 667 Mg Tablet 2,001 Mg PO BIDWMEALS D3-2000 (Cholecalciferol (Vitamin D3)) 50 Mcg Capsule 2,000 Mcg PO DAILY Atorvastatin Calcium 40 Mg Tablet 40 Mg PO DAILY08 Glipizide 5 Mg Tablet 5 Mg PO BIDWMEALS Kinjal-Leonor Tablet (Folic Acid/Vitamin B Comp W-C) 0.8 Mg Tablet 0.8 Mg PO DAILY Aspir 81 (Aspirin) 81 Mg Tablet. 81 Mg PO DAILY Allergies Allergies: Coded Allergies: Iodinated Contrast Media (Verified Allergy, Intermediate, BROKE OUT, 10/26/18) I S O L A T I O N *CONTACT* (Verified Allergy, Unknown, 07/29/20) mrsa ROS Review of System Negative for fever, chills, weight loss, shortness of breath, chest pain, indigestion, hematochezia, melena, and dysuria. Full 14-point review of systems is negative. Physical Exam Physical Examination General: Well-developed, well-nourished white male in no acute distress HEENT: Normocephalic andatraumatic. Temporal arteriespulsatile and nontender. Neck: Supple without bruit, no meningismus Musculoskeletal: Stability:see neurologic. Gait exam:see neurologic. Tone:see neurologic. Strength:see neurologic. Neurological: Mental Status:intact, orientation, memory, attention span/concentration, language, fund of knowledge normal. Cranial Nerves:Pupils equal and reactive to light, extraocular movements areintact, visual gleason are full to confrontation. Facial sensation is normal. There is no facial asymmetry. Vestibulo-ocular reflex is intact. Palate elevates and tongue protrudes in midline. All other cranial related problems are negative except as mentioned before.Reflexes:0-1+ and symmetric with flexor plantar responses. Motor:5/5 strength with normal tone and bulk. Coordination:Finger-nose finger and [id number] testing are normal. Rapid alternating movements and fine finger movements are intact. Gait:not tested. Sensory:stocking loss Vitals VITALS Vital Signs Date Time Temp Pulse Resp B/P (MAP) Pulse Ox O2 Delivery O2 Flow Rate FiO2 09/11/20 08:08 Room Air 09/11/20 06:07 97.9 92 18 121/69 (86) 93 97.9 09/10/20 08:00 2.0 Labs Labs Laboratory Tests Test 09/09/20 16:45 09/09/20 17:08 09/10/20 08:12 09/10/20 08:15 Glucose (Fingerstick) 249 mg/dL (70-99) 98 mg/dL (70-99) Potassium Level 6.1 mmol/L (3.5-5.1) 5.0 mmol/L (3.5-5.1) Sodium Level 139 mmol/L (136-145) Chloride Level 99 mmol/L (98-107) Carbon Dioxide Level 23 mmol/L (21-32) Anion Gap 17 (6-14) Blood Urea Nitrogen 100 mg/dL (8-26) Creatinine 10.7 mg/dL (0.7-1.3) Estimated GFR (Cockcroft-Gault) 4.7 Glucose Level 100 mg/dL (70-99) Calcium Level 8.3 mg/dL (8.5-10.1) Phosphorus Level 7.6 mg/dL (2.6-4.7) Albumin 3.4 g/dL (3.4-5.0) Test 09/10/20 10:30 09/10/20 12:10 09/10/20 16:55 09/10/20 20:19 Hepatitis B Surface Antigen Nonreactive (Nonreactive) Glucose (Fingerstick) 137 mg/dL (70-99) 275 mg/dL (70-99) 303 mg/dL (70-99) Test 09/11/20 05:56 09/11/20 06:20 09/11/20 06:42 09/11/20 14:11 Glucose (Fingerstick) 37 mg/dL (70-99) 56 mg/dL (70-99) 161 mg/dL (70-99) 125 mg/dL (70-99) Laboratory Tests Test 09/10/20 16:55 09/10/20 20:19 09/11/20 05:56 09/11/20 06:20 Glucose (Fingerstick) 275 mg/dL (70-99) 303 mg/dL (70-99) 37 mg/dL (70-99) 56 mg/dL (70-99) Test 09/11/20 06:42 09/11/20 14:11 Glucose (Fingerstick) 161 mg/dL (70-99) 125 mg/dL (70-99) Images Images CT HEAD WITHOUT CONTRAST History: Reason: fall / Comparison: CT head without contrast July 19, 2020. Technique: Axial images are obtained of the head from the skull base through the vertex without IV contrast. Findings: No mass-effect, midline shift, extra-axial fluid collection, hemorrhage, or obvious acute infarction is identified. Basilar cisterns are patent. The ventricles and sulci are prominent, consistent with age-related cerebral atrophy. Old right basal ganglia lacunar infarct. Bone windows demonstrate no acute calvarial abnormality. The visualized paranasal sinuses are clear. Maxillary sinuses are essentially not imaged. Mastoid air cells are well aerated. IMPRESSION: 1. No acute intracranial abnormality. 2. Generalized cerebral atrophy. Assessment/Plan Assessment/Plan Impression: Diabetic neuropathy, weakness probably worsened when he became hypoglycemic, no evidence of myelopathy, radiculopathy, acute inflammatory neuropathy, or central nervous system disease I do not detect any tremor. History of orthostatic hypotension Carotid artery disease Chronic insomnia Recommendations: As stated above, I did leave a message with Dr. Adame. Patient strongly wants to go home with some home health rather than to custodial unit, that is reasonable I would be glad to return to see the patient for whatever neurologic issue Dr. Adame intended me to see the patient. Otherwise, I sign off. Thank you for letting me help with the patient's care. JUANI VALENTINO MD Sep 11, 2020 15:25
[2020-09-11] MEDS: INSULIN NPH/REG HUM 70/30 300 UNITS/3 ML VIAL. SQ SCH (16:44)
[2020-09-11 18:17] VITALS: BP 118/60
[2020-09-11 23:00] VITALS: BP 94/46
[2020-09-12 03:00] VITALS: BP 130/55
--- NOTE | 2020-09-12 06:15 | NUR ---
FSBS 68. Patient denies signs of hypoglycemia, in NAD. Sugared OJ and debbie crackers given. Had HS snack and no insulin has been given this shift.
[2020-09-12 06:29] VITALS: BP 123/59
[2020-09-12] MEDS: INSULIN LISPRO 300 UNITS/3 ML VIAL. SQ SCH ×3 (08:00→16:22)
[2020-09-12 08:29] LABS: CALCIUM 8.4 mg/dL (8.5-10.1); CREATININE 5.3 mg/dL (0.7-1.3); GFR 10.5; POTASSIUM 4.3 mmol/L (3.5-5.1)
[2020-09-12] MEDS: FLUDROCORTISONE 0.1 MG TABLET PO SCH (08:39)
[2020-09-12] MEDS: CETIRIZINE HCL 10 MG TABLET. PO SCH (08:39)
[2020-09-12] MEDS: INSULIN NPH/REG HUM 70/30 300 UNITS/3 ML VIAL. SQ SCH ×2 (08:41→16:23)
--- NOTE | 2020-09-12 10:03 | PN ---
DATE: 09/12/2020 DAILY PROGRESS NOTE LOCATION: He is in room 452. SUBJECTIVE: This 80-year-old white male remains hospitalized with weakness, hyperglycemia, and hyperkalemia on admission. All of these improved at this point with dialysis is in time. He has had dialysis daily since admission. He is feeling somewhat stronger, eating little more, is still having occasional hypoglycemia, but eating a much different diet than he does at home. Therapy feels he needs jail, but the patient is adamant about going home, in that he is walking the length of the schaefer and can do fine at home. OBJECTIVE: VITAL SIGNS: Stable. He is afebrile. Sugars are improved. He did have 68 this morning as a blood sugar. CHEST: Clear. HEART: Regular. ABDOMEN: Benign. He still has a femoral catheter for dialysis that needs to come out if okay with Renal as they have been using the shunt in his arm according to him, so I have asked nursing to talk to Renal about the same and check another set of labs this morning, expecting discharge later today. IMPRESSION: 1. Hyperkalemia, improved. 2. Hyperglycemia, improved. 3. Occasional hypoglycemia likely diet related in the hospital. 4. End-stage renal disease, on dialysis. PLAN: Check morning labs. Hopefully, a femoral catheter can be removed with discharge later today, preferably to jail, but I do not believe that the patient is going to agree with the same. Daughter did ask me to check on his shaking while he was here and Neurology did and we have discussed neither one of see any current tremor. GARY GARCIA MD DR: KIM/mino JOB#: [id number] / [id number]
[2020-09-12 11:03] VITALS: BP 118/61
--- NOTE | 2020-09-12 11:54 | NUR ---
Spoke to Dr Adame this morning who stated patient was able to discharge today once his femoral line was pulled and if his labs were stable. Labs came back stable and the doctor was notified. Dr Sofia spoken with to confirm that the femoral line was OK to discontinue. She stated it was okay for it to be taken out at this time since his left AV shunt was working properly. Line removed around 1145. Direct pressure applied. Dressing applied. Will continue to monitor. Dr Adame updated.
--- NOTE | 2020-09-12 12:01 | PDOC ---
DATE OF SERVICE DATE: 09/12/20 TIME: 11:59 SUBJECTIVE ROS states feeling better and is trying to go home since yesterday . Denies sob OBJECTIVE Vital Signs Vital Signs Date Time Temp Pulse Resp B/P (MAP) Pulse Ox O2 Delivery O2 Flow Rate FiO2 09/12/20 11:03 97.7 79 20 118/61 (80) 95 Room Air 97.7 I & 0 Intake and Output 09/12/20 07:00 Intake Total 1140 ml Balance 1140 ml Intake Oral 1140 ml # Voids 4 # Bowel Movements 1 PHYSICAL EXAM Physical Exam GENERAL: Alert, oriented , not in any distress. HEENT:OM moist , On O2 by NC NECK: Supple, no JVP, no lymphadenopathy. LUNGS: Clear. HEART: S1, S2 regular. ABDOMEN: Soft, nontender, no organomegaly. EXTREMITIES: No edema or cyanosis. SKIN: Unremarkable other than some bruising present. NEUROLOGIC: alert, awake No focal neurologic deficit. DIAGNOSIS/ASSESSMENT Assessment & Plan ESRD TTS, no indication for HD today. Femoral placed in ER at presentation (Rt), remove prior to dc home , Dialysis access functioning HyperKalemia POA COVID-19 positive in Mid Jun. S/P Vaccination now. Hypertension- stable Hx of AFib - has Pacemaker Hx of Chronic diastolic HF secondary to RVR;currently compensated Hx of CAD s/p PCI/HAMMAD - Asymptomatic DC per primary . Resume Dialysis tomorrow at OP unit COMMENT/RELEVANT DATA Meds Current Medications Medications (Trade) Dose Ordered Sig/Sonja Start Time Stop Time Status Last Admin Dose Admin Acetaminophen (Tylenol) 500 mg 1X PRN PRN 09/08/20 08:15 09/09/20 08:14 DC Albumin Human 200 ml @ 200 mls/hr 1X PRN PRN 09/11/20 09:30 09/11/20 15:29 DC Aspirin (Ecotrin) 325 mg 1X ONCE 09/08/20 07:45 09/08/20 07:46 DC 09/08/20 09:38 325 MG Calcium Gluconate (Calcium Gluconate) 1,000 mg 1X ONCE 09/08/20 07:30 09/08/20 07:31 DC 09/08/20 09:32 1,000 MG Cetirizine HCl (ZyrTEC) 10 mg DAILY 09/09/20 09:00 09/12/20 08:39 10 MG Dextrose (Dextrose 50%-Water Syringe) 12.5 gm PRN Q15MIN PRN 09/08/20 11:15 09/11/20 06:26 12.5 GM Diphenhydramine HCl (Benadryl) 25 mg 1X PRN PRN 09/08/20 08:15 09/09/20 08:14 DC Fludrocortisone Acetate (Florinef) 0.2 mg DAILY 09/08/20 12:00 09/12/20 08:39 0.2 MG Info (PHARMACY MONITORING -- do not chart) 1 each PRN DAILY PRN 09/11/20 09:30 Insulin Glargine (Lantus Syringe) 30 unit QHS 09/09/20 21:00 09/11/20 09:51 DC 09/10/20 20:22 30 UNIT Insulin Human Isoph/Insulin Regular (HumuLIN 70-30 VIAL) 23 units BIDWMEALS 09/11/20 17:00 09/12/20 08:41 23 UNITS Insulin Human Lispro (HumaLOG) 0-9 UNITS TIDWMEALS 09/08/20 12:00 09/10/20 17:17 7 UNITS Insulin Human Regular (HumuLIN R VIAL) 10 unit 1X ONCE 09/08/20 07:30 09/08/20 07:31 DC 09/08/20 09:38 10 UNIT Lidocaine HCl (Xylocaine-Mpf 1% 2ml Vial) 2 ml 1X PRN PRN 09/10/20 08:15 09/11/20 08:14 DC Ondansetron HCl (Zofran) 4 mg PRN Q8HRS PRN 09/08/20 07:45 09/09/20 07:44 DC Sodium Polystyrene Sulfonate (Kayexalate) 30 gm 1X ONCE 09/09/20 18:00 09/09/20 18:01 DC 09/09/20 18:12 30 GM Sodium Chloride 1,000 ml @ 400 mls/hr Q2H30M PRN 09/11/20 09:30 09/11/20 21:29 DC Lab Laboratory Tests Test 09/11/20 14:11 09/11/20 16:31 09/11/20 20:23 09/12/20 06:11 Glucose (Fingerstick) 125 mg/dL (70-99) 255 mg/dL (70-99) 258 mg/dL (70-99) 68 mg/dL (70-99) Test 09/12/20 06:34 09/12/20 07:35 09/12/20 10:55 Glucose (Fingerstick) 86 mg/dL (70-99) 249 mg/dL (70-99) Sodium Level 140 mmol/L (136-145) Potassium Level 4.3 mmol/L (3.5-5.1) Chloride Level 98 mmol/L (98-107) Carbon Dioxide Level 31 mmol/L (21-32) Anion Gap 11 (6-14) Blood Urea Nitrogen 36 mg/dL (8-26) Creatinine 5.3 mg/dL (0.7-1.3) Estimated GFR (Cockcroft-Gault) 10.5 Glucose Level 192 mg/dL (70-99) Calcium Level 8.4 mg/dL (8.5-10.1) Results All relevant outside records, renal labs, imaging studies, telemetry/EKG's were reviewed. Justicifation of Admission Dx: Justifications for Admission: Justification of Admission Dx: N/A YVETTE ARAUZ MD Sep 12, 2020 12:01
--- NOTE | 2020-09-12 12:25 | PDOC ---
PROGRESS NOTES Date of Service DATE: 09/12/20 TIME: 12:23 Assessment Problems Medical Problems: (1) Fall Status: Acute (2) Generalized weakness Status: Acute (3) Hyperglycemia Status: Acute Diabetic neuropathy, weakness probably worsened when he became hypoglycemic, no evidence of myelopathy, radiculopathy, acute inflammatory neuropathy, or central nervous system disease I do not detect any tremor. Patient denies any problems with tremor or shaking or any other synonym I could use for him and does not have any tremor on exam now. History of orthostatic hypotension Carotid artery disease Chronic insomnia Plan After my note yesterday, I did discuss with Dr. Adame and Ms. Blackmon, patient's daughter. Lakisha noticed that the patient would have severe tremor when trying to drink liquids starting about 2 weeks ago. I believe this sounds like essential tremor, but, again, there is no tremor now, and patient denies tremor. Patient strongly wants to go home with some home health rather than to custodial unit, that is reasonable Follow up with me as needed Subjective No complaints, again denies tremor Objective Vital Signs Date Time Temp Pulse Resp B/P (MAP) Pulse Ox O2 Delivery O2 Flow Rate FiO2 09/12/20 11:03 97.7 79 20 118/61 (80) 95 Room Air 97.7 Intake and Output 09/12/20 07:00 Intake Total 1140 ml Balance 1140 ml Intake Oral 1140 ml # Voids 4 # Bowel Movements 1 PHYSICAL EXAM Alert. Oriented to time, place and person. PERRL. EOMI. CN: no focal findings. Muscle tone: normal. Muscle strength: 5/5 DTR: 0-1+ Plantar reflex: flexor Gait: not examined in bed. Sensory exam: stocking loss No cerebellar signs elicited. Review of Relevant I have reviewed the following items david (where applicable) has been applied. Labs Laboratory Tests Test 09/10/20 16:55 09/10/20 20:19 09/11/20 05:56 09/11/20 06:20 Glucose (Fingerstick) 275 mg/dL (70-99) 303 mg/dL (70-99) 37 mg/dL (70-99) 56 mg/dL (70-99) Test 09/11/20 06:42 09/11/20 14:11 09/11/20 16:31 09/11/20 20:23 Glucose (Fingerstick) 161 mg/dL (70-99) 125 mg/dL (70-99) 255 mg/dL (70-99) 258 mg/dL (70-99) Test 09/12/20 06:11 09/12/20 06:34 09/12/20 07:35 09/12/20 10:55 Glucose (Fingerstick) 68 mg/dL (70-99) 86 mg/dL (70-99) 249 mg/dL (70-99) Sodium Level 140 mmol/L (136-145) Potassium Level 4.3 mmol/L (3.5-5.1) Chloride Level 98 mmol/L (98-107) Carbon Dioxide Level 31 mmol/L (21-32) Anion Gap 11 (6-14) Blood Urea Nitrogen 36 mg/dL (8-26) Creatinine 5.3 mg/dL (0.7-1.3) Estimated GFR (Cockcroft-Gault) 10.5 Glucose Level 192 mg/dL (70-99) Calcium Level 8.4 mg/dL (8.5-10.1) Laboratory Tests Test 09/11/20 14:11 09/11/20 16:31 09/11/20 20:23 09/12/20 06:11 Glucose (Fingerstick) 125 mg/dL (70-99) 255 mg/dL (70-99) 258 mg/dL (70-99) 68 mg/dL (70-99) Test 09/12/20 06:34 09/12/20 07:35 09/12/20 10:55 Glucose (Fingerstick) 86 mg/dL (70-99) 249 mg/dL (70-99) Sodium Level 140 mmol/L (136-145) Potassium Level 4.3 mmol/L (3.5-5.1) Chloride Level 98 mmol/L (98-107) Carbon Dioxide Level 31 mmol/L (21-32) Anion Gap 11 (6-14) Blood Urea Nitrogen 36 mg/dL (8-26) Creatinine 5.3 mg/dL (0.7-1.3) Estimated GFR (Cockcroft-Gault) 10.5 Glucose Level 192 mg/dL (70-99) Calcium Level 8.4 mg/dL (8.5-10.1) Medications Current Medications Sodium Chloride 1,000 ml @ 1,000 mls/hr 1X ONCE IV ; Start 09/08/20 at 05:30; Stop 09/08/20 at 05:35; Status DC Insulin Human Regular (HumuLIN R VIAL) 10 unit 1X ONCE IV ; Start 09/08/20 at 05:45; Stop 09/08/20 at 05:57; Status DC Insulin Human Regular (HumuLIN R VIAL) 10 unit 1X ONCE SQ Last administered on 09/08/20at 06:05; Start 09/08/20 at 06:00; Stop 09/08/20 at 06:01; Status DC Calcium Gluconate (Calcium Gluconate) 1,000 mg 1X ONCE IVP Last administered on 09/08/20at 09:32; Start 09/08/20 at 07:30; Stop 09/08/20 at 07:31; Status DC Insulin Human Regular (HumuLIN R VIAL) 10 unit 1X ONCE IV Last administered on 09/08/20at 09:38; Start 09/08/20 at 07:30; Stop 09/08/20 at 07:31; Status DC Aspirin (Ecotrin) 325 mg 1X ONCE PO Last administered on 09/08/20at 09:38; Start 09/08/20 at 07:45; Stop 09/08/20 at 07:46; Status DC Ondansetron HCl (Zofran) 4 mg PRN Q8HRS PRN IV NAUSEA/VOMITING; Start 09/08/20 at 07:45; Stop 09/09/20 at 07:44; Status DC Insulin Human Lispro (HumaLOG) 0-5 UNITS TIDWMEALS SQ ; Start 09/08/20 at 08:00; Stop 09/08/20 at 11:05; Status DC Dextrose (Dextrose 50%-Water Syringe) 12.5 gm PRN Q15MIN PRN IV SEE COMMENTS; Start 09/08/20 at 07:45; Stop 09/09/20 at 10:36; Status DC Sodium Chloride 1,000 ml @ 1,000 mls/hr Q1H PRN IV hypotension; Start 09/08/20 at 08:15; Stop 09/08/20 at 14:14; Status DC Albumin Human 200 ml @ 200 mls/hr 1X PRN PRN IV Hypotension Last administered on 09/08/20at 11:30; Start 09/08/20 at 08:15; Stop 09/08/20 at 14:14; Status DC Acetaminophen (Tylenol) 500 mg 1X PRN PRN PO MILD PAIN / TEMP > 100.3'F; Start 09/08/20 at 08:15; Stop 09/09/20 at 08:14; Status DC Diphenhydramine HCl (Benadryl) 25 mg 1X PRN PRN IV ITCHING; Start 09/08/20 at 08:15; Stop 09/09/20 at 08:14; Status DC Diphenhydramine HCl (Benadryl) 25 mg 1X PRN PRN IV ITCHING; Start 09/08/20 at 08:15; Stop 09/09/20 at 08:14; Status DC Sodium Chloride 1,000 ml @ 400 mls/hr Q2H30M PRN IV PATENCY; Start 09/08/20 at 08:15; Stop 09/08/20 at 20:14; Status DC Lidocaine HCl (Xylocaine-Mpf 1% 2ml Vial) 2 ml 1X PRN PRN INJ FOR DIALYSIS; Start 09/08/20 at 08:15; Stop 09/09/20 at 08:14; Status DC Info (PHARMACY MONITORING -- do not chart) 1 each PRN DAILY PRN MC SEE COMMEN TS; Start 09/08/20 at 08:15; Stop 09/10/20 at 08:22; Status DC Fludrocortisone Acetate (Florinef) 0.2 mg DAILY PO Last administered on 09/12/20at 08:39; Start 09/08/20 at 12:00 Insulin Glargine (Lantus Syringe) 20 unit QHS SQ Last administered on 09/08/20at 22:01; Start 09/08/20 at 21:00; Stop 09/09/20 at 08:52; Status DC Insulin Human Lispro (HumaLOG) 0-9 UNITS TIDWMEALS SQ Last administered on 09/12/20at 12:04; Start 09/08/20 at 12:00 Dextrose (Dextrose 50%-Water Syringe) 12.5 gm PRN Q15MIN PRN IV SEE COMMENTS Last administered on 09/11/20at 06:26; Start 09/08/20 at 11:15 Cetirizine HCl (ZyrTEC) 10 mg DAILY PO Last administered on 09/12/20at 08:39; Start 09/09/20 at 09:00 Insulin Glargine (Lantus Syringe) 30 unit QHS SQ Last administered on 09/10/20at 20:22; Start 09/09/20 at 21:00; Stop 09/11/20 at 09:51; Status DC Sodium Polystyrene Sulfonate (Kayexalate) 30 gm 1X ONCE PO Last administered on 09/09/20at 12:55; Start 09/09/20 at 12:30; Stop 09/09/20 at 12:32; Status DC Sodium Polystyrene Sulfonate (Kayexalate) 30 gm 1X ONCE PO Last administered on 09/09/20at 18:12; Start 09/09/20 at 18:00; Stop 09/09/20 at 18:01; Status DC Sodium Chloride 1,000 ml @ 1,000 mls/hr Q1H PRN IV hypotension; Start 09/10/20 at 08:15; Stop 09/10/20 at 14:14; Status DC Albumin Human 200 ml @ 200 mls/hr 1X PRN PRN IV Hypotension; Start 09/10/20 at 08:15; Stop 09/10/20 at 14:14; Status DC Sodium Chloride 1,000 ml @ 400 mls/hr Q2H30M PRN IV PATENCY; Start 09/10/20 at 08:15; Stop 09/10/20 at 20:14; Status DC Lidocaine HCl (Xylocaine-Mpf 1% 2ml Vial) 2 ml 1X PRN PRN INJ FOR DIALYSIS; Start 09/10/20 at 08:15; Stop 09/11/20 at 08:14; Status DC Info (PHARMACY MONITORING -- do not chart) 1 each PRN DAILY PRN MC SEE COMMENTS; Start 09/10/20 at 08:15; Status UNV Info (PHARMACY MONITORING -- do not chart) 1 each PRN DAILY PRN MC SEE COMMENTS; Start 09/10/20 at 08:15; Status Cancel Sodium Chloride 1,000 ml @ 1,000 mls/hr Q1H PRN IV hypotension; Start 09/11/20 at 09:30; Stop 09/11/20 at 15:29; Status DC Albumin Human 200 ml @ 200 mls/hr 1X PRN PRN IV Hypotension; Start 09/11/20 at 09:30; Stop 09/11/20 at 15:29; Status DC Sodium Chloride 1,000 ml @ 400 mls/hr Q2H30M PRN IV PATENCY; Start 09/11/20 at 09:30; Stop 09/11/20 at 21:29; Status DC Info (PHARMACY MONITORING -- do not chart) 1 each PRN DAILY PRN MC SEE C OMMENTS; Start 09/11/20 at 09:30; Status Cancel Info (PHARMACY MONITORING -- do not chart) 1 each PRN DAILY PRN MC SEE COMMENTS ; Start 09/11/20 at 09:30 Insulin Human Isoph/Insulin Regular (HumuLIN 70-30 VIAL) 23 units BIDWMEALS SQ Last administered on 09/12/20at 08:41; Start 09/11/20 at 17:00 Active Scripts Active Augmentin 875-125 Tablet (Amoxicillin/Potassium Clav) 1 Each Tablet 1 Tab PO BID 7 Days Zyvox (Linezolid) 600 Mg Tablet 600 Mg PO BID 7 Days Reported Doxycycline Hyclate 100 Mg Capsule 1 Cap PO BID Vitamin C (Ascorbic Acid) 500 Mg Capsule.er 1,000 Mg PO DAILY Fludrocortisone Acetate 0.1 Mg Tablet 0.2 Mg PO DAILY Midodrine Hcl 10 Mg Tablet 10 Mg PO TID Zyrtec (Cetirizine Hcl) 10 Mg Tablet 1 Tab PO DAILY Belsomra (Suvorexant) 20 Mg Tablet 20 Mg PO HS Calcium Acetate 667 Mg Tablet 2,001 Mg PO BIDWMEALS D3-2000 (Cholecalciferol (Vitamin D3)) 50 Mcg Capsule 2,000 Mcg PO DAILY Atorvastatin Calcium 40 Mg Tablet 40 Mg PO DAILY08 Glipizide 5 Mg Tablet 5 Mg PO BIDWMEALS Kinjal-Leonor Tablet (Folic Acid/Vitamin B Comp W-C) 0.8 Mg Tablet 0.8 Mg PO DAILY Aspir 81 (Aspirin) 81 Mg Tablet.dr 81 Mg PO DAILY Vitals/I & O Vital Sign - Last 24 Hours 09/11/20 09/11/20 09/11/20 09/11/20 15:09 18:17 20:00 23:00 Temp 97.2 98.4 98.7 97.2 98.4 98.7 Pulse 74 80 82 Resp 20 18 18 B/P (MAP) 114/58 (76) 118/60 (79) 94/46 (62) Pulse Ox 96 95 96 O2 Delivery Room Air Room Air Room Air Room Air 09/12/20 09/12/20 09/12/20 09/12/20 03:00 06:29 07:45 11:03 Temp 97.9 97.7 97.9 97.7 Pulse 80 80 79 Resp 18 18 20 B/P (MAP) 130/55 (80) 123/59 (80) 118/61 (80) Pulse Ox 93 93 95 O2 Delivery Room Air Room Air Room Air Room Air Intake and Output 09/11/20 09/11/20 09/12/20 15:00 23:00 07:00 Intake Total 360 ml 420 ml 360 ml Balance 360 ml 420 ml 360 ml Justicifation of Admission Dx: Justifications for Admission: Justification of Admission Dx: N/A JUANI VALENTINO MD Sep 12, 2020 12:25
[2020-09-12 15:10] VITALS: BP 128/60
--- NOTE | 2020-09-12 15:40 | SNU/HH DC ---
DISCHARGE WITH HOME HEALTH DISCHARGE INFORMATION: Discharge Date: Sep 12, 2020 Final Diagnosis: Problems Medical Problems: (1) Fall Status: Acute (2) Generalized weakness Status: Acute (3) Hyperglycemia Status: Acute Condition on Discharge: Stable CODE STATUS: Code Status: Full HOME HEALTH: Face to Face: I certify this patient is under my care and that I, or a nurse practitioner or physician's medical office assistant working with me, had a face to face encounter that meets the physician face to face encounter requirements with this patient on 09/12/20. Medical Complications: DM RN For Eval/Treatment: Yes Physical Therapy For: Evalulation/Treatment Occupational Therapy For: Evaluation/Treatment Pt Meets Homebound Status: Poor coordination w/ amb., Unsteady balance w/ amb, POST DISCHARGE ORDERS: Activity Instructions for Disc: Resume previous activity, Activity as tolerated, Avoid exertion Weight Bearing Status after Di: No restrictions, As tolerated Bathing Instructions: No Tub Bath until see DIET AFTER DISCHARGE: ADA Wound/Incision Care: Keep wound/cast CDI, Change dressing, Reinforce dressing PRN Other wound/incision instructi: Right hand/arm and left lower arm: Xeroform, gauze, foam change Thurs/Sun CHECKS AFTER DISCHARGE: Checks after discharge: Check blood press - daily, Check blood sugar, ac/hs, Check your Temp as needed, Weigh Yourself Daily TREATMENT/EQUIPMENT ORDERS: Adaptive Equipment Issued: None CERTIFICATION STATEMENT: Certification Statement: Certification Statement: Based on the above finding, I certify that this patient is confined to the home and needs intermittent long-term care, physical therapy and/or speech therapy, or continues to need occupational therapy.~ This patient is under my care, and I have initiated the establishment of the plan of care.~ This patient will be followed by myself or a community physician who will periodically review the plan of care. Home Meds Reported Medications Ascorbic Acid (VITAMIN C) 500 Mg Capsule.er, 1000 MG PO DAILY for supplement, CAP.SR 09/08/20 Fludrocortisone Acetate (FLUDROCORTISONE ACETATE) 0.1 Mg Tablet, 0.2 MG PO DAILY for COPD, TAB 07/19/20 Midodrine Hcl (MIDODRINE HCL) 10 Mg Tablet, 10 MG PO TID for orthostatic hypotension, TAB 07/19/20 Cetirizine Hcl (ZYRTEC) 10 Mg Tablet, 1 TAB PO DAILY for allergies, #30 TAB 2 Refills 07/19/20 Suvorexant (Belsomra) 20 Mg Tablet, 20 MG PO HS for insomnia, TAB 07/19/20 Calcium Acetate (CALCIUM ACETATE) 667 Mg Tablet, 2001 MG PO BIDWMEALS for DIALYSIS PATIENTS, CAP 10/11/19 Cholecalciferol (Vitamin D3) (D3-2000) 50 Mcg Capsule, 2000 MCG PO DAILY for ESRD, CAP 10/11/19 Atorvastatin Calcium (ATORVASTATIN CALCIUM) 40 Mg Tablet, 40 MG PO DAILY08 for FOR CHOLESTEROL, #30 TAB 0 Refills 10/11/19 Glipizide (GLIPIZIDE) 5 Mg Tablet, 5 MG PO BIDWMEALS for DM, TAB 10/11/19 Folic Acid/Vitamin B Comp W-C (MADELYN-ELA TABLET) 0.8 Mg Tablet, 0.8 MG PO DAILY for dialysis pt, TAB 02/01/18 Aspirin (ASPIR 81) 81 Mg Tablet.dr, 81 MG PO DAILY, TAB 10/20/13 Discontinued Reported Medications Doxycycline Hyclate (DOXYCYCLINE HYCLATE) 100 Mg Capsule, 1 CAP PO BID for unknown, #14 CAP 09/08/20 Ferrous Sulfate (IRON) 325 Mg Tablet, 65 MG PO DAILY for Anemia, TAB 10/11/19 Discontinued Scripts Amoxicillin/Potassium Clav (AUGMENTIN 875-125 TABLET) 1 Each Tablet, 1 TAB PO BID for infection for 7 Days, #14 TAB 0 Refills Prov:GARY GARCIA MD 07/25/20 Linezolid (ZYVOX) 600 Mg Tablet, 600 MG PO BID for infection for 7 Days, #14 TAB Prov:GARY GARCIA MD 07/25/20 GARY GARCIA MD Sep 12, 2020 15:40
--- NOTE | 2020-09-12 16:23 | NUR ---
NPH not given due to pt blood sugar 114 and pt having tendency to have blood sugar drop at night. Pt to be discharged home shortly. He tends to not eat as much at home.
--- NOTE | 2020-09-12 17:43 | NUR ---
Patient left with his son around 1735. Discharge education completed without any concerns noted. Medications ordered by Dr Adame gone over in detail. Wound care gone over in detail. Dialysis to restart tomorrow. Home health to be restarted once home per Manager Compliance. No concerns noted at discharge.
== END 2020-09-12 17:45 | disposition home health service (06) | DRG 640 ==
LOC: ER 05:04 → 1 WEST ICU 07:30 → 2 SOUTH 09-09 14:39 → 4 SOUTHEST 09-10 16:37
PROVIDERS: ADMIT Family Medicine; ATTEND Family Medicine
PROC: 5A1D70Z Performance of Urinary Filtration, Intermittent, Less than 6 Hours Per Day (ICD-10-PCS; principal; 2020-09-08)
PROC: 5A1D70Z Performance of Urinary Filtration, Intermittent, Less than 6 Hours Per Day (ICD-10-PCS; 2020-09-10)
PROC: 5A1D70Z Performance of Urinary Filtration, Intermittent, Less than 6 Hours Per Day (ICD-10-PCS; 2020-09-11)
DX: E87.5 Hyperkalemia (principal); N18.6 End stage renal disease; I13.2 Hypertensive heart and chronic kidney disease with heart failure and with stage 5 chronic kidney disease, or end stage renal disease; I42.9 Cardiomyopathy, unspecified; N25.81 Secondary hyperparathyroidism of renal origin; I50.32 Chronic diastolic (congestive) heart failure; R53.1 Weakness; E11.65 Type 2 diabetes mellitus with hyperglycemia; E87.2 Acidosis; E11.40 Type 2 diabetes mellitus with diabetic neuropathy, unspecified; E11.22 Type 2 diabetes mellitus with diabetic chronic kidney disease; E11.51 Type 2 diabetes mellitus with diabetic peripheral angiopathy without gangrene; E78.5 Hyperlipidemia, unspecified; F51.04 Psychophysiologic insomnia; S00.81XA Abrasion of other part of head, initial encounter; G47.09 Other insomnia; E78.00 Pure hypercholesterolemia, unspecified; W18.30XA Fall on same level, unspecified, initial encounter; E11.649 Type 2 diabetes mellitus with hypoglycemia without coma; I25.10 Atherosclerotic heart disease of native coronary artery without angina pectoris; I48.91 Unspecified atrial fibrillation; F41.9 Anxiety disorder, unspecified; I25.2 Old myocardial infarction; Z99.2 Dependence on renal dialysis; Z95.5 Presence of coronary angioplasty implant and graft; Z91.041 Radiographic dye allergy status; Z79.4 Long term (current) use of insulin; Z91.81 History of falling; Z85.9 Personal history of malignant neoplasm, unspecified; Y93.89 Activity, other specified; Y92.89 Other specified places as the place of occurrence of the external cause; Y99.8 Other external cause status; Z91.15 Patient's noncompliance with renal dialysis; Z86.16 Personal history of COVID-19
CPT/HCPCS: 36415; 70450; 71045; 80048; 80053; 80069; 82553; 82962; 83036; 83735; 84132; 84484; 85007; 85025; 87340; 93005; 96361; 96374; 96375; J0610; J1815; P9046; 97110-GP; 97116-GP; 97530-GO; 97530-GP; 97535-GO; 99285-25; G0378

== ENCOUNTER 2020-12-21 02:13 | Emergency (ER) | payer MEDICARE, OTHER ==
[~2020-12-21] VITALS: Ht 182.9 cm; Wt 127.2 kg
[~2020-12-21 02:13] MED LIST changes: +AMOX1TAB10 PO; +ASCO500C PO; +DOXY-181 PO; -DOXY100C14 PO; +INSU100V6 SQ
[2020-12-21 02:38] LABS: BASO # 0.1 x10^3/uL (0.0-0.2); BASO % 1 % (0-3); EOS # 0.3 x10^3/uL (0.0-0.7); EOS % 2 % (0-3); HEMATOCRIT 37.8 % (39.0-53.0); HEMOGLOBIN 12.4 g/dL (13.0-17.5); LYMPH # 1.6 x10^3/uL (1.0-4.8); LYMPH % 14 % (24-48); MEAN CORPUSCULAR HEMOGLOBIN 32 pg (25-35); MEAN CORPUSCULAR HGB CONC 33 g/dL (31-37); MEAN CORPUSCULAR VOLUME 99 fL (79-100); MONO # 1.4 x10^3/uL (0.0-1.1); MONO % 12 % (0-9); NEUT # 7.8 x10^3/uL (1.8-7.7); NEUT % 70 % (31-73); PLATELET COUNT 177 x10^3/uL (140-400); RED BLOOD COUNT 3.84 x10^6/uL (4.30-5.70); RED CELL DISTRIBUTION WIDTH 16.8 % (11.5-14.5); WHITE BLOOD COUNT 11.1 x10^3/uL (4.0-11.0)
[2020-12-21 02:49] LABS: CREATININE 7.8 mg/dL (0.7-1.3); GFR 6.8; POTASSIUM 5.4 mmol/L (3.5-5.1)
[2020-12-21 02:54] LABS: ALBUMIN 3.4 g/dL (3.4-5.0); TOTAL BILIRUBIN 0.4 mg/dL (0.2-1.0); TOTAL PROTEIN 6.9 g/dL (6.4-8.2)
[2020-12-21] MEDS ORDERED: DEXTROSE 50% 25 GM / 50ML DISP.SYRIN. IV ONE (03:00)
--- NOTE | 2020-12-21 03:38 | PHYS DOC ---
Past Medical History Past Medical History: A-Fib, Anxiety, CAD, CHF, Diabetes-Type II, High Cholesterol, Hypertension, HI, Renal Failure, Other Additional Past Medical Histor: DIALYSIS Past Surgical History: Cancer Surgery, Other Additional Past Surgical Histo: stent in aorta; left dialysis shunt; right PVD stent Smoking Status: Never Smoker Alcohol Use: None Drug Use: None General Adult EDM: Chief Complaint: BLOOD SUGAR PROBLEM HPI: HPI: Patient is a 80 year old L with past medical history end-stage renal disease and diabetes presents for evaluation of altered mental status. Around 0130 hours family heard patient moaning in his bedroom. MS was called and patient was found to have a blood sugar in the 50s. On arrival to the emergency department patient was still confused. IV line was obtained patient was treated with D50 and then fed. Patient had return mental status to baseline. He is alert and oriented x4. Patient currently has no complaints. Patient takes insulin around dinnertime took 20 units without checking blood sugar. Review of Systems: Review of Systems: Limited due to altered mental status Heart Score: C/O Chest Pain: N/A Risk Factors: Risk Factors: DM, Current or recent (<one month) smoker, HTN, HLP, family history of CAD, obesity. Risk Scores: Score 0 - 3: 2.5% MACE over next 6 weeks - Discharge Home Score 4 - 6: 20.3% MACE over next 6 weeks - Admit for Clinical Observation Score 7 - 10: 72.7% MACE over next 6 weeks - Early Invasive Strategies Current Medications: Current Medications Medications (Trade) Dose Ordered Sig/Sonja Start Time Stop Time Status Last Admin Dose Admin Dextrose (Dextrose 50%-Water Syringe) 25 gm 1X ONCE 12/21/20 03:00 12/21/20 03:01 DC Allergies: Allergies: Allergies Coded Allergies Type Severity Reaction Last Updated Verified Iodinated Contrast Media Allergy Intermediate BROKE OUT 10/26/18 Yes I S O L A T I O N *CONTACT* Allergy Unknown 07/29/20 Yes Physical Exam: PE: Constitutional: Well developed, well nourished, no acute distress, non-toxic appearance. [] HENT: Normocephalic, atraumatic, bilateral external ears normal, oropharynx moist, no oral exudates, nose normal. [] Eyes: PERRLA, EOMI, conjunctiva normal, no discharge. [] Neck: Normal range of motion, no tenderness, supple, no stridor. [] Cardiovascular:Heart rate regular rhythm, no murmur [] Lungs & Thorax: Bilateral breath sounds clear to auscultation [] Abdomen: Bowel sounds normal, soft, no tenderness, no masses, no pulsatile masses. [] Skin: Warm, dry, no erythema, no rash. [] Back: No tenderness, no CVA tenderness. [] Extremities: No tenderness, no cyanosis, no clubbing, ROM intact, no edema. [] Neurologic: Alert and oriented X 3, normal motor function, normal sensory functi on, no focal deficits noted. [] Psychologic: Affect normal, judgement normal, mood normal. [] Current Patient Data: Labs: Laboratory Tests Test 12/21/20 02:24 12/21/20 02:27 12/21/20 03:14 Glucose (Fingerstick) 102 mg/dL (70-99) H 127 mg/dL (70-99) H White Blood Count 11.1 x10^3/uL (4.0-11.0) H Red Blood Count 3.84 x10^6/uL (4.30-5.70) L Hemoglobin 12.4 g/dL (13.0-17.5) L Hematocrit 37.8 % (39.0-53.0) L Mean Corpuscular Volume 99 fL (79-100) Mean Corpuscular Hemoglobin 32 pg (25-35) Mean Corpuscular Hemoglobin Concent 33 g/dL (31-37) Red Cell Distribution Width 16.8 % (11.5-14.5) H Platelet Count 177 x10^3/uL (140-400) Neutrophils (%) (Auto) 70 % (31-73) Lymphocytes (%) (Auto) 14 % (24-48) L Monocytes (%) (Auto) 12 % (0-9) H Eosinophils (%) (Auto) 2 % (0-3) Basophils (%) (Auto) 1 % (0-3) Neutrophils # (Auto) 7.8 x10^3/uL (1.8-7.7) H Lymphocytes # (Auto) 1.6 x10^3/uL (1.0-4.8) Monocytes # (Auto) 1.4 x10^3/uL (0.0-1.1) H Eosinophils # (Auto) 0.3 x10^3/uL (0.0-0.7) Basophils # (Auto) 0.1 x10^3/uL (0.0-0.2) Sodium Level 145 mmol/L (136-145) Potassium Level 5.4 mmol/L (3.5-5.1) H Chloride Level 106 mmol/L (98-107) Carbon Dioxide Level 29 mmol/L (21-32) Anion Gap 10 (6-14) Blood Urea Nitrogen 58 mg/dL (8-26) H Creatinine 7.8 mg/dL (0.7-1.3) H Estimated GFR (Cockcroft-Gault) 6.8 BUN/Creatinine Ratio 7 (6-20) Glucose Level 92 mg/dL (70-99) Calcium Level 10.0 mg/dL (8.5-10.1) Total Bilirubin 0.4 mg/dL (0.2-1.0) Aspartate Amino Transferase (AST) 17 U/L (15-37) Alanine Aminotransferase (ALT) 31 U/L (16-63) Alkaline Phosphatase 151 U/L (46-116) H Total Protein 6.9 g/dL (6.4-8.2) Albumin 3.4 g/dL (3.4-5.0) Albumin/Globulin Ratio 1.0 (1.0-1.7) Laboratory Tests 12/21/20 02:27 Laboratory Tests 12/21/20 02:27 EKG: EKG: [] Radiology/Procedures: Radiology/Procedures: [] Course & Med Decision Making: Course & Med Decision Making Pertinent Labs and Imaging studies reviewed. (See chart for details) [] Dragon Disclaimer: Dragon Disclaimer: This electronic medical record was generated, in whole or in part, using a voice recognition dictation system. Departure Departure Impression: Primary Impression: Hypoglycemia Disposition: HOME / SELF CARE / HOMELESS Condition: STABLE Referrals: GARY GARCIA MD (PCP) Patient Instructions: Hypoglycemia (Low Blood Sugar) GEORGE EMERSON DO Dec 21, 2020 03:38
[2020-12-21 04:00] VITALS: BP 128/79
== END 2020-12-21 04:28 | disposition home or self-care (01) ==
LOC: ER 02:13
DX: E11.649 Type 2 diabetes mellitus with hypoglycemia without coma (principal); E11.22 Type 2 diabetes mellitus with diabetic chronic kidney disease; I13.2 Hypertensive heart and chronic kidney disease with heart failure and with stage 5 chronic kidney disease, or end stage renal disease; I50.9 Heart failure, unspecified; N18.6 End stage renal disease; E78.00 Pure hypercholesterolemia, unspecified; I48.91 Unspecified atrial fibrillation; Z99.2 Dependence on renal dialysis; I25.10 Atherosclerotic heart disease of native coronary artery without angina pectoris; I25.2 Old myocardial infarction; Z95.5 Presence of coronary angioplasty implant and graft; Z91.041 Radiographic dye allergy status; Z88.8 Allergy status to other drugs, medicaments and biological substances
CPT/HCPCS: 36415; 80053; 82962; 85025; 96374; 99284

== ENCOUNTER → 2021-02-18 | Outpatient (CLI) | payer MEDICARE, OTHER ==
[2021-01-10 14:14] VITALS: BP 116/34
[~2021-02-18] MED LIST changes: -DOXY100C2 PO; +DOXY100C3 PO
--- NOTE | 2021-02-18 12:15 | RAD ---
Bilateral lower extremity arterial duplex ultrasound study without comparison for nonhealing toe woun d, diabetes. TECHNIQUE: Real-time grayscale and color and spectral Doppler evaluation of the arteries of lower ext remities is performed. There is moderate mixed but predominantly calcified atherosclerosis diffusely throughout virtually all distributions. The right common femoral artery, deep femoral artery, superfi cial femoral artery, and popliteal arteries are patent demonstrating normal velocities and biphasic f low. The proximal posterior tibial artery, anterior tibial artery, and peroneal arteries are also pat ent with normal velocities and biphasic flow, however there is monophasic flow within the distal post erior tibial artery, peroneal artery, and dorsalis pedis arteries. On the left, once again there is d iffuse mixed are probably calcified atherosclerosis throughout virtually all distributions. The commo n femoral artery is patent and biphasic with normal velocity. Within the deep femoral artery however, there is monophasic flow suggesting limited increase significant proximal profunda stenosis. The lef t proximal and mid femoral artery are widely patent with normal velocity and biphasic flow. Within th e distal left femoral artery, there is intermittently monophasic flow with no abnormalities of veloci ty. Posterior tibial and peroneal arteries are biphasic however there is abruptly elevated velocity w ithin the peroneal vessel concerning for focal stenosis. There is monophasic flow within the anterior tibial and dorsalis pedis arteries. IMPRESSION: 1. Diffuse probably calcified atherosclerosis in virtually all distributions. There is abnormal flow indicative of hemodynamically significant stenosis within the runoff vessels of both lower extremitie s. There is also abnormality of the left deep femoral artery indicative of hemodynamically significan t profunda stenosis. This abnormality within an important collateral artery may compress the patient' s bili to compensate for atherosclerosis elsewhere. This gentleman could benefit from angiography and attempted endovascular reconstruction by an endovas cular specialist. If so desired, we would be happy to see him in our IR clinic in this regard. Referr al can be made by faxing written order to [phone]. Electronically signed by: Flavio Vang MD (02/18/2021 12:13 PM) [id number]
== END ==
LOC: US 10:36
PROVIDERS: ATTEND Family Medicine
DX: I70.203 Unspecified atherosclerosis of native arteries of extremities, bilateral legs (principal); E11.9 Type 2 diabetes mellitus without complications
CPT/HCPCS: 93925

== ENCOUNTER 2021-04-18 22:19 | Inpatient (IN) | payer MEDICARE, OTHER ==
[~2021-04-18] VITALS: Ht 185.4 cm; Wt 86.7 kg
--- NOTE | 2021-04-18 22:41 | PHYS DOC ---
Past Medical History Past Medical History: A-Fib, Anxiety, CAD, CHF, Diabetes-Type II, High Ch olesterol, Hypertension, SD, Renal Failure, Other Additional Past Medical Histor: DIALYSIS Past Surgical History: No Surgical History Additional Past Surgical Histo: stent in aorta; left dialysis shunt; right PVD stent Smoking Status: Never Smoker Alcohol Use: None Drug Use: None General Adult EDM: Chief Complaint: MECHANICAL FALL HPI: HPI: Patient is a 80 year old male with multiple medical comorbidities as above who presents with right-sided rib pain after a fall. States that he slipped in the bathroom, because his socks slipped out from under him. Unsure if he hit his head. Denies LOC. Denies nausea/vomiting, or confusion, but does report a headache. Denies neck pain or paresthesias. His largest complaint is right-sided rib pain on the lower ribs. States that he fell earlier in the day, and tried to rest in his chair, and tonight was unable to get out of his chair. On repeated attempts was unable to stand Review of Systems: Review of Systems: Constitutional: Denies fever or chills. [] Eyes: Denies change in visual acuity. [] HENT: Denies nasal congestion or sore throat. [] Respiratory: Denies cough or shortness of breath. [] Cardiovascular: Denies chest pain or edema. [] GI: Denies abdominal pain, nausea, vomiting, bloody stools or diarrhea. [] : Denies dysuria. [] Musculoskeletal: Reports right-sided rib pain Integument: Denies rash. [] Neurologic: Denies headache, focal weakness or sensory changes. [] Endocrine: Denies polyuria or polydipsia. [] Lymphatic: Denies swollen glands. [] Psychiatric: Denies depression or anxiety. [] Heart Score: C/O Chest Pain: No Risk Factors: Risk Factors: DM, Current or recent (<one month) smoker, HTN, HLP, family history of CAD, obesity. Risk Scores: Score 0 - 3: 2.5% MACE over next 6 weeks - Discharge Home Score 4 - 6: 20.3% MACE over next 6 weeks - Admit for Clinical Observation Score 7 - 10: 72.7% MACE over next 6 weeks - Early Invasive Strategies Allergies: Allergies: Allergies Coded Allergies Type Severity Reaction Last Updated Verified Iodinated Contrast Media Allergy Intermediate SHAVONNE OUT 10/26/18 Yes I S O L A T I O N *CONTACT* Allergy Unknown 07/29/20 Yes Physical Exam: PE: Constitutional: Well developed, well nourished, no acute distress, non-toxic appearance. [] HENT: Normocephalic, atraumatic, bilateral external ears normal, oropharynx moist, no oral exudates, nose normal. [] Eyes: PERRLA, EOMI, conjunctiva normal, no discharge. [] Neck: Normal range of motion, no tenderness, supple, no stridor. [] Cardiovascular:Heart rate regular rhythm, no murmur [] Lungs & Thorax: Bilateral breath sounds clear to auscultation. Right lower rib tenderness to palpation. No crepitus noted. [] Abdomen: Right upper quadrant tenderness to palpation, the remainder of the exam is nontender. Soft, nondistended. No guarding Skin: Warm, dry, no erythema, no rash. [] Back: No tenderness, no CVA tenderness. [] Extremities: No tenderness, no cyanosis, no clubbing, ROM intact, no edema. [] Neurologic: Alert and oriented X 3, normal motor function, normal sensory function, no focal deficits noted. [] Psychologic: Affect normal, judgement normal, mood normal. [] EKG: EKG: Paced rhythm. QRS widened at 302 ms. Appears wider and more slurred appearance than previous baseline. [] Radiology/Procedures: Radiology/Procedures: [] Impression: [facility] [address] [place], [place] [id number] IMAGING REPORT Signed PATIENT: AISHA QUIROZ ACCOUNT: [id number] : 1940 LOCATION: ER AGE: 80 SEX: M EXAM STATUS: PRE ER ORD. PHYSICIAN: KAR LUCERO MD REASON: fall, headache PROCEDURE: CT HEAD AND CERVICAL SPINE WO Exam: CT head and cervical spine without contrast INDICATION: Fall, headache TECHNIQUE: Sequential axial images through the head were obtained without the administration of IV contrast. Exposure: One or more of the following in the visualized dose reduction techniques were utilized for this examination: 1. Automated exposure control 2. Adjustment of the MA and/or KV according to patient size 3. Use of iterative of reconstructive technique Comparisons: 09/08/2020 FINDINGS: Head: No focal parenchymal lesion or hemorrhage is identified. There is no midline shift or sulcal effacement. Moderate patchy evidence in the periventricular white matter, which appears similar when compared to the prior exam No acute vascular territory infarction is identified. Douglass-white distinction is preserved. The ventricular system is within normal limits without compression hydrocephalus. The basal cisterns are well maintained. The visualized portions of the paranasal sinuses and mastoid air cells are well- pneumatized. No acute fractures. Cervical spine: Straightening of cervical spine which may positional. Vertebral body heights are well-maintained. Fracture to the cervical spine is is not identified. Mild multilevel spondylotic change in cervical spine with degenerative disc disease greatest at C3-C4, C4-C5 and C5-C6. Mild bilateral facet arthropathy is also noted in the cervical spine. Visualized paraspinal soft tissues are unremarkable. IMPRESSION: 1. No acute intracranial abnormality. 2. Negative CT C-spine for acute traumatic injury. Electronically signed by: Orlando Hall MD (04/18/2021 11:07 PM) [facility] DICTATED and SIGNED BY: ORLANDO HALL MD DATE: 04/18/21 [id number] [facility] [address] [place], [place] [id number] IMAGING REPORT Signed PATIENT: AISHA QUIROZ ACCOUNT: [id number] : 1940 LOCATION: ER AGE: 80 SEX: M EXAM STATUS: PRE ER ORD. PHYSICIAN: KAR LUCERO MD REASON: fall, headache, RUQ pain, R lower rib tenderness PROCEDURE: CT CHEST ABDOMEN PELVIS WO PQRS Compliance Statement: One or more of the following individualized dose reduction techniques were utilized for this examination: 1. Automated exposure control 2. Adjustment of the mA and/or kV according to patient size 3. Use of iterative reconstruction technique CT CHEST_ABDOMEN_ AND PELVIS WITHOUT CONTRAST Clinical Indication: Reason: fall, headache, RUQ pain, R lower rib tenderness Comparison: CT abdomen and pelvis without contrast May 18, 2020. Technique: Helical CT imaging of the chest, abdomen and pelvis is performed without IV or oral contrast. Findings: Evaluation of vascular structures, solid organs and bowel is limited without oral and IV contrast, decreasing sensitivity for detection of pathology. There is no acute mediastinal hematoma. Left atrial appendage watchman device. Atherosclerotic thoracic aorta. Three-vessel coronary artery disease. There is cardiac enlargement. No pericardial effusion. There is inferior left pleural thickening. There is posterior left lower lobe round atelectasis that appears stable. Large calcified granuloma superior segment left lower lobe. Small calcified left hilar lymph nodes. There is respiratory motion artifact. There are groundglass opacities in the aerated lungs bilaterally. There is a 6 mm nodule in the right lung, image 31. Consider CT chest follow-up in 12 months if patient has risk factors for lung malignancy, otherwise no follow-up is required per Fleischner Society guidelines. Small hiatal hernia. Cholelithiasis. Stable right adrenal myelolipoma. The kidneys are atrophic, no hydronephrosis. There is severe atherosclerotic calcification of the abdominal aorta. No dilated small bowel. There is inflammation surrounding a diverticulum of the sigmoid colon, image 102. There is inflammation of a second sigmoid colon diverticulum, image 104. The appendix is normal. The urinary bladder is nearly completely decompressed, limiting evaluation. No pelvic free fluid is seen. No acute pelvic fracture. There are old fractures of the right transverse processes of L1 and L2. There are old left lateral rib fractures. There are partially healed right anterolateral rib fractures. No acute displaced rib fracture is identified. No acute fracture of the thoracolumbar spine is identified. IMPRESSION: 1. No acute traumatic injury in the chest, abdomen, or pelvis. 2. There is focal diverticulitis of 2 diverticula of the sigmoid colon. 3. There are groundglass opacities in the lungs that may be atelectasis, pneumonitis, or alveolar edema. 4. Other incidental findings as above. Electronically signed by: Terrance Chang MD (04/18/2021 11:17 PM) [facility] DICTATED and SIGNED BY: TERRANCE CHANG MD DATE: 04/18/21 [id number] Course & Med Decision Making: Course & Med Decision Making Pertinent Labs and Imaging studies reviewed. (See chart for details) Patient is 80-year-old male with multiple medical comorbidities who presents wit h right lower rib pain after mechanical fall at home. He was unable to stand after multiple attempts tonight, prompting his ED e valuation. Concern for lower rib fracture, and potential liver injury. CT chest, abdomen, pelvis as well as head and C-spine ordered. Due to a contrast allergy, these will be without contrast material. 2240 CT chest/abdomen/pelvis did not show any new acute injury. Does have healing right-sided rib fractures, that he likely aggravated with his fall today. His labs show a potassium of 10.0. Chart review shows that it has been as high as 9.2 in September of this year. As soon as potassium was available ECG, calcium gluconate, bicarb, insulin/dextrose, albuterol and kayexelate were ordered. Dr. Corley of nephrology was consulted and agrees with above management. He is requesting a repeat lab draw of his potassium prior to initiating dialysis. This has been ordered. 0125 ECG appears widened compared to baseline. Now QRS 302. Paced rhythm. When ECG was obtained, Dr. Corley was repaged and I advocated for initiating process for dialysis prior to receipt of repeat K. Repeat was >10.0. After treatment it came down to 8.4. Peripheral US line placed initially then infiltrated. Due to unreliable vascular access and critical potassium a R IJ was placed uneventfully. Patient was admitted to ICU with plan to initiate dialysis as soon as possible. Reynold Disclaimer: Reynold Disclaimer: This electronic medical record was generated, in whole or in part, using a voice recognition dictation system. Departure Departure Impression: Primary Impression: Hyperkalemia Additional Impressions: ESRD (end stage renal disease) Generalized weakness Right-sided chest wall pain Ribs, multiple fractures Disposition: ADMITTED INPATIENT Admitting Physician: Gary Adame Condition: CRITICAL Referrals: GARY ADAME MD (PCP) KAR LUCERO MD Apr 18, 2021 22:41
--- NOTE | 2021-04-18 23:09 | RAD ---
Exam: CT head and cervical spine without contrast INDICATION: Fall, headache TECHNIQUE: Sequential axial images through the head were obtained without the administration of IV co ntrast. Exposure: One or more of the following in the visualized dose reduction techniques were utilized for this examination: 1. Automated exposure control 2. Adjustment of the MA and/or KV according to patient size 3. Use of iterative of reconstructive technique Comparisons: 09/08/2020 FINDINGS: Head: No focal parenchymal lesion or hemorrhage is identified. There is no midline shift or sulcal effaceme nt. Moderate patchy evidence in the periventricular white matter, which appears similar when compared to the prior exam No acute vascular territory infarction is identified. Douglass-white distinction is preser lashawn. The ventricular system is within normal limits without compression hydrocephalus. The basal cisterns are well maintained. The visualized portions of the paranasal sinuses and mastoid air cells are well-pneumatized. No acute fractures. Cervical spine: Straightening of cervical spine which may positional. Vertebral body heights are well-maintained. Fracture to the cervical spine is is not identified. Mild multilevel spondylotic change in cervical spine with degenerative disc disease greatest at C3-C4 , C4-C5 and C5-C6. Mild bilateral facet arthropathy is also noted in the cervical spine. Visualized paraspinal soft tissues are unremarkable. IMPRESSION: 1. No acute intracranial abnormality. 2. Negative CT C-spine for acute traumatic injury. Electronically signed by: Orlando Thompson MD (04/18/2021 11:07 PM) [facility]
--- NOTE | 2021-04-18 23:19 | RAD ---
PQRS Compliance Statement: One or more of the following individualized dose reduction techniques were utilized for this examinat ion: 1. Automated exposure control 2. Adjustment of the mA and/or kV according to patient size 3. Use of iterative reconstruction technique CT CHEST_ABDOMEN_ AND PELVIS WITHOUT CONTRAST Clinical Indication: Reason: fall, headache, RUQ pain, R lower rib tenderness Comparison: CT abdomen and pelvis without contrast May 18, 2020. Technique: Helical CT imaging of the chest, abdomen and pelvis is performed without IV or oral contra st. Findings: Evaluation of vascular structures, solid organs and bowel is limited without oral and IV contrast, de creasing sensitivity for detection of pathology. There is no acute mediastinal hematoma. Left atrial appendage watchman device. Atherosclerotic thorac ic aorta. Three-vessel coronary artery disease. There is cardiac enlargement. No pericardial effusion . There is inferior left pleural thickening. There is posterior left lower lobe round atelectasis that appears stable. Large calcified granuloma superior segment left lower lobe. Small calcified left oz r lymph nodes. There is respiratory motion artifact. There are groundglass opacities in the aerated l ungs bilaterally. There is a 6 mm nodule in the right lung, image 31. Consider CT chest follow-up in 12 months if patient has risk factors for lung malignancy, otherwise no follow-up is required per Fle ischner Society guidelines. Small hiatal hernia. Cholelithiasis. Stable right adrenal myelolipoma. The kidneys are atrophic, no h ydronephrosis. There is severe atherosclerotic calcification of the abdominal aorta. No dilated small bowel. There is inflammation surrounding a diverticulum of the sigmoid colon, image 102. There is in flammation of a second sigmoid colon diverticulum, image 104. The appendix is normal. The urinary bladder is nearly completely decompressed, limiting evaluation. No pelvic free fluid is s een. No acute pelvic fracture. There are old fractures of the right transverse processes of L1 and L2. The re are old left lateral rib fractures. There are partially healed right anterolateral rib fractures. No acute displaced rib fracture is identified. No acute fracture of the thoracolumbar spine is identi fied. IMPRESSION: 1. No acute traumatic injury in the chest, abdomen, or pelvis. 2. There is focal diverticulitis of 2 diverticula of the sigmoid colon. 3. There are groundglass opacities in the lungs that may be atelectasis, pneumonitis, or alveolar ed ava. 4. Other incidental findings as above. Electronically signed by: Terrance Chang MD (04/18/2021 11:17 PM) [facility]
[2021-04-19] VITALS (12 sets, daily range): BP systolic 74–145; BP diastolic 35–65
[2021-04-19 00:35] LABS: BASO # 0.1 x10^3/uL (0.0-0.2); BASO % 1 % (0-3); EOS % 0 % (0-3); HEMATOCRIT 34.2 % (39.0-53.0); HEMOGLOBIN 11.1 g/dL (13.0-17.5); LYMPH # 0.6 x10^3/uL (1.0-4.8); LYMPH % 6 % (24-48); MEAN CORPUSCULAR HEMOGLOBIN 32 pg (25-35); MEAN CORPUSCULAR HGB CONC 32 g/dL (31-37); MEAN CORPUSCULAR VOLUME 98 fL (79-100); MONO # 0.9 x10^3/uL (0.0-1.1); MONO % 9 % (0-9); NEUT # 8.9 x10^3/uL (1.8-7.7); NEUT % 84 % (31-73); PLATELET COUNT 131 x10^3/uL (140-400); RED BLOOD COUNT 3.48 x10^6/uL (4.30-5.70); RED CELL DISTRIBUTION WIDTH 16.8 % (11.5-14.5); WHITE BLOOD COUNT 10.5 x10^3/uL (4.0-11.0)
[2021-04-19 00:49] LABS: ALBUMIN 3.4 g/dL (3.4-5.0); CALCIUM 9.2 mg/dL (8.5-10.1); CREATININE 18.2 mg/dL (0.7-1.3); GFR 2.5; TOTAL BILIRUBIN 0.6 mg/dL (0.2-1.0); TOTAL PROTEIN 6.9 g/dL (6.4-8.2)
[2021-04-19] MEDS ORDERED: CALCIUM GLUCONATE 1,000 MG/10 ML VIAL. IVP ONE ×2 (01:00→04:00)
[2021-04-19] MEDS ORDERED: SODIUM BICARB ADULT 8.4% 50 MEQ/50 ML DISP.SYRIN. IV ONE (01:00)
[2021-04-19] MEDS ORDERED: SODIUM POLYSTYRENE SULFON/SORB 15 GM/60 ML ORAL.SUSP. PO ONE (01:00)
[2021-04-19] MEDS ORDERED: DEXTROSE 50% 25 GM / 50ML DISP.SYRIN. IV ONE (01:00)
[2021-04-19] MEDS ORDERED: ALBUTEROL SULFATE 2.5 MG/3 ML NEBU. NEB ONE (01:00)
[2021-04-19] MEDS ORDERED: INSULIN REGULAR 100 UNIT/ML 3ML VIAL. IV ONE (01:00)
[2021-04-19] MEDS ORDERED: ALBUMIN HUMAN 25% 200 ML IV PRN (03:30)
[2021-04-19] MEDS ORDERED: diphenhydrAMINE 50 MG/ML VIAL IV PRN ×2 (03:30)
[2021-04-19] MEDS ORDERED: DIALYSIS PATIENT. MC PRN (03:30)
[2021-04-19] MEDS ORDERED: IV NORMAL SALINE 1000ML BAG 1,000 ML IV PRN ×2 (03:30)
[2021-04-19 03:57] LABS: % BASOS 1 % (0-3); % LYMPHS 6 % (24-48); % MONOS 4 % (0-10); % SEGS 89 % (35-66)
[2021-04-19 03:58] LABS: PLT ESTIMATE DECREASED (ADEQUATE)
--- NOTE | 2021-04-19 05:37 | EKG ---
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
[2021-04-19] MEDS ORDERED: ONDANSETRON PF 4 MG/2 ML VIAL. IVP PRN (10:30)
[2021-04-19] MEDS ORDERED: MIDODRINE 5 MG TABLET PO ONE (10:45)
--- NOTE | 2021-04-19 10:56 | PDOC2 ---
CONSULT Date of Consult Date of Consult DATE: 04/19/21 TIME: 10:48 Reason for Consult Reason for Consult: HYPERKALEMIA Referring Physician Referring Physician: RADHA Identification/Chief Complaint Chief Complaint FALL Source Source: Chart review, Patient History of Present Illness Reason for Visit: THIS IS A 80 YR OLD PT WITH ESRD. HAS OP HD ON TTS. HAD HD YESTERDAY AND THEN WENT HOME. APPARENTLY SLIPPED AND FELL IN THE BATHROOM. DID NOT LOSE CONSCIOUSNESS. HAS RIB PAIN. LABS SHOWED A K OF 10.0 WITH WIDENED QRS COMPLEXES. OTHERWISE LABS C/W ESRD. IMAGING OF THE CHEST, HEAD, NECK, ABD, PELVIS ALL NEG FOR ACUTE FINDINGS. HAS A LEFT FA RC AVF HIS ACCESS. CASE D/W ER PHYSICIAN EARLY THIS AM AND TEMPORIZING MEASURES ORDERED AND ARRANGED FOR ACUTE HD AT 1:45 THIS AM Past Medical History Cardiovascular: AFIB, CAD, HTN, [place], Hyperlipidemia, Other Pulmonary: No pertinent hx CENTRAL NERVOUS SYSTEM: Other GI: Diverticulosis, Hemorrhoids, Other Heme/Onc: Anemia NOS Hepatobiliary: No pertinent hx Psych: No pertinent hx Musculoskeletal: Osteoarthritis Rheumatologic: Gout Infectious disease: No pertinent hx Renal/: Chronic renal failure Endocrine: Diabetes, Hyperparathyroidism Past Surgical History Past Surgical History: Pacemaker, Other Family History Family History: No Significant, Other Social History ALCOHOL: none Drugs: None Lives: with Family Current Problem List Problem List Problems Medical Problems: (1) Generalized weakness Status: Acute (2) Ribs, multiple fractures Status: Acute (3) Right-sided chest wall pain Status: Acute Current Medications Current Medications Current Medications Calcium Gluconate (Calcium Gluconate) 2,000 mg 1X ONCE IVP Last administered on 04/19/21at 01:43; Start 04/19/21 at 01:00; Stop 04/19/21 at 01:05; Status DC Sodium Bicarbonate (Sodium Bicarb Adult 8.4% Syr) 50 meq 1X ONCE IV Last administered on 04/19/21at 01:43; Start 04/19/21 at 01:00; Stop 04/19/21 at 01:05; Status DC Dextrose (Dextrose 50%-Water Syringe) 25 gm 1X ONCE IV Last administered on 04/19/21at 01:44; Start 04/19/21 at 01:00; Stop 04/19/21 at 01:05; Status DC Insulin Human Regular (HumuLIN R VIAL) 10 unit 1X ONCE IV Last administered on 04/19/21at 01:41; Start 04/19/21 at 01:00; Stop 04/19/21 at 01:05; Status DC Albuterol Sulfate (Ventolin Neb Soln) 15 mg 1X ONCE NEB Last administered on 04/19/21at 01:39; Start 04/19/21 at 01:00; Stop 04/19/21 at 01:05; Status DC Sodium Polystyrene Sulfonate (Kayexalate) 30 gm 1X ONCE PO Last administered on 04/19/21at 01:44; Start 04/19/21 at 01:00; Stop 04/19/21 at 01:05; Status DC Calcium Gluconate (Calcium Gluconate) 2,000 mg 1X ONCE IVP ; Start 04/19/21 at 04:00; Stop 04/19/21 at 04:01; Status DC Sodium Chloride 1,000 ml @ 1,000 mls/hr Q1H PRN IV hypotension; Start 04/19/21 at 03:30; Stop 04/19/21 at 09:29; Status DC Albumin Human 200 ml @ 200 mls/hr 1X PRN PRN IV Hypotension; Start 04/19/21 at 03:30; Stop 04/19/21 at 09:29; Status DC Diphenhydramine HCl (Benadryl) 25 mg 1X PRN PRN IV ITCHING; Start 04/19/21 at 03:30; Stop 04/20/21 at 03:29 Diphenhydramine HCl (Benadryl) 25 mg 1X PRN PRN IV ITCHING; Start 04/19/21 at 03:30; Stop 04/20/21 at 03:29 Sodium Chloride 1,000 ml @ 400 mls/hr Q2H30M PRN IV PATENCY; Start 04/19/21 at 03:30; Stop 04/19/21 at 15:29 Info (PHARMACY MONITORING -- do not chart) 1 each PRN DAILY PRN MC SEE COMMENTS; Start 04/19/21 at 03:30 Acetaminophen/ Hydrocodone Bitart (Lortab 5/325) 1 tab PRN Q4HRS PRN PO PAIN; Start 04/19/21 at 10:30 Ondansetron HCl (Zofran) 4 mg PRN Q6HRS PRN IVP NAUSEA/VOMITING; Start 04/19/21 at 10:30 Aspirin (Ecotrin) 81 mg DAILY PO ; Start 04/19/21 at 11:00 Atorvastatin Calcium (Lipitor) 40 mg QHS PO ; Start 04/19/21 at 21:00 Fludrocortisone Acetate (Florinef) 0.2 mg DAILY PO ; Start 04/19/21 at 11:00 Glipizide (Glucotrol) 5 mg BIDWMEALS PO ; Start 04/19/21 at 11:00 Insulin Human Isoph/Insulin Regular (HumuLIN 70-30 VIAL) 23 units BIDAC SQ ; Start 04/19/21 at 11:00 Ascorbic Acid (Vitamin C) 1,000 mg DAILY PO ; Start 04/19/21 at 11:00 Calcium Acetate (Phoslo) 2,001 mg BIDWMEALS PO ; Start 04/19/21 at 11:00 Vitamin D (Vitamin D3) 2,000 unit DAILY PO ; Start 04/19/21 at 11:00 Midodrine (Proamatine) 10 mg [id number] PO ; Start 04/19/21 at 13:00 Non-Formulary Medication (Suvorexant (Belsomra)) 20 mg HS PO ; Start 04/19/21 at 21:00; Stop 04/19/21 at 10:36; Status DC Midodrine (Proamatine) 5 mg 1X ONCE PO ; Start 04/19/21 at 10:45; Stop 04/19/21 at 10:46; Status DC Zolpidem Tartrate (Ambien) 5 mg QHS PO ; Start 04/19/21 at 21:00 Active Scripts Active Reported Humulin 70-30 Vial (Hum Insulin Nph/Reg Insulin Hm) 100 Unit/1 Ml Vial 23 Unit SQ BIDAC Vitamin C (Ascorbic Acid) 500 Mg Capsule.er 1,000 Mg PO DAILY Fludrocortisone Acetate 0.1 Mg Tablet 0.2 Mg PO DAILY Midodrine Hcl 10 Mg Tablet 10 Mg PO TID Zyrtec (Cetirizine Hcl) 10 Mg Tablet 1 Tab PO DAILY Belsomra (Suvorexant) 20 Mg Tablet 20 Mg PO HS Calcium Acetate 667 Mg Tablet 2,001 Mg PO BIDWMEALS D3-2000 (Cholecalciferol (Vitamin D3)) 50 Mcg Capsule 2,000 Mcg PO DAILY Atorvastatin Calcium 40 Mg Tablet 40 Mg PO DAILY08 Glipizide 5 Mg Tablet 5 Mg PO BIDWMEALS Kinjal-Leonor Tablet (Folic Acid/Vitamin B Comp W-C) 0.8 Mg Tablet 0.8 Mg PO DAILY Aspir 81 (Aspirin) 81 Mg Tablet. 81 Mg PO DAILY Allergies Allergies: Coded Allergies: Iodinated Contrast Media (Verified Allergy, Intermediate, BROKE OUT, 10/26/18) I S O L A T I O N *CONTACT* (Verified Allergy, Unknown, 07/29/20) mrsa ROS General: YES: Fatigue, Malaise PSYCHOLOGICAL ROS: YES: Depression Eyes: Yes Decreased vision HEENT: YES: Hesissyches ALLERGY AND IMMUNOLOGY: YES: Seasonal Allergies Hematological and Lymphatic: YES: Brusing Respiratory: YES: Cough Gastrointestinal: Yes Constipation Genitourinary: YES Other (ANURIA) Musculoskeletal: Yes Joint Stiffness, Yes Other (RIB PAIN ON THE LEFT) Neurological: Yes Gait Disturbance Skin: Yes Dry Skin Physical Exam Physical Exam DIFFUSE CHRONIC SKIN THINNING AND BRUISING General: Alert, Oriented X3, Cooperative, No acute distress HEENT: Atraumatic, PERRLA Lungs: Clear to auscultation Heart: Regular rate Abdomen: Normal bowel sounds, Soft Extremities: No clubbing Skin: No breakdown Neuro: Normal speech, Sensation intact, Cranial nerves 3-12 NL Psych/Mental Status: Mental status NL, Mood NL MUSCULOSKELETAL: No joint tenderness, No deformity, No swelling, Other (LEFT ARM AVF WITH GOOD THRILL AND BRUIT) Vitals VITALS Vital Signs Date Time Temp Pulse Resp B/P (MAP) Pulse Ox O2 Delivery O2 Flow Rate FiO2 04/19/21 08:00 Room Air 04/19/21 06:00 94 38 117/38 (64) 98 04/19/21 03:30 97.7 97.7 Labs Labs Laboratory Tests Test 04/19/21 00:25 04/19/21 01:20 04/19/21 03:16 04/19/21 07:45 White Blood Count 10.5 x10^3/uL (4.0-11.0) Red Blood Count 3.48 x10^6/uL (4.30-5.70) Hemoglobin 11.1 g/dL (13.0-17.5) Hematocrit 34.2 % (39.0-53.0) Mean Corpuscular Volume 98 fL (79-100) Mean Corpuscular Hemoglobin 32 pg (25-35) Mean Corpuscular Hemoglobin Concent 32 g/dL (31-37) Red Cell Distribution Width 16.8 % (11.5-14.5) Platelet Count 131 x10^3/uL (140-400) Neutrophils (%) (Auto) 84 % (31-73) Lymphocytes (%) (Auto) 6 % (24-48) Monocytes (%) (Auto) 9 % (0-9) Eosinophils (%) (Auto) 0 % (0-3) Basophils (%) (Auto) 1 % (0-3) Neutrophils # (Auto) 8.9 x10^3/uL (1.8-7.7) Lymphocytes # (Auto) 0.6 x10^3/uL (1.0-4.8) Monocytes # (Auto) 0.9 x10^3/uL (0.0-1.1) Eosinophils # (Auto) 0.0 x10^3/uL (0.0-0.7) Basophils # (Auto) 0.1 x10^3/uL (0.0-0.2) Segmented Neutrophils % 89 % (35-66) Lymphocytes % 6 % (24-48) Monocytes % 4 % (0-10) Basophils % 1 % (0-3) Platelet Estimate Decreased (ADEQUATE) Sodium Level 135 mmol/L (136-145) Potassium Level 10.0 mmol/L (3.5-5.1) > 10.0 mmol/L (3.5-5.1) 8.4 mmol/L (3.5-5.1) 5.2 mmol/L (3.5-5.1) Chloride Level 99 mmol/L (98-107) Carbon Dioxide Level 15 mmol/L (21-32) Anion Gap 21 (6-14) Blood Urea Nitrogen 113 mg/dL (8-26) Creatinine 18.2 mg/dL (0.7-1.3) Estimated GFR (Cockcroft-Gault) 2.5 BUN/Creatinine Ratio 6 (6-20) Glucose Level 243 mg/dL (70-99) Calcium Level 9.2 mg/dL (8.5-10.1) Total Bilirubin 0.6 mg/dL (0.2-1.0) Aspartate Amino Transf (AST/SGOT) 25 U/L (15-37) Alanine Aminotransferase (ALT/SGPT) 40 U/L (16-63) Alkaline Phosphatase 148 U/L (46-116) Total Protein 6.9 g/dL (6.4-8.2) Albumin 3.4 g/dL (3.4-5.0) Albumin/Globulin Ratio 1.0 (1.0-1.7) Test 04/19/21 08:27 Glucose (Fingerstick) 175 mg/dL (70-99) Laboratory Tests Test 04/19/21 00:25 04/19/21 01:20 04/19/21 03:16 04/19/21 07:45 White Blood Count 10.5 x10^3/uL (4.0-11.0) Red Blood Count 3.48 x10^6/uL (4.30-5.70) Hemoglobin 11.1 g/dL (13.0-17.5) Hematocrit 34.2 % (39.0-53.0) Mean Corpuscular Volume 98 fL (79-100) Mean Corpuscular Hemoglobin 32 pg (25-35) Mean Corpuscular Hemoglobin Concent 32 g/dL (31-37) Red Cell Distribution Width 16.8 % (11.5-14.5) Platelet Count 131 x10^3/uL (140-400) Neutrophils (%) (Auto) 84 % (31-73) Lymphocytes (%) (Auto) 6 % (24-48) Monocytes (%) (Auto) 9 % (0-9) Eosinophils (%) (Auto) 0 % (0-3) Basophils (%) (Auto) 1 % (0-3) Neutrophils # (Auto) 8.9 x10^3/uL (1.8-7.7) Lymphocytes # (Auto) 0.6 x10^3/uL (1.0-4.8) Monocytes # (Auto) 0.9 x10^3/uL (0.0-1.1) Eosinophils # (Auto) 0.0 x10^3/uL (0.0-0.7) Basophils # (Auto) 0.1 x10^3/uL (0.0-0.2) Segmented Neutrophils % 89 % (35-66) Lymphocytes % 6 % (24-48) Monocytes % 4 % (0-10) Basophils % 1 % (0-3) Platelet Estimate Decreased (ADEQUATE) Sodium Level 135 mmol/L (136-145) Potassium Level 10.0 mmol/L (3.5-5.1) > 10.0 mmol/L (3.5-5.1) 8.4 mmol/L (3.5-5.1) 5.2 mmol/L (3.5-5.1) Chloride Level 99 mmol/L (98-107) Carbon Dioxide Level 15 mmol/L (21-32) Anion Gap 21 (6-14) Blood Urea Nitrogen 113 mg/dL (8-26) Creatinine 18.2 mg/dL (0.7-1.3) Estimated GFR (Cockcroft-Gault) 2.5 BUN/Creatinine Ratio 6 (6-20) Glucose Level 243 mg/dL (70-99) Calcium Level 9.2 mg/dL (8.5-10.1) Total Bilirubin 0.6 mg/dL (0.2-1.0) Aspartate Amino Transf (AST/SGOT) 25 U/L (15-37) Alanine Aminotransferase (ALT/SGPT) 40 U/L (16-63) Alkaline Phosphatase 148 U/L (46-116) Total Protein 6.9 g/dL (6.4-8.2) Albumin 3.4 g/dL (3.4-5.0) Albumin/Globulin Ratio 1.0 (1.0-1.7) Test 04/19/21 08:27 Glucose (Fingerstick) 175 mg/dL (70-99) Assessment/Plan Assessment/Plan IMP CRITICAL LIFE THREATENING HYPERKALEMIA [id number] FA RC AVF ANEMIA HTN PLAN TEMPORIZING HIGH K MEASURES D/W ER PHYSICIAN EMERGENT HD DONE THIS AM RIMA NEEDED ENC LOW K DIET DIET EDUCATION CONT HOME MEDS WILL FOLLOW LES MARTÍNEZ MD Apr 19, 2021 10:56
[2021-04-19] MEDS: HYDROcodone/APAP 5/325MG 1 TAB TABLET PO PRN ×2 (11:02→20:46)
[2021-04-19] MEDS: CALCIUM ACETATE 667 MG CAPSULE PO SCH ×2 (11:02→16:25)
[2021-04-19] MEDS: ASPIRIN ENTERIC COATED 81 MG TABLET.DR. PO SCH (11:03)
[2021-04-19] MEDS: FLUDROCORTISONE 0.1 MG TABLET PO SCH (11:03)
[2021-04-19] MEDS: ASCORBIC ACID 1,000 MG TABLET PO SCH (11:03)
[2021-04-19] MEDS: glipiZIDE 5 MG TABLET PO SCH ×2 (11:03→16:26)
[2021-04-19] MEDS: CHOLECALCIFEROL (VITAMIN D3) 1,000 UNIT TABLET PO SCH (11:03)
[2021-04-19] MEDS: INSULIN NPH/REG HUM 70/30 300 UNITS/3 ML VIAL. SQ SCH ×2 (11:06→16:25)
--- NOTE | 2021-04-19 11:47 | HP ---
DATE OF SERVICE: 04/19/2021 ADMIT DATE: 04/19/2021 ADMISSION HISTORY AND PHYSICAL LOCATION: He is in room ICU, 106. CHIEF COMPLAINT AND HISTORY OF PRESENT ILLNESS: This 80-year-old male presented to the Emergency Room after falling down at home, been unable to walk, with help back up with everything being weak. He does have some right sided rib pain after the fall. He was unable to get out of his chair and on repeated attempts, was unable to stand. He was found to be profoundly hyperkalemic with a potassium of 10. He has end-stage renal disease. The patient on dialysis and receives dialysis on schedule making me believe that his shunt is malfunctioning probably. He was admitted to the ICU for cardiac monitoring, etc. and had urgent dialysis during the night. Potassium only came down in the upper 8s with dialysis once again suggesting some sort of shunt dysfunction. PAST MEDICAL HISTORY: Remarkable for coronary artery disease, AFib, diabetes, hypertension, hyperlipidemia, renal failure, prior OR. MEDICATIONS: Listed on the computer have been addressed. ALLERGIES: HE IS ALLERGIC TO IODINE. SOCIAL HISTORY: He is , retired, lives at home with his , is a lifetime nonsmoker, nondrinker, does not use drugs. FAMILY HISTORY: Noncontributory. REVIEW OF SYSTEMS: As mentioned above. PHYSICAL EXAMINATION: GENERAL: He is a well-developed, well-nourished white male, appears nontoxic. VITAL SIGNS: Stable. He is afebrile. HEAD, EYES, EARS, NOSE AND THROAT: Unremarkable. NECK: Supple without adenopathy or thyromegaly. CHEST: Clear to auscultation. He does have right lower rib tenderness to palpation. Chest reveals clear breath sounds. ABDOMEN: Soft, nontender, without hepatosplenomegaly or mass. EXTREMITIES: Without cyanosis, clubbing, edema. NEUROLOGIC: He is intact. ASSESSMENT: Profound hyperkalemia, at risk for arrhythmia as described above. PLAN: ICU monitoring, Renal consult, likely he is going to need a temporary dialysis catheter to dialyze successfully for the potassium. JORDON/GERTRUDE MILIAN: KIM/mino TID: [id number]
--- NOTE | 2021-04-19 11:52 | RAD ---
EXAM: AP View of the chest DATE: 04/19/2021 8:50 AM INDICATION: Reason: R IJ placement / Spl. Instructions: / History: COMPARISON: 01/06/2021 09/21/2020 FINDINGS/ IMPRESSION: Right IJ vascular catheter tip projects over the distal right brachiocephalic vein/proximal SVC. Righ t axillary stent. The heart is not enlarged. Aorta is tortuous with atherosclerotic calcifications. Small left pleural effusion. No pneumothorax. Right midlung and patchy medial bilateral lung base airspace opacities possibly atelectasis or develo ping consolidation. Electronically signed by: Angel Stokes MD (04/19/2021 11:50 AM) [id number]
[2021-04-19] MEDS: MIDODRINE 5 MG TABLET PO SCH ×2 (13:00→18:00)
--- NOTE | 2021-04-19 15:46 | NUR ---
SS following for discharge planning. SS reviewed pt chart and discussed with pt RN. Pt is from home with spouse and is currently on room air. PT/OT ordered. OT recommended [facility]. Pt has outpatient dialysis at [facility], ; fax [phone], Thursday, , and Thursday. Pt has had home healthcare services in the past most recently with [facility], ; fax [phone]. SS contacted pt's daughter, Kadi, and discussed discharge planning. Pt's daughter reported that first preference is to be able to discharge to home with home healthcare but back up preference would be [facility]. COVID19 test requested by dialysis clinic. Pt's RN notified. SS will continue to follow for discharge planning.
--- NOTE | 2021-04-19 17:29 | NUR ---
Wound/Ostomy Care Wound Type/Assessment: Wound care consult for right great toe DFU and left elbow skin tear, pt known to wound team from outpatient clinic. No other wounds noted. Pt reported some bruising in arms and right elbow from a fall prior to admission. All wounds cleansed, measured and pictured. Treatment Recommendations/Plan: Cleanse all wounds with wound wash and pat dry. Right great toe: cover with silver contact (remove clear plastic cover prior to applying) and a small telfa or bandaid, change every 2-3 days. Left elbow: cover with honey alginate and foam, use stockinet or Tubigrip to keep in place. Change every 2-3 days. Education provided: Pt educated on PU prevention and leg elevation to avoid PUs in heels and leg swellings Offloading surface/device: pillows to offload Recommended Referrals/Tests: n/a Discharge Recommendations for dressings: same as above, pt to call to make f/u appt at [facility] [phone] after discharge.
--- NOTE | 2021-04-19 18:44 | NUR ---
Patient's daughter brought in patient's cell phone, underwear, and extra shirts for the patient to wear. Charted in patient belongings assessment. Patient transferred upstairs with belongings, notified patient's daughter of new room number.
[2021-04-19] MEDS: ATORVASTATIN CALCIUM 40 MG TABLET. PO SCH (20:45)
[2021-04-19] MEDS: ZOLPIDEM 5 MG TABLET. PO SCH (20:46)
[2021-04-19] MEDS ORDERED: NON FORMULARY ITEM (Suvorexant (Belsomra) 20 MG) PO SCH (21:00)
[2021-04-20] MEDS: HYDROcodone/APAP 5/325MG 1 TAB TABLET PO PRN ×3 (02:47→19:56)
[2021-04-20 03:12] VITALS: BP 119/47
[2021-04-20 06:18] LABS: CALCIUM 8.2 mg/dL (8.5-10.1); CREATININE 14.2 mg/dL (0.7-1.3); GFR 3.4; POTASSIUM 5.6 mmol/L (3.5-5.1)
[2021-04-20 07:00] VITALS: BP 139/67
[2021-04-20] MEDS: MIDODRINE 5 MG TABLET PO SCH ×3 (07:00→18:00)
[2021-04-20] MEDS: INSULIN NPH/REG HUM 70/30 300 UNITS/3 ML VIAL. SQ SCH ×2 (07:30→19:05)
[2021-04-20] MEDS: glipiZIDE 5 MG TABLET PO SCH ×2 (08:36→18:02)
[2021-04-20] MEDS: ASPIRIN ENTERIC COATED 81 MG TABLET.DR. PO SCH (08:36)
[2021-04-20] MEDS: FLUDROCORTISONE 0.1 MG TABLET PO SCH (08:36)
[2021-04-20] MEDS: CALCIUM ACETATE 667 MG CAPSULE PO SCH ×2 (08:37→18:02)
[2021-04-20] MEDS: ASCORBIC ACID 1,000 MG TABLET PO SCH (08:37)
[2021-04-20] MEDS: CHOLECALCIFEROL (VITAMIN D3) 1,000 UNIT TABLET PO SCH (08:37)
[2021-04-20] MEDS ORDERED: DIALYSIS PATIENT. MC PRN ×2 (09:00)
[2021-04-20] MEDS ORDERED: LIDOCAINE 1% PF 2 ML VIAL. INJ PRN (09:00)
[2021-04-20] MEDS ORDERED: ALBUMIN HUMAN 25% 200 ML IV PRN (09:00)
[2021-04-20] MEDS ORDERED: IV NORMAL SALINE 1000ML BAG 1,000 ML IV PRN ×2 (09:00)
--- NOTE | 2021-04-20 11:47 | PDOC ---
Dialysis Progress Note Date of Service: DATE: 04/20/21 TIME: 11:45 Dialysis Note Dialysis Note Seen on Hemodialysis, tolerating treatment Well Vitals on Hemodialysis: 136 / 66 80 afeb General Appearance: asleep on HD Neck: No JVD or JVP Chest: CTA [place] Heart: S1 S2 Abdomen - Soft NTND Extremities - tr Edema ESRD: Dialysis as below F 180 NR 3.0 Hrs 2 K 2.5 Ca 140 Na 35 HC03 Qb 350 + Qd 500+ Heparin 0 Units Uf 1- 1.5 Kgs or to dry weight as tolerated May give 25-50 gms of 25% Albumin if needed to maintain Hemodynamic stability Treatment plan reviewed and discussed with attendant honor bar Vitals Vital Signs Vital Signs Date Time Temp Pulse Resp B/P (MAP) Pulse Ox O2 Delivery O2 Flow Rate FiO2 04/20/21 07:00 98.2 84 16 139/67 (91) 92 Room Air 98.2 Labs Last Labs Laboratory Tests Test 04/19/21 00:25 04/19/21 01:00 04/19/21 01:20 04/19/21 03:16 White Blood Count 10.5 x10^3/uL (4.0-11.0) Red Blood Count 3.48 x10^6/uL (4.30-5.70) Hemoglobin 11.1 g/dL (13.0-17.5) Hematocrit 34.2 % (39.0-53.0) Mean Corpuscular Volume 98 fL (79-100) Mean Corpuscular Hemoglobin 32 pg (25-35) Mean Corpuscular Hemoglobin Concent 32 g/dL (31-37) Red Cell Distribution Width 16.8 % (11.5-14.5) Platelet Count 131 x10^3/uL (140-400) Neutrophils (%) (Auto) 84 % (31-73) Lymphocytes (%) (Auto) 6 % (24-48) Monocytes (%) (Auto) 9 % (0-9) Eosinophils (%) (Auto) 0 % (0-3) Basophils (%) (Auto) 1 % (0-3) Neutrophils # (Auto) 8.9 x10^3/uL (1.8-7.7) Lymphocytes # (Auto) 0.6 x10^3/uL (1.0-4.8) Monocytes # (Auto) 0.9 x10^3/uL (0.0-1.1) Eosinophils # (Auto) 0.0 x10^3/uL (0.0-0.7) Basophils # (Auto) 0.1 x10^3/uL (0.0-0.2) Segmented Neutrophils % 89 % (35-66) Lymphocytes % 6 % (24-48) Monocytes % 4 % (0-10) Basophils % 1 % (0-3) Platelet Estimate Decreased (ADEQUATE) Sodium Level 135 mmol/L (136-145) Potassium Level 10.0 mmol/L (3.5-5.1) > 10.0 mmol/L (3.5-5.1) 8.4 mmol/L (3.5-5.1) Chloride Level 99 mmol/L (98-107) Carbon Dioxide Level 15 mmol/L (21-32) Anion Gap 21 (6-14) Blood Urea Nitrogen 113 mg/dL (8-26) Creatinine 18.2 mg/dL (0.7-1.3) Estimated GFR (Cockcroft-Gault) 2.5 BUN/Creatinine Ratio 6 (6-20) Glucose Level 243 mg/dL (70-99) Calcium Level 9.2 mg/dL (8.5-10.1) Total Bilirubin 0.6 mg/dL (0.2-1.0) Aspartate Amino Transf (AST/SGOT) 25 U/L (15-37) Alanine Aminotransferase (ALT/SGPT) 40 U/L (16-63) Alkaline Phosphatase 148 U/L (46-116) Total Protein 6.9 g/dL (6.4-8.2) Albumin 3.4 g/dL (3.4-5.0) Albumin/Globulin Ratio 1.0 (1.0-1.7) Hepatitis B Surface Antigen Nonreactive (Nonreactive) Hepatitis B Surface Antibody Reactive Test 04/19/21 07:45 04/19/21 08:27 04/19/21 16:21 04/19/21 20:33 Potassium Level 5.2 mmol/L (3.5-5.1) Glucose (Fingerstick) 175 mg/dL (70-99) 78 mg/dL (70-99) 97 mg/dL (70-99) Test 04/20/21 05:45 04/20/21 07:41 Sodium Level 140 mmol/L (136-145) Potassium Level 5.6 mmol/L (3.5-5.1) Chloride Level 99 mmol/L (98-107) Carbon Dioxide Level 26 mmol/L (21-32) Anion Gap 15 (6-14) Blood Urea Nitrogen 82 mg/dL (8-26) Creatinine 14.2 mg/dL (0.7-1.3) Estimated GFR (Cockcroft-Gault) 3.4 Glucose Level 152 mg/dL (70-99) Calcium Level 8.2 mg/dL (8.5-10.1) Glucose (Fingerstick) 126 mg/dL (70-99) Laboratory Tests Test 04/19/21 16:21 04/19/21 20:33 04/20/21 05:45 04/20/21 07:41 Glucose (Fingerstick) 78 mg/dL (70-99) 97 mg/dL (70-99) 126 mg/dL (70-99) Sodium Level 140 mmol/L (136-145) Potassium Level 5.6 mmol/L (3.5-5.1) Chloride Level 99 mmol/L (98-107) Carbon Dioxide Level 26 mmol/L (21-32) Anion Gap 15 (6-14) Blood Urea Nitrogen 82 mg/dL (8-26) Creatinine 14.2 mg/dL (0.7-1.3) Estimated GFR (Cockcroft-Gault) 3.4 Glucose Level 152 mg/dL (70-99) Calcium Level 8.2 mg/dL (8.5-10.1) Assessment Assessment Problems Medical Problems: (1) Generalized weakness Status: Acute (2) Ribs, multiple fractures Status: Acute (3) Right-sided chest wall pain Status: Acute Plan Plan of Care Problems Medical Problems: (1) Generalized weakness Status: Acute (2) Ribs, multiple fractures Status: Acute (3) Right-sided chest wall pain Status: Acute LISA PATEL MD Apr 20, 2021 11:47
[2021-04-20 15:00] VITALS: BP 115/51
[2021-04-20 19:00] VITALS: BP 119/48
[2021-04-20 20:10] VITALS: BP 136/29
[2021-04-20] MEDS: ZOLPIDEM 5 MG TABLET. PO SCH (21:00)
[2021-04-20] MEDS: ATORVASTATIN CALCIUM 40 MG TABLET. PO SCH (21:45)
[2021-04-20 23:05] VITALS: BP 107/52
[2021-04-21] MEDS: HYDROcodone/APAP 5/325MG 1 TAB TABLET PO PRN ×4 (00:08→21:10)
--- NOTE | 2021-04-21 01:16 | PN ---
DATE: 04/20/2021 DAILY PROGRESS NOTE LOCATION: He is in room 574. SUBJECTIVE: This 80-year-old male remains hospitalized with severe hyperkalemia. He has undergone dialysis x 2 with his potassium of 5.6 this morning. He has moved to the floor and out of the ICU. Once he came down, he complains still of some right chest wall tenderness, but states that he is stronger and able to stand today. OBJECTIVE: VITAL SIGNS: Stable. He is afebrile. GENERAL: He is awake and alert. CHEST: Clear. HEART: Regular. ABDOMEN: Benign. LABORATORY DATA: Again, potassium this morning 5.6. IMPRESSION: 1. Life-threatening hyperkalemia, improved. 2. End-stage renal disease, on dialysis. 3. Coronary artery disease. PLAN: Dialysis again today per Renal with discharge when they feel comfortable that he is stable enough for the same. HAZEL/MAUREEN DR: Robby TID: [id number]
[2021-04-21] MEDS: MIDODRINE 5 MG TABLET PO SCH ×3 (06:22→16:31)
[2021-04-21 07:00] VITALS: BP 162/70
[2021-04-21] MEDS: INSULIN NPH/REG HUM 70/30 300 UNITS/3 ML VIAL. SQ SCH ×2 (07:30→17:40)
[2021-04-21] MEDS ORDERED: DEXTROSE 50% 25 GM / 50ML DISP.SYRIN. IV ONE (07:42)
[2021-04-21] MEDS ORDERED: DEXTROSE 50% 25 GM / 50ML DISP.SYRIN. IV PRN (07:45)
[2021-04-21] MEDS: CALCIUM ACETATE 667 MG CAPSULE PO SCH ×2 (08:26→17:35)
[2021-04-21] MEDS: glipiZIDE 5 MG TABLET PO SCH ×2 (08:27→16:31)
[2021-04-21] MEDS: CHOLECALCIFEROL (VITAMIN D3) 1,000 UNIT TABLET PO SCH (08:27)
[2021-04-21] MEDS: ASCORBIC ACID 1,000 MG TABLET PO SCH (08:27)
[2021-04-21] MEDS: FLUDROCORTISONE 0.1 MG TABLET PO SCH (08:27)
[2021-04-21] MEDS: ASPIRIN ENTERIC COATED 81 MG TABLET.DR. PO SCH (08:27)
--- NOTE | 2021-04-21 09:30 | NUR ---
spoke with patients daughter alice this morning and she has concerns regarding the 23 units of insulin as his blood sugar this morning was 25. she also stated that she wished he could take a diabetic oral medication instead of the insulin to which this RN said "he is on a pill, glipizide, i gave it this morning". daughter said "Dr. Adame took him off of that medication and I told the ER staff that when I was with him".
[2021-04-21 11:00] VITALS: BP 152/71
[2021-04-21 15:00] VITALS: BP 151/69
[2021-04-21] MEDS ORDERED: DOXY100T PO (15:16)
[2021-04-21] MEDS ORDERED: LOPE-101 PO (15:16)
[2021-04-21 19:00] VITALS: BP 128/74
--- NOTE | 2021-04-21 20:42 | PN ---
DATE: 04/21/2021 DAILY PROGRESS NOTE LOCATION: He is in room 574. SUBJECTIVE: This 80-year-old male remains hospitalized with severe hyperkalemia. He is undergoing dialysis over the last few days. Last potassium drawn was yesterday at 5.7 before dialysis. He has ongoing chest tenderness. He has had a couple episodes of hypoglycemia and requesting insulin be back down, which I agree. OBJECTIVE: VITAL SIGNS: Stable. He is afebrile. GENERAL: He is awake, alert. CHEST: Clear. HEART: Regular. ABDOMEN: Benign. ASSESSMENT: 1. Life-threatening hyperkalemia, improved. 2. End-stage renal disease, on dialysis. 3. Coronary artery disease. 4. Hypoglycemia. PLAN: Recheck potassium in the morning with hopefully discharge after the same if okay with Renal. We will adjust down insulin to try to prevent further hypoglycemia. JOSÉ DR: Robby TID: [id number]
[2021-04-21] MEDS: ZOLPIDEM 5 MG TABLET. PO SCH (21:00)
[2021-04-21] MEDS: ATORVASTATIN CALCIUM 40 MG TABLET. PO SCH (21:09)
[2021-04-21 23:39] VITALS: BP 139/61
[2021-04-22 03:40] VITALS: BP 146/67
[2021-04-22] MEDS: HYDROcodone/APAP 5/325MG 1 TAB TABLET PO PRN ×2 (05:43→19:27)
[2021-04-22] MEDS: MIDODRINE 5 MG TABLET PO SCH ×3 (06:15→17:22)
[2021-04-22 07:00] VITALS: BP 163/77
[2021-04-22] MEDS: INSULIN NPH/REG HUM 70/30 300 UNITS/3 ML VIAL. SQ SCH ×2 (07:30→18:09)
--- NOTE | 2021-04-22 08:09 | PN ---
DATE: 04/22/2021 DAILY PROGRESS NOTE LOCATION: He is in room 574. SUBJECTIVE: This 80-year-old male remains hospitalized with severe hyperkalemia. Morning labs are pending. He has ongoing dialysis for correction of the same. He has ongoing right anterior chest wall tenderness after his fall. He has no further hypoglycemia with deletion of the sulfonylurea from his med list, which he really was not taking, but somehow was listed as a home med and decreasing insulin levels. OBJECTIVE: VITAL SIGNS: Stable. He is afebrile. GENERAL: He is awake, alert. CHEST: Clear. HEART: Regular. ABDOMEN: Benign. EXTREMITIES: Feels like he can get around detention decently with a walker at this point. ASSESSMENT: 1. Life-threatening hyperkalemia, improving. 2. End-stage renal disease, on dialysis. 3. Coronary artery disease. 4. Hypoglycemia, resolved. 5. Weakness after a fall. PLAN: We will discuss with daughter this morning as she has a call in for me and plan on discharge hopefully within the next day or so if okay with Renal. HERON DR: Robby TID: [id number]
[2021-04-22] MEDS: CALCIUM ACETATE 667 MG CAPSULE PO SCH ×2 (08:20→18:06)
[2021-04-22] MEDS: FLUDROCORTISONE 0.1 MG TABLET PO SCH (08:20)
[2021-04-22] MEDS: ASCORBIC ACID 1,000 MG TABLET PO SCH (08:20)
[2021-04-22] MEDS: ASPIRIN ENTERIC COATED 81 MG TABLET.DR. PO SCH (08:20)
[2021-04-22] MEDS: CHOLECALCIFEROL (VITAMIN D3) 1,000 UNIT TABLET PO SCH (08:20)
--- NOTE | 2021-04-22 09:38 | PDOC ---
DATE OF SERVICE DATE: 04/22/21 TIME: 09:38 SUBJECTIVE ROS No complaints , states he is hoping he can go home today OBJECTIVE Vital Signs Vital Signs Date Time Temp Pulse Resp B/P (MAP) Pulse Ox O2 Delivery O2 Flow Rate FiO2 04/22/21 08:00 Room Air 04/22/21 07:00 97.7 80 20 163/77 (105) 100 97.7 I & 0 Intake and Output 04/22/21 07:00 Intake Total 120 ml Balance 120 ml Intake Oral 120 ml # Voids 1 PHYSICAL EXAM Physical Exam GENERAL: Alert, oriented , not in any distress. HEENT:OM moist , On O2 by NC NECK: Supple, no JVP, no lymphadenopathy. LUNGS: Clear. HEART: S1, S2 regular. ABDOMEN: Soft, nontender, no organomegaly. EXTREMITIES: No edema or cyanosis. SKIN: Unremarkable NEUROLOGIC: alert, awake No focal neurologic deficit. No shepard, No CVA or SP tenderness DIAGNOSIS/ASSESSMENT Assessment & Plan ESRD on HD TTS, currently No indication. Will resume dialysis at his OP unit tomorrow if dced .DC planning per primary HyperKalemia- Chronic , today mildldy elevated . Dialysis tomorrow . He is on Fludrocortisone as well. Recommend K binder as as OP Diabetes mellitus with fluctuating blood sugars- Uncontrolled BS since presentation Hx of Atrial fibrillation. COVID-19 positive in Mid Jun. S/P Vaccination . COMMENT/RELEVANT DATA Meds Current Medications Medications (Trade) Dose Ordered Sig/Sonja Start Time Stop Time Status Last Admin Dose Admin Acetaminophen/ Hydrocodone Bitart (Lortab 5/325) 1 tab PRN Q4HRS PRN 04/19/21 10:30 04/22/21 05:43 1 TAB Albumin Human 200 ml @ 200 mls/hr 1X PRN PRN 04/20/21 09:00 04/20/21 14:59 DC Albuterol Sulfate (Ventolin Neb Soln) 15 mg 1X ONCE 04/19/21 01:00 04/19/21 01:05 DC 04/19/21 01:39 15 MG Ascorbic Acid (Vitamin C) 1,000 mg DAILY 04/19/21 11:00 04/22/21 08:20 1,000 MG Aspirin (Ecotrin) 81 mg DAILY 04/19/21 11:00 04/22/21 08:20 81 MG Atorvastatin Calcium (Lipitor) 40 mg QHS 04/19/21 21:00 04/21/21 21:09 40 MG Calcium Acetate (Phoslo) 2,001 mg BIDWMEALS 04/19/21 11:00 04/22/21 08:20 2,001 MG Calcium Gluconate (Calcium Gluconate) 2,000 mg 1X ONCE 04/19/21 04:00 04/19/21 04:01 DC Dextrose (Dextrose 50%-Water Syringe) 12.5 gm PRN Q15MIN PRN 04/21/21 07:45 04/21/21 07:50 25 GM Diphenhydramine HCl (Benadryl) 25 mg 1X PRN PRN 04/19/21 03:30 04/20/21 03:29 DC Fludrocortisone Acetate (Florinef) 0.2 mg DAILY 04/19/21 11:00 04/22/21 08:20 0.2 MG Glipizide (Glucotrol) 5 mg BIDWMEALS 04/19/21 11:00 04/22/21 07:25 DC 04/21/21 08:27 5 MG Info (PHARMACY MONITORING -- do not chart) 1 each PRN DAILY PRN 04/20/21 09:00 UNV Insulin Human Isoph/Insulin Regular (HumuLIN 70-30 VIAL) 15 units BIDAC 04/21/21 16:30 04/21/21 17:40 15 UNITS Insulin Human Regular (HumuLIN R VIAL) 10 unit 1X ONCE 04/19/21 01:00 04/19/21 01:05 DC 04/19/21 01:41 10 UNIT Lidocaine HCl (Xylocaine-Mpf 1% 2ml Vial) 2 ml 1X PRN PRN 04/20/21 09:00 04/21/21 08:59 DC Midodrine (Proamatine) 5 mg 1X ONCE 04/19/21 10:45 04/19/21 10:46 DC 04/19/21 11:02 5 MG Non-Formulary Medication (Suvorexant (Belsomra)) 20 mg HS 04/19/21 21:00 04/19/21 10:36 DC Ondansetron HCl (Zofran) 4 mg PRN Q6HRS PRN 04/19/21 10:30 04/19/21 11:01 4 MG Sodium Polystyrene Sulfonate (Kayexalate) 30 gm 1X ONCE 04/19/21 01:00 04/19/21 01:05 DC 04/19/21 01:44 30 GM Sodium Bicarbonate (Sodium Bicarb Adult 8.4% Syr) 50 meq 1X ONCE 04/19/21 01:00 04/19/21 01:05 DC 04/19/21 01:43 50 MEQ Sodium Chloride 1,000 ml @ 400 mls/hr Q2H30M PRN 04/20/21 09:00 04/20/21 20:59 DC Vitamin D (Vitamin D3) 2,000 unit DAILY 04/19/21 11:00 04/22/21 08:20 2,000 UNIT Zolpidem Tartrate (Ambien) 5 mg QHS 04/19/21 21:00 Lab Laboratory Tests Test 04/21/21 11:19 04/21/21 17:13 04/21/21 19:27 04/22/21 04:24 Glucose (Fingerstick) 196 mg/dL (70-99) 337 mg/dL (70-99) 358 mg/dL (70-99) 96 mg/dL (70-99) Test 04/22/21 07:30 Glucose (Fingerstick) 110 mg/dL (70-99) Results All relevant outside records, renal labs, imaging studies, telemetry/EKG's were reviewed. Justicifation of Admission Dx: Justifications for Admission: Justification of Admission Dx: N/A YVETTE ARAUZ MD Apr 22, 2021 09:38
[2021-04-22 11:00] VITALS: BP 171/74
[2021-04-22 11:23] LABS: CALCIUM 8.5 mg/dL (8.5-10.1); CREATININE 14.3 mg/dL (0.7-1.3); GFR 3.4
[2021-04-22 11:27] LABS: POTASSIUM 6.1 mmol/L (3.5-5.1)
--- NOTE | 2021-04-22 12:03 | NUR ---
SW following. Discussed with RN, pt from home with spouse, room air, renal diet. PT/OT ordered. Family wanting pt to go home with home health. Pt has had [facility] in the past. SW will continue to follow.
[2021-04-22 15:00] VITALS: BP 166/72
--- NOTE | 2021-04-22 18:43 | NUR ---
patients daughter Kadi would like for the group social worker to call her regarding home health. Her number is [phone]. she is afraid that if the SW calls the patient or his they will refuse home health.
[2021-04-22 19:00] VITALS: BP 121/64
[2021-04-22] MEDS: ATORVASTATIN CALCIUM 40 MG TABLET. PO SCH (19:27)
[2021-04-22] MEDS: ZOLPIDEM 5 MG TABLET. PO SCH (21:00)
[2021-04-22 23:07] VITALS: BP 123/92
[2021-04-23] MEDS: HYDROcodone/APAP 5/325MG 1 TAB TABLET PO PRN ×4 (00:29→19:16)
[2021-04-23 03:22] VITALS: BP 154/71
[2021-04-23 06:56] LABS: CALCIUM 8.6 mg/dL (8.5-10.1); CREATININE 14.8 mg/dL (0.7-1.3); GFR 3.2
[2021-04-23 07:00] VITALS: BP 166/55
[2021-04-23] MEDS: MIDODRINE 5 MG TABLET PO SCH ×3 (07:00→16:54)
[2021-04-23 07:10] LABS: POTASSIUM 6.4 mmol/L (3.5-5.1)
[2021-04-23] MEDS: INSULIN NPH/REG HUM 70/30 300 UNITS/3 ML VIAL. SQ SCH ×2 (07:30→16:30)
[2021-04-23] MEDS ORDERED: HUM100VI SQ (08:05)
--- NOTE | 2021-04-23 08:18 | DS ---
DATE OF DISCHARGE: 04/23/2021 PRIMARY DIAGNOSIS: Severe hyperkalemia. ADDITIONAL DIAGNOSES: 1. End-stage renal disease, on dialysis. 2. Diabetes. 3. Hypoglycemia. 4. Coronary artery disease. 5. History of atrial fibrillation 6. Hypertension. 7. Hyperlipidemia. CHIEF COMPLAINT AND HISTORY OF PRESENT ILLNESS: This 80-year-old male presented to the Emergency Room after falling down at home, unable to get back up and walk, get out of the chair, was found to have a potassium level of 10 and admitted for the same. SUMMARY OF STAY: The patient underwent emergent dialysis required several times to get his potassium down and still was running somewhat high towards the time of discharge. He will receive dialysis on the day of discharge and then follow up as an outpatient for the same. He did have several episodes of hypoglycemia. Insulin levels were cut down and we will plan on probably changing around diabetic regimen completely as an outpatient. His hypoglycemia is clear and present danger for him. Sugars were high at the time of discharge, but nursing had held his morning insulin on the day prior to discharge because his sugar was normal. He was felt to be at his baseline and ready for discharge and this was accomplished. DISPOSITION: The patient is discharged to home. ADA diet. Activity as tolerated. Office as scheduled. DISCHARGE MEDICATIONS: Listed on the med rec and have been addressed, most notably on his medications is 70/30 Humulin insulin will be decreased to 15 units b.i.d. from 23 on admission. ASHLEY MILIAN: Robby TID: [id number]
[2021-04-23] MEDS: FLUDROCORTISONE 0.1 MG TABLET PO SCH (09:14)
[2021-04-23] MEDS: ASPIRIN ENTERIC COATED 81 MG TABLET.DR. PO SCH (09:15)
[2021-04-23] MEDS: ASCORBIC ACID 1,000 MG TABLET PO SCH (09:15)
[2021-04-23] MEDS: CHOLECALCIFEROL (VITAMIN D3) 1,000 UNIT TABLET PO SCH (09:15)
[2021-04-23] MEDS: CALCIUM ACETATE 667 MG CAPSULE PO SCH ×2 (09:15→17:00)
--- NOTE | 2021-04-23 09:44 | PDOC ---
DATE OF SERVICE DATE: 04/23/21 TIME: 09:43 SUBJECTIVE ROS No complaints during dialysis OBJECTIVE Vital Signs Vital Signs Date Time Temp Pulse Resp B/P (MAP) Pulse Ox O2 Delivery O2 Flow Rate FiO2 04/23/21 07:00 98.0 82 18 166/55 (92) 95 Room Air 98.0 I & 0 Intake and Output 04/23/21 07:00 Intake Total 450 ml Balance 450 ml Intake Oral 450 ml # Voids 2 # Bowel Movements 1 PHYSICAL EXAM Physical Exam GENERAL: Alert, oriented , not in any distress. HEENT:OM moist , On O2 by NC NECK: Supple, no JVP, no lymphadenopathy. LUNGS: Clear. HEART: S1, S2 regular. ABDOMEN: Soft, nontender, no organomegaly. EXTREMITIES: No edema or cyanosis. SKIN: Unremarkable NEUROLOGIC: alert, awake No focal neurologic deficit. No shepard, No CVA or SP tenderness DIAGNOSIS/ASSESSMENT Assessment & Plan ESRD on HD TTS, seen during treatment, Tolerating well, continue as ordered, [place] . Poor Blood Flow. Will schedule for Fistulogram tomorrow. Prophylaxis with steroids (Required by Pt prior to receiving IV contrast) Discussed with RN HyperKalemia- Chronic , Dialysis today . He is on Fludrocortisone as well. Recommend K binder as as OP . Defer to Dr. Corley Diabetes mellitus with fluctuating blood sugars- Uncontrolled BS since presentation Hx of Atrial fibrillation. COVID-19 positive in Mid Jun. S/P Vaccination . COMMENT/RELEVANT DATA Meds Current Medications Medications (Trade) Dose Ordered Sig/Sonja Start Time Stop Time Status Last Admin Dose Admin Acetaminophen/ Hydrocodone Bitart (Lortab 5/325) 1 tab PRN Q4HRS PRN 04/19/21 10:30 04/23/21 09:15 1 TAB Albumin Human 200 ml @ 200 mls/hr 1X PRN PRN 04/20/21 09:00 04/20/21 14:59 DC Albuterol Sulfate (Ventolin Neb Soln) 15 mg 1X ONCE 04/19/21 01:00 04/19/21 01:05 DC 04/19/21 01:39 15 MG Ascorbic Acid (Vitamin C) 1,000 mg DAILY 04/19/21 11:00 04/23/21 09:15 1,000 MG Aspirin (Ecotrin) 81 mg DAILY 04/19/21 11:00 04/23/21 09:15 81 MG Atorvastatin Calcium (Lipitor) 40 mg QHS 04/19/21 21:00 04/22/21 19:27 40 MG Calcium Acetate (Phoslo) 2,001 mg BIDWMEALS 04/19/21 11:00 04/23/21 09:15 2,001 MG Calcium Gluconate (Calcium Gluconate) 2,000 mg 1X ONCE 04/19/21 04:00 04/19/21 04:01 DC Dextrose (Dextrose 50%-Water Syringe) 12.5 gm PRN Q15MIN PRN 04/21/21 07:45 04/21/21 07:50 25 GM Diphenhydramine HCl (Benadryl) 25 mg 1X PRN PRN 04/19/21 03:30 04/20/21 03:29 DC Fludrocortisone Acetate (Florinef) 0.2 mg DAILY 04/19/21 11:00 04/23/21 09:14 0.2 MG Glipizide (Glucotrol) 5 mg BIDWMEALS 04/19/21 11:00 04/22/21 07:25 DC 04/21/21 08:27 5 MG Info (PHARMACY MONITORING -- do not chart) 1 each PRN DAILY PRN 04/20/21 09:00 UNV Insulin Human Isoph/Insulin Regular (HumuLIN 70-30 VIAL) 15 units BIDAC 04/21/21 16:30 04/22/21 18:09 15 UNITS Insulin Human Regular (HumuLIN R VIAL) 10 unit 1X ONCE 04/19/21 01:00 04/19/21 01:05 DC 04/19/21 01:41 10 UNIT Lidocaine HCl (Xylocaine-Mpf 1% 2ml Vial) 2 ml 1X PRN PRN 04/20/21 09:00 04/21/21 08:59 DC Midodrine (Proamatine) 5 mg 1X ONCE 04/19/21 10:45 04/19/21 10:46 DC 04/19/21 11:02 5 MG Non-Formulary Medication (Suvorexant (Belsomra)) 20 mg HS 04/19/21 21:00 04/19/21 10:36 DC Ondansetron HCl (Zofran) 4 mg PRN Q6HRS PRN 04/19/21 10:30 04/19/21 11:01 4 MG Sodium Polystyrene Sulfonate (Kayexalate) 30 gm 1X ONCE 04/19/21 01:00 04/19/21 01:05 DC 04/19/21 01:44 30 GM Sodium Bicarbonate (Sodium Bicarb Adult 8.4% Syr) 50 meq 1X ONCE 04/19/21 01:00 04/19/21 01:05 DC 04/19/21 01:43 50 MEQ Sodium Chloride 1,000 ml @ 400 mls/hr Q2H30M PRN 04/20/21 09:00 04/20/21 20:59 DC Vitamin D (Vitamin D3) 2,000 unit DAILY 04/19/21 11:00 04/23/21 09:15 2,000 UNIT Zolpidem Tartrate (Ambien) 5 mg QHS 04/19/21 21:00 Lab Laboratory Tests Test 04/22/21 10:34 04/22/21 11:26 04/22/21 16:37 04/22/21 19:36 Sodium Level 135 mmol/L (136-145) Potassium Level 6.1 mmol/L (3.5-5.1) Chloride Level 95 mmol/L (98-107) Carbon Dioxide Level 26 mmol/L (21-32) Anion Gap 14 (6-14) Blood Urea Nitrogen 85 mg/dL (8-26) Creatinine 14.3 mg/dL (0.7-1.3) Estimated GFR (Cockcroft-Gault) 3.4 Glucose Level 169 mg/dL (70-99) Calcium Level 8.5 mg/dL (8.5-10.1) Glucose (Fingerstick) 156 mg/dL (70-99) 286 mg/dL (70-99) 333 mg/dL (70-99) Test 04/22/21 19:45 04/23/21 06:30 04/23/21 08:16 SARS-CoV-2 RNA (BRYANT) Negative (Negative) Sodium Level 135 mmol/L (136-145) Potassium Level 6.4 mmol/L (3.5-5.1) Chloride Level 95 mmol/L (98-107) Carbon Dioxide Level 24 mmol/L (21-32) Anion Gap 16 (6-14) Blood Urea Nitrogen 98 mg/dL (8-26) Creatinine 14.8 mg/dL (0.7-1.3) Estimated GFR (Cockcroft-Gault) 3.2 Glucose Level 105 mg/dL (70-99) Calcium Level 8.6 mg/dL (8.5-10.1) Glucose (Fingerstick) 93 mg/dL (70-99) Results All relevant outside records, renal labs, imaging studies, telemetry/EKG's were reviewed. Justicifation of Admission Dx: Justifications for Admission: Justification of Admission Dx: N/A YVETTE ARAUZ MD Apr 23, 2021 09:44
[2021-04-23] MEDS ORDERED: DIALYSIS PATIENT. MC PRN (10:15)
--- NOTE | 2021-04-23 11:04 | NUR ---
SW following. Discussed with RN, SW spoke with pt's daughter, Kadi. Referral faxed to [facility]. Discharge order for home today.
[2021-04-23 15:00] VITALS: BP 145/58
[2021-04-23 19:00] VITALS: BP 153/72
[2021-04-23] MEDS: ZOLPIDEM 5 MG TABLET. PO SCH (19:16)
[2021-04-23] MEDS: ATORVASTATIN CALCIUM 40 MG TABLET. PO SCH (19:16)
[2021-04-23 23:00] VITALS: BP 162/72
[2021-04-24] VITALS (10 sets, daily range): BP systolic 143–168; BP diastolic 48–127
[2021-04-24] MEDS: HYDROcodone/APAP 5/325MG 1 TAB TABLET PO PRN ×2 (00:50→17:31)
[2021-04-24] MEDS: MIDODRINE 5 MG TABLET PO SCH ×3 (07:00→18:00)
[2021-04-24] MEDS: INSULIN NPH/REG HUM 70/30 300 UNITS/3 ML VIAL. SQ SCH ×2 (07:30→16:30)
[2021-04-24] MEDS ORDERED: methylPREDNISolone SOD SUCC PF 125 MG/2 ML VIAL. IV ONE (08:00)
[2021-04-24] MEDS: CALCIUM ACETATE 667 MG CAPSULE PO SCH ×2 (08:00→17:30)
[2021-04-24] MEDS ORDERED: diphenhydrAMINE 50 MG/ML VIAL IVP ONE (08:00)
[2021-04-24] MEDS: FLUDROCORTISONE 0.1 MG TABLET PO SCH (08:11)
[2021-04-24] MEDS: ASPIRIN ENTERIC COATED 81 MG TABLET.DR. PO SCH (08:11)
[2021-04-24] MEDS: CHOLECALCIFEROL (VITAMIN D3) 1,000 UNIT TABLET PO SCH (08:11)
[2021-04-24] MEDS: ASCORBIC ACID 1,000 MG TABLET PO SCH (08:11)
--- NOTE | 2021-04-24 09:15 | DS ---
DATE OF DISCHARGE: 04/24/2021 ADMISSION DIAGNOSIS: Syncope. DISCHARGE DIAGNOSES: Resolving syncope, debility, advanced age, history of dementia and urinary tract infections. HOSPITAL COURSE: The patient is a pleasant elderly female who presented with syncopal episode. She was admitted. We did some physical therapy and occupational therapy. We consulted Neurology. Over the past few days, she slowly returned to baseline. A couple days ago, she was not eating, she was pocketing her food. I was concerned she might need hospice, but the nieceSuraj would like to go home with home health and not hospice. DISPOSITION: Home with home health. ACTIVITY: As tolerated. DIET: Low sodium. DISCHARGE MEDICATIONS: Please see the MRAD. P.r.n. Tylenol, aspirin 81 a day, hydrochlorothiazide 25 a day and lisinopril 10 a day. TOTAL TIME: [address]: Paty TID: [id number]
--- NOTE | 2021-04-24 11:27 | PDOC ---
DATE OF SERVICE DATE: 04/24/21 TIME: 11:20 SUBJECTIVE ROS Stable, OBJECTIVE Vital Signs Vital Signs Date Time Temp Pulse Resp B/P (MAP) Pulse Ox O2 Delivery O2 Flow Rate FiO2 04/24/21 08:00 Room Air 04/24/21 07:00 97.4 83 16 166/67 (100) 93 97.4 I & 0 Intake and Output 04/24/21 07:00 Intake Total 660 ml Output Total 0 ml Balance 660 ml Intake Oral 660 ml Output Urine Total 0 ml # Voids 4 # Bowel Movements 1 PHYSICAL EXAM Physical Exam GENERAL: Alert, oriented , not in any distress. HEENT:OM moist , On O2 by NC NECK: Supple, no JVP, no lymphadenopathy. LUNGS: Clear. HEART: S1, S2 regular. ABDOMEN: Soft, nontender, no organomegaly. EXTREMITIES: No edema or cyanosis. SKIN: Unremarkable NEUROLOGIC: alert, awake No focal neurologic deficit. No shepard, No CVA or SP tenderness DIAGNOSIS/ASSESSMENT Assessment & Plan ESRD on HD TTS, No indication for dialysis currently In adequate BF yesterday , schedule for Fistulogram today . Prophylaxis with steroids (Required by Pt prior to receiving IV contrast) HyperKalemia- Chronic , . He is on Fludrocortisone as well.Consider K binder as OP . Defer to Dr. Corley Diabetes mellitus with fluctuating blood sugars- Uncontrolled BS since presentation Hx of Atrial fibrillation. COVID-19 positive in Mid Jun. S/P Vaccination . COMMENT/RELEVANT DATA Meds Current Medications Medications (Trade) Dose Ordered Sig/Sonja Start Time Stop Time Status Last Admin Dose Admin Acetaminophen/ Hydrocodone Bitart (Lortab 5/325) 1 tab PRN Q4HRS PRN 04/19/21 10:30 04/24/21 00:50 1 TAB Albumin Human 200 ml @ 200 mls/hr 1X PRN PRN 04/20/21 09:00 04/20/21 14:59 DC Albuterol Sulfate (Ventolin Neb Soln) 15 mg 1X ONCE 04/19/21 01:00 04/19/21 01:05 DC 04/19/21 01:39 15 MG Ascorbic Acid (Vitamin C) 1,000 mg DAILY 04/19/21 11:00 04/23/21 09:15 1,000 MG Aspirin (Ecotrin) 81 mg DAILY 04/19/21 11:00 04/23/21 09:15 81 MG Atorvastatin Calcium (Lipitor) 40 mg QHS 04/19/21 21:00 04/23/21 19:16 40 MG Calcium Acetate (Phoslo) 2,001 mg BIDWMEALS 04/19/21 11:00 04/23/21 17:00 2,001 MG Calcium Gluconate (Calcium Gluconate) 2,000 mg 1X ONCE 04/19/21 04:00 04/19/21 04:01 DC Dextrose (Dextrose 50%-Water Syringe) 12.5 gm PRN Q15MIN PRN 04/21/21 07:45 04/21/21 07:50 25 GM Diphenhydramine HCl (Benadryl) 50 mg 1X ONCE 04/24/21 08:00 04/24/21 08:01 DC Fludrocortisone Acetate (Florinef) 0.2 mg DAILY 04/19/21 11:00 04/23/21 09:14 0.2 MG Glipizide (Glucotrol) 5 mg BIDWMEALS 04/19/21 11:00 04/22/21 07:25 DC 04/21/21 08:27 5 MG Info (PHARMACY MONITORING -- do not chart) 1 each PRN DAILY PRN 04/23/21 10:15 Insulin Human Isoph/Insulin Regular (HumuLIN 70-30 VIAL) 15 units BIDAC 04/21/21 16:30 04/23/21 16:30 15 UNITS Insulin Human Regular (HumuLIN R VIAL) 10 unit 1X ONCE 04/19/21 01:00 04/19/21 01:05 DC 04/19/21 01:41 10 UNIT Lidocaine HCl (Xylocaine-Mpf 1% 2ml Vial) 2 ml 1X PRN PRN 04/20/21 09:00 04/21/21 08:59 DC Methylprednisolone Sodium Succinate (SOLU-Medrol 125MG VIAL) 125 mg 1X ONCE 04/24/21 08:00 04/24/21 08:01 DC 04/24/21 06:19 125 MG Midodrine (Proamatine) 5 mg 1X ONCE 04/19/21 10:45 04/19/21 10:46 DC 04/19/21 11:02 5 MG Non-Formulary Medication (Suvorexant (Belsomra)) 20 mg HS 04/19/21 21:00 04/19/21 10:36 DC Ondansetron HCl (Zofran) 4 mg PRN Q6HRS PRN 04/19/21 10:30 04/19/21 11:01 4 MG Sodium Polystyrene Sulfonate (Kayexalate) 30 gm 1X ONCE 04/19/21 01:00 04/19/21 01:05 DC 04/19/21 01:44 30 GM Sodium Bicarbonate (Sodium Bicarb Adult 8.4% Syr) 50 meq 1X ONCE 04/19/21 01:00 04/19/21 01:05 DC 04/19/21 01:43 50 MEQ Sodium Chloride 1,000 ml @ 400 mls/hr Q2H30M PRN 04/20/21 09:00 04/20/21 20:59 DC Vitamin D (Vitamin D3) 2,000 unit DAILY 04/19/21 11:00 04/23/21 09:15 2,000 UNIT Zolpidem Tartrate (Ambien) 5 mg QHS 04/19/21 21:00 Lab Laboratory Tests Test 04/23/21 13:07 04/23/21 17:07 04/23/21 20:54 04/24/21 08:00 Glucose (Fingerstick) 180 mg/dL (70-99) 269 mg/dL (70-99) 288 mg/dL (70-99) 142 mg/dL (70-99) Results All relevant outside records, renal labs, imaging studies, telemetry/EKG's were reviewed. Justicifation of Admission Dx: Justifications for Admission: Justification of Admission Dx: N/A YVETTE ARAZU MD Apr 24, 2021 11:27
--- NOTE | 2021-04-24 13:38 | NUR ---
SW following. Discussed with RN, pt having a fistulogram today. Plan for discharge home with [facility] when medically ready. SW will continue to follow.
[2021-04-24] MEDS ORDERED: LIDOCAINE WITH 8.4% SOD BICARB 3 ML DISP.SYRIN. ONE (13:56)
[2021-04-24] MEDS ORDERED: IODIXANOL 320 MG/ML 100 ML VIAL. ONE (13:57)
[2021-04-24] MEDS ORDERED: MIDAZOLAM HCL/PF 2 MG/2 ML VIAL. ONE (14:19)
[2021-04-24] MEDS ORDERED: fentaNYL PF VIAL 100 MCG/2 ML VIAL ONE (14:19)
[2021-04-24] MEDS ORDERED: HEPARIN for IV BOLUS 10,000 UNIT/10 ML VIAL. ONE (14:20)
[2021-04-24] MEDS ORDERED: diphenhydrAMINE 50 MG/ML VIAL ONE (14:20)
[2021-04-24] MEDS ORDERED: LIDOCAINE WITH 8.4% SOD BICARB 3 ML DISP.SYRIN. IJ ONE (15:00)
[2021-04-24] MEDS ORDERED: fentaNYL PF VIAL 100 MCG/2 ML VIAL IV ONE (15:00)
[2021-04-24] MEDS ORDERED: CONTRAST GIVEN. MC PRN (15:00)
[2021-04-24] MEDS ORDERED: MIDAZOLAM HCL/PF 2 MG/2 ML VIAL. IV ONE (15:00)
[2021-04-24] MEDS ORDERED: IODIXANOL 320 MG/ML 100 ML VIAL. IART ONE (15:00)
[2021-04-24] MEDS ORDERED: HEPARIN for IV BOLUS 10,000 UNIT/10 ML VIAL. IV ONE (15:30)
--- NOTE | 2021-04-24 15:49 | RAD ---
04/24/2021 1. Left upper extremity fistulogram 2. Angioplasty of proximal outflow vein stenosis x2 Indication: Poor flows at dialysis, multiple prior interventions Consent: The procedure was explained in its entirety to the patient or the patients designated repres entative by a member of the treatment team, including a discussion of the risks, benefits and commonl y accepted alternatives to the procedure, as well as the expected consequences of no therapy whatsoev er. Discussion of the risks included, but was not limited to, those that are most frequent and thos e that are rare but possibly severe or life-threatening, as well as the possibility of unforeseen com plications. The left upper extremity was prepped and draped using maximum sterile technique, including the use of : Current guideline approved cutaneous antisepsis, a large sterile sheet to establish a sterile field . 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 Ultrasound evaluation demonstrates proximal outflow vein stenosis. A stent is seen in the outflow vei n distal to the elbow, extending proximally to the elbow joint. The appearance is similar to prior in terventions. 1% lidocaine was administered for local anesthesia. The fistula was accessed using direct ultrasound guidance and micropuncture technique. Reference images were saved medical record. A 6 Sami sheath was placed.. Fistulograms were obtained demonstrating high-grade, nearly occlusive stenosis of the pr oximal most outflow vein. Seeding artery is patent proximally, with an extremely narrow, atrophic katarina earance distally which is unchanged from comparison studies. Similar comparison exam there is a recur rent second stenosis within the upper forearm just before the stent. Mild in-stent stenosis is seen. Proximal fistula is stenosis was treated with 5 mm balloon. More cent ral stenosis was treated with 7 mm balloon. No central stenosis is identified. The stenoses were treated with a 5 mm balloon, an 7 mm balloon res pectively. This improved morphology and flow. She is removed over pursestring suture. Sterile dressin gs were applied. No immediate complications were identified. Sedation: The procedure was performed under conscious sedation including continuous cardiopulmonary m onitoring via a dedicated sedation nurse. 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 Re commended surgical consultation for evaluation of revision. Electronically signed by: Carlos Shah MD (04/24/2021 3:46 PM) [id number]
[2021-04-24] MEDS ORDERED: NORMAL SALINE IV ONE (21:00)
[2021-04-24] MEDS ORDERED: INSULIN REGULAR IV ONE (21:00)
--- NOTE | 2021-04-24 23:27 | NUR ---
Patient was noted to have increased confusion today after his procedure. He continued to have confusion for me this shift and was yelling out someones name. When I checked on patient he was telling me he wanted to go to his bedroom for the ceiling fan because he was hot. I attempted to reorient patient. He was able to be reoriented for a short time before he became confused again. He was sitting up at this time and appeared to be very weak and hardly able to move his arms up. He felt clammy so we checked his blood sugar which was 330. BP-129/34 P-44 R-28 spO2-89%. His respirations appeared more labored. I applied O2 2L nasal canula. Patient then stated "Im feeling lightheaded". I started to lower the head of the bed when I noticed patients respirations became agonal. I went to grab the ambu bag when patient stopped breathing and no pulse was found. CPR was started immediately by the BATCH AND FURNACE OPERATOR and I and code blue was called at 2038. Patient was coded until time of called at 2104. Patients daughter, Kadi was notified and came up to see patient and take belongings. Dr. Adame was notified and [facility] was also notified.
--- NOTE | 2021-04-24 23:29 | PDOC5 ---
CODE REPORT CODE REPORT Called to 5 S. for a CODE BLUE. On arrival patient was receiving compressions and had had 1 dose of epinephrine. Patient is in V. fib on the monitor. See nursing note for medication details and times. Patient not responding to defibrillation and persisting and fine V. fib. Patient was intubated and noted to have a large volume of emesis in the oropharynx. Patient not responding to interventions and due to poor prognosis because of time, comorbidities and patient's persistent hypoxia (likely secondary to aspiration) time of was called at 2105 Patient was intubated in emergent fashion and no consent was obtained. Patient was not sedated and paralyzed . Cords visualized by direct laryngoscopy with a 4 MAC blade and a size 7.5 endotracheal tube was placed during second attempt. Endotracheal tube cuff was inflated and confirmation established by visualization of the cords passing the tubes, bilateral breath sounds, color change. RAVI SAMS MD Apr 24, 2021 23:29
[2021-04-25] MEDS ORDERED: SODIUM BICARB ADULT 8.4% 50 MEQ/50 ML DISP.SYRIN. ONE (01:00)
[2021-04-25] MEDS ORDERED: EPINEPHrine SYRINGE 1 MG/10 ML SYRINGE ONE (01:00)
[2021-04-25] MEDS ORDERED: CALCIUM CHLORIDE 1,000 MG/10 ML DISP.SYRIN ONE (01:00)
--- NOTE | 2021-04-25 04:21 | PN ---
DATE: 04/24/2021 DAILY PROGRESS NOTE LOCATION: Room 574. SUBJECTIVE: This 80-year-old male remains hospitalized with initially severe hyperkalemia. Discharge orders were put in yesterday for the patient and renal wanted to hold discharge to the following day due to him needing a fistulogram with possible work on the same and this was accomplished. He has no new complaints. OBJECTIVE: VITAL SIGNS: Stable. He is afebrile. GENERAL: He is awake and alert. CHEST: Clear. HEART: Regular. ABDOMEN: Benign. LABORATORY DATA: Sugars are running a little bit higher, but there is no further hypoglycemia with adjustment now in his insulin doses. ASSESSMENT: 1. Life-threatening hyperkalemia, improving. 2. End-stage renal disease, on dialysis. 3. Shunt malfunction. 4. Coronary artery disease. 5. Hypoglycemia, resolved. 6. Weakness. PLAN: Fistulogram with intervention today as needed with hopefully discharge as soon as tomorrow. ASHLEY/COLIN DR: Robby TID: [id number]
== END 2021-04-25 01:57 | DRG 252 ==
LOC: ER 22:19 → 1 WEST ICU 04-19 02:43 → 5 SOUTH 04-19 18:34
PROVIDERS: ADMIT Family Medicine; ATTEND Family Medicine
PROC: 5A1D70Z Performance of Urinary Filtration, Intermittent, Less than 6 Hours Per Day (ICD-10-PCS; 2021-04-19)
PROC: 02HV33Z Insertion of Infusion Device into Superior Vena Cava, Percutaneous Approach (ICD-10-PCS; 2021-04-19)
PROC: 5A1D70Z Performance of Urinary Filtration, Intermittent, Less than 6 Hours Per Day (ICD-10-PCS; 2021-04-20)
PROC: 5A1D70Z Performance of Urinary Filtration, Intermittent, Less than 6 Hours Per Day (ICD-10-PCS; 2021-04-23)
PROC: 057Y3ZZ Dilation of Upper Vein, Percutaneous Approach (ICD-10-PCS; 2021-04-24)
PROC: 0BH17EZ Insertion of Endotracheal Airway into Trachea, Via Natural or Artificial Opening (ICD-10-PCS; principal; 2021-04-25)
DX: T82.856A Stenosis of peripheral vascular stent, initial encounter (principal); N18.6 End stage renal disease; T82.49XA Other complication of vascular dialysis catheter, initial encounter; S22.49XA Multiple fractures of ribs, unspecified side, initial encounter for closed fracture; I13.2 Hypertensive heart and chronic kidney disease with heart failure and with stage 5 chronic kidney disease, or end stage renal disease; E87.5 Hyperkalemia; D64.9 Anemia, unspecified; E11.22 Type 2 diabetes mellitus with diabetic chronic kidney disease; E11.51 Type 2 diabetes mellitus with diabetic peripheral angiopathy without gangrene; E11.649 Type 2 diabetes mellitus with hypoglycemia without coma; E78.00 Pure hypercholesterolemia, unspecified; E78.5 Hyperlipidemia, unspecified; F03.90 Unspecified dementia, unspecified severity, without behavioral disturbance, psychotic disturbance, mood disturbance, and anxiety; I25.10 Atherosclerotic heart disease of native coronary artery without angina pectoris; I25.2 Old myocardial infarction; I48.91 Unspecified atrial fibrillation; I50.9 Heart failure, unspecified; W01.0XXA Fall on same level from slipping, tripping and stumbling without subsequent striking against object, initial encounter; Z99.2 Dependence on renal dialysis; E21.3 Hyperparathyroidism, unspecified; F41.9 Anxiety disorder, unspecified; M10.9 Gout, unspecified; M19.90 Unspecified osteoarthritis, unspecified site; I49.01 Ventricular fibrillation; Z20.822 Contact with and (suspected) exposure to COVID-19; Z88.8 Allergy status to other drugs, medicaments and biological substances
CPT/HCPCS: 36415; 36556; 36902; 70450; 71045; 71250; 72125; 74176; 76937; 80048; 80053; 82962; 84132; 85007; 85025; 86706; 87340; 93005; 94640; 94760; 96374; 96375; 99152; 99153; C1725; C1892; C1894; J0171; J0610; J1200; J1644; J1815; J2250; J2405; J2930; J3010; J3490; Q9967; U0003; U0005; 97110-GP; 97116-GP; 97530-GO; 97530-GP; 97535-GO; 99285-25; G0378; J7613